=== PATIENT | male | born 1945 | race Caucasian/White ===

== ENCOUNTER → 2017-09-02 15:47 | Outpatient (CLI) | payer MEDICARE, SELFPAY | PROVIDERS: Family Provider Family Medicine Geriatric Medicine; PCP Family Medicine Geriatric Medicine; Visit Provider Otolaryngology | DX: J03.90 Acute tonsillitis, unspecified (principal) | CPT/HCPCS: 87070; 87077 ==

== ENCOUNTER → 2017-09-22 17:33 | Outpatient (CLI) | payer MEDICARE, SELFPAY ==
--- NOTE | 2017-09-22 17:35 | CT_ITS ---
STUDY: CT SOFT TISSUE NECK WITH CONTRAST REASON FOR EXAM: Male, 72 years old. RT TONSIL NEOPLASM, HX-ZBIGNIEW CELL CANCER WITH RAD TX, CLEFT PALATE REPAIR, HX-TIA, HTN. RADIATION DOSAGE (If Supplied By Facility): CTDIvol = ( 22.65 ) mGy, DLP = ( 752.42 ) mGycm TECHNIQUE: The patient was scanned in a multi-detector CT scanner. High resolution transaxial imaging was performed following intravenous administration of 75 ml of Isovue 300 contrast material. Sagittal and coronal images were reconstructed. Individualized dose optimization techniques were used for this CT. COMPARISON: None. FINDINGS: Normal bilateral parotid glands. 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 Normal bilateral parapharyngeal spaces. Normal bilateral carotid spaces. Normal bilateral sublingual and submandibular glands and spaces. Normal visualized nasopharynx. Normal retropharyngeal space. Normal perivertebral space. There is heterogeneity and enlargement of the right tonsil in comparison with the left. The visualized tongue, tongue base and oropharynx are normal. The visualized cervical lymph nodes (levels I-) are within normal size limits, and maintain normal morphology. Normal epiglottis, bilateral vallecula. The pre-epiglottic and paraglottic adipose spaces are normal. Normal visualized bilateral piriform sinuses, aryepiglottic folds, vocal cords, and arytenoid-cricoid articulations. Normal subglottic trachea. Normal bilateral lobes of the thyroid gland. Normal visualized pulmonary apices. Normal visualized paranasal sinuses. There is multilevel degenerative changes of the cervical spine. CT/Soft Tissue Neck WITH Contrast IMPRESSION: No lymphadenopathy. Enlargement of the right tonsillar pillar. Comparison with prior examinations and/or further evaluation with PET scan can be obtained. Electronically Signed: Alexx Cisneros MD at 15:56 EST Tel , Service support ,
[2017-09-22 17:46] LABS: CREATININE FINGERSTICK 1.2 mg/dL (0.70-1.30); EGFR FINGERSTICK > 60.0000 mL/min (>60)
== END ==
PROVIDERS: Family Provider Family Medicine Geriatric Medicine; PCP Family Medicine Geriatric Medicine; Visit Provider Otolaryngology
DX: D49.0 Neoplasm of unspecified behavior of digestive system (principal)
CPT/HCPCS: 70491; Q9967

== ENCOUNTER → 2017-09-25 11:28 | Outpatient (CLI) | payer MEDICARE, SELFPAY ==
[2017-09-24 10:04] VITALS: BMI 31.2
[2017-09-25 12:33] LABS: Absolute Lymphocyte Count 1.11 X10^3/ul (0.83-4.51); Absolute Neutrophil Count 8.4 X10^3/uL (2.0-7.7); Basophil# 0.04 X10^3/uL; Basophil% 0.4 % (0-1); Eosinophil# 0.18 X10^3/uL; Eosinophils% 1.7 % (0-5); Hematocrit 42.3 % (40-54); Hemoglobin 14.1 g/dl (13.0-16.5); Lymphocyte # 1.11 X10^3/ul (4.0); Lymphocyte % 10.4 % (19-41); Mean Corp Hgb Conc 33.3 g/gl (32-36); Mean Corpuscular Hgb 30.1 pg (27.0-32.0); Mean Corpuscular Volume 90.2 fL (80-94); Mean Platelet Vol. 8.9 fl (6.2-12.0); Monocyte# 0.77 X10^3/uL; Monocyte% 7.2 % (0-10); Neutrophil # 8.41 X10^3/uL (2.7-7.7); Neutrophil % 79.1 % (47-70); Platelet Count 177 K/mm3 (150-450); RBC Distribution Width CV 16.6 % (11.6-14.6); RBC Distribution Width SD 54.8 fl (35.1-43.9); Red Blood Count 4.69 M/mm3 (4.6-6.2); White Blood Count 10.6 K/mm3 (4.4-11.0)
[2017-09-25 12:45] LABS: POSITIVE COUNT NO; POSITIVE DIFFERENTIAL NO; POSITIVE MORPHOLOGY NO
[2017-09-25 13:02] LABS: Anion Gap 6 (5-15); BUN 29 mg/dL (7-18); BUN/Creat Ratio 21.8 RATIO (10-20); Calcium,Total 9.2 mg/dL (8.5-10.1); Chloride 108 mmol/L (98-107); Creatinine, Serum 1.33 mg/dL (0.70-1.30); EST Glomerular Filtration Rate 56 mL/min (>60); Est Glom Filt Rate - Afr Amer 68 mL/min (>60); Glucose 110 mg/dL (74-106); Potassium 4.7 mmol/L (3.5-5.1); Sodium Level 139 mmol/L (136-145)
== END ==
PROVIDERS: Family Provider Family Medicine Geriatric Medicine; PCP Family Medicine Geriatric Medicine; Visit Provider Otolaryngology
DX: Z01.818 Encounter for other preprocedural examination (principal)
CPT/HCPCS: 36415; 80048; 85025

== ENCOUNTER → 2017-09-28 15:52 | Outpatient (CLI) | payer MEDICARE, SELFPAY ==
[2017-09-24 10:04] VITALS: BMI 31.2
--- NOTE | 2017-09-28 | IMM_PTH ---
PATIENT: ASA GOINS LOC: [facility] U#:[id number] AGE/SX: 80/M ROOM: RE09/28/[address]: Dr. Jay Garcia MD : 1945 BED: DIS: SPEC #: [id number] RECD: 09/30/17 16:40 STATUS: RAN REQ #: [id number] MINA: 09/28/17 00:[address]: Jay Garcia DEPT: IMMUNOHISTOCHEMISTRY RECD BY: Macrina Garcia ENTERED: 09/30/17 16:42 SP TYPE: IMMUNO OTHR DR: Dr. Garrett Hernandez MD Tissues: Tonsil, NOS Procedures: Synapto (add) NAPSIN A (add) BCL-2 (add) BCL-6 (add) CD10 (add) CD20 (add) CD23 (add) CD3 (add) CD30 (add) CD43 (add) CD45 (add) CD5 (add) CD56 (add) CD79A (add) CHROMO (add) CK20 (add) CK7 (add) CK8 (add) CYCLIN (add) KI-67 (add) TTF1 (add) MUM1 (add) C-MYC (add) Pankeratin (initial) PHYSICIAN & [place] [id number] SPECIMEN INFORMATION: Tissue Source: Right tonsil, tonsillectomy Clinical Info: Right tonsillar hypertrophy Specimen Number: [id number] #[id number] CPT code: 43718, 16801 x23 METHODOLOGY: Deparaffinized sections of prefer/formalin-fixed tissue or PAP/DQ stained slides are incubated with monoclonal/polyclonal antibodies/oligonucleotide probes. Localization is made via biotin free immunoperoxidase method. Appropriate controls are performed and reacted as expected. Results on target cell population are indicated in the following table: RESULTS: ANTIBODY / CLONE RESULT Block #2 AE1-3 (AE1/AE3/PCK26) positive CK8 (83syjeF71) positive, perinuclear dot pattern CD3 (PS1) negative CD5 (SP10) negative CD20 (L26) negative CD43 (L60) negative CD45 (RP2/18) negative CD79a (11E3) negative CD10 (56C6) negative CD23 (1B12) negative CD30 (Riky-H2) negative BCL-2 (bcl-2/100/D5) positive BCL-6 (II253U/A8) negative Cyclin D1/BCL-1 (SP4) negative MUM1 (MRQ-43) negative C-MYC (Y69) negative Ki-67 (30-9) positive, high TTF-1 (8G7G3/1) negative Napsin A (Rabbit Polyclonal) negative CD56 (123C3.D5) positive Synapto (polyclonal) positive Chromo (LK2H10) positive CK7 (OV-TL12/30) negative CK20 (KS20.8) positive These tests were developed and their performance characteristics determined by [facility]. They may not have been cleared or approved by the U.S. Food and Drug Administration. The FDA has determined that such clearance or approval is not necessary. INTERPRETATION: Right tonsil, tonsillectomy: Consistent withl neuroendocrine carcinoma. Comment: IHC profile favors [place] cell carcinoma. This case has been reviewed in consultation with Dr. Randhawa who concurs with the above diagnosis. SJ:jabier 10/05/17
--- NOTE | 2017-09-28 | IMM_PTH ---
PATIENT: ASA GOINS LOC: [facility] U#:[id number] AGE/SX: 80/M ROOM: RE09/28/[address]: Dr. Jay Garcia MD : 1945 BED: DIS: SPEC #: [id number] RECD: 09/30/17 16:40 STATUS: RAN REQ #: [id number] MINA: 09/28/17 00:[address]: Jay Garcia DEPT: IMMUNOHISTOCHEMISTRY RECD BY: Macrina Garcia ENTERED: 09/30/17 16:42 SP TYPE: IMMUNO OTHR DR: Dr. Garrett Hernandez MD Tissues: Tonsil, NOS Procedures: Synapto (add) NAPSIN A (add) BCL-2 (add) BCL-6 (add) CD10 (add) CD20 (add) CD23 (add) CD3 (add) CD30 (add) CD43 (add) CD45 (add) CD5 (add) CD56 (add) CD79A (add) CHROMO (add) CK8 (add) CYCLIN (add) KI-67 (add) TTF1 (add) MUM1 (add) C-MYC (add) Pankeratin (initial) PHYSICIAN & [place] [address] SPECIMEN INFORMATION: Tissue Source: Right tonsil, tonsillectomy Clinical Info: Right tonsillar hypertrophy Specimen Number: [id number] #[id number] CPT code: 66938, 21681 x21 METHODOLOGY: Deparaffinized sections of prefer/formalin-fixed tissue or PAP/DQ stained slides are incubated with monoclonal/polyclonal antibodies/oligonucleotide probes. Localization is made via biotin free immunoperoxidase method. Appropriate controls are performed and reacted as expected. Results on target cell population are indicated in the following table: RESULTS: ANTIBODY / CLONE RESULT Block #2 AE1-3 (AE1/AE3/PCK26) positive CK8 (33sawwG82) positive CD3 (PS1) negative CD5 (SP10) negative CD20 (L26) negative CD43 (L60) negative CD45 (RP2/18) negative CD79a (11E3) negative CD10 (56C6) negative CD23 (1B12) negative CD30 (Riky-H2) negative BCL-2 (bcl-2/100/D5) positive BCL-6 (TW251B/A8) negative Cyclin D1/BCL-1 (SP4) negative MUM1 (MRQ-43) negative C-MYC (Y69) negative Ki-67 (30-9) positive, high TTF-1 (8G7G3/1) negative Napsin A (Rabbit Polyclonal) negative CD56 (123C3.D5) positive Synapto (polyclonal) positive Chromo (LK2H10) positive These tests were developed and their performance characteristics determined by [facility]. They may not have been cleared or approved by the U.S. Food and Drug Administration. The FDA has determined that such clearance or approval is not necessary. INTERPRETATION: Right tonsil, tonsillectomy: Poorly differentiated small cell neuroendocrine carcinoma. SJ:jabier 10/01/17
--- NOTE | 2017-09-28 11:15 | TONS_PTH ---
PATIENT: ASA GOINS LOC: [facility] U#:[id number] AGE/SX: 80/M ROOM: RE09/28/[address]: Dr. Jay Garcia MD : 1945 BED: DIS: SPEC #: [id number] RECD: 09/28/17 15:25 STATUS: RAN KAVITA #: [id number] MINA: 09/28/17 11:[address]: Jay Garcia DEPT: SURGICAL PATHOLOGY RECD BY: Tai Topete ENTERED: 09/29/17 09:51 SP TYPE: TONSILS OTHR DR: Dr. Garrett Hernandez MD [facility] Tissues: Tonsil, NOS Procedures: Special Stain Group II Surgery Specimen Level IV Diff Quik Stain (control) H & E (control) HEADER OPERATION: Right tonsillectomy PRE-OP DIAGNOSIS: Right tonsillar hypertrophy; evaluate for carcinoma and lymphoma TISSUE SUBMITTED: Right tonsil (in saline only) MICROSCOPIC DIAGNOSIS Right tonsil, tonsillectomy: Consistent with neuroendocrine carcinoma. See comment. SJ:rg 10/01/17 COMMENT The specimen is evaluated at the time of touch imprints by Dr. Callaway. Immediate Evaluation = Small round blue cells noted, differential diagnosis includes lymphoma versus small cell carcinoma. Immunohistochemistry ([id number]) supports the above diagnosis. The findings may represents [place] cell carcinoma. Flow cytometry from [facility] shows CD45 negative, CD56 positive large cells. Complete report is viewable in patient?s EMR. Please make reference to previous specimen ([id number]) right axillary mass, ultrasound-guided core biopsy with diagnosis of consistent with small cell carcinoma. The specimen was sent to 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 The slides of previous case [id number] are reviewed and previous case and current case show similar morphology and immunohistochemical profile. Case has been reviewed in consultation with Dr. Randhawa who concurs with the above diagnosis. IDC:AM MICROSCOPIC DESCRIPTION Slides are reviewed. GROSS DESCRIPTION Received is one container labeled with the patient's name and designated right tonsil (in saline only). The specimen consists of an ovoid piece of rdz-pink, lobulated soft tissue consistent with tonsil tissue measuring 4 x 4 x 2 cm. Serial sections reveal rdz, fleshy cut surfaces. A section is submitted for flow cytometry study. Four touch imprints are prepared, two stained with Diff-Quick and two stained with H?&?E stain. The entire specimen is submitted in five cassettes. / SJ:rg 09/29/17 TC:0 CPT: 47780, 39610 ADDENDUM ADDENDUM ADDENDUM ADDENDUM ADDENDUM ADDENDUM ADDENDUM ADDENDUM ADDENDUM ADDENDUM ADDENDUM ADDENDUM 10/20/2017 11:52 ADDENDUM 10/20/2017 11:52 ADDENDUM 10/20/2017 11:52 ADDENDUM 10/20/2017 11:52 ADDENDUM 10/20/2017 11:52 Right tonsil, tonsillectomy: More than >95% of the specimen is involved by the tumor. The tumor measures ~4 cm in greatest dimension. The tumor is present at cauterized margin of the specimen adjacent to the skeletal muscle and minor salivary gland tissue. Most likely deep margin is positive for tumor. SJ:jabier 10/20/17 This case is discussed with Dr. Bauer on 10/20/17. Case has been reviewed in consultation with Dr. Randhawa who concurs with the above diagnosis. IDC:AM
--- NOTE | 2017-09-28 11:15 | TONS_PTH ---
PATIENT: ASA GOINS LOC: [facility] U#:[id number] AGE/SX: 80/M ROOM: RE09/28/[address]: Dr. Jay Garcia MD : 1945 BED: DIS: SPEC #: [id number] RECD: 09/28/17 15:25 STATUS: RAN KAVITA #: [id number] MINA: 09/28/17 11:[address]: Jay Garcia DEPT: SURGICAL PATHOLOGY RECD BY: Tai Topete ENTERED: 09/29/17 09:51 SP TYPE: TONSILS OTHR DR: Dr. Garrett Hernandez MD [facility] Tissues: Tonsil, NOS Procedures: Special Stain Group II Surgery Specimen Level IV Diff Quik Stain (control) H & E (control) HEADER OPERATION: Right tonsillectomy PRE-OP DIAGNOSIS: Right tonsillar hypertrophy; evaluate for carcinoma and lymphoma TISSUE SUBMITTED: Right tonsil (in saline only) MICROSCOPIC DIAGNOSIS Right tonsil, tonsillectomy: Poorly differentiated small cell neuroendocrine carcinoma. See comment. SJ:jabier 10/01/17 COMMENT The specimen is evaluated at the time of touch imprints by Dr. Callaway. Immediate Evaluation = Small round blue cells noted, differential diagnosis includes lymphoma versus small cell carcinoma. Immunohistochemistry ([id number]) supports the above diagnosis. Flow cytometry from [facility] shows CD45 negative, CD56 positive large cells. Complete report is viewable in patient?s EMR. Please make reference to previous specimen ([id number]) right axillary mass, ultrasound-guided core biopsy with diagnosis of consistent with small cell carcinoma. MICROSCOPIC DESCRIPTION Slides are reviewed. GROSS DESCRIPTION Received is one container labeled with the patient's name and designated right tonsil (in saline only). The specimen consists of an ovoid piece of rdz-pink, lobulated soft tissue consistent with lymph node tissue measuring 4 x 4 x 2 cm. Serial sections reveal rdz, fleshy cut surfaces. A section is submitted for flow cytometry study. Four touch imprints are prepared, two stained with Diff-Quick and two stained with H?&?E stain. The entire specimen is submitted in five cassettes. / MICHELLE:jabier 09/29/17 TC:0 CPT: 22152, 79399
== END ==
PROVIDERS: Family Provider Family Medicine Geriatric Medicine; PCP Family Medicine Geriatric Medicine; Visit Provider Otolaryngology
DX: J35.1 Hypertrophy of tonsils (principal)
CPT/HCPCS: 88304; 88305; 88313; 88341; 88342

== ENCOUNTER 2017-09-30 14:42 | Observation (INO) | payer MEDICARE, SELFPAY ==
[2017-09-24 10:04] VITALS: BMI 31.2
[2017-09-30 14:45] VITALS: BMI 30.2
[2017-09-30 15:03] VITALS: BP 148/89; PULSE 72; RESP 18; TEMP 36.7; O2SAT 98
--- NOTE | 2017-09-30 15:32 | ECHOD_ITS ---
Reason For Study: SYNCOPE Procedure This was a 2D Doppler, Color Flow transthoracic echocardiogram. Contrast injection was performed. The study was technically difficult. The exam was of poor technical quality due to poor acoustic windows. Exam performed portable in patient room. Left Ventricle Mild concentric left ventricular hypertrophy. The estimated ejection fraction is 65 %. Stage 1 diastolic dysfunction. No regional wall motion abnormalities noted. Right Ventricle Normal size and thickness. Normal systolic function. Atria Normal left atrium. Normal right atrium. Normal atrial septum. Mitral Valve The mitral valve is structurally normal. No prolapse or stenosis seen. Tricuspid Valve Normal tricuspid valve. Trivial tricuspid valve insufficiency. Right ventricular systolic pressure estimated to be 20 mmHg. Aortic Valve Trisinus/trileaflet aortic valve. Normal aortic valve. Pulmonic Valve Normal pulmonic valve. Great Vessels Normal aortic root. Normal arch. Normal inferior vena cava. Inferior vena cava collapse with sniff. Pericardium/Pleural No pericardial effusion. Medication Diluted definity 4ml given slow IV push to enhance endocardial definition. MMode/2D Measurements & Calculations LVIDd: 3.9 cm IVSd: 1.5 cm Ao root diam: 4.5 cm LVIDs: 2.6 cm LVPWd: 1.4 cm LA dimension: 3.3 cm FS: 34.0 % Doppler Measurements & Calculations MV E max lyly: 64.2 cm/sec Ao V2 max: 102.4 cm/sec LV V1 max: 92.2 cm/sec MV A max lyly: 74.1 cm/sec Ao max P.2 mmHg LV V1 max P.4 mmHg MV E/A: 0.87 PA V2 max: 106.7 cm/sec TR max lyly: 190.2 cm/sec TR max P.5 mmHg Interpretation Summary Mild concentric left ventricular hypertrophy. The estimated ejection fraction is 65 %. Stage 1 diastolic dysfunction. Trivial tricuspid valve insufficiency. Right ventricular systolic pressure estimated to be 20 mmHg. The study was technically difficult. There is no comparison study available. Contrast injection was performed. Ordering Physician: Elmo Roman Referring Physician: Garrett Hernandez Chi Performed By: Sari Avila RDCS, RVT
[2017-09-30 15:42] VITALS: PULSE 68
[2017-09-30] MEDS: 0.9% Normal Saline 1,000 ML 150 ML IV ×2 (16:07→23:06)
--- NOTE | 2017-09-30 16:35 | PCM.HP.STD ---
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 Garcia on 09/28/2017 presented following a syncopal episode. Patient patient did experience lightheadedness on the morning of his presentation. He apparently attributed to side effect of Percocet which was prescribed following his recent surgery. He apparently fell to the ground hitting his head. He managed to get up and called the squad and presented to [place] ED. He underwent subsequent workup including head CT which was negative for any intracranial bleed he however did experience a frontal subcutaneous hematoma patient was found to be orthostatic with acute kidney injury he however requested to be transferred to [facility] for management. Past Medical History Past Medical History (Chronic Problems): Chronic Problems (Last Updated 09/24/17 @ 10:08 by Luci Alberto RN) Harinder cell carcinoma (Chronic) Recurrent tonsillitis (Chronic) Essential (primary) hypertension (Chronic) BPH (benign prostatic hyperplasia) (Chronic) Allergies oxycodone [From OxyContin] Adverse Reaction (Severe, Verified 09/24/17 09:58) Other lethargic -sleepy Home Medications: Ambulatory Orders Medication Instructions Recorded Aspirin [Aspir-Low] 81 mg PO DAILY 12/08/16 Finasteride [Finasteride] 5 mg PO DAILY 12/08/16 Metoprolol Succinate [Toprol Xl] 25 mg PO DAILY 12/08/16 Omeprazole [Omeprazole] 10 mg PO DAILY 12/08/16 Pravastatin [Pravachol] 40 mg PO QHS 12/08/16 Valsartan [Diovan] 160 mg PO DAILY 12/08/16 Tamsulosin HCl [Flomax] 0.4 mg PO DAILY 12/10/16 Linacolotide [Linzess] 145 mcg PO DAILY 12/11/16 Sodium Chloride 0.65% [[place] Nasal 1 spray NASAL PRN PRN 09/30/17 Milligan] Smoking Status: Former smoker Review of Systems Constitutional: Denies: Anorexia, Chills, Fever, Night Sweats, Weight Change HEENT: Denies: Head Aches, Sinus Congestion, Sinus Drainage Cardiovascular: Reports: Light Headedness, Syncope. Denies: Chest Pain, Orthopnea, Palpitations, Paroxysmal Noc. Dyspnea Respiratory: Denies: Cough, Shortness of breath at rest, Shortness of breath upon exertion, Sputum production Gastrointestinal: Denies: Abdominal Pain, Hematemesis, Hematochezia, Nausea, Melena, Vomiting Genitourinary: Denies: Dysuria, Frequency, Hematuria, Urgency Musculoskeletal: Denies: Joint Pain, Joint Tenderness Skin: Denies: Rash Neurological: Denies: Focal weakness, Numbness, Tingling Psychiatric: Denies: Homicidal Ideations, Suicidal Ideations Hematologic/ Lymphatic: Denies: Easy Bruising, Easy Bleeding VTE Information - Inpt Only VTE Present on Admission: No VTE Mechan Device Prophylaxis: Knee High TACOS Hose VTE Pharm Prophylaxis ordered?: Yes Patient Problems: Active and Suspected Problems (Last Updated 09/24/17 @ 10:08 by Luci Alberto RN) HARINDER (acute kidney injury) (Acute) Syncope (Acute) Orthostatic hypotension (Acute) Objective: GENERAL: cooperative HEENT: Right frontal hematoma NECK; supple, normal thyroid, CHEST: Clear and to auscultation bilaterally, HEART: Regular S1 S2, no audible murmurs ABDOMEN: soft, normoactive bowel sounds, RECTAL: deferred EXTREMITIES: No edema, no clubbing, no cyanosis. 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, SKIN: Abrasions on left wrist and both knees - Physical Exam Vital Signs Temp Pulse Resp BP Pulse Ox 98.0 F 68 18 148/89 H 98 09/30/17 15:03 09/30/17 15:42 09/30/17 15:03 09/30/17 15:03 09/30/17 15:03 Oxygen Delivery Method Room Air Weight: 104 kg Body Mass Index (BMI) 30.2 Laboratory Tests Past 24 Hrs 09/30/17 09/30/17 16:30 16:30 Sodium Pending Potassium Pending Chloride Pending Carbon Dioxide Pending Anion Gap Pending BUN Pending Creatinine Pending Est GFR (MDRD) Af Amer Pending Est GFR (MDRD) Non-Af Pending BUN/Creatinine Ratio Pending Glucose Pending Calcium Pending Magnesium Pending Total Bilirubin Pending AST Pending ALT Pending Alkaline Phosphatase Pending Troponin I Pending Total Protein Pending Albumin Pending TSH Pending Assessment/Plan Active and Suspected Problems (Last Updated 09/24/17 @ 10:08 by Luci Alberto RN) HARINDER (acute kidney injury) (Acute) Syncope (Acute) Orthostatic hypotension (Acute) Patient is a 72-year-old gentleman admitted with syncopal episode 1. Syncopal episode suspected to be secondary to orthostatic hypotension: Patient has been admitted to monitored bed requested for every shift orthostatic checks continuous telemetry monitoring serial cardiac enzymes and electrolytes. Patient was also managed IV fluids 2. Acute kidney injury secondary to dehydration patient on fluids with monitoring of electrolyte 3. Recent tonsillectomy on 09/28/2017 4. History of medical cell carcinoma did complete radiation therapy at the [facility] 5. Hypertension with patient being orthostatic hypotensive his antihypertensive medications were adjusted accordingly 6. BPH patient is on Flomax 7. Obesity with BMI of 30.2 weight loss advised 8. DVT prophylaxis SC heparin Code Visit OBSV E&M: 55617 Initial observation care L3
--- NOTE | 2017-09-30 16:48 | HP.PCM_ITS ---
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 Garcia on 2017 presented following a syncopal episode. Patient patient did experience lightheadedness on the morning of his presentation. He apparently attributed to side effect of Percocet which was prescribed following his recent surgery. He apparently fell to the ground hitting his head. He managed to get up and called the squad and presented to [facility]. He underwent subsequent workup including head CT which was negative for any intracranial bleed he however did experience a frontal subcutaneous hematoma patient was found to be orthostatic with acute kidney injury he however requested to be transferred to [facility] for management. Past Medical History Past Medical History (Chronic Problems): Chronic Problems (Last Updated 09/24/17 @ 10:08 by Luci Alberto RN) Harinder cell carcinoma (Chronic) Recurrent tonsillitis (Chronic) Essential (primary) hypertension (Chronic) BPH (benign prostatic hyperplasia) (Chronic) Allergies oxycodone [From OxyContin] Adverse Reaction (Severe, Verified 09/24/17 09:58) Other lethargic -sleepy Home Medications: Ambulatory Orders Medication Instructions Recorded Aspirin [Aspir-Low] 81 mg PO DAILY 12/08/16 Finasteride [Finasteride] 5 mg PO DAILY 12/08/16 Metoprolol Succinate [Toprol Xl] 25 mg PO DAILY 12/08/16 Omeprazole [Omeprazole] 10 mg PO DAILY 12/08/16 Pravastatin [Pravachol] 40 mg PO QHS 12/08/16 Valsartan [Diovan] 160 mg PO DAILY 12/08/16 Tamsulosin HCl [Flomax] 0.4 mg PO DAILY 12/10/16 Linacolotide [Linzess] 145 mcg PO DAILY 12/11/16 Sodium Chloride 0.65% [[place] Nasal 1 spray NASAL PRN PRN 09/30/17 [place]] Smoking Status: Former smoker Review of Systems Constitutional: Denies: Anorexia, Chills, Fever, Night Sweats, Weight Change HEENT: Denies: Head Aches, Sinus Congestion, Sinus Drainage Cardiovascular: Reports: Light Headedness, Syncope. Denies: Chest Pain, Orthopnea, Palpitations, Paroxysmal Noc. Dyspnea Respiratory: Denies: Cough, Shortness of breath at rest, Shortness of breath upon exertion, Sputum production Gastrointestinal: Denies: Abdominal Pain, Hematemesis, Hematochezia, Nausea, Melena, Vomiting Genitourinary: Denies: Dysuria, Frequency, Hematuria, Urgency Musculoskeletal: Denies: Joint Pain, Joint Tenderness Skin: Denies: Rash Neurological: Denies: Focal weakness, Numbness, Tingling Psychiatric: Denies: Homicidal Ideations, Suicidal Ideations Hematologic/ Lymphatic: Denies: Easy Bruising, Easy Bleeding VTE Information - Inpt Only VTE Present on Admission: No VTE Mechan Device Prophylaxis: Knee High TACOS Hose VTE Pharm Prophylaxis ordered?: Yes Patient Problems: Active and Suspected Problems (Last Updated 09/24/17 @ 10:08 by Luci Alberto RN) HARINDER (acute kidney injury) (Acute) Syncope (Acute) Orthostatic hypotension (Acute) Objective: GENERAL: cooperative HEENT: Right frontal hematoma NECK; supple, normal thyroid, CHEST: Clear and to auscultation bilaterally, HEART: Regular S1 S2, no audible murmurs ABDOMEN: soft, normoactive bowel sounds, RECTAL: deferred EXTREMITIES: No edema, no clubbing, no cyanosis. 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, SKIN: Abrasions on left wrist and both knees - Physical Exam Vital Signs Temp Pulse Resp BP Pulse Ox 98.0 F 68 18 148/89 H 98 09/30/17 15:03 09/30/17 15:42 09/30/17 15:03 09/30/17 15:03 09/30/17 15:03 Oxygen Delivery Method Room Air Weight: 104 kg Body Mass Index (BMI) 30.2 Laboratory Tests Past 24 Hrs 09/30/17 09/30/17 16:30 16:30 Sodium Pending Potassium Pending Chloride Pending Carbon Dioxide Pending Anion Gap Pending BUN Pending Creatinine Pending Est GFR (MDRD) Af Amer Pending Est GFR (MDRD) Non-Af Pending BUN/Creatinine Ratio Pending Glucose Pending Calcium Pending Magnesium Pending Total Bilirubin Pending AST Pending ALT Pending Alkaline Phosphatase Pending Troponin I Pending Total Protein Pending Albumin Pending TSH Pending Assessment/Plan Active and Suspected Problems (Last Updated 09/24/17 @ 10:08 by Luci Alberto RN) HARINDER (acute kidney injury) (Acute) Syncope (Acute) Orthostatic hypotension (Acute) Patient is a 72-year-old gentleman admitted with syncopal episode 1. Syncopal episode suspected to be secondary to orthostatic hypotension: Patient has been admitted to monitored bed requested for every shift orthostatic checks continuous telemetry monitoring serial cardiac enzymes and electrolytes. Patient was also managed IV fluids 2. Acute kidney injury secondary to dehydration patient on fluids with monitoring of electrolyte 3. Recent tonsillectomy on 09/28/2017 4. History of medical cell carcinoma did complete radiation therapy at the [email or web address]] 5. Hypertension with patient being orthostatic hypotensive his antihypertensive medications were adjusted accordingly 6. BPH patient is on Flomax 7. Obesity with BMI of 30.2 weight loss advised 8. DVT prophylaxis SC heparin Code Visit OBSV E&M: 69361 Initial observation care L3
[2017-09-30 17:24] LABS: Bacteria 0 SEEN /hpf (None Seen); Mucous, Urine 0 SEEN /hpf (<or=2+); Red Blood Cells-Urine 0 SEEN /hpf (0-5); Squamous Epithelial Cells - UA 0 SEEN /hpf (0-5); White Blood Cells 0 SEEN /hpf (0-5)
[2017-09-30 17:26] LABS: Color, Urine Yellow (Yellow); Glucose, Dipstick Normal (Normal); Ketone-Dipstick Negative (Negative); Leukocyte Esterase-Dipstick Negative /ul (Negative); Nitrite-Dipstick Negative (Negative); Occult Blood-Urine Negative /ul (Negative); Protein-Dipstick Negative (Negative); Urine Bilirubin Dipstick Negative (Negative); Urine Clarity Clear (Clear); Urine Urobilinogen Normal (Normal)
[2017-09-30 17:47] LABS: ALB/GLOB Ratio 0.8 RATIO (0.9-2.4); AST(SGOT) 44 U/L (15-37); Alanine Aminotransfer ALT/SGPT 36 U/L (16-61); Albumin, Serum 3.2 g/dL (3.2-5.0); Alkaline Phosphatase 63 U/L (45-117); Anion Gap 12 (5-15); BUN 27 mg/dL (7-18); BUN/Creat Ratio 20.5 RATIO (10-20); Chloride 109 mmol/L (98-107); Creatinine, Serum 1.32 mg/dL (0.70-1.30); EST Glomerular Filtration Rate 57 mL/min (>60); Est Glom Filt Rate - Afr Amer 68 mL/min (>60); Estimated Creatinine Clearance 56.33 ml/min; Globulin 4.2 g/dL (2.2-4.2); Glucose 84 mg/dL (74-106); Magnesium 2.2 mg/dL (1.6-2.6); Potassium 4.5 mmol/L (3.5-5.1); Protein, Total 7.4 g/dL (6.4-8.2); Sodium Level 137 mmol/L (136-145)
[2017-09-30 17:58] LABS: Thyroid Stim Hormone (TSH) 1.68 uIU/mL (0.358-3.74)
[2017-09-30] MEDS: Pantoprazole Sodium 20 MG Tablet PO (18:39)
[2017-09-30] MEDS: Tamsulosin HCl 0.4 MG Capsule PO (18:39)
[2017-09-30] MEDS: Finasteride 5 MG Tablet PO (18:40)
--- NOTE | 2017-09-30 18:45 | NURSING ---
Patient informed this RN he was instructed by Dr Garcia not to take ASA for 2 weeks following surgery.
[2017-09-30 18:55] VITALS: PULSE 94
[2017-09-30 19:47] VITALS: PULSE 84
[2017-09-30] MEDS: Metoprolol(XL)Succ 25 MG Tablet PO (19:47)
[2017-09-30] MEDS: Acetaminophen 325 MG Tablet 650 MG PO (19:48)
[2017-09-30 20:43] VITALS: BP 150/84; PULSE 83; RESP 18; TEMP 36.6; O2SAT 94
[2017-09-30 21:41] LABS: Hematocrit 38.9 % (40-54); Hemoglobin 12.6 g/dl (13.0-16.5); Mean Corp Hgb Conc 32.4 g/gl (32-36); Mean Corpuscular Volume 89.4 fL (80-94); Platelet Count 179 K/mm3 (150-450); RBC Distribution Width CV 16.7 % (11.6-14.6); RBC Distribution Width SD 54.9 fl (35.1-43.9); Red Blood Count 4.35 M/mm3 (4.6-6.2); White Blood Count 9.7 K/mm3 (4.4-11.0)
[2017-09-30 21:42] LABS: Scan Indicated on CBC? Y/N NO
[2017-09-30] MEDS: Heparin Injection 5,000 UNITS/ML Syringe 5000 UNITS SC (21:51)
[2017-09-30] MEDS: Pravastatin 40 MG Tablet PO (21:51)
[2017-09-30 23:52] VITALS: PULSE 63
[2017-10-01] VITALS (9 sets, daily range): BP systolic 122–166; BP diastolic 71–91; PULSE 61–75; RESP 18; TEMP 36.6–36.7; O2SAT 95–100
[2017-10-01] MEDS: Acetaminophen 325 MG Tablet 650 MG PO ×2 (03:55→11:05)
[2017-10-01] MEDS: 0.9% Normal Saline 1,000 ML 150 ML IV ×2 (05:10→12:32)
[2017-10-01 06:02] LABS: Hematocrit 38.7 % (40-54); Hemoglobin 12.8 g/dl (13.0-16.5); Mean Corp Hgb Conc 33.1 g/gl (32-36); Mean Corpuscular Hgb 29.7 pg (27.0-32.0); Mean Corpuscular Volume 89.8 fL (80-94); Mean Platelet Vol. 9.3 fl (6.2-12.0); Platelet Count 189 K/mm3 (150-450); RBC Distribution Width CV 16.7 % (11.6-14.6); RBC Distribution Width SD 53.9 fl (35.1-43.9); Red Blood Count 4.31 M/mm3 (4.6-6.2); White Blood Count 8.6 K/mm3 (4.4-11.0)
[2017-10-01 06:03] LABS: Scan Indicated on CBC? Y/N NO
[2017-10-01 06:12] LABS: Anion Gap 6 (5-15); BUN 22 mg/dL (7-18); BUN/Creat Ratio 19.5 RATIO (10-20); Calcium,Total 8.3 mg/dL (8.5-10.1); Chloride 111 mmol/L (98-107); Creatinine, Serum 1.13 mg/dL (0.70-1.30); EST Glomerular Filtration Rate 68 mL/min (>60); Est Glom Filt Rate - Afr Amer 82 mL/min (>60); Glucose 117 mg/dL (74-106); Potassium 4.1 mmol/L (3.5-5.1); Sodium Level 140 mmol/L (136-145)
--- NOTE | 2017-10-01 10:22 | PCM.DC ---
- Discharge Diagnoses Current Active Problems: Current Active and Chronic Problems (Last Updated 09/24/17 @ 10:08 by Luci Alberto RN) [place] cell carcinoma (Chronic) Recurrent tonsillitis (Chronic) HARINDER (acute kidney injury) (Acute) Syncope (Acute) Orthostatic hypotension (Acute) Essential (primary) hypertension (Chronic) BPH (benign prostatic hyperplasia) (Chronic) You will use the following diet at home:: No restrictions Discharge Activity: May not drive while taking narcotic pain medications. Allergies/Adverse Reactions: Allergies oxycodone [From OxyContin] Adverse Reaction (Severe, Verified 09/24/17 09:58) Other lethargic -sleepy Medications to take at Discharge Aspirin [Aspir-Low] 81 mg PO DAILY 12/08/16 Finasteride 5 mg PO DAILY 12/08/16 Metoprolol Succinate [Toprol Xl] 25 mg PO DAILY 12/08/16 Omeprazole 10 mg PO DAILY 12/08/16 Pravastatin [Pravachol] 40 mg PO QHS 12/08/16 Valsartan [Diovan] 160 mg PO DAILY 12/08/16 Tamsulosin HCl [Flomax] 0.4 mg PO DAILY 12/10/16 Linacolotide [Linzess] 145 mcg PO DAILY 12/11/16 Sodium Chloride 0.65% [[place] Nasal [place]] 1 spray NASAL PRN PRN 09/30/17 Primary Care Physician: Garrett Hernandez Chi, MD [Primary Care Provider] - Please follow up with your Primary Care Physician in: in 5-7 days Proposed Discharge Date: 10/01/17
--- NOTE | 2017-10-01 10:24 | PCM.DC.SUM ---
Discharge Date and Diagnosis Date of Admission: 09/30/17 Date of Discharge: 10/01/17 - Primary Discharge Diagnosis Active and Suspected Problems (Last Updated 09/24/17 @ 10:08 by Luci Alberto RN) HARINDER (acute kidney injury) (Acute) Syncope (Acute) Orthostatic hypotension (Acute) - Secondary Discharge Diagnosis Chronic Problems (Last Updated 09/24/17 @ 10:08 by Luci Alberto RN) [place] cell carcinoma (Chronic) Recurrent tonsillitis (Chronic) Essential (primary) hypertension (Chronic) BPH (benign prostatic hyperplasia) (Chronic) Hospital Course and Treatment Imaging Results: Laboratory Tests 09/30/17 09/30/17 09/30/17 16:23 16:30 16:30 WBC RBC Hgb Hct MCV MCH MCHC RDW RDW Differential Plt Count MPV Sodium 137 Potassium 4.5 Chloride 109 H Carbon Dioxide 16.0 L Anion Gap 12 BUN 27 H Creatinine 1.32 H Estim Creat Clear Calc 56.33 Est GFR (MDRD) Af Amer 68 Est GFR (MDRD) Non-Af 57 L BUN/Creatinine Ratio 20.5 H Glucose 84 Calcium 9.0 Magnesium 2.2 Total Bilirubin 0.90 AST 44 H ALT 36 Alkaline Phosphatase 63 Troponin I < 0.02 Total Protein 7.4 Albumin 3.2 Globulin 4.2 Albumin/Globulin Ratio 0.8 L TSH 1.68 Urine Color Yellow Urine Clarity Clear Urine pH 6.0 Ur Specific [place] 1.010 Urine Protein Negative Urine Glucose (UA) Normal Urine Ketones Negative Urine Occult Blood Negative Urine Nitrite Negative Urine Bilirubin Negative Urine Urobilinogen Normal Ur Leukocyte Esterase Negative Urine RBC 0 SEEN Urine WBC 0 SEEN Ur Squamous Epith Cells 0 SEEN Urine Bacteria 0 SEEN Urine Mucus 0 SEEN 09/30/17 09/30/17 09/30/17 21:00 21:00 23:01 WBC 9.7 RBC 4.35 L Hgb 12.6 L Hct 38.9 L MCV 89.4 MCH 29.0 MCHC 32.4 RDW 16.7 H RDW Differential 54.9 H Plt Count 179 MPV 9.0 Sodium Potassium Chloride Carbon Dioxide Anion Gap BUN Creatinine Estim Creat Clear Calc Est GFR (MDRD) Af Amer Est GFR (MDRD) Non-Af BUN/Creatinine Ratio Glucose Calcium Magnesium Total Bilirubin AST ALT Alkaline Phosphatase Troponin I < 0.02 < 0.02 Total Protein Albumin Globulin Albumin/Globulin Ratio TSH Urine Color Urine Clarity Urine pH Ur Specific [place] Urine Protein Urine Glucose (UA) Urine Ketones Urine Occult Blood Urine Nitrite Urine Bilirubin Urine Urobilinogen Ur Leukocyte Esterase Urine RBC Urine WBC Ur Squamous Epith Cells Urine Bacteria Urine Mucus 10/01/17 10/01/17 05:25 05:25 WBC 8.6 RBC 4.31 L Hgb 12.8 L Hct 38.7 L MCV 89.8 MCH 29.7 MCHC 33.1 RDW 16.7 H RDW Differential 53.9 H Plt Count 189 MPV 9.3 Sodium 140 Potassium 4.1 Chloride 111 H Carbon Dioxide 23.0 Anion Gap 6 BUN 22 H Creatinine 1.13 Estim Creat Clear Calc 65.80 Est GFR (MDRD) Af Amer 82 Est GFR (MDRD) Non-Af 68 BUN/Creatinine Ratio 19.5 Glucose 117 H Calcium 8.3 L Magnesium Total Bilirubin AST ALT Alkaline Phosphatase Troponin I < 0.02 Total Protein Albumin Globulin Albumin/Globulin Ratio TSH Urine Color Urine Clarity Urine pH Ur Specific [place] Urine Protein Urine Glucose (UA) Urine Ketones Urine Occult Blood Urine Nitrite Urine Bilirubin Urine Urobilinogen Ur Leukocyte Esterase Urine RBC Urine WBC Ur Squamous Epith Cells Urine Bacteria Urine Mucus Summary of Care Provided: Patient is a 72-year-old gentleman admitted with syncopal episode 1. Syncopal episode suspected to be secondary to orthostatic hypotension: Patient has been admitted to monitored bed requested for every shift orthostatic checks continuous telemetry monitoring serial cardiac enzymes and electrolytes. Patient was also managed IV fluids. Patient condition did resolve. Echo demonstrated stage I diastolic dysfunction with ejection fraction of 60%. 2. Acute kidney injury secondary to dehydration patient on fluids with monitoring of electrolyte 3. Recent tonsillectomy on 09/28/2017 4. History of medical cell carcinoma did complete radiation therapy at the [facility] 5. Hypertension with patient being orthostatic hypotensive his antihypertensive medications were adjusted accordingly 6. BPH patient is on Flomax 7. Obesity with BMI of 30.2 weight loss advised 8. DVT prophylaxis SC heparin Discharge Diet: No Restrictions Discharge Activity: May not drive while taking narcotic pain medications. Home Medications: Medications to take at Discharge Aspirin [Aspir-Low] 81 mg PO DAILY 12/08/16 Finasteride 5 mg PO DAILY 12/08/16 Metoprolol Succinate [Toprol Xl] 25 mg PO DAILY 12/08/16 Omeprazole 10 mg PO DAILY 12/08/16 Pravastatin [Pravachol] 40 mg PO QHS 12/08/16 Valsartan [Diovan] 160 mg PO DAILY 12/08/16 Tamsulosin HCl [Flomax] 0.4 mg PO DAILY 12/10/16 Linacolotide [Linzess] 145 mcg PO DAILY 12/11/16 Sodium Chloride 0.65% [[place] Nasal [place]] 1 spray NASAL PRN PRN 09/30/17 Primary Care Physician: Garrett Hernandez Chi, MD [Primary Care Provider] - Please follow up with your Primary Care Physician in: in 5-7 days Disposition: Home Minutes spent on discharge:: 35 Patient Condition:: Stable Meaningful Use Info Meaningful Use Diagnoses (Choose all that apply): None applicable Code Visit OBSV E&M: 82326 Observation care discharge
[2017-10-01] MEDS: Tamsulosin HCl 0.4 MG Capsule PO (10:56)
[2017-10-01] MEDS: Pantoprazole Sodium 20 MG Tablet PO (10:56)
[2017-10-01] MEDS: Finasteride 5 MG Tablet PO (10:57)
[2017-10-01] MEDS: Heparin Injection 5,000 UNITS/ML Syringe 5000 UNITS SC (10:58)
[2017-10-01] MEDS: Metoprolol(XL)Succ 25 MG Tablet PO (11:00)
== END 2017-10-01 10:23 | disposition home or self-care (01) ==
PROVIDERS: Admitting Provider Internal Medicine; Family Provider Family Medicine Geriatric Medicine; PCP Family Medicine Geriatric Medicine; Visit Provider Internal Medicine
DX: I95.1 Orthostatic hypotension (principal); N17.9 Acute kidney failure, unspecified; N40.0 Benign prostatic hyperplasia without lower urinary tract symptoms; I10 Essential (primary) hypertension; Z85.821 Personal history of Merkel cell carcinoma; E66.9 Obesity, unspecified; Z68.30 Body mass index [BMI] 30.0-30.9, adult; Z71.3 Dietary counseling and surveillance; Z92.3 Personal history of irradiation; Z79.82 Long term (current) use of aspirin; Z79.899 Other long term (current) drug therapy; Z87.891 Personal history of nicotine dependence; E86.0 Dehydration
CPT/HCPCS: 36415; 80048; 80053; 81001; 83735; 84443; 84484; 85027; 93306; 96360; 96361; 96372; 99218; J7030; Q9957; A4216; C8929; G0378; G0379

== ENCOUNTER → 2017-10-13 14:36 | Outpatient (CLI) | payer MEDICARE, SELFPAY ==
[2017-09-24 10:04] VITALS: BMI 31.2
[2017-10-13 15:11] LABS: Absolute Lymphocyte Count 1.13 X10^3/ul (0.83-4.51); Absolute Neutrophil Count 7.6 X10^3/uL (2.0-7.7); Basophil# 0.02 X10^3/uL; Basophil% 0.2 % (0-1); Eosinophil# 0.08 X10^3/uL; Eosinophils% 0.8 % (0-5); Hematocrit 37.8 % (40-54); Hemoglobin 12.6 g/dl (13.0-16.5); Lymphocyte # 1.13 X10^3/ul (4.0); Lymphocyte % 11.6 % (19-41); Mean Corp Hgb Conc 33.3 g/gl (32-36); Mean Corpuscular Hgb 30.2 pg (27.0-32.0); Mean Corpuscular Volume 90.6 fL (80-94); Mean Platelet Vol. 9.2 fl (6.2-12.0); Monocyte# 0.81 X10^3/uL; Monocyte% 8.3 % (0-10); Neutrophil # 7.61 X10^3/uL (2.7-7.7); Neutrophil % 78.4 % (47-70); Platelet Count 207 K/mm3 (150-450); RBC Distribution Width CV 16.4 % (11.6-14.6); RBC Distribution Width SD 53.3 fl (35.1-43.9); Red Blood Count 4.17 M/mm3 (4.6-6.2); White Blood Count 9.7 K/mm3 (4.4-11.0)
[2017-10-13 15:12] LABS: POSITIVE COUNT NO; POSITIVE DIFFERENTIAL NO; POSITIVE MORPHOLOGY NO
[2017-10-13 15:25] LABS: ALB/GLOB Ratio 0.9 RATIO (0.9-2.4); AST(SGOT) 39 U/L (15-37); Alanine Aminotransfer ALT/SGPT 58 U/L (16-61); Alkaline Phosphatase 59 U/L (45-117); Anion Gap 8 (5-15); BUN 20 mg/dL (7-18); BUN/Creat Ratio 17.1 RATIO (10-20); Calcium,Total 8.4 mg/dL (8.5-10.1); Chloride 110 mmol/L (98-107); Creatinine, Serum 1.17 mg/dL (0.70-1.30); EST Glomerular Filtration Rate 65 mL/min (>60); Est Glom Filt Rate - Afr Amer 79 mL/min (>60); Globulin 3.4 g/dL (2.2-4.2); Glucose 94 mg/dL (74-106); Potassium 4.1 mmol/L (3.5-5.1); Protein, Total 6.4 g/dL (6.4-8.2); Sodium Level 143 mmol/L (136-145)
== END ==
PROVIDERS: Family Provider Family Medicine Geriatric Medicine; PCP Family Medicine Geriatric Medicine; Visit Provider Family Medicine Geriatric Medicine
DX: I10 Essential (primary) hypertension (principal); F52.8 Other sexual dysfunction not due to a substance or known physiological condition
CPT/HCPCS: 36415; 80053; 84403; 84443; 85025

== ENCOUNTER 2018-01-19 15:30 | Outpatient (RCR) | payer MEDICARE, SELFPAY ==
[2017-09-24 10:04] VITALS: BMI 31.2
--- NOTE | 2017-10-22 07:46 | HP.OTEVAL_ITS ---
Patient's Visit Information ASA GOINS is a 72 year old M, referred to Occupational Therapy by Mitch Bauer DO,, with a diagnosis of right UE lymphedema. Date of Evaluation: 10/21/17 Occupational Therapist: Azul Delgadillo, ESTEFANIA/Mta, CHT - Subjective Subjective: pt reports a complicated hx of Cancer-pt states he had sx January 06 and had 93 lymph nodes removed 2 positive- pt has had swelling in his right UE since. Pt is right handed. pt states he wears his compression sleeve with hand garment 20-30 mmHg . pt also reports he had a throat tumor that was removed by ENT. - Objective Objective/Observation: pt jenna with compression garment on right LE- it is poorly fitting sliding down his arm - allowing more compression at the elbow - so his forearm is filling up- forearm is firm to touch- hand grarment is causing swelling at pts MCPs- - ROM Shoulder: right shoulder limited with flex and external rotation Elbow: right WNL ROM Comments: pt demo with limted sholder flex- external rotation states he feels a pulling at his incision. - Lymphedema (Circumferential Measure) MCP: right 22cm left 23cm Wrist: right 20cm left 18cm Lower forearm: right 30cm left 20cm Largest forearm: right 36.5 left 29cm Elbow: right 34cm left 30cm Largest humerus: right 35cm left 31.5cm Axcillary: right 40cm left 34cm - Sensation Sensation Comments: denies - DASH-Disabilities of Arm, Shoulder& Hand DASH Sum: 62 - Goals Demonstrate a 20% reduction in edema by d/c: Yes Demonstrate adequate knowledge of self-bangaging by 1st week: Yes Demonstrate adequate knowledge of self-massage by 2nd week: Yes Demonstrate adequate knowledge skin care/prec by 2nd week: Yes Demonstrate adequate knowledge therapeutic exercises by d/c: Yes Select approp compression garment w/donning/care/wear by d/c: Yes - Rehabilitation General Assessment: pt jenna with compression garment on right LE- it is poorly fitting sliding down his arm - allowing more compression at the elbow - so his forearm is filling up- forearm is firm to touch- hand grarment is causing swelling at pts MCPs- pt would benefit from a increase in compression from 20- 30 mmHg to 30-40mmHg- for compression sleeve with silicone beaded top to assist in a decrease in the garment sliding down his arm. with use of a compression glove from DIP to forearm. would rec'd OT services 1-2x week for 4 weeks to work with decreassing pts limb size and ed. on mtg of lymphedema- pt would benefit from a home lympha press to assist with fluid mtg. Rehabilitation Potential: Good - Anticipated Interventions Anticipated Interventions: Education re Diagnosis, Manual Lymph Drainage, Education re Life-long lymphedema Management, Education re Self-Bandaging Techniques, Education re Skin Care and Precautions, Education re Self Massage Techniques, Education re Correct Donning Tech,Care&Wearing Sched Comp Garments, Caregiver Training - Visit Plan Frequency: 1-2x /Week Duration: 4 Weeks TEXT: Thank you for the opportunity to evaluate your patient. For Medicare and Medicare HMO plans, please review the plan of care and approve it. It will need to be FAXED BACK to us at [phone] for Medicare purposes. Please let me know if there are questions or concerns regarding this plan of care. Physician Signature: Date:
--- NOTE | 2018-01-19 15:54 | HP.OTDCSUM_ITS ---
HP - OT D/C Summary It has been my pleasure to treat ASA GOINS under orders from Mitch Bauer DO, for the diagnosis of right UE lymphedema for a total of 11 visit(s). Please see the following information for a summary of their discharge status. - Objective Objective/Function: right MCP 22cm. right wrist 19cm. right prox [id number] wrist. right Lower forearm 35. right UPper forearm 36. elbow 34cm. above elbow 36. axil 41 - Goals Patient Goals: Regain Mobility, Learn how to Manage Lymphedema, Learn how to Apply Compression Stockings Demonstrate a 20% reduction in edema by d/c: Yes Demonstrate adequate knowledge of self-bangaging by 1st week: Yes Demonstrate adequate knowledge of self-massage by 2nd week: Yes Demonstrate adequate knowledge skin care/prec by 2nd week: Yes Demonstrate adequate knowledge therapeutic exercises by d/c: Yes Select approp compression garment w/donning/care/wear by d/c: Yes - Plan Plan: D/C - D/C Information Discharge Comments: pt arrives to last session demo a reduction in right UE and use of compression garments- pt did get the custom compression sleeve- and pt was ed. on possible need of custom long glove to elbow to assist with circulation- pt demo understanding - pt has met functional goals and is currently d/c from OT at this time. If there are questions or concerns regarding this patient's occupational therapy , please fell free to call me at [phone]. Thank you for the referral of this patient. Sincerely, Azul Delgadillo, OTR/L, CHT
== END 2018-01-19 19:00 | disposition home or self-care (01) ==
LOC: OT 15:30
PROVIDERS: Family Provider Family Medicine Geriatric Medicine; PCP Family Medicine Geriatric Medicine; Visit Provider Student in an Organized Health Care Education/Training Program
DX: I89.0 Lymphedema, not elsewhere classified (principal)
CPT/HCPCS: 97140; 97166; 97168; 97530; G8987; G8988

== ENCOUNTER → 2018-04-28 10:51 | Outpatient (CLI) | payer MEDICARE, SELFPAY ==
[2017-09-24 10:04] VITALS: BMI 31.2
[2018-04-28 12:52] LABS: Absolute Lymphocyte Count 0.84 X10^3/ul (0.83-4.51); Absolute Neutrophil Count 6.1 X10^3/uL (2.0-7.7); Basophil# 0.04 X10^3/uL; Basophil% 0.5 % (0-1); Eosinophil# 0.15 X10^3/uL; Eosinophils% 1.9 % (0-5); Hematocrit 43.3 % (40-54); Hemoglobin 13.9 g/dl (13.0-16.5); Lymphocyte # 0.84 X10^3/ul (4.0); Lymphocyte % 10.6 % (19-41); Mean Corp Hgb Conc 32.1 g/gl (32-36); Mean Corpuscular Hgb 29.1 pg (27.0-32.0); Mean Corpuscular Volume 90.6 fL (80-94); Monocyte# 0.76 X10^3/uL; Monocyte% 9.5 % (0-10); Neutrophil # 6.14 X10^3/uL (2.7-7.7); Neutrophil % 77.1 % (47-70); Platelet Count 151 K/mm3 (150-450); RBC Distribution Width SD 49.4 fl (35.1-43.9); Red Blood Count 4.78 M/mm3 (4.6-6.2)
[2018-04-28 12:56] LABS: POSITIVE COUNT NO; POSITIVE DIFFERENTIAL NO; POSITIVE MORPHOLOGY NO
[2018-04-28 13:00] LABS: ALB/GLOB Ratio 0.9 RATIO (0.9-2.4); AST(SGOT) 14 U/L (15-37); Alanine Aminotransfer ALT/SGPT 21 U/L (16-61); Albumin, Serum 3.2 g/dL (3.2-5.0); Alkaline Phosphatase 62 U/L (45-117); Anion Gap 9 (5-15); BUN 22 mg/dL (7-18); BUN/Creat Ratio 16.4 RATIO (10-20); Calcium,Total 8.8 mg/dL (8.5-10.1); Chloride 108 mmol/L (98-107); Creatinine, Serum 1.34 mg/dL (0.70-1.30); EST Glomerular Filtration Rate 55 mL/min (>60); Est Glom Filt Rate - Afr Amer 67 mL/min (>60); Globulin 3.7 g/dL (2.2-4.2); Glucose 108 mg/dL (74-106); Potassium 4.9 mmol/L (3.5-5.1); Protein, Total 6.9 g/dL (6.4-8.2); Sodium Level 141 mmol/L (136-145); Thyroid Stim Hormone (TSH) 2.42 uIU/mL (0.358-3.74)
== END ==
PROVIDERS: Family Provider Family Medicine Geriatric Medicine; PCP Family Medicine Geriatric Medicine; Visit Provider Family Medicine Geriatric Medicine
DX: I10 Essential (primary) hypertension (principal); E55.9 Vitamin D deficiency, unspecified; F52.8 Other sexual dysfunction not due to a substance or known physiological condition
CPT/HCPCS: 36415; 80053; 82306; 84403; 84443; 85025

== ENCOUNTER → 2018-05-07 10:25 | Outpatient (CLI) | payer MEDICARE, SELFPAY ==
[2017-09-24 10:04] VITALS: BMI 31.2
[2018-05-07 12:41] LABS: PSA,Total- Diagnostic 2.38 ng/mL (0.0-4.0)
== END ==
PROVIDERS: Family Provider Family Medicine Geriatric Medicine; PCP Family Medicine Geriatric Medicine; Referring Provider Nurse Practitioner Adult Health; Visit Provider Nurse Practitioner Adult Health
DX: R97.20 Elevated prostate specific antigen [PSA] (principal)
CPT/HCPCS: 36415; 84153

== ENCOUNTER 2018-09-03 08:27 | Inpatient (IN) | payer MEDICARE, SELFPAY ==
[2017-09-24 10:04] VITALS: BMI 31.2
[2018-09-03] VITALS (11 sets, daily range): BP systolic 106–140; BP diastolic 54–72; PULSE 67–107; RESP 16–18; TEMP 36.3–37.4; O2SAT 93–96; BMI 31.6; BMI 31.7
--- NOTE | 2018-09-03 09:00 | US_ITS ---
STUDY: ABDOMINAL ULTRASOUND - RIGHT UPPER QUADRANT REASON FOR VISIT: Male, 73 years old. Abdominal pain. TECHNIQUE: Ultrasound evaluation of the right upper quadrant was performed with real-time and static esparza-scale imaging. TECHNICAL QUALITY: Adequate. COMPARISON: None. FINDINGS: Liver: The liver is slightly enlarged and measures 18.7 cm. There is increased echogenicity consistent with fatty infiltration. The bile ducts are within normal limits. There is hepatic color flow. The direction of portal flow is hepatopetal. There is no demonstrated mass lesion. Gallbladder: Normal distended gallbladder. The gallbladder wall is thickened and measures 7.0 mm. There is a positive sonographic Morales's sign. There is pericholecystic fluid. Sludge is seen within the gallbladder lumen. I cannot rule out tiny gallstones. Common Bile Duct (C.B.D.): The common bile duct measures 6.0 mm. Pancreas: There is nonvisualization of the pancreas due to overlying bowel gas. Right Kidney: Normal size of the right kidney. The right kidney measures 11.5 cm x 4.8 cm x 5.0 cm. Normal renal cortex. The right cortex measures 1.2 cm. There is no demonstrated renal mass or cyst. There is no right hydronephrosis. US/Gallbladder IMPRESSION: Mildly enlarged fatty infiltration of the liver. Sludge is seen within the gallbladder lumen. Cannot rule out tiny gallstones. Thickened gallbladder wall and small amount of pericholecystic fluid. Electronically Signed: Mateo Pickard MD at 11:29 EST , Service support ,
--- NOTE | 2018-09-03 09:06 | HP.PCM_ITS ---
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 Patient pain started around p.m. on the night prior to her admission. Pain was located in the right upper quadrant described as colicky. Patient also did experience nausea but denied any vomiting. Patient did not experience any diarrhea. In view of the persistent nature of his symptoms patient presented to the [facility] where CT of the abdomen obtained demonstrated wall thickening and irregularity involving the gallbladder with high suspicion for cholecystitis. Patient was also found to have slightly elevated AST and ALT bilirubin and alkaline phosphatase were within normal limits lactic acid was 3.3. 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 HTN (hypertension) I10 Allergies oxycodone [From OxyContin] Adverse Reaction (Severe, Verified 09/24/17 09:58) Other lethargic -sleepy Home Medications: Ambulatory Orders Medication Instructions Recorded Aspirin [Aspir-Low] 81 mg PO DAILY 12/08/16 Finasteride 5 mg PO DAILY 12/08/16 Metoprolol Succinate [Toprol Xl] 25 mg PO DAILY 12/08/16 Omeprazole 10 mg PO DAILY 12/08/16 Pravastatin [Pravachol] 40 mg PO QHS 12/08/16 Valsartan [Diovan] 160 mg PO QHS 12/08/16 Tamsulosin HCl [Flomax] 0.4 mg PO DAILY 12/10/16 Linacolotide [Linzess] 145 mcg PO DAILY 12/11/16 Sodium Chloride 0.65% [[place] Nasal 1 spray NASAL PRN PRN 09/30/17 [place]] Surgical History: Surgical History (Last Updated 09/24/17 @ 10:08 by Luci Alberto RN) 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 Dyspnea Respiratory: Denies: Cough, Shortness of breath at rest, Shortness of breath upon exertion, Sputum production Gastrointestinal: Reports: Abdominal Pain, Nausea. Denies: Hematemesis, Hematochezia, Melena Genitourinary: Denies: Dysuria, Frequency, Hematuria, Urgency Musculoskeletal: Denies: Joint Pain, Joint Tenderness Skin: Denies: Rash Neurological: Denies: Focal weakness, Numbness, Tingling Psychiatric: Denies: Homicidal Ideations, Suicidal Ideations Hematologic/ Lymphatic: Denies: Easy Bruising, Easy Bleeding VTE Information - Inpt Only VTE Present on Admission: No VTE Mechan Device Prophylaxis: Knee High TACOS Hose VTE Pharm Prophylaxis ordered?: Yes Patient Problems: Active and Suspected Problems (Last Updated 09/24/17 @ 10:08 by Luci Alberto, ELLE) Dyslipidemia (Acute) Abdominal pain (Acute) Acute cholecystitis (Acute) Objective: GENERAL: cooperative HEENT: Atraumatic; moist oral mucosa EYES; Anicteric, Normal Conjunctiva NECK; supple, normal thyroid, no distended JVD. RESPIRATORY: Diminished to auscultation bilaterally, CARDIOVASCULAR: Regular S1 S2, no audible murmurs GI: Right upper quadrant tenderness : No Renal angle tenderness; EXTREMITIES: No edema, no clubbing, no cyanosis. MUSCULOSKELETAL: No Joint Tenderness; no muscle waisting NEURO: Awake; no lateralizing signs. SKIN: No Rash PSYCH; Normal affect - Physical Exam Vital Signs Temp Pulse Resp BP Pulse Ox 97.3 F L 107 H 18 134/72 H 95 09/03/18 08:38 09/03/18 08:38 09/03/18 08:38 09/03/18 08:38 09/03/18 08:38 Oxygen Delivery Method Room Air Weight: 109.004 kg Body Mass Index (BMI) 31.6 Assessment/Plan All Active Problems (Last Updated 09/24/17 @ 10:08 by Luci Alberto RN) Neuroendocrine carcinoma (Resolved) HARINDER (acute kidney injury) (Resolved) Syncope (Resolved) Orthostatic hypotension (Resolved) Dyslipidemia (Acute) Abdominal pain (Acute) Acute cholecystitis (Acute) Patient is a 73-year-old gentleman presented with abdominal pain CT of the abdomen demonstrated wall thickening and irregularity involving the gallbladder. 1. Severe sepsis secondary to acute cholecystitis/acute cholangitis: Patient has been admitted to regular nursing floor. Started on broad-spectrum antibiotics with Zosyn. Gallbladder ultrasound ordered for subsequent evaluation. Consult placed to general surgery Dr. Annamarie Lyon the general surgeon on on-call notified patient has also been seen by Dr. Terrazas with general surgery with plans for patient to undergo ERCP 2. 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 3. Hypertension-blood pressure controlled, home medications continued with dose adjustment as needed 4. Dyslipidemia-patient is on statin therapy, continued at home dose 5. BPH patient is on Flomax 6. Obesity with BMI of 31.7 weight loss advised 7. DVT prophylaxis SC Lovenox Code Visit Inpatient E&M: 88109 Init Hosp L3
[2018-09-03 09:41] LABS: Absolute Lymphocyte Count 0.12 X10^3/ul (0.83-4.51); Basophil# 0.01 X10^3/uL; Basophil% 0.1 % (0-1); Eosinophil# 0.01 X10^3/uL; Eosinophils% 0.1 % (0-5); Hematocrit 42.7 % (40-54); Lymphocyte # 0.12 X10^3/ul (4.0); Lymphocyte % 1.2 % (19-41); Mean Corp Hgb Conc 32.8 g/gl (32-36); Mean Corpuscular Hgb 29.2 pg (27.0-32.0); Mean Corpuscular Volume 89.1 fL (80-94); Mean Platelet Vol. 9.1 fl (6.2-12.0); Monocyte# 0.44 X10^3/uL; Monocyte% 4.5 % (0-10); Neutrophil # 9.03 X10^3/uL (2.7-7.7); Neutrophil % 93.4 % (47-70); Platelet Count 125 K/mm3 (150-450); RBC Distribution Width CV 14.7 % (11.6-14.6); Red Blood Count 4.79 M/mm3 (4.6-6.2); White Blood Count 9.7 K/mm3 (4.4-11.0)
[2018-09-03 09:42] LABS: Differential Indicated SCAN CRITERIA MET; POSITIVE COUNT NO; POSITIVE DIFFERENTIAL YES; POSITIVE MORPHOLOGY NO
[2018-09-03 09:55] LABS: International Normalized Ratio 1.2; Partial Thromboplast Time 26.2 Seconds (24.1-36.2); Prothrombin Time (Protime)PT. 14.9 SECONDS (11.7-14.9)
[2018-09-03 09:56] LABS: ALB/GLOB Ratio 0.8 RATIO (0.9-2.4); AST(SGOT) 587 U/L (15-37); Alanine Aminotransfer ALT/SGPT 380 U/L (16-61); Albumin, Serum 2.6 g/dL (3.2-5.0); Alkaline Phosphatase 140 U/L (45-117); Anion Gap 12 (5-15); BUN 18 mg/dL (7-18); BUN/Creat Ratio 12.7 RATIO (10-20); Bilirubin, Direct 1.56 mg/dL (0.00-0.30); Calcium,Total 8.2 mg/dL (8.5-10.1); Chloride 112 mmol/L (98-107); Creatinine, Serum 1.42 mg/dL (0.70-1.30); EST Glomerular Filtration Rate 52 mL/min (>60); Est Glom Filt Rate - Afr Amer 63 mL/min (>60); Estimated Creatinine Clearance 51.58 ml/min; Globulin 3.2 g/dL (2.2-4.2); Glucose 159 mg/dL (74-106); Lipase 119 U/L (73-393); Magnesium 1.7 mg/dL (1.6-2.6); Potassium 3.9 mmol/L (3.5-5.1); Protein, Total 5.8 g/dL (6.4-8.2); Sodium Level 143 mmol/L (136-145)
[2018-09-03 10:06] LABS: Differential Comment SCANNED
[2018-09-03 10:21] LABS: Lactic Acid 3.5 mmol/L (0.4-2.0)
--- NOTE | 2018-09-03 10:35 | PCM.CONS.GEN ---
Reason for Consult Date of Consultation: 09/03/18 History of Present Illness: The patient is a 73 year old M presented to the ER due to epigastric/right upper quadrant pain. Patient stated the discomfort started about 10 or 11:00 last night it did improve with flatus but then again did get worse around 1 AM he had increased right upper quadrant pain that he describes like a spasm at 10/10, patient did have nausea and vomiting. Patient denies any previous history of any abdominal pain after eating. Currently patient denies any pain or vomiting does have a little nausea. Patient CT abdomen pelvis was done which did show mildly thickened gallbladder/irregular and also called a 5 mm lung nodule. Patient's initial LFTs were only mildly elevated at 1.1 at [place] however repeat labs here do show increased total bili as well as further elevation of AST ALT and alk phos. Patient is currently getting an ultrasound of the gallbladder. Patient does have a past medical history of Harinder cell in his right axilla which was removed at [facility] in 2017. Patient did undergo radiation therapy and did have some lymphedema of his right arm postoperatively. In early 2018 patient did have some swelling of his right tonsil and was put on antibiotics however that did not improved with [address] Jasmine did remove his right tonsil which was also positive for neuroendocrine metastatic carcinoma. Patient is currently being followed at [facility] where he is on amino therapy trial Avelumab, which he gets every 2 weeks and his last dose was a week ago. Patient states he only has 3 more sessions left. 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 HTN (hypertension) I10 Allergies oxycodone [From OxyContin] Adverse Reaction (Severe, Verified 09/24/17 09:58) Other lethargic -sleepy Home Medications: Ambulatory Orders Medication Instructions Recorded Aspirin [Aspir-Low] 81 mg PO DAILY 12/08/16 Finasteride 5 mg PO DAILY 12/08/16 Metoprolol Succinate [Toprol Xl] 25 mg PO DAILY 12/08/16 Omeprazole 10 mg PO DAILY 12/08/16 Pravastatin [Pravachol] 40 mg PO QHS 12/08/16 Valsartan [Diovan] 160 mg PO QHS 12/08/16 Tamsulosin HCl [Flomax] 0.4 mg PO DAILY 12/10/16 Linacolotide [Linzess] 145 mcg PO DAILY 12/11/16 Sodium Chloride 0.65% [[place] Nasal 1 spray NASAL PRN PRN 09/30/17 [place]] Surgical History: Surgical History (Last Updated 09/24/17 @ 10:08 by Luci Alberto RN) 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 Surgical History: - - Right axillary dissection/resection for Harinder cell, Mohs procedure on upper lip, bilateral knees, right tonsillectomy Psychiatric History: No pertinent psych hx Smoking Status: Former smoker Alcohol: Occasional - *Family History Maternal Family History: Family History (Last Reviewed 09/03/18 @ 09:08 by Elmo Roman MD) Grandmother Uterine cancer Father Lung cancer Paternal Family History: Family History (Last Reviewed 09/03/18 @ 09:08 by Elmo Roman MD) Grandmother Uterine cancer Father Lung cancer Review of Systems Constitutional: Denies: Fever Eyes: Denies: Blurred vision HEENT: Denies: Difficulty Swallowing Cardiovascular: Denies: Chest Pain Respiratory: Denies: Shortness of breath at rest Gastrointestinal: Reports: Abdominal Pain, Nausea, Vomiting Genitourinary: Denies: Dysuria Skin: Reports: - - Lymphedema of right arm Psychiatric: Denies: Anxiety, Depression Patient Problems: Active and Suspected Problems (Last Updated 09/24/17 @ 10:08 by Luci Alberto RN) Dyslipidemia (Acute) Abdominal pain (Acute) Acute cholecystitis (Acute) - Physical Exam General: Alert, Oriented x3, Cooperative, No apparent distress HEENT: Atraumatic Cardiovascular: Tachycardic Abdomen: Soft, Non Tender, Non-Distended, Passing Flatus, Hernia - Reducible, umbilical Extremities: - - Edema right upper extremity Skin: No rashes Neurological: Cranial nerves II-XII grossly intact Psych/Mental Status: Normal Affect Vital Signs Temp Pulse Resp BP Pulse Ox 97.3 F L 107 H 18 134/72 H 95 09/03/18 08:38 09/03/18 08:38 09/03/18 08:38 09/03/18 08:38 09/03/18 08:38 Oxygen Delivery Method Room Air Weight: 240 lb 5 oz Body Mass Index (BMI) 31.6 Laboratory Tests Past 24 Hrs 09/03/18 09/03/18 09/03/18 09:25 09:25 09:25 WBC 9.7 RBC 4.79 Hgb 14.0 Hct 42.7 MCV 89.1 MCH 29.2 MCHC 32.8 RDW 14.7 H RDW Differential 48.0 H Plt Count 125 L MPV 9.1 Immature Gran % (Auto) 0.700 Neut % (Auto) 93.4 H Lymph % (Auto) 1.2 L [place] % (Auto) 4.5 Eos % (Auto) 0.1 Baso % (Auto) 0.1 Absolute Neuts (auto) 9.0 H Absolute Lymphs (auto) 0.12 L Total Counted Not Reportable Differential Comment SCANNED PT 14.9 INR 1.2 APTT 26.2 Sodium 143 Potassium 3.9 Chloride 112 H Carbon Dioxide 19.0 L Anion Gap 12 BUN 18 Creatinine 1.42 H Estim Creat Clear Calc 51.58 Est GFR (MDRD) Af Amer 63 Est GFR (MDRD) Non-Af 52 L BUN/Creatinine Ratio 12.7 Glucose 159 H Lactic Acid Calcium 8.2 L Magnesium 1.7 Total Bilirubin 2.40 H Direct Bilirubin 1.56 H AST 587 H ALT 380 H Alkaline Phosphatase 140 H Total Protein 5.8 L Albumin 2.6 L Globulin 3.2 Albumin/Globulin Ratio 0.8 L Lipase 119 09/03/18 09:25 WBC RBC Hgb Hct MCV MCH MCHC RDW RDW Differential Plt Count MPV Immature Gran % (Auto) Neut % (Auto) Lymph % (Auto) [place] % (Auto) Eos % (Auto) Baso % (Auto) Absolute Neuts (auto) Absolute Lymphs (auto) Total Counted Differential Comment PT INR APTT Sodium Potassium Chloride Carbon Dioxide Anion Gap BUN Creatinine Estim Creat Clear Calc Est GFR (MDRD) Af Amer Est GFR (MDRD) Non-Af BUN/Creatinine Ratio Glucose Lactic Acid 3.5 H Calcium Magnesium Total Bilirubin Direct Bilirubin AST ALT Alkaline Phosphatase Total Protein Albumin Globulin Albumin/Globulin Ratio Lipase Assessment/Plan All Active Problems (Last Updated 09/24/17 @ 10:08 by Luci Alberto RN) Neuroendocrine carcinoma (Resolved) HARINDER (acute kidney injury) (Resolved) Syncope (Resolved) Orthostatic hypotension (Resolved) Dyslipidemia (Acute) Abdominal pain (Acute) Acute cholecystitis (Acute) 73-year-old male with suspected acute cholecystitis, elevated liver functions, history of metastatic Harinder cell carcinoma 1. Continue n.p.o./IV fluids. Patient initial lactate slightly elevated at 3.1 at [place] it is slightly up currently at 3.5 we will give patient another bolus of IV fluids continue to monitor. 2. Acute cholecystitis, await ultrasound, CT abdomen pelvis did show thickening of the gallbladder wall also looks to have some biliary dilatation. Would plan for laparoscopic cholecystectomy after ERCP is completed unless the ultrasound shows anything that would be suspicious for any metastatic disease. 3. Elevated liver functions-Dr. Terrazas will see patient for an ERCP. 4. History of metastatic Harinder cell carcinoma-discussed with patient that if either an ultrasound or intraoperatively there is any concern for metastatic disease would not continue to pursue the surgery and would transfer the patient to [facility] for further evaluation. Patient was agreeable with plan. 5. Lung nodule [address] patient does not have previously documented lung nodules, his last PET scan was prior to his immunotherapy and I was planning to get one once he is completed his immunotherapy as well as get follow-up CAT scans which are scheduled for October 2018 at [facility]. Addendum: Ultrasound showed wall thickening and mild pericholecystic fluid, common bile duct 6 mm, sludge in the gallbladder and looks to be may be a polyp on the dependent wall. Discussed the procedure laparoscopic cholecystectomy with cholangiograms possible open with the patient in his and family. Including risk but not limited to bleeding, infection, bile leak which may require additional ERCP, retained sludge or stones which again may require additional ERCP, injury to the another organ including the bile ducts, small bowel which may require transfer to tertiary care facility, partial cholecystectomy if there is too much inflammation at the neck of the gallbladder, and anesthesia. All questions were answered to the patient and family satisfaction. No further questions at this time. Plan for a laparoscopic cholecystectomy with laminograms possible open at 8 AM 09/04/2018. Karen Haywood M.D. Pager: [phone] [facility] [address] [place] [address], Outpatient [place], [address] [place] [address] Office: [phone] Code Visit Inpatient E&M: 64401 Init Hosp L2
[2018-09-03] MEDS: 0.9% Normal Saline 1,000 ML 999 ML IV (10:38)
--- NOTE | 2018-09-03 10:39 | CON.PCM_ITS ---
Reason for Consult Date of Consultation: 09/03/18 History of Present Illness: The patient is a 73 year old M presented to the ER due to epigastric/right upper quadrant pain. Patient stated the discomfort started about 10 or 11:00 last night it did improve with flatus but then again did get worse around 1 AM he had increased right upper quadrant pain that he describes like a spasm at 10/10, patient did have nausea and vomiting. Patient denies any previous history of any abdominal pain after eating. Currently patient denies any pain or vomiting does have a little nausea. Patient CT abdomen pelvis was done which did show mildly thickened gallbladder/irregular and also called a 5 mm lung nodule. Renee ent's initial LFTs were only mildly elevated at 1.1 at [place] however repeat labs here do show increased total bili as well as further elevation of AST ALT and alk phos. Patient is currently getting an ultrasound of the gallbladder. Patient does have a past medical history of Harinder cell in his right axilla which was removed at [facility] in 2017. Patient did undergo radiation therapy and did have some lymphedema of his right arm postoperatively. In early 2018 patient did have some swelling of his right tonsil and was put on antibiotics however that did not improved with [address] Jasmine did remove his right tonsil which was also positive for neuroendocrine metastatic carcinoma. Patient is currently being followed at [facility] where he is on amino therapy trial Avelumab, which he gets every 2 weeks and his last dose was a week ago. Patient states he only has 3 more sessions left. 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 HTN (hypertension) I10 Allergies oxycodone [From OxyContin] Adverse Reaction (Severe, Verified 09/24/17 09:58) Other lethargic -sleepy Home Medications: Ambulatory Orders Medication Instructions Recorded Aspirin [Aspir-Low] 81 mg PO DAILY 05/08/17 Finasteride 5 mg PO DAILY 12/08/16 Metoprolol Succinate [Toprol Xl] 25 mg PO DAILY 12/08/16 Omeprazole 10 mg PO DAILY 12/08/16 Pravastatin [Pravachol] 40 mg PO QHS 12/08/16 Valsartan [Diovan] 160 mg PO QHS 12/08/16 Tamsulosin HCl [Flomax] 0.4 mg PO DAILY 12/10/16 Linacolotide [Linzess] 145 mcg PO DAILY 12/11/16 Sodium Chloride 0.65% [[place] Nasal 1 spray NASAL PRN PRN 09/30/17 [place]] Surgical History: Surgical History (Last Updated 09/24/17 @ 10:08 by Luci Alberto RN) 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 Surgical History: - - Right axillary dissection/resection for Harinder cell, Mohs procedure on upper lip, bilateral knees, right tonsillectomy Psychiatric History: No pertinent psych hx Smoking Status: Former smoker Alcohol: Occasional - *Family History Maternal Family History: Family History (Last Reviewed 09/03/18 @ 09:08 by Elmo Roman MD) Grandmother Uterine cancer Father Lung cancer Paternal Family History: Family History (Last Reviewed 09/03/18 @ 09:08 by Elmo Roman MD) Grandmother Uterine cancer Father Lung cancer Review of Systems Constitutional: Denies: Fever Eyes: Denies: Blurred vision HEENT: Denies: Difficulty Swallowing Cardiovascular: Denies: Chest Pain Respiratory: Denies: Shortness of breath at rest Gastrointestinal: Reports: Abdominal Pain, Nausea, Vomiting Genitourinary: Denies: Dysuria Skin: Reports: - - Lymphedema of right arm Psychiatric: Denies: Anxiety, Depression Patient Problems: Active and Suspected Problems (Last Updated 09/24/17 @ 10:08 by Luci Alberto RN) Dyslipidemia (Acute) Abdominal pain (Acute) Acute cholecystitis (Acute) - Physical Exam General: Alert, Oriented x3, Cooperative, No apparent distress HEENT: Atraumatic Cardiovascular: Tachycardic Abdomen: Soft, Non Tender, Non-Distended, Passing Flatus, Hernia - Reducible, umbilical Extremities: - - Edema right upper extremity Skin: No rashes Neurological: Cranial nerves II-XII grossly intact Psych/Mental Status: Normal Affect Vital Signs Temp Pulse Resp BP Pulse Ox 97.3 F L 107 H 18 134/72 H 95 09/03/18 08:38 09/03/18 08:38 09/03/18 08:38 09/03/18 08:38 09/03/18 08:38 Oxygen Delivery Method Room Air Weight: 240 lb 5 oz Body Mass Index (BMI) 31.6 Laboratory Tests Past 24 Hrs 09/03/18 09/03/18 09/03/18 09:25 09:25 09:25 WBC 9.7 RBC 4.79 Hgb 14.0 Hct 42.7 MCV 89.1 MCH 29.2 MCHC 32.8 RDW 14.7 H RDW Differential 48.0 H Plt Count 125 L MPV 9.1 Immature Gran % (Auto) 0.700 Neut % (Auto) 93.4 H Lymph % (Auto) 1.2 L [place] % (Auto) 4.5 Eos % (Auto) 0.1 Baso % (Auto) 0.1 Absolute Neuts (auto) 9.0 H Absolute Lymphs (auto) 0.12 L Total Counted Not Reportable Differential Comment SCANNED PT 14.9 INR 1.2 APTT 26.2 Sodium 143 Potassium 3.9 Chloride 112 H Carbon Dioxide 19.0 L Anion Gap 12 BUN 18 Creatinine 1.42 H Estim Creat Clear Calc 51.58 Est GFR (MDRD) Af Amer 63 Est GFR (MDRD) Non-Af 52 L BUN/Creatinine Ratio 12.7 Glucose 159 H Lactic Acid Calcium 8.2 L Magnesium 1.7 Total Bilirubin 2.40 H Direct Bilirubin 1.56 H AST 587 H ALT 380 H Alkaline Phosphatase 140 H Total Protein 5.8 L Albumin 2.6 L Globulin 3.2 Albumin/Globulin Ratio 0.8 L Lipase 119 09/03/18 09:25 WBC RBC Hgb Hct MCV MCH MCHC RDW RDW Differential Plt Count MPV Immature Gran % (Auto) Neut % (Auto) Lymph % (Auto) [place] % (Auto) Eos % (Auto) Baso % (Auto) Absolute Neuts (auto) Absolute Lymphs (auto) Total Counted Differential Comment PT INR APTT Sodium Potassium Chloride Carbon Dioxide Anion Gap BUN Creatinine Estim Creat Clear Calc Est GFR (MDRD) Af Amer Est GFR (MDRD) Non-Af BUN/Creatinine Ratio Glucose Lactic Acid 3.5 H Calcium Magnesium Total Bilirubin Direct Bilirubin AST ALT Alkaline Phosphatase Total Protein Albumin Globulin Albumin/Globulin Ratio Lipase Assessment/Plan All Active Problems (Last Updated 09/24/17 @ 10:08 by Luci Alberto RN) Neuroendocrine carcinoma (Resolved) HARINDER (acute kidney injury) (Resolved) Syncope (Resolved) Orthostatic hypotension (Resolved) Dyslipidemia (Acute) Abdominal pain (Acute) Acute cholecystitis (Acute) 73-year-old male with suspected acute cholecystitis, elevated liver functions, history of metastatic Harinder cell carcinoma 1. Continue n.p.o./IV fluids. Patient initial lactate slightly elevated at 3.1 at [place] it is slightly up currently at 3.5 we will give patient another bolus of IV fluids continue to monitor. 2. Acute cholecystitis, await ultrasound, CT abdomen pelvis did show thickening of the gallbladder wall also looks to have some biliary dilatation. Would plan for laparoscopic cholecystectomy after ERCP is completed unless the ultrasound shows anything that would be suspicious for any metastatic disease. 3. Elevated liver functions-Dr. Terrazas will see patient for an ERCP. 4. History of metastatic [place] cell carcinoma-discussed with patient that if either an ultrasound or intraoperatively there is any concern for metastatic disease would not continue to pursue the surgery and would transfer the patient to [facility] for further evaluation. Patient was agreeable with plan. 5. Lung nodule [address] patient does not have previously documented lung nodules, his last PET scan was prior to his immunotherapy and I was planning to get one once he is completed his immunotherapy as well as get follow-up CAT s cans which are scheduled for October 2018 at [facility]. Addendum: Ultrasound showed wall thickening and mild pericholecystic fluid, common bile duct 6 mm, sludge in the gallbladder and looks to be may be a polyp on the dependent wall. Discussed the procedure laparoscopic cholecystectomy with cholangiograms possible open with the patient in his and family. Including risk but not limited to bleeding, infection, bile leak which may require additional ERCP, retained sludge or stones which again may require additional ERCP, injury to the another organ including the bile ducts, small bowel which may require transfer to tertiary care facility, partial cholecystectomy if there is too much inflammation at the neck of the gallbladder, and anesthesia. All questions were answered to the patient and family satisfaction. No further questions at this time. Plan for a laparoscopic cholecystectomy with laminograms possible open at 8 AM 09/04/2018. Karen Haywood M.D. Pager: [phone] [facility] [address] [place] [address], Outpatient [place], [address] [place] [address] Office: [phone] Code Visit Inpatient E&M: 03874 Init Hosp L2
--- NOTE | 2018-09-03 11:13 | PCM.PN.SRG ---
Patient Problems: Active and Suspected Problems (Last Updated 09/24/17 @ 10:08 by Luci Alberto RN) Dyslipidemia (Acute) Abdominal pain (Acute) Acute cholecystitis (Acute) Subjective: The patient notes that he began having pain last night. He has had nausea and vomiting today. He does not describe any fevers or chills. - Physical Exam General: Alert, Oriented x3, Cooperative Neck: No JVD Lungs: Normal air movement Cardiovascular: Regular rate, Regular Rhythm Abdomen: Soft, Non-Distended, Tender Vital Signs Temp Pulse Resp BP Pulse Ox 97.3 F L 107 H 18 134/72 H 95 09/03/18 08:38 09/03/18 08:38 09/03/18 08:38 09/03/18 08:38 09/03/18 08:38 Oxygen Delivery Method Room Air Weight: 240 lb 5 oz Body Mass Index (BMI) 31.6 Laboratory Tests Past 24 Hrs 09/03/18 09/03/18 09/03/18 09:25 09:25 09:25 WBC 9.7 RBC 4.79 Hgb 14.0 Hct 42.7 MCV 89.1 MCH 29.2 MCHC 32.8 RDW 14.7 H RDW Differential 48.0 H Plt Count 125 L MPV 9.1 Immature Gran % (Auto) 0.700 Neut % (Auto) 93.4 H Lymph % (Auto) 1.2 L [place] % (Auto) 4.5 Eos % (Auto) 0.1 Baso % (Auto) 0.1 Absolute Neuts (auto) 9.0 H Absolute Lymphs (auto) 0.12 L Total Counted Not Reportable Differential Comment SCANNED PT 14.9 INR 1.2 APTT 26.2 Sodium 143 Potassium 3.9 Chloride 112 H Carbon Dioxide 19.0 L Anion Gap 12 BUN 18 Creatinine 1.42 H Estim Creat Clear Calc 51.58 Est GFR (MDRD) Af Amer 63 Est GFR (MDRD) Non-Af 52 L BUN/Creatinine Ratio 12.7 Glucose 159 H Lactic Acid Calcium 8.2 L Magnesium 1.7 Total Bilirubin 2.40 H Direct Bilirubin 1.56 H AST 587 H ALT 380 H Alkaline Phosphatase 140 H Total Protein 5.8 L Albumin 2.6 L Globulin 3.2 Albumin/Globulin Ratio 0.8 L Lipase 119 09/03/18 09:25 WBC RBC Hgb Hct MCV MCH MCHC RDW RDW Differential Plt Count MPV Immature Gran % (Auto) Neut % (Auto) Lymph % (Auto) [place] % (Auto) Eos % (Auto) Baso % (Auto) Absolute Neuts (auto) Absolute Lymphs (auto) Total Counted Differential Comment PT INR APTT Sodium Potassium Chloride Carbon Dioxide Anion Gap BUN Creatinine Estim Creat Clear Calc Est GFR (MDRD) Af Amer Est GFR (MDRD) Non-Af BUN/Creatinine Ratio Glucose Lactic Acid 3.5 H Calcium Magnesium Total Bilirubin Direct Bilirubin AST ALT Alkaline Phosphatase Total Protein Albumin Globulin Albumin/Globulin Ratio Lipase Medical Necessity - Tobacco Use Smoking Status: Former smoker Assessment/Plan All Active Problems (Last Updated 09/24/17 @ 10:08 by Luci Alberto RN) Neuroendocrine carcinoma (Resolved) HARINDER (acute kidney injury) (Resolved) Syncope (Resolved) Orthostatic hypotension (Resolved) Dyslipidemia (Acute) Abdominal pain (Acute) Acute cholecystitis (Acute) 73-year-old male with obstructive jaundice 1. The patient had a CT scan done at an outside hospital it did show thickening of the gallbladder wall as well as cholelithiasis. The patient also has what appears to be dilation of his biliary radicles. When his labs were repeated here at this hospital his LFTs had risen. Currently his bilirubin is 2.4. His alkaline phosphatase and AST and ALT are also elevated. Patient likely has obstructive jaundice. Patient has a history of metastatic Harinder cell carcinoma. There is also a chance that this could be mass versus stone. I explained this to the patient and did recommend ERCP with possible stent placement. 2. I explained ERCP in detail with the patient. I explained the risks including but not limited to bleeding, infection, perforation of the bile duct or bowel, pancreatitis. I also explained that if there was a mass or if I was unable to remove a large stone I would be placing a plastic stent and coming back another day. I also explained the patient's increased risk of bleeding due to his aspirin. Patient understands all the risks and is willing to proceed with ERCP this afternoon. Continue antibiotics. Continue n.p.o. Darren Terrazas MD Pager: [facility] [address] [place] [address], [address] [place] [address] Office:
--- NOTE | 2018-09-03 11:16 | PN.SURG_ITS ---
Patient Problems: Active and Suspected Problems (Last Updated 09/24/17 @ 10:08 by Luci Alberto RN) Dyslipidemia (Acute) Abdominal pain (Acute) Acute cholecystitis (Acute) Subjective: The patient notes that he began having pain last night. He has had nausea and vomiting today. He does not describe any fevers or chills. - Physical Exam General: Alert, Oriented x3, Cooperative Neck: No JVD Lungs: Normal air movement Cardiovascular: Regular rate, Regular Rhythm Abdomen: Soft, Non-Distended, Tender Vital Signs Temp Pulse Resp BP Pulse Ox 97.3 F L 107 H 18 134/72 H 95 09/03/18 08:38 09/03/18 08:38 09/03/18 08:38 09/03/18 08:38 09/03/18 08:38 Oxygen Delivery Method Room Air Weight: 240 lb 5 oz Body Mass Index (BMI) 31.6 Laboratory Tests Past 24 Hrs 09/03/18 09/03/18 09/03/18 09:25 09:25 09:25 WBC 9.7 RBC 4.79 Hgb 14.0 Hct 42.7 MCV 89.1 MCH 29.2 MCHC 32.8 RDW 14.7 H RDW Differential 48.0 H Plt Count 125 L MPV 9.1 Immature Gran % (Auto) 0.700 Neut % (Auto) 93.4 H Lymph % (Auto) 1.2 L [place] % (Auto) 4.5 Eos % (Auto) 0.1 Baso % (Auto) 0.1 Absolute Neuts (auto) 9.0 H Absolute Lymphs (auto) 0.12 L Total Counted Not Reportable Differential Comment SCANNED PT 14.9 INR 1.2 APTT 26.2 Sodium 143 Potassium 3.9 Chloride 112 H Carbon Dioxide 19.0 L Anion Gap 12 BUN 18 Creatinine 1.42 H Estim Creat Clear Calc 51.58 Est GFR (MDRD) Af Amer 63 Est GFR (MDRD) Non-Af 52 L BUN/Creatinine Ratio 12.7 Glucose 159 H Lactic Acid Calcium 8.2 L Magnesium 1.7 Total Bilirubin 2.40 H Direct Bilirubin 1.56 H AST 587 H ALT 380 H Alkaline Phosphatase 140 H Total Protein 5.8 L Albumin 2.6 L Globulin 3.2 Albumin/Globulin Ratio 0.8 L Lipase 119 09/03/18 09:25 WBC RBC Hgb Hct MCV MCH MCHC RDW RDW Differential Plt Count MPV Immature Gran % (Auto) Neut % (Auto) Lymph % (Auto) [place] % (Auto) Eos % (Auto) Baso % (Auto) Absolute Neuts (auto) Absolute Lymphs (auto) Total Counted Differential Comment PT INR APTT Sodium Potassium Chloride Carbon Dioxide Anion Gap BUN Creatinine Estim Creat Clear Calc Est GFR (MDRD) Af Amer Est GFR (MDRD) Non-Af BUN/Creatinine Ratio Glucose Lactic Acid 3.5 H Calcium Magnesium Total Bilirubin Direct Bilirubin AST ALT Alkaline Phosphatase Total Protein Albumin Globulin Albumin/Globulin Ratio Lipase Medical Necessity - Tobacco Use Smoking Status: Former smoker Assessment/Plan All Active Problems (Last Updated 09/24/17 @ 10:08 by Luci Alberto RN) Neuroendocrine carcinoma (Resolved) HARINDER (acute kidney injury) (Resolved) Syncope (Resolved) Orthostatic hypotension (Resolved) Dyslipidemia (Acute) Abdominal pain (Acute) Acute cholecystitis (Acute) 73-year-old male with obstructive jaundice 1. The patient had a CT scan done at an outside hospital it did show thickening of the gallbladder wall as well as cholelithiasis. The patient also has what appears to be dilation of his biliary radicles. When his labs were repeated here at this hospital his LFTs had risen. Currently his bilirubin is 2.4. His alkaline phosphatase and AST and ALT are also elevated. Patient likely has obstructive jaundice. Patient has a history of metastatic Harinder cell carcinoma. There is also a chance that this could be mass versus stone. I explained this to the patient and did recommend ERCP with possible stent placement. 2. I explained ERCP in detail with the patient. I explained the risks including but not limited to bleeding, infection, perforation of the bile duct or bowel, pancreatitis. I also explained that if there was a mass or if I was unable to remove a large stone I would be placing a plastic stent and coming back another day. I also explained the patient's increased risk of bleeding due to his aspirin. Patient understands all the risks and is willing to proceed with ERCP this afternoon. Continue antibiotics. Continue n.p.o. Darren Terrazas MD Pager: [facility] [address] [place] [address], [address] [place] [address] Office:
[2018-09-03] MEDS: Metoprolol(XL)Succ 25 MG Tablet PO (11:34)
[2018-09-03] MEDS: Dext 5%-0.45% NS 1,000 ML 150 ML IV ×2 (11:39→21:16)
[2018-09-03] MEDS: Piperacil/Tazobactam 3.375 GM/50 ML ML IV ×2 (12:11→21:13)
[2018-09-03 13:35] LABS: Reflex Lactate? Y
--- NOTE | 2018-09-03 13:45 | CASEMGMT ---
ELLE CM attempted to complete face to face with patient. Patient off unit and at procedure. Will attempt later as time allows.
--- NOTE | 2018-09-03 14:00 | BRUS_PTH ---
PATIENT: ASA GOINS LOC: [facility]3 U#:[id number] AGE/SX: 73/M ROOM: AZ312 RE09/03/[address]: Dr. Elmo Roman MD : 1945 BED: 1 DIS: 09/04/2018 SPEC #: [id number] RECD: 09/03/18 15:37 STATUS: RAN REQ #: [id number] MINA: 09/03/18 14:[address]: Darren eTrrazas DEPT: CYTOLOGY RECD BY: Tai Topete ENTERED: 09/06/18 09:21 SP TYPE: BRUSHING OTHR DR: MD Dr. Garrett Byrne Chi, MD Dr. Tamera Robotham, MD Tissues: A - Bile duct, NOS B - Bile duct, NOS Procedures: Special Stain Group II Surgery Specimen Level IV Cytology Other Comments: @ Ordering doctor for SSII edited from to @ by DENILSON at 09/06/18 1531 @ Ordering doctor for SUIII edited from to DR.ACALAB Alvarez by DENILSON at 09/06/18 153 @ Ordering doctor for SUIV edited from to @ by DENILSON at 09/06/18 1531 @ Ordering doctor for CYOTHER edited from to @ by DENILSON at 09/06/18 153 @ Submitting doctor edited from to DR.ACALAB Alvarez by RGOOD at 09/06/18 1531 HEADER OPERATION: ERCP PRE-OP DIAGNOSIS: Obstructive jaundice TISSUE SUBMITTED: A - Common bile duct brushings slides x3, B - [place] tip DIAGNOSIS CYTOLOGY A.Common bile duct brushing (smears): Marked acute inflammation and bacterial colonies. Focal epithelial atypia, favor reactive. Crystalline debris. B. Common bile duct brushing (brush): Virtually acellular specimen. AM:jabier 09/07/18 COMMENT Several epithelioid clusters have a vague polypoid appearance and may represent fragments of a mucosal polyp. There is no obvious malignancy identified. Clinical correlation is suggested. Case has been reviewed in consultation with Dr. Callaway who concurs with the above diagnosis. IDC:SJ CYTOLOGY STUDY Slides are reviewed. CYTOLOGY GROSS A - Received are three smears labeled with the patient's name and designated per the requisition as common bile duct. Submitted for staining. B - Received is a metallic endoscopic cytobrush with adherent minute fragments of rdz-red tissue brush in 2 ml of clear red fluid and labeled with the patient's name and and designated per the requisition as brush tip. The material is dislodged from the brush and submitted for cytology preparation including cell block. 09/06/18 TC:2 CPT: 69344, 68520
--- NOTE | 2018-09-03 14:30 | RAD_ITS ---
STUDY: FLUOROSCOPY ERCP BILIARY DUCTAL SYSTEM REASON FOR EXAM: Male, 73 years old. ERCP sphincterotomy, balloon dilatation and brushing. FLUOROSCOPY TIME (if supplied): (213.5) minutes/seconds TECHNIQUE: 3 fluoroscopic images COMPARISON: None. FINDINGS: Fluoroscopic images demonstrate cannulation of the common bile duct with contrast filling of the common bile duct and pancreatic duct. Balloon dilatation of the sphincter and passage of the balloon throughout the common bile duct. At completion contrast drained from the common bile duct without visualized filling defect. RAD/ERCP Biliary Only IMPRESSION: Fluoroscopic demonstration of cannulation, contrast opacification and balloon dilatation of the sphincter and brushing of the common bile duct. Electronically Signed: Monica Sumner MD at 15:35 EST , Service support ,
--- NOTE | 2018-09-03 15:21 | OP.ENDO_ITS ---
Patient Name: James Childs Procedure Date: 09/03/2018 1:46 PM Date of : 1945 Age: 73 Procedure: ERCP Indications: Jaundice Providers: Darren Terrazas MD Referring MD: Elmo Roman Medicines: General Anesthesia Patient Profile: This is a 73 year old male. Refer to note in patient chart for documentation of history and physical. Complications: No immediate complications. Estimated blood loss: Minimal. Procedure: Pre-Anesthesia Assessment: - Prior to the procedure, a History and Physical was performed, and patient medications and allergies were reviewed. The patient's tolerance of previous anesthesia was also reviewed. The risks and benefits of the procedure and the sedation options and risks were discussed with the patient. All questions were answered, and informed consent was obtained. Prior Anticoagulants: The patient has taken aspirin, last dose was 1 day prior to procedure. After reviewing the risks and benefits, the patient was deemed in satisfactory condition to undergo the procedure. After obtaining informed consent, the scope was passed under direct vision. Throughout the procedure, the patient's blood pressure, pulse, and oxygen saturations were monitored continuously. The duodenoscope was introduced through the mouth, and advanced to the duodenum and used to inject contrast into the bile duct. The ERCP was accomplished without difficulty. The patient tolerated the procedure well. Scope In: 2:42:25 PM Scope Out: 3:02:15 PM Total Procedure Duration Time 0 hours 19 minutes 50 seconds Findings: The major papilla was located entirely within a diverticulum. A 0.035 inch x 260 cm straight Dreamwire was passed into the biliary tree. The sphincterotome was passed over the guidewire and the bile duct was then deeply cannulated. Contrast was injected. The lower third of the main bile duct contained filling defect(s) thought to be a polyp. Biliary sphincterotomy was made with a monofilament sphincterotome using ERBE electrocautery. The sphincterotomy oozed blood. To discover objects, the biliary tree was swept with a 12 mm balloon starting at the bifurcation. There was a polypoid mass at the distal CBD. It was nonmobile. Cells for cytology were obtained by brushing in the lower third of the main bile duct. One 10 Fr by 5 cm plastic stent with a single external flap and a single internal flap was placed into the common bile duct. Bile flowed through the stent. The stent was in good position. The endoscope was withdrawn from the patient. Impression: - The major papilla was located entirely within a diverticulum. - The examination was suspicious for biliary polyps. - A biliary sphincterotomy was performed. - The biliary tree was swept. - Cells for cytology obtained in the lower third of the main duct. - One plastic stent was placed into the common bile duct. Recommendation: - Transfer patient to another hospital. Procedure Code(s): --- Professional --- 74942, Endoscopic retrograde cholangiopancreatography (ERCP); with placement of endoscopic stent into biliary or pancreatic duct, including pre- and post-dilation and guide wire passage, when performed, including sphincterotomy, when performed, each stent Diagnosis Code(s): --- Professional --- R17, Unspecified jaundice CPT copyright 2017 [employer]. All rights reserved. The codes documented in this report are preliminary and upon clam picker review may be revised to meet current compliance requirements. Darren Terrazas MD 09/03/2018 3:21:03 PM This report has been signed electronically. Number of Addenda: 0 Note Initiated On: 09/03/2018 1:46 PM
--- NOTE | 2018-09-03 15:46 | DCINST_ITS ---
- Discharge Diagnoses Current Active Problems: Current Active and Chronic Problems (Last Updated 09/24/17 @ 10:08 by Luci Alberto RN) Dyslipidemia (Acute) Abdominal pain (Acute) Acute cholecystitis (Acute) You will use the following diet at home:: No restrictions Allergies/Adverse Reactions: Allergies oxycodone [From OxyContin] Adverse Reaction (Severe, Verified 09/24/17 09:58) Other lethargic -sleepy Medications to take at Discharge Aspirin [Aspir-Low] 81 mg PO DAILY 12/08/16 Finasteride 5 mg PO DAILY 12/08/16 Metoprolol Succinate [Toprol Xl] 25 mg PO DAILY 12/08/16 Omeprazole 10 mg PO DAILY 12/08/16 Pravastatin [Pravachol] 40 mg PO QHS 12/08/16 Valsartan [Diovan] 160 mg PO QHS 12/08/16 Tamsulosin HCl [Flomax] 0.4 mg PO DAILY 12/10/16 Linacolotide [Linzess] 145 mcg PO DAILY 12/11/16 Sodium Chloride 0.65% [[place] Nasal [place]] 1 spray NASAL PRN PRN 09/30/17 Piperacil/Tazobactam [Zosyn] 3.375 gm IV Q8 ml 09/03/18 Primary Care Physician: Garrett Hernandez Chi, MD [Primary Care Provider] - Please follow up with your Primary Care Physician in: in 1-2 weeks Test Results: Test results from this visit will be discussed in further detail at your follow- up appointment, if applicable. Proposed Discharge Date: 09/03/18
--- NOTE | 2018-09-03 15:48 | PCM.DC.SUM ---
Discharge Date and Diagnosis - Problem List Patient Problems: Active and Suspected Problems (Last Updated 09/24/17 @ 10:08 by Luci Alberto RN) Dyslipidemia (Acute) Abdominal pain (Acute) Acute cholecystitis (Acute) Date of Admission: 09/03/18 Date of Discharge: 09/03/18 - Primary Discharge Diagnosis Active and Suspected Problems (Last Updated 09/24/17 @ 10:08 by Luci Alberto RN) Dyslipidemia (Acute) Abdominal pain (Acute) Acute cholecystitis (Acute) - Secondary Discharge Diagnosis Chronic Problems (Last Updated 09/24/17 @ 10:08 by Luci Alberto RN) Harinder cell carcinoma (Chronic) Recurrent tonsillitis (Chronic) Essential (primary) hypertension (Chronic) BPH (benign prostatic hyperplasia) (Chronic) Hospital Course and Treatment Imaging Results: 09/03/18 09:00 US Gallbladder [Gallbladder] [US] Urgent 09/03/18 14:30 ERCP Biliary Only [RAD] Urgent O.R. Fluoro for C-Arm [RAD] Urgent Clinical Impression(s) from Imaging Studies Gallbladder Ultrasound 09/03/18 09:00 IMPRESSION: Mildly enlarged fatty infiltration of the liver. Sludge is seen within the gallbladder lumen. Cannot rule out tiny gallstones. Thickened gallbladder wall and small amount of pericholecystic fluid. Electronically Signed: Mateo Pickard MD at 11:29 EST , Service support , ERCP X-Ray 09/03/18 14:30 IMPRESSION: Fluoroscopic demonstration of cannulation, contrast opacification and balloon dilatation of the sphincter and brushing of the common bile duct. Electronically Signed: Monica Sumner MD at 15:35 EST , Service support , Laboratory Results - last 24 hr 09/03/18 09/03/18 09/03/18 09:25 09:25 09:25 WBC 9.7 RBC 4.79 Hgb 14.0 Hct 42.7 MCV 89.1 MCH 29.2 MCHC 32.8 RDW 14.7 H RDW Differential 48.0 H Plt Count 125 L MPV 9.1 Immature Gran % (Auto) 0.700 Neut % (Auto) 93.4 H Lymph % (Auto) 1.2 L [place] % (Auto) 4.5 Eos % (Auto) 0.1 Baso % (Auto) 0.1 Absolute Neuts (auto) 9.0 H Absolute Lymphs (auto) 0.12 L Total Counted Not Reportable Differential Comment SCANNED PT 14.9 INR 1.2 APTT 26.2 Sodium 143 Potassium 3.9 Chloride 112 H Carbon Dioxide 19.0 L Anion Gap 12 BUN 18 Creatinine 1.42 H Estim Creat Clear Calc 51.58 Est GFR (MDRD) Af Amer 63 Est GFR (MDRD) Non-Af 52 L BUN/Creatinine Ratio 12.7 Glucose 159 H Lactic Acid Calcium 8.2 L Magnesium 1.7 Total Bilirubin 2.40 H Direct Bilirubin 1.56 H AST 587 H ALT 380 H Alkaline Phosphatase 140 H Total Protein 5.8 L Albumin 2.6 L Globulin 3.2 Albumin/Globulin Ratio 0.8 L Lipase 119 09/03/18 09:25 WBC RBC Hgb Hct MCV MCH MCHC RDW RDW Differential Plt Count MPV Immature Gran % (Auto) Neut % (Auto) Lymph % (Auto) [place] % (Auto) Eos % (Auto) Baso % (Auto) Absolute Neuts (auto) Absolute Lymphs (auto) Total Counted Differential Comment PT INR APTT Sodium Potassium Chloride Carbon Dioxide Anion Gap BUN Creatinine Estim Creat Clear Calc Est GFR (MDRD) Af Amer Est GFR (MDRD) Non-Af BUN/Creatinine Ratio Glucose Lactic Acid 3.5 H Calcium Magnesium Total Bilirubin Direct Bilirubin AST ALT Alkaline Phosphatase Total Protein Albumin Globulin Albumin/Globulin Ratio Lipase Summary of Care Provided: The patient is a 73 year old M past medical history significant for 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 Patient pain started around p.m. on the night prior to her admission. Pain was located in the right upper quadrant described as colicky. Patient also did experience nausea but denied any vomiting. Patient did not experience any diarrhea. In view of the persistent nature of his symptoms patient presented to the [place] ER where CT of the abdomen obtained demonstrated wall thickening and irregularity involving the gallbladder with high suspicion for cholecystitis. Patient was also found to have slightly elevated AST and ALT bilirubin and alkaline phosphatase were within normal limits lactic acid was 3.3. Patient requested transfer to [facility] 1. Severe sepsis secondary to acute cholecystitis/acute cholangitis: Patient has been admitted to regular nursing floor. Started on broad-spectrum antibiotics with Zosyn. Gallbladder ultrasound ordered for subsequent evaluation. Consult placed to general surgery Dr. Annamarie Lyon the general surgeon on on-call notified patient has also been seen by Dr. Terrazas with general surgery with plans for patient to undergo ERCP. Patient ERCP performed on 09/03/2018 demonstrated presence of a distal mass versus polyp in the distal common bile duct. Case was discussed with Dr. Terrazas who performed the procedure. He recommended for patient to be transferred to a tertiary care center. Since patient has received care for his [place] cell carcinoma at [facility] call was placed patient was accepted for transfer. 2. History of [place] cell carcinoma involving the right axilla status post excision patient has subsequently been treated with immunotherapy patient is seen and followed at the [facility] in [facility] 3. Hypertension-blood pressure controlled, home medications continued with dose adjustment as needed 4. Dyslipidemia-patient is on statin therapy, continued at home dose 5. BPH patient is on Flomax 6. Obesity with BMI of 31.7 weight loss advised 7. DVT prophylaxis SC Lovenox Patient Problems: Active and Suspected Problems (Last Updated 09/24/17 @ 10:08 by Luci Alberto RN) Dyslipidemia (Acute) Abdominal pain (Acute) Acute cholecystitis (Acute) Objective: GENERAL: cooperative HEENT: Atraumatic; moist oral mucosa EYES; Anicteric, Normal Conjunctiva NECK; supple, normal thyroid, no distended JVD. RESPIRATORY: Diminished to auscultation bilaterally, CARDIOVASCULAR: Regular S1 S2, no audible murmurs GI: Right upper quadrant tenderness : No Renal angle tenderness; EXTREMITIES: No edema, no clubbing, no cyanosis. MUSCULOSKELETAL: No Joint Tenderness; no muscle waisting NEURO: Awake; no lateralizing signs. SKIN: No Rash PSYCH; Normal affect - Physical Exam Vital Signs Temp Pulse Resp BP Pulse Ox 98.4 F 71 16 111/56 L 96 09/03/18 15:23 09/03/18 15:30 09/03/18 15:30 09/03/18 15:30 09/03/18 15:30 Oxygen Delivery Method Room Air Weight: 109.004 kg Body Mass Index (BMI) 31.6 Laboratory Tests Past 24 Hrs 09/03/18 09/03/18 09/03/18 09:25 09:25 09:25 WBC 9.7 RBC 4.79 Hgb 14.0 Hct 42.7 MCV 89.1 MCH 29.2 MCHC 32.8 RDW 14.7 H RDW Differential 48.0 H Plt Count 125 L MPV 9.1 Immature Gran % (Auto) 0.700 Neut % (Auto) 93.4 H Lymph % (Auto) 1.2 L [place] % (Auto) 4.5 Eos % (Auto) 0.1 Baso % (Auto) 0.1 Absolute Neuts (auto) 9.0 H Absolute Lymphs (auto) 0.12 L Total Counted Not Reportable Differential Comment SCANNED PT 14.9 INR 1.2 APTT 26.2 Sodium 143 Potassium 3.9 Chloride 112 H Carbon Dioxide 19.0 L Anion Gap 12 BUN 18 Creatinine 1.42 H Estim Creat Clear Calc 51.58 Est GFR (MDRD) Af Amer 63 Est GFR (MDRD) Non-Af 52 L BUN/Creatinine Ratio 12.7 Glucose 159 H Lactic Acid Calcium 8.2 L Magnesium 1.7 Total Bilirubin 2.40 H Direct Bilirubin 1.56 H AST 587 H ALT 380 H Alkaline Phosphatase 140 H Total Protein 5.8 L Albumin 2.6 L Globulin 3.2 Albumin/Globulin Ratio 0.8 L Lipase 119 09/03/18 09:25 WBC RBC Hgb Hct MCV MCH MCHC RDW RDW Differential Plt Count MPV Immature Gran % (Auto) Neut % (Auto) Lymph % (Auto) [place] % (Auto) Eos % (Auto) Baso % (Auto) Absolute Neuts (auto) Absolute Lymphs (auto) Total Counted Differential Comment PT INR APTT Sodium Potassium Chloride Carbon Dioxide Anion Gap BUN Creatinine Estim Creat Clear Calc Est GFR (MDRD) Af Amer Est GFR (MDRD) Non-Af BUN/Creatinine Ratio Glucose Lactic Acid 3.5 H Calcium Magnesium Total Bilirubin Direct Bilirubin AST ALT Alkaline Phosphatase Total Protein Albumin Globulin Albumin/Globulin Ratio Lipase Home Medications: Medications to take at Discharge Aspirin [Aspir-Low] 81 mg PO DAILY 12/08/16 Finasteride 5 mg PO DAILY 12/08/16 Metoprolol Succinate [Toprol Xl] 25 mg PO DAILY 12/08/16 Omeprazole 10 mg PO DAILY 12/08/16 Pravastatin [Pravachol] 40 mg PO QHS 12/08/16 Valsartan [Diovan] 160 mg PO QHS 12/08/16 Tamsulosin HCl [Flomax] 0.4 mg PO DAILY 12/10/16 Linacolotide [Linzess] 145 mcg PO DAILY 12/11/16 Sodium Chloride 0.65% [[place] Nasal [place]] 1 spray NASAL PRN PRN 09/30/17 Piperacil/Tazobactam [Zosyn] 3.375 gm IV Q8 ml 09/03/18 Primary Care Physician: Garrett Hernandez Chi, MD [Primary Care Provider] - Please follow up with your Primary Care Physician in: in 1-2 weeks Disposition: Acute care Hospital - [facility] Minutes spent on discharge:: 50 Patient Condition:: Fair Medical Necessity - Tobacco Use Smoking Status: Former smoker Meaningful Use Info Meaningful Use Diagnoses (Choose all that apply): None applicable Code Visit OBSV E&M: 23907 Observ/hosp same date L3
--- NOTE | 2018-09-03 15:54 | DS.PCM_ITS ---
Discharge Date and Diagnosis - Problem List Patient Problems: Active and Suspected Problems (Last Updated 09/24/17 @ 10:08 by Luci Alberto RN) Dyslipidemia (Acute) Abdominal pain (Acute) Acute cholecystitis (Acute) Date of Admission: 09/03/18 Date of Discharge: 09/03/18 - Primary Discharge Diagnosis Active and Suspected Problems (Last Updated 09/24/17 @ 10:08 by Luci Alberto RN) Dyslipidemia (Acute) Abdominal pain (Acute) Acute cholecystitis (Acute) - Secondary Discharge Diagnosis Chronic Problems (Last Updated 09/24/17 @ 10:08 by Luci Alberto RN) Harinder cell carcinoma (Chronic) Recurrent tonsillitis (Chronic) Essential (primary) hypertension (Chronic) BPH (benign prostatic hyperplasia) (Chronic) Hospital Course and Treatment Imaging Results: 09/03/18 09:00 US Gallbladder [Gallbladder] [US] Urgent 09/03/18 14:30 ERCP Biliary Only [RAD] Urgent O.R. Fluoro for C-Arm [RAD] Urgent Clinical Impression(s) from Imaging Studies Gallbladder Ultrasound 09/03/18 09:00 IMPRESSION: Mildly enlarged fatty infiltration of the liver. Sludge is seen within the gallbladder lumen. Cannot rule out tiny gallstones. Thickened gallbladder wall and small amount of pericholecystic fluid. Electronically Signed: Mateo Pickard MD at 11:29 EST , Service support , ERCP X-Ray 09/03/18 14:30 IMPRESSION: Fluoroscopic demonstration of cannulation, contrast opacification and balloon dilatation of the sphincter and brushing of the common bile duct. Electronically Signed: Monica Sumner MD at 15:35 EST , Service support , Laboratory Results - last 24 hr 09/03/18 09/03/18 09/03/18 09:25 09:25 09:25 WBC 9.7 RBC 4.79 Hgb 14.0 Hct 42.7 MCV 89.1 MCH 29.2 MCHC 32.8 RDW 14.7 H RDW Differential 48.0 H Plt Count 125 L MPV 9.1 Immature Gran % (Auto) 0.700 Neut % (Auto) 93.4 H Lymph % (Auto) 1.2 L [place] % (Auto) 4.5 Eos % (Auto) 0.1 Baso % (Auto) 0.1 Absolute Neuts (auto) 9.0 H Absolute Lymphs (auto) 0.12 L Total Counted Not Reportable Differential Comment SCANNED PT 14.9 INR 1.2 APTT 26.2 Sodium 143 Potassium 3.9 Chloride 112 H Carbon Dioxide 19.0 L Anion Gap 12 BUN 18 Creatinine 1.42 H Estim Creat Clear Calc 51.58 Est GFR (MDRD) Af Amer 63 Est GFR (MDRD) Non-Af 52 L BUN/Creatinine Ratio 12.7 Glucose 159 H Lactic Acid Calcium 8.2 L Magnesium 1.7 Total Bilirubin 2.40 H Direct Bilirubin 1.56 H AST 587 H ALT 380 H Alkaline Phosphatase 140 H Total Protein 5.8 L Albumin 2.6 L Globulin 3.2 Albumin/Globulin Ratio 0.8 L Lipase 119 09/03/18 09:25 WBC RBC Hgb Hct MCV MCH MCHC RDW RDW Differential Plt Count MPV Immature Gran % (Auto) Neut % (Auto) Lymph % (Auto) [place] % (Auto) Eos % (Auto) Baso % (Auto) Absolute Neuts (auto) Absolute Lymphs (auto) Total Counted Differential Comment PT INR APTT Sodium Potassium Chloride Carbon Dioxide Anion Gap BUN Creatinine Estim Creat Clear Calc Est GFR (MDRD) Af Amer Est GFR (MDRD) Non-Af BUN/Creatinine Ratio Glucose Lactic Acid 3.5 H Calcium Magnesium Total Bilirubin Direct Bilirubin AST ALT Alkaline Phosphatase Total Protein Albumin Globulin Albumin/Globulin Ratio Lipase Summary of Care Provided: The patient is a 73 year old M past medical history significant for 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 Patient pain started around p.m. on the night prior to her admission. Pain was located in the right upper quadrant described as colicky. Patient also did experience nausea but denied any vomiting. Patient did not experience any diarrhea. In view of the persistent nature of his symptoms patient presented to the [place] ER where CT of the abdomen obtained demonstrated wall thickening and irregularity involving the gallbladder with high suspicion for cholecystitis. Patient was also found to have slightly elevated AST and ALT bilirubin and alkaline phosphatase were within normal limits lactic acid was 3.3. Patient requested transfer to [facility] 1. Severe sepsis secondary to acute cholecystitis/acute cholangitis: Patient has been admitted to regular nursing floor. Started on broad-spectrum antibiotics with Zosyn. Gallbladder ultrasound ordered for subsequent evaluation. Consult placed to general surgery Dr. Annamarie Lyon the general surgeon on on-call notified patient has also been seen by Dr. Terrazas with general surgery with plans for patient to undergo ERCP. Patient ERCP performed on 09/03/2018 demonstrated presence of a distal mass versus polyp in the distal common bile duct. Case was discussed with Dr. Terrazas who performed the procedure. He recommended for patient to be transferred to a tertiary care center. Since patient has received care for his [place] cell carcinoma at [facility] call was placed patient was accepted for transfer. 2. History of [place] cell carcinoma involving the right axilla status post excision patient has subsequently been treated with immunotherapy patient is seen and followed at the [facility] in [facility] 3. Hypertension-blood pressure controlled, home medications continued with dose adjustment as needed 4. Dyslipidemia-patient is on statin therapy, continued at home dose 5. BPH patient is on Flomax 6. Obesity with BMI of 31.7 weight loss advised 7. DVT prophylaxis SC Lovenox Patient Problems: Active and Suspected Problems (Last Updated 09/24/17 @ 10:08 by Luci Alberto RN) Dyslipidemia (Acute) Abdominal pain (Acute) Acute cholecystitis (Acute) Objective: GENERAL: cooperative HEENT: Atraumatic; moist oral mucosa EYES; Anicteric, Normal Conjunctiva NECK; supple, normal thyroid, no distended JVD. RESPIRATORY: Diminished to auscultation bilaterally, CARDIOVASCULAR: Regular S1 S2, no audible murmurs GI: Right upper quadrant tenderness : No Renal angle tenderness; EXTREMITIES: No edema, no clubbing, no cyanosis. MUSCULOSKELETAL: No Joint Tenderness; no muscle waisting NEURO: Awake; no lateralizing signs. SKIN: No Rash PSYCH; Normal affect - Physical Exam Vital Signs Temp Pulse Resp BP Pulse Ox 98.4 F 71 16 111/56 L 96 09/03/18 15:23 09/03/18 15:30 09/03/18 15:30 09/03/18 15:30 09/03/18 15:30 Oxygen Delivery Method Room Air Weight: 109.004 kg Body Mass Index (BMI) 31.6 Laboratory Tests Past 24 Hrs 09/03/18 09/03/18 09/03/18 09:25 09:25 09:25 WBC 9.7 RBC 4.79 Hgb 14.0 Hct 42.7 MCV 89.1 MCH 29.2 MCHC 32.8 RDW 14.7 H RDW Differential 48.0 H Plt Count 125 L MPV 9.1 Immature Gran % (Auto) 0.700 Neut % (Auto) 93.4 H Lymph % (Auto) 1.2 L [place] % (Auto) 4.5 Eos % (Auto) 0.1 Baso % (Auto) 0.1 Absolute Neuts (auto) 9.0 H Absolute Lymphs (auto) 0.12 L Total Counted Not Reportable Differential Comment SCANNED PT 14.9 INR 1.2 APTT 26.2 Sodium 143 Potassium 3.9 Chloride 112 H Carbon Dioxide 19.0 L Anion Gap 12 BUN 18 Creatinine 1.42 H Estim Creat Clear Calc 51.58 Est GFR (MDRD) Af Amer 63 Est GFR (MDRD) Non-Af 52 L BUN/Creatinine Ratio 12.7 Glucose 159 H Lactic Acid Calcium 8.2 L Magnesium 1.7 Total Bilirubin 2.40 H Direct Bilirubin 1.56 H AST 587 H ALT 380 H Alkaline Phosphatase 140 H Total Protein 5.8 L Albumin 2.6 L Globulin 3.2 Albumin/Globulin Ratio 0.8 L Lipase 119 09/03/18 09:25 WBC RBC Hgb Hct MCV MCH MCHC RDW RDW Differential Plt Count MPV Immature Gran % (Auto) Neut % (Auto) Lymph % (Auto) [place] % (Auto) Eos % (Auto) Baso % (Auto) Absolute Neuts (auto) Absolute Lymphs (auto) Total Counted Differential Comment PT INR APTT Sodium Potassium Chloride Carbon Dioxide Anion Gap BUN Creatinine Estim Creat Clear Calc Est GFR (MDRD) Af Amer Est GFR (MDRD) Non-Af BUN/Creatinine Ratio Glucose Lactic Acid 3.5 H Calcium Magnesium Total Bilirubin Direct Bilirubin AST ALT Alkaline Phosphatase Total Protein Albumin Globulin Albumin/Globulin Ratio Lipase Home Medications: Medications to take at Discharge Aspirin [Aspir-Low] 81 mg PO DAILY 12/08/16 Finasteride 5 mg PO DAILY 12/08/16 Metoprolol Succinate [Toprol Xl] 25 mg PO DAILY 12/08/16 Omeprazole 10 mg PO DAILY 12/08/16 Pravastatin [Pravachol] 40 mg PO QHS 12/08/16 Valsartan [Diovan] 160 mg PO QHS 12/08/16 Tamsulosin HCl [Flomax] 0.4 mg PO DAILY 12/10/16 Linacolotide [Linzess] 145 mcg PO DAILY 12/11/16 Sodium Chloride 0.65% [[place] Nasal [place]] 1 spray NASAL PRN PRN 09/30/17 Piperacil/Tazobactam [Zosyn] 3.375 gm IV Q8 ml 09/03/18 Primary Care Physician: Garrett Hernandez Chi, MD [Primary Care Provider] - Please follow up with your Primary Care Physician in: in 1-2 weeks Disposition: Acute care Hospital - [facility] Minutes spent on discharge:: 50 Patient Condition:: Fair Medical Necessity - Tobacco Use Smoking Status: Former smoker Meaningful Use Info Meaningful Use Diagnoses (Choose all that apply): None applicable Code Visit OBSV E&M: 35756 Observ/hosp same date L3
[2018-09-03] MEDS: Tamsulosin HCl 0.4 MG Capsule PO (17:51)
[2018-09-03 20:01] LABS: Mucous, Urine 0 SEEN /hpf (<or=2+); Red Blood Cells-Urine 0 SEEN /hpf (0-5); White Blood Cells 0 SEEN /hpf (0-5)
[2018-09-03 20:06] LABS: Glucose, Dipstick 50 mg/dl (Normal); Ketone-Dipstick 5 mg/dl (Negative); Leukocyte Esterase-Dipstick 25 /ul (Negative); Nitrite-Dipstick Negative (Negative); Occult Blood-Urine 10 /ul (Negative); Protein-Dipstick 30 mg/dl (Negative); Specific Gravity, Urine 1.015 (1.002-1.030); Urine Urobilinogen 8 mg/dl (Normal)
[2018-09-03 20:08] LABS: Color, Urine DARK YELLOW (Yellow); Urine Bilirubin Dipstick 3 mg/dL (Negative); Urine Clarity Clear (Clear)
[2018-09-03 20:18] LABS: Bacteria RARE /hpf (None Seen); Squamous Epithelial Cells - UA 0-5 SEEN /hpf (0-5)
[2018-09-03 20:51] LABS: Lactic Acid 2.5 mmol/L (0.4-2.0)
[2018-09-03] MEDS: Pravastatin 40 MG Tablet PO (21:13)
--- NOTE | 2018-09-03 22:55 | NURSING ---
The Anirud[facility] at [facility] called & advised that they had a room for this pt. It will be room [id number] on the 19th floor. I called Bridgett Cordoba for transport and their pickup time will be 0730 on 09/04/18. I also advised the pt's primary RN which is Edilberto. In addition, the pt's son called in and the pt's is staying with him in [place]. I gave him the information for [facility] as well.
--- NOTE | 2018-09-03 23:23 | NURSING ---
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
[2018-09-03] MEDS: Losartan Potassium 50 MG Tablet PO (23:50)
[2018-09-04 02:13] VITALS: BP 113/63; PULSE 70; RESP 16; TEMP 36.9; O2SAT 94
[2018-09-04] MEDS: Piperacil/Tazobactam 3.375 GM/50 ML ML IV (05:15)
[2018-09-04] MEDS: Dext 5%-0.45% NS 1,000 ML 150 ML IV (05:18)
[2018-09-04 06:29] LABS: Hematocrit 36.9 % (40-54); Hemoglobin 11.9 g/dl (13.0-16.5); Mean Corp Hgb Conc 32.2 g/gl (32-36); Mean Corpuscular Hgb 29.2 pg (27.0-32.0); Mean Corpuscular Volume 90.4 fL (80-94); Mean Platelet Vol. 9.1 fl (6.2-12.0); Platelet Count 84 K/mm3 (150-450); RBC Distribution Width CV 15.2 % (11.6-14.6); RBC Distribution Width SD 50.3 fl (35.1-43.9); Red Blood Count 4.08 M/mm3 (4.6-6.2)
[2018-09-04 06:31] LABS: Scan Indicated on CBC? Y/N NO
[2018-09-04 07:18] LABS: AST(SGOT) 199 U/L (15-37); Alanine Aminotransfer ALT/SGPT 257 U/L (16-61); Albumin, Serum 2.2 g/dL (3.2-5.0); Alkaline Phosphatase 90 U/L (45-117); Anion Gap 9 (5-15); BUN 22 mg/dL (7-18); BUN/Creat Ratio 15.5 RATIO (10-20); Bilirubin, Direct 3.01 mg/dL (0.00-0.30); Calcium,Total 7.4 mg/dL (8.5-10.1); Chloride 111 mmol/L (98-107); Creatinine, Serum 1.42 mg/dL (0.70-1.30); EST Glomerular Filtration Rate 52 mL/min (>60); Est Glom Filt Rate - Afr Amer 63 mL/min (>60); Estimated Creatinine Clearance 51.58 ml/min; Globulin 2.9 g/dL (2.2-4.2); Glucose 179 mg/dL (74-106); Magnesium 1.8 mg/dL (1.6-2.6); Protein, Total 5.1 g/dL (6.4-8.2); Sodium Level 141 mmol/L (136-145)
--- NOTE | 2018-09-04 07:45 | PCM.DC.SUM ---
Discharge Date and Diagnosis - Problem List Patient Problems: Active and Suspected Problems (Last Updated 09/24/17 @ 10:08 by Luci Alberto RN) Dyslipidemia (Acute) Abdominal pain (Acute) Acute cholecystitis (Acute) Date of Admission: 09/03/18 Date of Discharge: 09/04/18 - Primary Discharge Diagnosis Active and Suspected Problems (Last Updated 09/24/17 @ 10:08 by Luci Alberto RN) Dyslipidemia (Acute) Abdominal pain (Acute) Acute cholecystitis (Acute) - Secondary Discharge Diagnosis Chronic Problems (Last Updated 09/24/17 @ 10:08 by Luci Alberto RN) Harinder cell carcinoma (Chronic) Recurrent tonsillitis (Chronic) Essential (primary) hypertension (Chronic) BPH (benign prostatic hyperplasia) (Chronic) Hospital Course and Treatment Imaging Results: 09/04/18 07:35 Cholangiogram/ O R,Initial [RAD] Urgent O.R. Fluoro for C-Arm [RAD] Urgent Clinical Impression(s) from Imaging Studies Gallbladder Ultrasound 09/03/18 09:00 IMPRESSION: Mildly enlarged fatty infiltration of the liver. Sludge is seen within the gallbladder lumen. Cannot rule out tiny gallstones. Thickened gallbladder wall and small amount of pericholecystic fluid. Electronically Signed: Mateo Pickard MD at 11:29 EST , Service support , ERCP X-Ray 09/03/18 14:30 IMPRESSION: Fluoroscopic demonstration of cannulation, contrast opacification and balloon dilatation of the sphincter and brushing of the common bile duct. 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 Patient pain started around p.m. on the night prior to her admission. Pain was located in the right upper quadrant described as colicky. Patient also did experience nausea but denied any vomiting. Patient did not experience any diarrhea. In view of the persistent nature of his symptoms patient presented to the [facility] where CT of the abdomen obtained demonstrated wall thickening and irregularity involving the gallbladder with high suspicion for cholecystitis. Patient was also found to have slightly elevated AST and ALT bilirubin and alkaline phosphatase were within normal limits lactic acid was 3.3. Patient requested transfer to [facility] 1. Severe sepsis secondary to acute cholecystitis/acute cholangitis: Patient has been admitted to regular nursing floor. Started on broad-spectrum antibiotics with Zosyn. Gallbladder ultrasound ordered for subsequent evaluation. Consult placed to general surgery Dr. Annamarie Lyon the general surgeon on on-call notified patient has also been seen by Dr. Terrazas with general surgery with plans for patient to undergo ERCP. Patient ERCP performed on 09/03/2018 demonstrated presence of a distal mass versus polyp in the distal common bile duct. Case was discussed with Dr. Terrazas who performed the procedure. He recommended for patient to be transferred to a tertiary care center. Since patient has received care for his Harinder cell carcinoma at [facility] call was placed patient was accepted for transfer. 2. 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 Hypertension-blood pressure controlled, home medications continued with dose adjustment as needed 4. Dyslipidemia-patient is on statin therapy, continued at home dose 5. BPH patient is on Flomax 6. Obesity with BMI of 31.7 weight loss advised 7. DVT prophylaxis SC Lovenox Patient Problems: Active and Suspected Problems (Last Updated 09/24/17 @ 10:08 by Luci Alberto RN) Dyslipidemia (Acute) Abdominal pain (Acute) Acute cholecystitis (Acute) Objective: GENERAL: cooperative HEENT: Atraumatic; moist oral mucosa EYES; Anicteric, Normal Conjunctiva NECK; supple, normal thyroid, no distended JVD. RESPIRATORY: Diminished to auscultation bilaterally, CARDIOVASCULAR: Regular S1 S2, no audible murmurs GI: Right upper quadrant tenderness : No Renal angle tenderness; EXTREMITIES: No edema, no clubbing, no cyanosis. MUSCULOSKELETAL: No Joint Tenderness; no muscle waisting NEURO: Awake; no lateralizing signs. SKIN: No Rash PSYCH; Normal affect - Physical Exam Vital Signs Temp Pulse Resp BP Pulse Ox 98.5 F 70 16 113/63 94 02/02/19 02:13 09/04/18 02:13 09/04/18 02:13 09/04/18 02:13 09/04/18 02:13 Oxygen Delivery Method Room Air Weight: 109.004 kg Body Mass Index (BMI) 31.6 Intake and Output for Last 24 Hours 09/02/18 09/03/18 09/04/18 23:59 23:59 23:59 Intake Total 1770 / 1770 1745 / 1745 Output Total 250 / 250 1100 / 1100 Balance 1520 / 1520 645 / 645 Microbiology Past 72 Hours 09/03/18 12:00 Blood Culture - Preliminary Blood Culture (Wb) - Left Hand 09/03/18 12:15 Blood Culture - Preliminary Blood Culture (Wb) - Line Draw Laboratory Tests Past 24 Hrs 09/03/18 09/03/18 09/03/18 09:25 09:25 09:25 WBC 9.7 RBC 4.79 Hgb 14.0 Hct 42.7 MCV 89.1 MCH 29.2 MCHC 32.8 RDW 14.7 H RDW Differential 48.0 H Plt Count 125 L MPV 9.1 Immature Gran % (Auto) 0.700 Neut % (Auto) 93.4 H Lymph % (Auto) 1.2 L [place] % (Auto) 4.5 Eos % (Auto) 0.1 Baso % (Auto) 0.1 Absolute Neuts (auto) 9.0 H Absolute Lymphs (auto) 0.12 L Total Counted Not Reportable Differential Comment SCANNED PT 14.9 INR 1.2 APTT 26.2 Sodium 143 Potassium 3.9 Chloride 112 H Carbon Dioxide 19.0 L Anion Gap 12 BUN 18 Creatinine 1.42 H Estim Creat Clear Calc 51.58 Est GFR (MDRD) Af Amer 63 Est GFR (MDRD) Non-Af 52 L BUN/Creatinine Ratio 12.7 Glucose 159 H Lactic Acid Calcium 8.2 L Magnesium 1.7 Total Bilirubin 2.40 H Direct Bilirubin 1.56 H AST 587 H ALT 380 H Alkaline Phosphatase 140 H Total Protein 5.8 L Albumin 2.6 L Globulin 3.2 Albumin/Globulin Ratio 0.8 L Lipase 119 Urine Color Urine Clarity Urine pH Ur Specific [place] Urine Protein Urine Glucose (UA) Urine Ketones Urine Occult Blood Urine Nitrite Urine Bilirubin Urine Urobilinogen Ur Leukocyte Esterase Urine RBC Urine WBC Ur Squamous Epith Cells Urine Bacteria Urine Mucus 09/03/18 09/03/18 09/03/18 09:25 19:35 19:45 WBC RBC Hgb Hct MCV MCH MCHC RDW RDW Differential Plt Count MPV Immature Gran % (Auto) Neut % (Auto) Lymph % (Auto) [place] % (Auto) Eos % (Auto) Baso % (Auto) Absolute Neuts (auto) Absolute Lymphs (auto) Total Counted Differential Comment PT INR APTT Sodium Potassium Chloride Carbon Dioxide Anion Gap BUN Creatinine Estim Creat Clear Calc Est GFR (MDRD) Af Amer Est GFR (MDRD) Non-Af BUN/Creatinine Ratio Glucose Lactic Acid 3.5 H 2.5 H Calcium Magnesium Total Bilirubin Direct Bilirubin AST ALT Alkaline Phosphatase Total Protein Albumin Globulin Albumin/Globulin Ratio Lipase Urine Color DARK YELLOW Urine Clarity Clear Urine pH 6.0 Ur Specific [place] 1.015 Urine Protein 30 H Urine Glucose (UA) 50 H Urine Ketones 5 H Urine Occult Blood 10 H Urine Nitrite Negative Urine Bilirubin 3 H Urine Urobilinogen 8 H Ur Leukocyte Esterase 25 H Urine RBC 0 SEEN Urine WBC 0 SEEN Ur Squamous Epith Cells 0-5 SEEN Urine Bacteria RARE Urine Mucus 0 SEEN 09/04/18 09/04/18 06:05 06:05 WBC 14.0 H RBC 4.08 L Hgb 11.9 L Hct 36.9 L MCV 90.4 MCH 29.2 MCHC 32.2 RDW 15.2 H RDW Differential 50.3 H Plt Count 84 L MPV 9.1 Immature Gran % (Auto) Neut % (Auto) Lymph % (Auto) [place] % (Auto) Eos % (Auto) Baso % (Auto) Absolute Neuts (auto) Absolute Lymphs (auto) Total Counted Differential Comment PT INR APTT Sodium 141 Potassium 4.0 Chloride 111 H Carbon Dioxide 21.0 Anion Gap 9 BUN 22 H Creatinine 1.42 H Estim Creat Clear Calc 51.58 Est GFR (MDRD) Af Amer 63 Est GFR (MDRD) Non-Af 52 L BUN/Creatinine Ratio 15.5 Glucose 179 H Lactic Acid Calcium 7.4 L Magnesium 1.8 Total Bilirubin 4.00 H Direct Bilirubin 3.01 H AST 199 H ALT 257 H Alkaline Phosphatase 90 Total Protein 5.1 L Albumin 2.2 L Globulin 2.9 Albumin/Globulin Ratio Lipase Urine Color Urine Clarity Urine pH Ur Specific [place] Urine Protein Urine Glucose (UA) Urine Ketones Urine Occult Blood Urine Nitrite Urine Bilirubin Urine Urobilinogen Ur Leukocyte Esterase Urine RBC Urine WBC Ur Squamous Epith Cells Urine Bacteria Urine Mucus Discharge Diet: No Restrictions Home Medications: Medications to take at Discharge Aspirin [Aspir-Low] 81 mg PO DAILY 12/08/16 Finasteride 5 mg PO DAILY 12/08/16 Metoprolol Succinate [Toprol Xl] 25 mg PO DAILY 12/08/16 Omeprazole 10 mg PO DAILY 12/08/16 Pravastatin [Pravachol] 40 mg PO QHS 12/08/16 Valsartan [Diovan] 160 mg PO QHS 12/08/16 Tamsulosin HCl [Flomax] 0.4 mg PO DAILY 12/10/16 Linacolotide [Linzess] 145 mcg PO DAILY 12/11/16 Sodium Chloride 0.65% [Carbon Nasal [place]] 1 spray NASAL PRN PRN 09/30/17 Piperacil/Tazobactam [Zosyn] 3.375 gm IV Q8 ml 09/03/18 Primary Care Physician: Garrett Hernandez Chi, MD [Primary Care Provider] - Please follow up with your Primary Care Physician in: in 1-2 weeks Disposition: Acute care Hospital - [facility] Minutes spent on discharge:: 35 Patient Condition:: Fair Medical Necessity - Tobacco Use Smoking Status: Former smoker Meaningful Use Info Meaningful Use Diagnoses (Choose all that apply): None applicable Code Visit Inpatient E&M: 96091 Disch Hosp
--- NOTE | 2018-09-04 07:53 | NURSING ---
Pt. being transported at this time to [facility] per order. Pt assisted to bathroom and packing personal belongings- denies further needs.
== END 2018-09-04 07:53 | disposition short-term general hospital (02) | DRG 872 ==
PROVIDERS: Surgery; Admitting Provider Internal Medicine; Family Provider Family Medicine Geriatric Medicine; PCP Family Medicine Geriatric Medicine; Referring Provider Internal Medicine; Visit Provider Internal Medicine
PROC: 0F798DZ Dilation of Common Bile Duct with Intraluminal Device, Via Natural or Artificial Opening Endoscopic (ICD-10-PCS; CPT 43260; principal; 2018-09-03 13:30)
DX: A41.9 Sepsis, unspecified organism (principal); K81.0 Acute cholecystitis; K83.09 Other cholangitis; R65.20 Severe sepsis without septic shock; K83.9 Disease of biliary tract, unspecified; E78.5 Hyperlipidemia, unspecified; N40.0 Benign prostatic hyperplasia without lower urinary tract symptoms; E66.9 Obesity, unspecified; C4A.9 Merkel cell carcinoma, unspecified; I10 Essential (primary) hypertension; Z87.891 Personal history of nicotine dependence; Z79.899 Other long term (current) drug therapy; Z68.31 Body mass index [BMI] 31.0-31.9, adult
CPT/HCPCS: 36415; 74328; 74330; 76000; 76705; 80048; 80053; 80076; 81001; 82248; 83605; 83690; 83735; 85025; 85027; 85610; 85730; 87040; 87077; 87086; 87186; 88161; 88304; 88305; 88313; J7030; J7040; A4216; J2405; J7799

== ENCOUNTER → 2018-10-27 12:01 | Outpatient (CLI) | payer MEDICARE, SELFPAY ==
[2017-09-24 10:04] VITALS: BMI 31.2
[2018-09-03 08:38] VITALS: BMI 31.6
[2018-10-27 12:42] LABS: Absolute Neutrophil Count 5.4 X10^3/uL (2.0-7.7); Basophil# 0.03 X10^3/uL; Basophil% 0.4 % (0-1); Eosinophil# 0.32 X10^3/uL; Eosinophils% 4.3 % (0-5); Hematocrit 40.9 % (40-54); Hemoglobin 13.1 g/dl (13.0-16.5); Lymphocyte % 14.6 % (19-41); Mean Corpuscular Hgb 29.2 pg (27.0-32.0); Mean Corpuscular Volume 91.3 fL (80-94); Mean Platelet Vol. 9.4 fl (6.2-12.0); Monocyte# 0.61 X10^3/uL; Monocyte% 8.1 % (0-10); Neutrophil # 5.41 X10^3/uL (2.7-7.7); Neutrophil % 72.1 % (47-70); Platelet Count 190 K/mm3 (150-450); RBC Distribution Width CV 15.1 % (11.6-14.6); RBC Distribution Width SD 50.2 fl (35.1-43.9); Red Blood Count 4.48 M/mm3 (4.6-6.2); White Blood Count 7.5 K/mm3 (4.4-11.0)
[2018-10-27 12:44] LABS: POSITIVE COUNT NO; POSITIVE DIFFERENTIAL NO; POSITIVE MORPHOLOGY NO
[2018-10-27 13:48] LABS: ALB/GLOB Ratio 0.8 RATIO (0.9-2.4); AST(SGOT) 18 U/L (15-37); Alanine Aminotransfer ALT/SGPT 18 U/L (16-61); Albumin, Serum 3.1 g/dL (3.2-5.0); Alkaline Phosphatase 83 U/L (45-117); Anion Gap 7 (5-15); BUN 16 mg/dL (7-18); BUN/Creat Ratio 12.5 RATIO (10-20); Calcium,Total 8.8 mg/dL (8.5-10.1); Chloride 106 mmol/L (98-107); Creatinine, Serum 1.28 mg/dL (0.70-1.30); EST Glomerular Filtration Rate 58 mL/min (>60); Est Glom Filt Rate - Afr Amer 71 mL/min (>60); Globulin 3.8 g/dL (2.2-4.2); Glucose 141 mg/dL (74-106); Potassium 4.6 mmol/L (3.5-5.1); Protein, Total 6.9 g/dL (6.4-8.2); Sodium Level 137 mmol/L (136-145); Thyroid Stim Hormone (TSH) 2.69 uIU/mL (0.358-3.74)
== END ==
PROVIDERS: Family Provider Family Medicine Geriatric Medicine; PCP Family Medicine Geriatric Medicine; Visit Provider Family Medicine Geriatric Medicine
DX: I10 Essential (primary) hypertension (principal); F52.8 Other sexual dysfunction not due to a substance or known physiological condition
CPT/HCPCS: 36415; 80053; 84403; 84443; 85025

== ENCOUNTER 2018-11-01 15:15 | Observation (INO) | payer MEDICARE, SELFPAY ==
[2017-09-24 10:04] VITALS: BMI 31.2
[2018-09-03 08:38] VITALS: BMI 31.6
[2018-11-01] VITALS (8 sets, daily range): BP systolic 145–166; BP diastolic 79–105; PULSE 79–98; RESP 16–17; TEMP 36.3–37.5; O2SAT 96–99; BMI 30.7; BMI 30.8
--- NOTE | 2018-11-01 15:38 | RAD_ITS ---
STUDY: X-RAY CHEST REASON FOR EXAM: Male, 73 years old. Chest pain. TECHNIQUE: Single AP portable view of the chest. COMPARISON: Comparison is made with prior study dated July 20, 2017. FINDINGS: EKG electrodes are seen. Surgical clips are seen in the right axillary region. The lungs are clear and expanded. Scattered calcified granulomatous disease. There is no demonstrated pleural abnormality. There is moderate cardiac enlargement. Normal mediastinum and vlad. Normal visualized pulmonary arteries. There is atherosclerotic calcification of the aortic arch with tortuosity. Normal visualized thoracic spine. Normal visualized ribs, clavicles, and shoulders. There is no demonstrated abnormality of the visualized soft tissue structures of the upper abdomen. RAD/Chest 1 View (Portable) IMPRESSION: Cardiomegaly. No acute abnormality is seen. Electronically Signed: Mateo Pickard, at 15:57 EDT , Service support ,
--- NOTE | 2018-11-01 15:38 | EKG12_ITS ---
Test Reason : CP Blood Pressure : / mmHG Vent. Rate : 099 BPM Atrial Rate : 099 BPM P-R Int : 266 ms QRS Dur : 088 ms QT Int : 322 ms P-R-T Axes : 073 -15 014 degrees QTc Int : 413 ms Sinus rhythm with 1st degree A-V block Inferior infarct , age undetermined Poor R Wave Progression Abnormal ECG Confirmed by JONATHAN NORTON, BASIL ([id number]), features editor DELFINA BARON ([id number]) on 11/05/2018 11:39:02 AM Referred By: Jimmy Toussaint Confirmed By:BASIL CASTILLO MD
--- NOTE | 2018-11-01 15:46 | ED.DCSUM_ITS ---
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 Patient states symptoms would improve wh en he sits at rest, but returns when he tries to do any activity. He denies significant cardiac history. Patient does have history of [place] cell lymphoma. He had his gallbladder removed in September. ERCP here showed possible mass in the cystic duct, but patient states pathology test came back unremarkable. Physical Examination: Blood pressure is 166/99, temperature 99.5, heart rate 98, respiratory rate 17, pulse ox 99% on room air. Patient sitting in bed in no acute distress. Head neck examination unremarkable. Heart is regular rate and rhythm. Lung sounds are clear. There is no reproducible chest wall tenderness. Abdomen is soft and nontender. Hypoactive bowel sounds are present. Lower external examination reveals no calf tenderness or edema. Test Results: EKG is sinus at 99 with no sign of acute ischemia. Portable chest x-ray shows no acute abnormality. CBC and chemistry studies grossly unremarkable. Troponin is less than 0.015. D-dimer is 1.34. CTA of the chest is obtained and reveals a stable right middle lobe nodule with no evidence of PE. Emergency Department Course and Treatment: Patient was given aspirin on arrival. He has had no further episodes while sitting at rest in bed. He will be admitted for cycling of cardiac enzymes and probable stress test. Treatment Plan: [] Disposition: Admit Impression: Chest pain This note was generated with [employer] dictation software. It may contain incorrect words, spelling, and punctuation that were not noted in review of the chart prior to signing ED Disposition - Plan for ED Patient: Referrals: Garrett Hernandez Chi, MD [Primary Care Provider] -
[2018-11-01] MEDS: 0.9% Normal Saline 1,000 ML 150 ML IV ×2 (15:55→20:45)
[2018-11-01] MEDS: Aspirin 81 MG TAB.CHEW 324 MG PO (15:55)
[2018-11-01 16:26] LABS: Absolute Lymphocyte Count 0.96 X10^3/ul (0.83-4.51); Absolute Neutrophil Count 6.4 X10^3/uL (2.0-7.7); Basophil# 0.02 X10^3/uL; Basophil% 0.2 % (0-1); Eosinophil# 0.11 X10^3/uL; Eosinophils% 1.3 % (0-5); Hematocrit 41.3 % (40-54); Hemoglobin 13.7 g/dl (13.0-16.5); Lymphocyte # 0.96 X10^3/ul (4.0); Lymphocyte % 11.5 % (19-41); Mean Corp Hgb Conc 33.2 g/gl (32-36); Mean Corpuscular Hgb 29.3 pg (27.0-32.0); Mean Corpuscular Volume 88.2 fL (80-94); Mean Platelet Vol. 9.5 fl (6.2-12.0); Monocyte% 9.6 % (0-10); Neutrophil # 6.42 X10^3/uL (2.7-7.7); Neutrophil % 76.9 % (47-70); Platelet Count 196 K/mm3 (150-450); RBC Distribution Width CV 14.9 % (11.6-14.6); RBC Distribution Width SD 47.2 fl (35.1-43.9); Red Blood Count 4.68 M/mm3 (4.6-6.2); White Blood Count 8.4 K/mm3 (4.4-11.0)
[2018-11-01 16:28] LABS: POSITIVE COUNT NO; POSITIVE DIFFERENTIAL NO; POSITIVE MORPHOLOGY NO
[2018-11-01 16:36] LABS: Anion Gap 5 (5-15); BUN 18 mg/dL (7-18); BUN/Creat Ratio 13.8 RATIO (10-20); Calcium,Total 9.2 mg/dL (8.5-10.1); Chloride 110 mmol/L (98-107); EST Glomerular Filtration Rate 57 mL/min (>60); Est Glom Filt Rate - Afr Amer 69 mL/min (>60); Estimated Creatinine Clearance 56.34 ml/min; Glucose 130 mg/dL (74-106); Sodium Level 140 mmol/L (136-145)
[2018-11-01 16:48] LABS: D-Dimer Quantitative (DVT/PE) 1.34 FEU/ug/m (0.27-0.49)
--- NOTE | 2018-11-01 16:54 | CT_ITS ---
STUDY: CTA CHEST REASON FOR EXAM: Male, 73 years old. Chest pain and SOB, history of Harinder cell cancer RADIATION DOSAGE (If Supplied By Facility): CTDIvol = ( 13.85 ) mGy, DLP = ( 637.61 ) mGycm TECHNIQUE: The examination was performed with the intravenous administration of 100 IV Isovue 370. Post-processing of the angiographic images was performed, with multiplanar reformation and 3D reconstruction. Individualized dose optimization techniques were used for this CT. COMPARISON: PET/CT 12/08/2016 FINDINGS: Small hiatal hernia. Normal enhancement of the main pulmonary artery and right and left pulmonary arteries. Normal enhancement of the bilateral peripheral pulmonary arteries. There is no demonstrated pulmonary embolism. Normal thoracic aorta and visualized great vessels. There is no demonstrated aortic dissection. Normal heart and pericardium. Normal mediastinum. Normal hilar regions. Normal visualized trachea and bronchi. The lungs are well expanded. 6 mm right middle lobe nodule on image 139 of series 2, stable compared to prior PET/CT. This is considered benign. Normal pleura. Clips and postoperative changes in the right axilla. There are degenerative changes of thoracic spine. Cholecystectomy. CT/CTA Chest W/WO Contrast IMPRESSION: No pulmonary embolus. Stable benign 6 mm right middle lobe nodule. Electronically Signed: Travis Arango MD at 17:58 EDT Tel , Service support ,
--- NOTE | 2018-11-01 19:12 | PCM.HP.STD ---
Problem List (1) Chest pain Status: Acute History of Present Illness Date of Admission: 11/01/18 Chief Complaint: chest pain The patient is a 73 year old M resents with chest pain that began today. Patient described it as left-sided nonradiating. Associated with shortness of breath. Was not getting better so presented to the emergency room. He underwent a workup, that included a d-dimer that was elevated at 1.34. CT angiogram of the chest was negative for ulnar embolism. Patient being admitted for further chest pain evaluation. Patient is never had pain like this before. 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 HTN (hypertension) I10 Allergies oxycodone [From OxyContin] Adverse Reaction (Severe, Verified 11/01/18 19:04) lethargic-sleepy lethargic -sleepy Home Medications: Ambulatory Orders Medication Instructions Recorded Aspirin [Aspir-Low] 81 mg PO QHS 12/08/16 Pravastatin [Pravachol] 40 mg PO QHS 12/08/16 Valsartan [Diovan] 160 mg PO QHS 12/08/16 Tamsulosin HCl [Flomax] 0.4 mg PO DAILY 12/10/16 Linacolotide [Linzess] 145 mcg PO DAILY 12/11/16 Sodium Chloride 0.65% [[place] Nasal 1 spray NASAL PRN PRN 09/30/17 [place]] Finasteride [Proscar] 5 mg PO DAILY 11/01/18 Metoprolol Succinate [Toprol Xl] 25 mg PO DAILY 11/01/18 Omeprazole 10 mg PO DAILY 11/01/18 Surgical History: Surgical History (Last Updated 09/24/17 @ 10:08 by Luci Alberto RN) 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 Surgical History: - - Right axillary dissection/resection for Harinder cell, Mohs procedure on upper lip, bilateral knees, right tonsillectomy Psychiatric History: No pertinent psych hx Smoking Status: Former smoker Tobacco Use: Non-smoker Alcohol: Occasional - *Family History Maternal Family History: Family History (Last Reviewed 11/01/18 @ 19:14 by Jimmy Toussaint DO) Grandmother Uterine cancer Father Lung cancer Review of Systems Constitutional: Denies: Chills, Fever, Weight Change Eyes: Denies: Blurred vision, Double vision HEENT: Denies: Head Aches, Sinus Congestion, Sinus Drainage Cardiovascular: Reports: Chest Pain, Edema - Chronic lymphedema in the right upper extremity Respiratory: Reports: Shortness of Breath. Denies: Cough, Sputum production Gastrointestinal: Denies: Abdominal Pain, Nausea, Vomiting Genitourinary: Denies: Dysuria Musculoskeletal: Denies: Joint Pain, Joint Tenderness Skin: Reports: - - Leathery appearance to his right axilla due to radiation. Denies: Rash, Wounds Neurological: Denies: Numbness, Tingling, Focal weakness Psychiatric: Denies: Anxiety, Depression Hematologic/ Lymphatic: Denies: Easy Bruising, Easy Bleeding, Hx of blood clot Comment: A 10 point review of systems were negative except as mentioned in the history of present illness and the other review of systems. VTE Information - Inpt Only VTE Present on Admission: No VTE Pharm Prophylaxis ordered?: Yes Patient Problems: Active and Suspected Problems (Last Updated 09/24/17 @ 10:08 by Luci Alberto RN) Chest pain (Acute) - Physical Exam General: Alert, Cooperative, No apparent distress HEENT: Atraumatic, Normocephalic Oral: Moist Mucosa, No Gingival or Mucosal Lesions/ Ulcerations Neck: No Nodes, Thyroid Normal Size and Texture Lungs: Clear to auscultation, Normal air movement, No rhonchi, No wheeze Cardiovascular: Regular rate, Regular Rhythm, Normal S1, Normal S2, No murmurs Abdomen: Bowel Sounds Present, Soft, Non Tender, Non-Distended, No Hepato-splenomegaly Extremities: No Calf Tenderness, - - Lymphedema of the right upper extremity Skin: - - Scarring of the right axilla Psych/Mental Status: Normal Affect, Appropriate Vital Signs Temp Pulse Resp BP Pulse Ox 37.5 C H 84 16 162/100 H 98 11/01/18 15:22 11/01/18 19:07 11/01/18 19:07 11/01/18 19:07 11/01/18 19:07 Oxygen Delivery Method Room Air Weight: 105.687 kg Body Mass Index (BMI) 30.7 Laboratory Tests Past 24 Hrs 11/01/18 11/01/18 11/01/18 16:00 16:00 16:00 WBC 8.4 RBC 4.68 Hgb 13.7 Hct 41.3 MCV 88.2 MCH 29.3 MCHC 33.2 RDW 14.9 H RDW Differential 47.2 H Plt Count 196 MPV 9.5 Immature Gran % (Auto) 0.500 Neut % (Auto) 76.9 H Lymph % (Auto) 11.5 L [place] % (Auto) 9.6 Eos % (Auto) 1.3 Baso % (Auto) 0.2 Absolute Neuts (auto) 6.4 Absolute Lymphs (auto) 0.96 Total Counted Not Reportable D-Dimer Quant (PE/DVT) 1.34 H* Sodium 140 Potassium 4.0 Chloride 110 H Carbon Dioxide 25.0 Anion Gap 5 BUN 18 Creatinine 1.30 Estim Creat Clear Calc 56.34 Est GFR (MDRD) Af Amer 69 Est GFR (MDRD) Non-Af 57 L BUN/Creatinine Ratio 13.8 Glucose 130 H Calcium 9.2 Troponin I < 0.015 Clinical Impression(s) from Imaging Studies Chest X-Ray 11/01/18 15:38 IMPRESSION: Cardiomegaly. No acute abnormality is seen. Electronically Signed: Mateo Pickard at 15:57 EDT , Service support , Chest CTA 11/01/18 16:54 IMPRESSION: No pulmonary embolus. Stable benign 6 mm right middle lobe nodule. Electronically Signed: Travis Arango MD at 17:58 EDT Tel , Service support , EKG reviewed showed normal sinus rhythm with some small inferior Q waves Assessment/Plan All Active Problems (Last Updated 09/24/17 @ 10:08 by Luci Alberto, RN) Neuroendocrine carcinoma (Resolved) HARINDER (acute kidney injury) (Resolved) Syncope (Resolved) Orthostatic hypotension (Resolved) Dyslipidemia (Acute) Abdominal pain (Acute) Acute cholecystitis (Acute) Chest pain (Acute) 1. Chest pain: Heart score of 4. GASTON score of 3 Plan is for a chemical nuclear stress test on the second. Continue with aspirin If troponins go up, discontinue the stress test and consult cardiology Discussed with patient and his that this is not a pulmonary embolism and other possibilities, if it is not as heart, could be esophageal spasm. Since patient did have a CT angiogram of chest, I will give the patient IV fluids. 2. Harinder cell lymphoma Patient has had extensive radiation to his right axilla. That could pose an atherosclerotic risk factor with the field of radiation potentially involving his heart. Patient completed his immunotherapy last week 3. DVT prophylaxis: The patient is here beyond Lovenox is ordered to be started on the third. Code Visit OBSV E&M: 28889 Initial observation care L2
--- NOTE | 2018-11-01 19:18 | HP.PCM_ITS ---
Problem List (1) Chest pain Status: Acute History of Present Illness Date of Admission: 11/01/18 Chief Complaint: chest pain The patient is a 73 year old M resents with chest pain that began today. Patient described it as left-sided nonradiating. Associated with shortness of breath. Was not getting better so presented to the emergency room. He underwent a workup, that included a d-dimer that was elevated at 1.34. CT angiogram of the chest was negative for ulnar embolism. Patient being admitted for further chest pain evaluation. Patient is never had pain like this before. [] Past Medical History Past Medical History (Chronic Problems): Chronic Problems (Last Updated 09/24/17 @ 10:08 by Luci Alberot, ELLE) [place] cell carcinoma (Chronic) Recurrent tonsillitis (Chronic) Essential (primary) hypertension (Chronic) BPH (benign prostatic hyperplasia) (Chronic) Medical History: Medical History (Last Reviewed 11/01/18 @ 19:13 by Jimmy Toussaint DO) Basal cell carcinoma C44.91 Elevated cholesterol E78.00 Enlarged prostate N40.0 GERD (gastroesophageal reflux disease) K21.9 Lymphoma C85.90 [place] CELL HTN (hypertension) I10 Allergies oxycodone [From OxyContin] Adverse Reaction (Severe, Verified 11/01/18 19:04) lethargic-sleepy lethargic -sleepy Home Medications: Ambulatory Orders Medication Instructions Recorded Aspirin [Aspir-Low] 81 mg PO QHS 12/08/16 Pravastatin [Pravachol] 40 mg PO QHS 12/08/16 Valsartan [Diovan] 160 mg PO QHS 12/08/16 Tamsulosin HCl [Flomax] 0.4 mg PO DAILY 12/10/16 Linacolotide [Linzess] 145 mcg PO DAILY 12/11/16 Sodium Chloride 0.65% [[place] Nasal 1 spray NASAL PRN PRN 09/30/17 [place]] Finasteride [Proscar] 5 mg PO DAILY 11/01/18 Metoprolol Succinate [Toprol Xl] 25 mg PO DAILY 11/01/18 Omeprazole 10 mg PO DAILY 11/01/18 Surgical History: Surgical History (Last Updated 09/24/17 @ 10:08 by Luci Alberto RN) 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 Surgical History: - - Right axillary dissection/resection for Harinder cell, Mohs procedure on upper lip, bilateral knees, right tonsillectomy Psychiatric History: No pertinent psych hx Smoking Status: Former smoker Tobacco Use: Non-smoker Alcohol: Occasional - *Family History Maternal Family History: Family History (Last Reviewed 11/01/18 @ 19:14 by Jimmy Toussaint DO) Grandmother Uterine cancer Father Lung cancer Review of Systems Constitutional: Denies: Chills, Fever, Weight Change Eyes: Denies: Blurred vision, Double vision HEENT: Denies: Head Aches, Sinus Congestion, Sinus Drainage Cardiovascular: Reports: Chest Pain, Edema - Chronic lymphedema in the right upper extremity Respiratory: Reports: Shortness of Breath. Denies: Cough, Sputum production Gastrointestinal: Denies: Abdominal Pain, Nausea, Vomiting Genitourinary: Denies: Dysuria Musculoskeletal: Denies: Joint Pain, Joint Tenderness Skin: Reports: - - Leathery appearance to his right axilla due to radiation. Denies: Rash, Wounds Neurological: Denies: Numbness, Tingling, Focal weakness Psychiatric: Denies: Anxiety, Depression Hematologic/ Lymphatic: Denies: Easy Bruising, Easy Bleeding, Hx of blood clot Comment: A 10 point review of systems were negative except as mentioned in the history of present illness and the other review of systems. VTE Information - Inpt Only VTE Present on Admission: No VTE Pharm Prophylaxis ordered?: Yes Patient Problems: Active and Suspected Problems (Last Updated 09/24/17 @ 10:08 by Luci Alberto RN) Chest pain (Acute) - Physical Exam General: Alert, Cooperative, No apparent distress HEENT: Atraumatic, Normocephalic Oral: Moist Mucosa, No Gingival or Mucosal Lesions/ Ulcerations Neck: No Nodes, Thyroid Normal Size and Texture Lungs: Clear to auscultation, Normal air movement, No rhonchi, No wheeze Cardiovascular: Regular rate, Regular Rhythm, Normal S1, Normal S2, No murmurs Abdomen: Bowel Sounds Present, Soft, Non Tender, Non-Distended, No Hepato- splenomegaly Extremities: No Calf Tenderness, - - Lymphedema of the right upper extremity Skin: - - Scarring of the right axilla Psych/Mental Status: Normal Affect, Appropriate Vital Signs Temp Pulse Resp BP Pulse Ox 37.5 C H 84 16 162/100 H 98 11/01/18 15:22 11/01/18 19:07 11/01/18 19:07 11/01/18 19:07 11/01/18 19:07 Oxygen Delivery Method Room Air Weight: 105.687 kg Body Mass Index (BMI) 30.7 Laboratory Tests Past 24 Hrs 11/01/18 11/01/18 11/01/18 16:00 16:00 16:00 WBC 8.4 RBC 4.68 Hgb 13.7 Hct 41.3 MCV 88.2 MCH 29.3 MCHC 33.2 RDW 14.9 H RDW Differential 47.2 H Plt Count 196 MPV 9.5 Immature Gran % (Auto) 0.500 Neut % (Auto) 76.9 H Lymph % (Auto) 11.5 L [place] % (Auto) 9.6 Eos % (Auto) 1.3 Baso % (Auto) 0.2 Absolute Neuts (auto) 6.4 Absolute Lymphs (auto) 0.96 Total Counted Not Reportable D-Dimer Quant (PE/DVT) 1.34 H* Sodium 140 Potassium 4.0 Chloride 110 H Carbon Dioxide 25.0 Anion Gap 5 BUN 18 Creatinine 1.30 Estim Creat Clear Calc 56.34 Est GFR (MDRD) Af Amer 69 Est GFR (MDRD) Non-Af 57 L BUN/Creatinine Ratio 13.8 Glucose 130 H Calcium 9.2 Troponin I < 0.015 Clinical Impression(s) from Imaging Studies Chest X-Ray 11/01/18 15:38 IMPRESSION: Cardiomegaly. No acute abnormality is seen. Electronically Signed: Mateo Pickard at 15:57 EDT , Service support , Chest CTA 11/01/18 16:54 IMPRESSION: No pulmonary embolus. Stable benign 6 mm right middle lobe nodule. Electronically Signed: Travis Arango MD at 17:58 EDT Tel , Service support , EKG reviewed showed normal sinus rhythm with some small inferior Q waves Assessment/Plan All Active Problems (Last Updated 09/24/17 @ 10:08 by Luci Alberto, RN) Neuroendocrine carcinoma (Resolved) HARINDER (acute kidney injury) (Resolved) Syncope (Resolved) Orthostatic hypotension (Resolved) Dyslipidemia (Acute) Abdominal pain (Acute) Acute cholecystitis (Acute) Chest pain (Acute) 1. Chest pain: * Heart score of 4. GASTON score of 3 * Plan is for a chemical nuclear stress test on the second. * Continue with aspirin * If troponins go up, discontinue the stress test and consult cardiology * Discussed with patient and his that this is not a pulmonary embolism and other possibilities, if it is not as heart, could be esophageal spasm. * Since patient did have a CT angiogram of chest, I will give the patient IV fluids. 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 That could pose an atherosclerotic risk factor with the field of radiation potentially involving his heart. * Patient completed his immunotherapy last week 3. DVT prophylaxis: The patient is here beyond Lovenox is ordered to be started on the third. Code Visit OBSV E&M: 09059 Initial observation care L2
--- NOTE | 2018-11-01 20:15 | EKG12_ITS ---
Test Reason : Blood Pressure : / mmHG Vent. Rate : 062 BPM Atrial Rate : 062 BPM P-R Int : 294 ms QRS Dur : 090 ms QT Int : 422 ms P-R-T Axes : 046 -20 002 degrees QTc Int : 428 ms Sinus rhythm with 1st degree A-V block Low voltage QRS Inferior infarct , age undetermined , cannot be excluded Poor R Wave Progression Abnormal ECG Confirmed by JONATHAN NORTON, BASIL ([id number]), production editor DELFINA BARON ([id number]) on 11/08/2018 12:17:54 PM Referred By: Jimmy Toussaint Confirmed By:BASIL CASTILLO MD
[2018-11-01] MEDS: Losartan Potassium 50 MG Tablet PO (22:13)
[2018-11-01] MEDS: Aspirin E.C. 81 MG Tablet PO (22:14)
[2018-11-01] MEDS: Pravastatin 40 MG Tablet PO (22:14)
[2018-11-02] VITALS (7 sets, daily range): BP systolic 152–165; BP diastolic 83–98; PULSE 61–84; RESP 16; TEMP 36.6–36.8; O2SAT 95–99
--- NOTE | 2018-11-02 05:55 | EKG12_ITS ---
Test Reason : Blood Pressure : / mmHG Vent. Rate : 079 BPM Atrial Rate : 079 BPM P-R Int : 314 ms QRS Dur : 086 ms QT Int : 372 ms P-R-T Axes : 059 -14 001 degrees QTc Int : 426 ms Sinus rhythm with 1st degree A-V block Inferior infarct , age undetermined Abnormal ECG When compared with ECG of 01-NOV-2018 15:14, MANUAL COMPARISON REQUIRED, DATA IS UNCONFIRMED Confirmed by NADIA NORTON, NENITA ([id number]), material expeditor CARLOS ALANIS ([id number]) on 11/15/2018 5:21:20 PM Referred By: Jimmy Toussaint Confirmed By:NENITA ZUNIGA MD
[2018-11-02 06:44] LABS: Absolute Lymphocyte Count 1.06 X10^3/ul (0.83-4.51); Basophil# 0.03 X10^3/uL; Basophil% 0.4 % (0-1); Eosinophil# 0.22 X10^3/uL; Eosinophils% 3.1 % (0-5); Hematocrit 38.3 % (40-54); Hemoglobin 12.4 g/dl (13.0-16.5); Lymphocyte # 1.06 X10^3/ul (4.0); Lymphocyte % 14.9 % (19-41); Mean Corp Hgb Conc 32.4 g/gl (32-36); Mean Corpuscular Hgb 28.9 pg (27.0-32.0); Mean Corpuscular Volume 89.3 fL (80-94); Mean Platelet Vol. 9.6 fl (6.2-12.0); Monocyte# 0.78 X10^3/uL; Monocyte% 10.9 % (0-10); Neutrophil % 70.1 % (47-70); Platelet Count 177 K/mm3 (150-450); RBC Distribution Width CV 15.3 % (11.6-14.6); RBC Distribution Width SD 49.5 fl (35.1-43.9); Red Blood Count 4.29 M/mm3 (4.6-6.2); White Blood Count 7.1 K/mm3 (4.4-11.0)
[2018-11-02 06:47] LABS: International Normalized Ratio 1.2; POSITIVE COUNT NO; POSITIVE DIFFERENTIAL NO; POSITIVE MORPHOLOGY NO; Partial Thromboplast Time 31.2 Seconds (24.1-36.2); Prothrombin Time (Protime)PT. 14.8 SECONDS (11.7-14.9)
[2018-11-02 06:56] LABS: Anion Gap 6 (5-15); BUN 16 mg/dL (7-18); BUN/Creat Ratio 13.8 RATIO (10-20); Calcium,Total 8.5 mg/dL (8.5-10.1); Chloride 113 mmol/L (98-107); Cholesterol 99 mg/dL (200); Creatinine, Serum 1.16 mg/dL (0.70-1.30); EST Glomerular Filtration Rate 65 mL/min (>60); Est Glom Filt Rate - Afr Amer 79 mL/min (>60); Estimated Creatinine Clearance 63.14 ml/min; Glucose 117 mg/dL (74-106); High Density Lipoprotein 37 mg/dL; Potassium 3.9 mmol/L (3.5-5.1); Sodium Level 142 mmol/L (136-145); Triglycerides 87 mg/dL; Very Low Density Lipoprotein 17 mg/dL (5-40)
[2018-11-02] MEDS: Tamsulosin HCl 0.4 MG Capsule PO (09:28)
[2018-11-02] MEDS: Pantoprazole Sodium 20 MG Tablet PO (09:29)
[2018-11-02] MEDS: Finasteride 5 MG Tablet PO (09:29)
[2018-11-02] MEDS: Metoprolol(XL)Succ 25 MG Tablet PO (09:30)
--- NOTE | 2018-11-02 09:47 | STRESSREP ---
Stress Test Report Date: Procedure: Pharmacologic stress nuclear imaging study Indications: Chest pain Consent: Per the patient Procedure: The patient underwent pharmacologic (Regadenoson) evaluation with a peak heart rate of 95 beats per minute (65 %predicted maximal heart rate) and a peak blood pressure of 142/86 mmHg. The baseline ECG demonstrated normal sinus rhythm. The peak pharmacologic ECG demonstrated no obvious ECG changes. There was an isolated PVC during recovery. There was no complaint of chest discomfort during pharmacologic infusion or recovery. The examination was discontinued secondary to completion of protocol. Impression: 1. Pharmacologic (Regadenoson) evaluation 2. Peak pharmacologic ECG with with no obvious ECG changes. 3. There was an isolated PVC during recovery. 4. Nuclear images pending Myocardial perfusion imaging study: Technique: The patient was injected with 14.7 millicuries of technetium 99m Cardiolite and subsequently rest SPECT Cardiolite nuclear imaging was obtained in the horizontal long, vertical long, and short axis views. The patient underwent pharmacologic (Regadenoson) evaluation with a peak heart rate of 95 beats per minute (65 % percent predicted maximal heart rate) and a peak blood pressure of 142/86 mmHg. The patient was injected with 44.5 millicuries of technetium 99m Cardiolite and subsequently stress SPECT Cardiolite nuclear imaging was obtained in the horizontal long, vertical long, and short axis views. A gated Cardiolite study at peak stress was obtained. Interpretation: Rest and stress SPECT Cardiolite nuclear imaging status post realignment, normalization, and attenuation correction demonstrate relative uniform tracer uptake and myocardial perfusion appearing within normal limits. There is end systolic thickening and brightening. The gated Cardiolite study demonstrates myocardial thickening and inward wall motion. The reported LVEF is 75 %. Impression: 1. Rest and stress SPECT Cardiolite nuclear imaging demonstrate relative uniform tracer uptake and myocardial perfusion appearing within normal limits. 2. The gated Cardiolite study reports an LVEF of 75%. This note was generated with [employer] software. It may contain incorrect words, spelling, and punctuation that were not noted in checking the note before signing.
--- NOTE | 2018-11-02 11:00 | PCM.DC ---
- Discharge Diagnoses Current Active Problems: Current Active and Chronic Problems (Last Reviewed 11/01/18 @ 19:13 by Jimmy Toussaint DO) Chest pain (Acute) You will use the following diet at home:: Cardiac Discharge Activity: Return to Normal Activity Call your doctor if you observe: Shortness of breath, Dizziness, Fainting spells, Chest pain Allergies/Adverse Reactions: Allergies oxycodone [From OxyContin] Adverse Reaction (Severe, Verified 11/01/18 19:04) lethargic-sleepy lethargic -sleepy Medications to take at Discharge Aspirin [Aspir-Low] 81 mg PO QHS 12/08/16 Pravastatin [Pravachol] 40 mg PO QHS 12/08/16 Valsartan [Diovan] 160 mg PO QHS 12/08/16 Tamsulosin HCl [Flomax] 0.4 mg PO DAILY 12/10/16 Linacolotide [Linzess] 145 mcg PO DAILY 12/11/16 Sodium Chloride 0.65% [[place] Nasal [place]] 1 spray NASAL PRN PRN 09/30/17 Finasteride [Proscar] 5 mg PO DAILY 11/01/18 Metoprolol Succinate [Toprol Xl] 25 mg PO DAILY 11/01/18 Omeprazole 10 mg PO DAILY 11/01/18 Primary Care Physician: Garrett Hernandez Chi, MD [Primary Care Provider] - Please follow up with your Primary Care Physician in: 1 Week Test Results: Test results from this visit will be discussed in further detail at your follow-up appointment, if applicable. Please Follow Up With: Oncology When: As scheduled Proposed Discharge Date: 11/02/18
--- NOTE | 2018-11-02 11:03 | DCINST_ITS ---
- Discharge Diagnoses Current Active Problems: Current Active and Chronic Problems (Last Reviewed 11/01/18 @ 19:13 by Jimmy Toussaint DO) Chest pain (Acute) You will use the following diet at home:: Cardiac Discharge Activity: Return to Normal Activity Call your doctor if you observe: Shortness of breath, Dizziness, Fainting spells, Chest pain Allergies/Adverse Reactions: Allergies oxycodone [From OxyContin] Adverse Reaction (Severe, Verified 11/01/18 19:04) lethargic-sleepy lethargic -sleepy Medications to take at Discharge Aspirin [Aspir-Low] 81 mg PO QHS 12/08/16 Pravastatin [Pravachol] 40 mg PO QHS 12/08/16 Valsartan [Diovan] 160 mg PO QHS 12/08/16 Tamsulosin HCl [Flomax] 0.4 mg PO DAILY 12/10/16 Linacolotide [Linzess] 145 mcg PO DAILY 12/11/16 Sodium Chloride 0.65% [[place] Nasal [place]] 1 spray NASAL PRN PRN 09/30/17 Finasteride [Proscar] 5 mg PO DAILY 11/01/18 Metoprolol Succinate [Toprol Xl] 25 mg PO DAILY 11/01/18 Omeprazole 10 mg PO DAILY 11/01/18 Primary Care Physician: Garrett Hernandez Chi, MD [Primary Care Provider] - Please follow up with your Primary Care Physician in: 1 Week Test Results: Test results from this visit will be discussed in further detail at your follow- up appointment, if applicable. Please Follow Up With: Oncology When: As scheduled Proposed Discharge Date: 11/02/18
--- NOTE | 2018-11-02 11:06 | PCM.DC.SUM ---
<Lisa Noland - Last Filed: 11/02/18 11:19> Discharge Date and Diagnosis Date of Admission: 11/01/18 Date of Discharge: 11/02/18 - Primary Discharge Diagnosis Active and Suspected Problems (Last Reviewed 11/01/18 @ 19:13 by Jimmy Toussaint DO) 1. Non-cardiac chest pain, ACS ruled out 2. Aurora cell lymphoma 3. Hypertension 4. Hyperlipidemia 5. BPH - Secondary Discharge Diagnosis Chronic Problems (Last Reviewed 11/01/18 @ 19:13 by Jimmy Toussaint DO) [place] cell carcinoma (Chronic) Recurrent tonsillitis (Chronic) Essential (primary) hypertension (Chronic) BPH (benign prostatic hyperplasia) (Chronic) Hospital Course and Treatment Imaging Results: Diagnostic Data Chest X-Ray 11/01/18 15:38 IMPRESSION: Cardiomegaly. No acute abnormality is seen. Electronically Signed: Mateo Pickard, at 15:57 EDT , Service support , Chest CTA 11/01/18 16:54 IMPRESSION: No pulmonary embolus. Stable benign 6 mm right middle lobe nodule. Electronically Signed: Travis Arango MD at 17:58 EDT Tel , Service support , Operations: None Procedures: Stress test Summary of Care Provided: The patient is a 73 year old M admitted 11/01/2018 due to chest pain. 1. Non-cardiac chest pain, ACS ruled out-troponin negative. EKG without ST-T changes. Patient had elevated d-dimer at admission, CTA without evidence of PE. Stable benign 6 mm right middle lobe nodule. Patient underwent nuclear stress test which was negative for ischemia. LVEF 75%. Suspect possible GERD or esophageal spasm. Patient's home PPI increased to see if this improves symptoms although he denies further chest pain at discharge. Follow-up with primary care physician in 1 week. 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 3. Hypertension-continue home valsartan, metoprolol regimen. 4. Hyperlipidemia-continue statin. 5. BPH-continue Flomax, Proscar regimen. General: Alert, Cooperative, No apparent distress HEENT: Atraumatic, Normocephalic Oral: Moist Mucosa, No Gingival or Mucosal Lesions/ Ulcerations Neck: No Nodes, Thyroid Normal Size and Texture Lungs: Clear to auscultation, Normal air movement, No rhonchi, No wheeze Cardiovascular: Regular rate, Regular Rhythm, Normal S1, Normal S2, No murmurs Abdomen: Bowel Sounds Present, Soft, Non Tender, Non-Distended, No Hepato-splenomegaly Extremities: No Calf Tenderness, Lymphedema RUE-compression sleeve in place Skin: Intact Psych/Mental Status: Normal Affect, Appropriate Patient seen and examined prior to discharge. Physical assessment as noted above. Patient is stable for discharge with follow up recommendations as noted above. This patient was seen by MAYO [place] under the supervision of Dr. Suazo. - Physical Exam Vital Signs Temp Pulse Resp BP Pulse Ox 97.9 F 66 16 155/83 H 99 11/02/18 09:30 11/02/18 10:48 11/02/18 09:30 11/02/18 10:41 11/02/18 09:30 Oxygen Delivery Method Room Air Weight: 233 lb 14.567 oz Body Mass Index (BMI) 30.8 Orthostatic Vital Signs Start: 11/02/18 10:41 Freq: q24h Status: Active Protocol: Activity Type Activity Date Activity User E-Sign Co-Sign Detail Recorded Client Recorded Date Recorded By Document 11/02/18 10:41 [id number] 11/02/18 10:42 CS 11/02/18 10:41 Orthostatic Vitals Standing -Blood Pressure (90/60-120/80) 155/91 H -Extremity Use Left Arm -Pulse Rate (60-100) 68 Sitting -Blood Pressure (90/60-120/80) 165/90 H -Extremity Use Left Arm -Pulse Rate (60-100) 64 Lying -Blood Pressure (90/60-120/80) 155/83 H -Extremity Use Left Arm -Pulse Rate (60-100) 64 Intake and Output for Last 24 Hours 10/31/18 11/01/18 11/02/18 23:59 23:59 23:59 Intake Total 632 / 632 504 / 504 Output Total 425 / 425 Balance 207 / 207 504 / 504 Laboratory Tests Past 24 Hrs 11/01/18 11/01/18 11/01/18 16:00 16:00 16:00 WBC 8.4 RBC 4.68 Hgb 13.7 Hct 41.3 MCV 88.2 MCH 29.3 MCHC 33.2 RDW 14.9 H RDW Differential 47.2 H Plt Count 196 MPV 9.5 Immature Gran % (Auto) 0.500 Neut % (Auto) 76.9 H Lymph % (Auto) 11.5 L [place] % (Auto) 9.6 Eos % (Auto) 1.3 Baso % (Auto) 0.2 Absolute Neuts (auto) 6.4 Absolute Lymphs (auto) 0.96 Total Counted Not Reportable PT INR APTT D-Dimer Quant (PE/DVT) 1.34 H* Sodium 140 Potassium 4.0 Chloride 110 H Carbon Dioxide 25.0 Anion Gap 5 BUN 18 Creatinine 1.30 Estim Creat Clear Calc 56.34 Est GFR (MDRD) Af Amer 69 Est GFR (MDRD) Non-Af 57 L BUN/Creatinine Ratio 13.8 Glucose 130 H Calcium 9.2 Troponin I < 0.015 Triglycerides Cholesterol LDL Cholesterol VLDL Cholesterol HDL Cholesterol 11/01/18 11/01/18 11/02/18 20:45 23:05 05:50 WBC RBC Hgb Hct MCV MCH MCHC RDW RDW Differential Plt Count MPV Immature Gran % (Auto) Neut % (Auto) Lymph % (Auto) [place] % (Auto) Eos % (Auto) Baso % (Auto) Absolute Neuts (auto) Absolute Lymphs (auto) Total Counted PT INR APTT D-Dimer Quant (PE/DVT) Sodium 142 Potassium 3.9 Chloride 113 H Carbon Dioxide 23.0 Anion Gap 6 BUN 16 Creatinine 1.16 Estim Creat Clear Calc 63.14 Est GFR (MDRD) Af Amer 79 Est GFR (MDRD) Non-Af 65 BUN/Creatinine Ratio 13.8 Glucose 117 H Calcium 8.5 Troponin I < 0.015 < 0.015 Triglycerides 87 Cholesterol 99 LDL Cholesterol 45 VLDL Cholesterol 17 HDL Cholesterol 37 L 11/02/18 11/02/18 05:50 05:50 WBC 7.1 RBC 4.29 L Hgb 12.4 L Hct 38.3 L MCV 89.3 MCH 28.9 MCHC 32.4 RDW 15.3 H RDW Differential 49.5 H Plt Count 177 MPV 9.6 Immature Gran % (Auto) 0.600 Neut % (Auto) 70.1 H Lymph % (Auto) 14.9 L [place] % (Auto) 10.9 H Eos % (Auto) 3.1 Baso % (Auto) 0.4 Absolute Neuts (auto) 5.0 Absolute Lymphs (auto) 1.06 Total Counted Not Reportable PT 14.8 INR 1.2 APTT 31.2 D-Dimer Quant (PE/DVT) Sodium Potassium Chloride Carbon Dioxide Anion Gap BUN Creatinine Estim Creat Clear Calc Est GFR (MDRD) Af Amer Est GFR (MDRD) Non-Af BUN/Creatinine Ratio Glucose Calcium Troponin I Triglycerides Cholesterol LDL Cholesterol VLDL Cholesterol HDL Cholesterol Discharge Diet: Low fat/ Low Cholesterol Discharge Activity: Return to Normal Activity Call your doctor if you observe: Shortness of breath, Dizziness, Fainting spells, Chest pain Home Medications: Medications to take at Discharge Aspirin [Aspir-Low] 81 mg PO QHS 12/08/16 Pravastatin [Pravachol] 40 mg PO QHS 12/08/16 Valsartan [Diovan] 160 mg PO QHS 12/08/16 Tamsulosin HCl [Flomax] 0.4 mg PO DAILY 12/10/16 Linacolotide [Linzess] 145 mcg PO DAILY 12/11/16 Sodium Chloride 0.65% [[place] Nasal [place]] 1 spray NASAL PRN PRN 09/30/17 Finasteride [Proscar] 5 mg PO DAILY 11/01/18 Metoprolol Succinate [Toprol Xl] 25 mg PO DAILY 11/01/18 Pantoprazole Sodium [Protonix] 40 mg PO DAILY #30 tablet 11/02/18 Following Prescrptions Were Given to Patient: Pantoprazole Sodium [Protonix] 40 mg PO DAILY #30 tablet Primary Care Physician: Garrett Hernandez Chi, MD [Primary Care Provider] - Please follow up with your Primary Care Physician in: 1 Week Please Follow Up With: Oncology When: As scheduled Please Follow Up With: Garrett Hernandez Chi, MD Disposition: Home Minutes spent on discharge:: 35 Patient Condition:: Stable Medical Necessity - Tobacco Use Smoking Status: Former smoker Tobacco Use: Non-smoker Meaningful Use Info Meaningful Use Diagnoses (Choose all that apply): None applicable <Meliza Suazo - Last Filed: 11/02/18 13:47> Discharge Date and Diagnosis - Secondary Discharge Diagnosis Chronic Problems (Last Reviewed 11/01/18 @ 19:13 by Jimmy Toussaint DO) Harinder cell carcinoma (Chronic) Recurrent tonsillitis (Chronic) Essential (primary) hypertension (Chronic) BPH (benign prostatic hyperplasia) (Chronic) Hospital Course and Treatment Imaging Results: 11/02/18 05:55 Nuclear Stress Test - Chemical [NM] AM (NON MEDS) Summary of Care Provided: The patient is a 73 year old M past medical history as listed. He was admitted with complaint of chest pain which was left-sided and nonradiating and aggravated by exertion and relieved by rest. He had assisted shortness of breath. On admission in the ED, his d-dimer was elevated at 1.[address] angiogram done was negative for PE. Troponins x3 were negative. He had a stress test on 11/02/2018 which was also negative. Patient's PPI was increased on suspicion of possible GERD as cause of his symptoms. He remained stable and was discharged on 08/16/2018. He is to follow-up with his primary care doctor in 1 week. Patient seen and examined prior to discharge. He had no complaints and felt well. Chest pain largely resolved but he said this morning he felt a twinge of the chest pain prior to having the stress test. Palpitations or dizziness, abdominal pain, diarrhea vomiting. Review of systems otherwise negative. Labs and vitals reviewed. Home medication reviewed and reconciled. o/e: Vital Signs Height 6 ft 1 in Weight: 233 lb 14.567 oz Weight in Pounds 233.9 lbs BMI 31.2 Pulse Ox 99 Temperature 97.9 F Pulse Rate [Standing] 68 Pulse Rate [Sitting] 64 Pulse Rate [Lying] 64 Pulse Rate 66 Respiratory Rate 16 Blood Pressure [Standing] 155/91 Blood Pressure [Sitting] 165/90 Blood Pressure [Lying] 155/83 Blood Pressure 157/87 Blood Pressure Position Semi-Fowlers General: Alert, Cooperative, No apparent distress HEENT: Atraumatic, Normocephalic Oral: Moist Mucosa, No Gingival or Mucosal Lesions/ Ulcerations Neck: No Nodes, Thyroid Normal Size and Texture Lungs: Clear to auscultation, Normal air movement, No rhonchi, No wheeze Cardiovascular: Regular rate, Regular Rhythm, Normal S1, Normal S2, No murmurs Abdomen: Bowel Sounds Present, Soft, Non Tender, Non-Distended, No Hepato-splenomegaly Extremities: No Calf Tenderness, Lymphedema RUE-compression sleeve in place Skin: Intact Psych/Mental Status: Normal Affect, Appropriate [] Plan as described above. - Physical Exam Vital Signs Temp Pulse Resp BP Pulse Ox 97.9 F 66 16 155/83 H 99 11/02/18 09:30 11/02/18 10:48 11/02/18 09:30 11/02/18 10:41 11/02/18 09:30 Oxygen Delivery Method Room Air Weight: 233 lb 14.567 oz Body Mass Index (BMI) 30.8 Intake and Output for Last 24 Hours 10/31/18 11/01/18 11/02/18 23:59 23:59 23:59 Intake Total 632 / 632 504 / 504 Output Total 425 / 425 Balance 207 / 207 504 / 504 Laboratory Tests Past 24 Hrs 11/01/18 11/01/18 11/01/18 16:00 16:00 16:00 WBC 8.4 RBC 4.68 Hgb 13.7 Hct 41.3 MCV 88.2 MCH 29.3 MCHC 33.2 RDW 14.9 H RDW Differential 47.2 H Plt Count 196 MPV 9.5 Immature Gran % (Auto) 0.500 Neut % (Auto) 76.9 H Lymph % (Auto) 11.5 L [place] % (Auto) 9.6 Eos % (Auto) 1.3 Baso % (Auto) 0.2 Absolute Neuts (auto) 6.4 Absolute Lymphs (auto) 0.96 Total Counted Not Reportable PT INR APTT D-Dimer Quant (PE/DVT) 1.34 H* Sodium 140 Potassium 4.0 Chloride 110 H Carbon Dioxide 25.0 Anion Gap 5 BUN 18 Creatinine 1.30 Estim Creat Clear Calc 56.34 Est GFR (MDRD) Af Amer 69 Est GFR (MDRD) Non-Af 57 L BUN/Creatinine Ratio 13.8 Glucose 130 H Calcium 9.2 Troponin I < 0.015 Triglycerides Cholesterol LDL Cholesterol VLDL Cholesterol HDL Cholesterol 11/01/18 11/01/18 11/02/18 20:45 23:05 05:50 WBC RBC Hgb Hct MCV MCH MCHC RDW RDW Differential Plt Count MPV Immature Gran % (Auto) Neut % (Auto) Lymph % (Auto) [place] % (Auto) Eos % (Auto) Baso % (Auto) Absolute Neuts (auto) Absolute Lymphs (auto) Total Counted PT INR APTT D-Dimer Quant (PE/DVT) Sodium 142 Potassium 3.9 Chloride 113 H Carbon Dioxide 23.0 Anion Gap 6 BUN 16 Creatinine 1.16 Estim Creat Clear Calc 63.14 Est GFR (MDRD) Af Amer 79 Est GFR (MDRD) Non-Af 65 BUN/Creatinine Ratio 13.8 Glucose 117 H Calcium 8.5 Troponin I < 0.015 < 0.015 Triglycerides 87 Cholesterol 99 LDL Cholesterol 45 VLDL Cholesterol 17 HDL Cholesterol 37 L 11/02/18 11/02/18 05:50 05:50 WBC 7.1 RBC 4.29 L Hgb 12.4 L Hct 38.3 L MCV 89.3 MCH 28.9 MCHC 32.4 RDW 15.3 H RDW Differential 49.5 H Plt Count 177 MPV 9.6 Immature Gran % (Auto) 0.600 Neut % (Auto) 70.1 H Lymph % (Auto) 14.9 L [place] % (Auto) 10.9 H Eos % (Auto) 3.1 Baso % (Auto) 0.4 Absolute Neuts (auto) 5.0 Absolute Lymphs (auto) 1.06 Total Counted Not Reportable PT 14.8 INR 1.2 APTT 31.2 D-Dimer Quant (PE/DVT) Sodium Potassium Chloride Carbon Dioxide Anion Gap BUN Creatinine Estim Creat Clear Calc Est GFR (MDRD) Af Amer Est GFR (MDRD) Non-Af BUN/Creatinine Ratio Glucose Calcium Troponin I Triglycerides Cholesterol LDL Cholesterol VLDL Cholesterol HDL Cholesterol Code Visit Inpatient E&M: 88846 Disch Hosp
--- NOTE | 2018-11-02 11:13 | DS.PCM_ITS ---
<Lisa Noland - Last Filed: 11/02/18 11:19> Discharge Date and Diagnosis Date of Admission: 11/01/18 Date of Discharge: 11/02/18 - Primary Discharge Diagnosis Active and Suspected Problems (Last Reviewed 11/01/18 @ 19:13 by Jimmy Toussaint DO) 1. Non-cardiac chest pain, ACS ruled out 2. Osakis cell lymphoma 3. Hypertension 4. Hyperlipidemia 5. BPH - Secondary Discharge Diagnosis Chronic Problems (Last Reviewed 11/01/18 @ 19:13 by Jimmy Toussaint DO) Os[place] cell carcinoma (Chronic) Recurrent tonsillitis (Chronic) Essential (primary) hypertension (Chronic) BPH (benign prostatic hyperplasia) (Chronic) Hospital Course and Treatment Imaging Results: Diagnostic Data Chest X-Ray 11/01/18 15:38 IMPRESSION: Cardiomegaly. No acute abnormality is seen. Electronically Signed: Mateo Pickard, at 15:57 EDT , Service support , Chest CTA 11/01/18 16:54 IMPRESSION: No pulmonary embolus. Stable benign 6 mm right middle lobe nodule. Electronically Signed: Travis Arango MD at 17:58 EDT Tel , Service support , Operations: None Procedures: Stress test Summary of Care Provided: The patient is a 73 year old M admitted 11/01/2018 due to chest pain. 1. Non-cardiac chest pain, ACS ruled out-troponin negative. EKG without ST-T changes. Patient had elevated d-dimer at admission, CTA without evidence of PE. Stable benign 6 mm right middle lobe nodule. Patient underwent nuclear stress test which was negative for ischemia. LVEF 75%. Suspect possible GERD or esophageal spasm. Patient's home PPI increased to see if this improves symptoms although he denies further chest pain at discharge. Follow-up with primary care physician in 1 week. 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 3. Hypertension-continue home valsartan, metoprolol regimen. 4. Hyperlipidemia-continue statin. 5. BPH-continue Flomax, Proscar regimen. General: Alert, Cooperative, No apparent distress HEENT: Atraumatic, Normocephalic Oral: Moist Mucosa, No Gingival or Mucosal Lesions/ Ulcerations Neck: No Nodes, Thyroid Normal Size and Texture Lungs: Clear to auscultation, Normal air movement, No rhonchi, No wheeze Cardiovascular: Regular rate, Regular Rhythm, Normal S1, Normal S2, No murmurs Abdomen: Bowel Sounds Present, Soft, Non Tender, Non-Distended, No Hepato- splenomegaly Extremities: No Calf Tenderness, Lymphedema RUE-compression sleeve in place Skin: Intact Psych/Mental Status: Normal Affect, Appropriate Patient seen and examined prior to discharge. Physical assessment as noted above. Patient is stable for discharge with follow up recommendations as noted above. This patient was seen by MAYO [place] under the supervision of Dr. Suazo. - Physical Exam Vital Signs Temp Pulse Resp BP Pulse Ox 97.9 F 66 16 155/83 H 99 11/02/18 09:30 11/02/18 10:48 11/02/18 09:30 11/02/18 10:41 11/02/18 09:30 Oxygen Delivery Method Room Air Weight: 233 lb 14.567 oz Body Mass Index (BMI) 30.8 Orthostatic Vital Signs Start: 11/02/18 10:41 Freq: q24h Status: Active Protocol: Activity Type Activity Date Activity User E-Sign Co-Sign Detail Recorded Client Recorded Date Recorded By Document 11/02/18 10:41 [id number] 11/02/18 10:42 CS 11/02/18 10:41 Orthostatic Vitals Standing -Blood Pressure (90/60-120/80) 155/91 H -Extremity Use Left Arm -Pulse Rate (60-100) 68 Sitting -Blood Pressure (90/60-120/80) 165/90 H -Extremity Use Left Arm -Pulse Rate (60-100) 64 Lying -Blood Pressure (90/60-120/80) 155/83 H -Extremity Use Left Arm -Pulse Rate (60-100) 64 Intake and Output for Last 24 Hours 10/31/18 11/01/18 11/02/18 23:59 23:59 23:59 Intake Total 632 / 632 504 / 504 Output Total 425 / 425 Balance 207 / 207 504 / 504 Laboratory Tests Past 24 Hrs 11/01/18 11/01/18 11/01/18 16:00 16:00 16:00 WBC 8.4 RBC 4.68 Hgb 13.7 Hct 41.3 MCV 88.2 MCH 29.3 MCHC 33.2 RDW 14.9 H RDW Differential 47.2 H Plt Count 196 MPV 9.5 Immature Gran % (Auto) 0.500 Neut % (Auto) 76.9 H Lymph % (Auto) 11.5 L [place] % (Auto) 9.6 Eos % (Auto) 1.3 Baso % (Auto) 0.2 Absolute Neuts (auto) 6.4 Absolute Lymphs (auto) 0.96 Total Counted Not Reportable PT INR APTT D-Dimer Quant (PE/DVT) 1.34 H* Sodium 140 Potassium 4.0 Chloride 110 H Carbon Dioxide 25.0 Anion Gap 5 BUN 18 Creatinine 1.30 Estim Creat Clear Calc 56.34 Est GFR (MDRD) Af Amer 69 Est GFR (MDRD) Non-Af 57 L BUN/Creatinine Ratio 13.8 Glucose 130 H Calcium 9.2 Troponin I < 0.015 Triglycerides Cholesterol LDL Cholesterol VLDL Cholesterol HDL Cholesterol 11/01/18 11/01/18 11/02/18 20:45 23:05 05:50 WBC RBC Hgb Hct MCV MCH MCHC RDW RDW Differential Plt Count MPV Immature Gran % (Auto) Neut % (Auto) Lymph % (Auto) [place] % (Auto) Eos % (Auto) Baso % (Auto) Absolute Neuts (auto) Absolute Lymphs (auto) Total Counted PT INR APTT D-Dimer Quant (PE/DVT) Sodium 142 Potassium 3.9 Chloride 113 H Carbon Dioxide 23.0 Anion Gap 6 BUN 16 Creatinine 1.16 Estim Creat Clear Calc 63.14 Est GFR (MDRD) Af Amer 79 Est GFR (MDRD) Non-Af 65 BUN/Creatinine Ratio 13.8 Glucose 117 H Calcium 8.5 Troponin I < 0.015 < 0.015 Triglycerides 87 Cholesterol 99 LDL Cholesterol 45 VLDL Cholesterol 17 HDL Cholesterol 37 L 11/02/18 11/02/18 05:50 05:50 WBC 7.1 RBC 4.29 L Hgb 12.4 L Hct 38.3 L MCV 89.3 MCH 28.9 MCHC 32.4 RDW 15.3 H RDW Differential 49.5 H Plt Count 177 MPV 9.6 Immature Gran % (Auto) 0.600 Neut % (Auto) 70.1 H Lymph % (Auto) 14.9 L [place] % (Auto) 10.9 H Eos % (Auto) 3.1 Baso % (Auto) 0.4 Absolute Neuts (auto) 5.0 Absolute Lymphs (auto) 1.06 Total Counted Not Reportable PT 14.8 INR 1.2 APTT 31.2 D-Dimer Quant (PE/DVT) Sodium Potassium Chloride Carbon Dioxide Anion Gap BUN Creatinine Estim Creat Clear Calc Est GFR (MDRD) Af Amer Est GFR (MDRD) Non-Af BUN/Creatinine Ratio Glucose Calcium Troponin I Triglycerides Cholesterol LDL Cholesterol VLDL Cholesterol HDL Cholesterol Discharge Diet: Low fat/ Low Cholesterol Discharge Activity: Return to Normal Activity Call your doctor if you observe: Shortness of breath, Dizziness, Fainting spells, Chest pain Home Medications: Medications to take at Discharge Aspirin [Aspir-Low] 81 mg PO QHS 12/08/16 Pravastatin [Pravachol] 40 mg PO QHS 12/08/16 Valsartan [Diovan] 160 mg PO QHS 12/08/16 Tamsulosin HCl [Flomax] 0.4 mg PO DAILY 12/10/16 Linacolotide [Linzess] 145 mcg PO DAILY 12/11/16 Sodium Chloride 0.65% [[place] Nasal [place]] 1 spray NASAL PRN PRN 09/30/17 Finasteride [Proscar] 5 mg PO DAILY 11/01/18 Metoprolol Succinate [Toprol Xl] 25 mg PO DAILY 11/01/18 Pantoprazole Sodium [Protonix] 40 mg PO DAILY #30 tablet 11/02/18 Following Prescrptions Were Given to Patient: Pantoprazole Sodium [Protonix] 40 mg PO DAILY #30 tablet Primary Care Physician: Garrett Hernandez Chi, MD [Primary Care Provider] - Please follow up with your Primary Care Physician in: 1 Week Please Follow Up With: Oncology When: As scheduled Please Follow Up With: Garrett Hernandez Chi, MD Disposition: Home Minutes spent on discharge:: 35 Patient Condition:: Stable Medical Necessity - Tobacco Use Smoking Status: Former smoker Tobacco Use: Non-smoker Meaningful Use Info Meaningful Use Diagnoses (Choose all that apply): None applicable <Meliza Suazo - Last Filed: 11/02/18 13:47> Discharge Date and Diagnosis - Secondary Discharge Diagnosis Chronic Problems (Last Reviewed 11/01/18 @ 19:13 by Jimmy Toussaint DO) Osakis cell carcinoma (Chronic) Recurrent tonsillitis (Chronic) Essential (primary) hypertension (Chronic) BPH (benign prostatic hyperplasia) (Chronic) Hospital Course and Treatment Imaging Results: 11/02/18 05:55 Nuclear Stress Test - Chemical [NM] AM (NON MEDS) Summary of Care Provided: The patient is a 73 year old M past medical history as listed. He was admitted with complaint of chest pain which was left-sided and nonradiating and aggravated by exertion and relieved by rest. He had assisted shortness of breath. On admission in the ED, his d-dimer was elevated at 1.[address] angiogram done was negative for PE. Troponins x3 were negative. He had a stress test on 11/02/2018 which was also negative. Patient's PPI was increased on suspicion of possible GERD as cause of his symptoms. He remained stable and was discharged on 08/16/2018. He is to follow-up with his primary care doctor in 1 week. Patient seen and examined prior to discharge. He had no complaints and felt well. Chest pain largely resolved but he said this morning he felt a twinge of the chest pain prior to having the stress test. Palpitations or dizziness, abdominal pain, diarrhea vomiting. Review of systems otherwise negative. Labs and vitals reviewed. Home medication reviewed and reconciled. o/e: Vital Signs Height 6 ft 1 in Weight: 233 lb 14.567 oz Weight in Pounds 233.9 lbs BMI 31.2 Pulse Ox 99 Temperature 97.9 F Pulse Rate [Standing] 68 Pulse Rate [Sitting] 64 Pulse Rate [Lying] 64 Pulse Rate 66 Respiratory Rate 16 Blood Pressure [Standing] 155/91 Blood Pressure [Sitting] 165/90 Blood Pressure [Lying] 155/83 Blood Pressure 157/87 Blood Pressure Position Semi-Fowlers General: Alert, Cooperative, No apparent distress HEENT: Atraumatic, Normocephalic Oral: Moist Mucosa, No Gingival or Mucosal Lesions/ Ulcerations Neck: No Nodes, Thyroid Normal Size and Texture Lungs: Clear to auscultation, Normal air movement, No rhonchi, No wheeze Cardiovascular: Regular rate, Regular Rhythm, Normal S1, Normal S2, No murmurs Abdomen: Bowel Sounds Present, Soft, Non Tender, Non-Distended, No Hepato- splenomegaly Extremities: No Calf Tenderness, Lymphedema RUE-compression sleeve in place Skin: Intact Psych/Mental Status: Normal Affect, Appropriate [] Plan as described above. - Physical Exam Vital Signs Temp Pulse Resp BP Pulse Ox 97.9 F 66 16 155/83 H 99 11/02/18 09:30 11/02/18 10:48 11/02/18 09:30 11/02/18 10:41 11/02/18 09:30 Oxygen Delivery Method Room Air Weight: 233 lb 14.567 oz Body Mass Index (BMI) 30.8 Intake and Output for Last 24 Hours 10/31/18 11/01/18 11/02/18 23:59 23:59 23:59 Intake Total 632 / 632 504 / 504 Output Total 425 / 425 Balance 207 / 207 504 / 504 Laboratory Tests Past 24 Hrs 11/01/18 11/01/18 11/01/18 16:00 16:00 16:00 WBC 8.4 RBC 4.68 Hgb 13.7 Hct 41.3 MCV 88.2 MCH 29.3 MCHC 33.2 RDW 14.9 H RDW Differential 47.2 H Plt Count 196 MPV 9.5 Immature Gran % (Auto) 0.500 Neut % (Auto) 76.9 H Lymph % (Auto) 11.5 L [place] % (Auto) 9.6 Eos % (Auto) 1.3 Baso % (Auto) 0.2 Absolute Neuts (auto) 6.4 Absolute Lymphs (auto) 0.96 Total Counted Not Reportable PT INR APTT D-Dimer Quant (PE/DVT) 1.34 H* Sodium 140 Potassium 4.0 Chloride 110 H Carbon Dioxide 25.0 Anion Gap 5 BUN 18 Creatinine 1.30 Estim Creat Clear Calc 56.34 Est GFR (MDRD) Af Amer 69 Est GFR (MDRD) Non-Af 57 L BUN/Creatinine Ratio 13.8 Glucose 130 H Calcium 9.2 Troponin I < 0.015 Triglycerides Cholesterol LDL Cholesterol VLDL Cholesterol HDL Cholesterol 11/01/18 11/01/18 11/02/18 20:45 23:05 05:50 WBC RBC Hgb Hct MCV MCH MCHC RDW RDW Differential Plt Count MPV Immature Gran % (Auto) Neut % (Auto) Lymph % (Auto) [place] % (Auto) Eos % (Auto) Baso % (Auto) Absolute Neuts (auto) Absolute Lymphs (auto) Total Counted PT INR APTT D-Dimer Quant (PE/DVT) Sodium 142 Potassium 3.9 Chloride 113 H Carbon Dioxide 23.0 Anion Gap 6 BUN 16 Creatinine 1.16 Estim Creat Clear Calc 63.14 Est GFR (MDRD) Af Amer 79 Est GFR (MDRD) Non-Af 65 BUN/Creatinine Ratio 13.8 Glucose 117 H Calcium 8.5 Troponin I < 0.015 < 0.015 Triglycerides 87 Cholesterol 99 LDL Cholesterol 45 VLDL Cholesterol 17 HDL Cholesterol 37 L 11/02/18 11/02/18 05:50 05:50 WBC 7.1 RBC 4.29 L Hgb 12.4 L Hct 38.3 L MCV 89.3 MCH 28.9 MCHC 32.4 RDW 15.3 H RDW Differential 49.5 H Plt Count 177 MPV 9.6 Immature Gran % (Auto) 0.600 Neut % (Auto) 70.1 H Lymph % (Auto) 14.9 L [place] % (Auto) 10.9 H Eos % (Auto) 3.1 Baso % (Auto) 0.4 Absolute Neuts (auto) 5.0 Absolute Lymphs (auto) 1.06 Total Counted Not Reportable PT 14.8 INR 1.2 APTT 31.2 D-Dimer Quant (PE/DVT) Sodium Potassium Chloride Carbon Dioxide Anion Gap BUN Creatinine Estim Creat Clear Calc Est GFR (MDRD) Af Amer Est GFR (MDRD) Non-Af BUN/Creatinine Ratio Glucose Calcium Troponin I Triglycerides Cholesterol LDL Cholesterol VLDL Cholesterol HDL Cholesterol Code Visit Inpatient E&M: 78559 Disch Hosp
--- NOTE | 2018-11-02 11:40 | PHA.DC.MC ---
Pharmacy Service has performed discharge medication reconciliation and counseling for this patient. The patient's discharge medication list was reviewed for discrepancies and discrepancies were resolved. The patient was counseled on the following discharge medications and changes in medications for homegoing were reviewed. 1. PANTOPRAZOLE The Reason for Use, instructions for use, and potential side effects were reviewed for all new medications. The patient's questions regarding all of their medications were answered. The patient was able to verbally demonstrate an understanding of their discharge medications. Home Medications Aspirin [Aspir-Low] 81 mg PO QHS 12/08/16 Pravastatin [Pravachol] 40 mg PO QHS 12/08/16 Valsartan [Diovan] 160 mg PO QHS 12/08/16 Tamsulosin HCl [Flomax] 0.4 mg PO DAILY 12/10/16 Linacolotide [Linzess] 145 mcg PO DAILY 12/11/16 Sodium Chloride 0.65% [[place] Nasal [facility]] 1 spray NASAL PRN PRN 09/30/17 Finasteride [Proscar] 5 mg PO DAILY 11/01/18 Metoprolol Succinate [Toprol Xl] 25 mg PO DAILY 11/01/18 Pantoprazole Sodium [Protonix] 40 mg PO DAILY #30 tablet 11/02/18
--- NOTE | 2018-11-02 12:34 | NURSING ---
pt care and med administration by SN Delilah, done under the supervision of this RN.
== END 2018-11-02 11:01 | disposition home or self-care (01) ==
LOC: ED 16:13 → PCU 19:44
PROVIDERS: Emergency Provider Emergency Medicine; Family Provider Family Medicine Geriatric Medicine; PCP Family Medicine Geriatric Medicine; Visit Provider Student in an Organized Health Care Education/Training Program
DX: R07.89 Other chest pain (principal); R06.02 Shortness of breath; R55 Syncope and collapse; N40.0 Benign prostatic hyperplasia without lower urinary tract symptoms; K21.9 Gastro-esophageal reflux disease without esophagitis; C85.90 Non-Hodgkin lymphoma, unspecified, unspecified site; I10 Essential (primary) hypertension; E78.5 Hyperlipidemia, unspecified; C4A.9 Merkel cell carcinoma, unspecified; Z87.891 Personal history of nicotine dependence; Z79.899 Other long term (current) drug therapy; Z79.82 Long term (current) use of aspirin; R94.31 Abnormal electrocardiogram [ECG] [EKG]
CPT/HCPCS: 36415; 71045; 71275; 78452; 80048; 80061; 84484; 85025; 85379; 85610; 85730; 93005; 93017; 96360; 96361; 99218; 99283; A9500; J7030; Q9967; A4216; G0378; J2785

== ENCOUNTER → 2019-05-02 | Outpatient (CLI) | payer MEDICARE, SELFPAY ==
[2017-09-24 10:04] VITALS: BMI 31.2
[2018-11-01 20:19] VITALS: BMI 30.8
--- NOTE | 2019-05-02 10:38 | RAD_ITS ---
STUDY: X-RAY - PELVIS AND RIGHT HIP REASON FOR EXAM: Male, 73 years old. Pain right hip TECHNIQUE: 3 views of the pelvis and hip. COMPARISON: None. FINDINGS: There is a non-specific bowel gas pattern. Normal visualized soft tissue structures. There is degenerative change of the visualized lumbar spine especially L4-L5 L5-S1. There is narrowing with cortical sclerosis and osteophyte formation of the sacroiliac joint consistent with degenerative osteoarthritic changes. Normal bilateral superior and inferior pubic rami. There is narrowing with sclerosis of the pubic symphysis. Normal bilateral ischial tuberosities. There is mild narrowing of the right hip joint with minimal if any acetabular spurring. There is minimal bony demineralization of the right proximal femur. Minimal bony demineralization of the left proximal femur. Mild narrowing of the left hip joint. Minimal acetabular spurring. RAD/HIP, UNI W/ Pelvis 2-3 Views IMPRESSION: Degenerative change. No visualized fracture. Electronically Signed: Jillian Ferguson MD at 22:56 EDT Tel , Service support ,
--- NOTE | 2019-05-02 10:39 | RAD_ITS ---
STUDY: X-RAY - LUMBAR SPINE REASON FOR EXAM: Male, 73 years old. Low back pain TECHNIQUE: 2 view(s) of the lumbar spine were obtained. COMPARISON: None FINDINGS: Normal lumbar lordosis. There is no substantial scoliosis. There is a normal alignment of the vertebrae. Normal vertebral bodies and endplates. There is multilevel disc space narrowing. There is no apparent acute loss of height or alignment. L2-L3 there is vacuum phenomenon. There is atherosclerotic calcification of the abdominal aorta without a demonstrated aneurysm. RAD/Lumbar Spine 2 or 3 Views IMPRESSION: Degenerative changes of the spine, as detailed above. Electronically Signed: Jillian Ferguson MD at 22:55 EDT Tel , Service support ,
[2019-05-02 12:03] LABS: Absolute Lymphocyte Count 1.21 X10^3/uL (0.83-4.51); Absolute Neutrophil Count 4.8 X10^3/uL (2.0-7.7); Basophil# 0.06 X10^3/uL; Basophil% 0.9 % (0-1); Eosinophil# 0.22 X10^3/uL; Eosinophils% 3.2 % (0-5); Hematocrit 43.9 % (40-54); Hemoglobin 14.2 g/dL (13.0-16.5); Lymphocyte # 1.21 X10^3/ul (4.0); Lymphocyte % 17.4 % (19-41); Mean Corp Hgb Conc 32.3 g/dL (32-36); Mean Corpuscular Hgb 29.6 pg (27.0-32.0); Mean Corpuscular Volume 91.5 fL (80-94); Mean Platelet Vol. 9.5 fl (6.2-12.0); Monocyte# 0.56 X10^3/uL; Monocyte% 8.1 % (0-10); NRBC Flagged by Analyzer 0 % (0-5); Neutrophil # 4.83 X10^3/uL (2.7-7.7); Neutrophil % 69.5 % (47-70); Platelet Count 182 K/mm3 (150-450); RBC Distribution Width CV 14.2 % (11.6-14.6); RBC Distribution Width SD 47.7 fl (35.1-43.9); White Blood Count 6.9 K/mm3 (4.4-11.0)
[2019-05-02 12:14] LABS: Vitamin D,25 Hydroxy 33.9 ng/mL (29.95-100.01)
[2019-05-02 12:23] LABS: BUN 18 mg/dL (7-18); EST Glomerular Filtration Rate 57 mL/min (>60); Glucose 139 mg/dL (74-106)
[2019-05-02 12:24] LABS: AST(SGOT) 18 U/L (15-37); Alanine Aminotransfer ALT/SGPT 22 U/L (16-61); Albumin, Serum 3.3 g/dL (3.2-5.0); Alkaline Phosphatase 66 U/L (45-117); Anion Gap 7 (5-15); BUN/Creat Ratio 13.8 RATIO (10-20); Calcium,Total 8.9 mg/dL (8.5-10.1); Chloride 109 mmol/L (98-107); Est Glom Filt Rate - Afr Amer 69 mL/min (>60); Globulin 3.2 g/dL (2.2-4.2); Potassium 4.2 mmol/L (3.5-5.1); Protein, Total 6.5 g/dL (6.4-8.2); Sodium Level 141 mmol/L (136-145); Thyroid Stim Hormone (TSH) 2.58 uIU/mL (0.358-3.74)
== END | disposition home or self-care (01) ==
LOC: POLAB3 09:19 → RAD 10:37
PROVIDERS: Family Provider Family Medicine Geriatric Medicine; PCP Family Medicine Geriatric Medicine; Referring Provider Family Medicine Geriatric Medicine; Visit Provider Family Medicine Geriatric Medicine
DX: E55.9 Vitamin D deficiency, unspecified (principal); I10 Essential (primary) hypertension; F52.8 Other sexual dysfunction not due to a substance or known physiological condition; M25.551 Pain in right hip
CPT/HCPCS: 36415; 72100; 73502; 80053; 82306; 84403; 84443; 85025

== ENCOUNTER → 2019-06-25 09:50 | Outpatient (CLI) | payer MEDICARE, SELFPAY ==
[2017-09-24 10:04] VITALS: BMI 31.2
[2018-11-01 20:19] VITALS: BMI 30.8
[2019-06-25 11:25] LABS: PSA,Total - Annual Screen 1.44 ng/mL (0.00-4.00)
== END ==
PROVIDERS: Family Provider Family Medicine Geriatric Medicine; PCP Family Medicine Geriatric Medicine; Referring Provider Nurse Practitioner Adult Health; Visit Provider Nurse Practitioner Adult Health
DX: Z12.5 Encounter for screening for malignant neoplasm of prostate (principal)
CPT/HCPCS: 36415; 84153; G0103

== ENCOUNTER → 2019-07-04 11:17 | Outpatient (CLI) | payer MEDICARE, SELFPAY ==
[2017-09-24 10:04] VITALS: BMI 31.2
[2018-11-01 20:19] VITALS: BMI 30.8
--- NOTE | 2019-07-04 11:25 | RAD_ITS ---
STUDY: X-RAY - ABDOMEN/PELVIS REASON FOR EXAM: Male, 74 years old. Pain and distention TECHNIQUE: 5 views COMPARISON: 2016 FINDINGS: Normal visualized lung bases. Multiple nondistended air-fluid levels noted in the upright films and a stairstepping pattern consistent with ileus. No demonstrated obstruction, no free air. The visualized liver, spleen and kidneys are grossly normal in size and morphology. Evidence of previous cholecystectomy Normal soft tissue structures. There are diffuse degenerative changes of the visualized lumbar spine. RAD/Abd Inc Decub and/or Erect IMPRESSION: Small bowel ileus Electronically Signed: Paul Varner MD at 10:23 EST , Service support ,
== END ==
PROVIDERS: Family Provider Family Medicine Geriatric Medicine; PCP Family Medicine Geriatric Medicine; Referring Provider Family Medicine Geriatric Medicine; Visit Provider Family Medicine Geriatric Medicine
DX: K56.41 Fecal impaction (principal)
CPT/HCPCS: 74019

== ENCOUNTER → 2019-07-13 12:07 | Outpatient (CLI) | payer MEDICARE, SELFPAY ==
[2017-09-24 10:04] VITALS: BMI 31.2
[2018-11-01 20:19] VITALS: BMI 30.8
== END ==
PROVIDERS: Family Provider Family Medicine Geriatric Medicine; PCP Family Medicine Geriatric Medicine; Referring Provider Family Medicine Geriatric Medicine; Visit Provider Family Medicine Geriatric Medicine
DX: R50.9 Fever, unspecified (principal)
CPT/HCPCS: 87633

== ENCOUNTER → 2019-08-01 11:15 | Outpatient (CLI) | payer MEDICARE, SELFPAY ==
[2017-09-24 10:04] VITALS: BMI 31.2
[2018-11-01 20:19] VITALS: BMI 30.8
--- NOTE | 2019-08-01 11:18 | RAD_ITS ---
HISTORY: LOW BACK PAIN, NO INJURY TECHNIQUE: Lumbar spine 3 views Number of images including paperwork: 3 COMPARISON: 05/02/2019 FINDINGS: VERTEBRAE: No acute fracture. VERTEBRAL ALIGNMENT: No traumatic subluxation. DISKS AND JOINTS: Mild to moderate multilevel discogenic degenerative changes, most pronounced at L3-4 and L4-5. Facet arthropathy, severe at L4-5 and L5-S1. Degenerative changes of the sacroiliac joints. SOFT TISSUES: Unremarkable paraspinous soft tissues. Vascular calcifications noted. RAD/Lumbar Spine 2 or 3 Views IMPRESSION: 1. No acute osseous abnormality. 2. Lumbar spondylosis. at 0421 Reported and signed by: Isaura Lowery MD Electronically Signed: Isaura Lowery MD at 4:20 EST Tel , Service support ,
--- NOTE | 2019-08-01 11:18 | RAD_ITS ---
HISTORY: HIP PAIN, NO INJURY ADDITIONAL HISTORY: None provided. TECHNIQUE: AP and lateral views of the right hip with AP pelvis Number of images including paperwork: 3 COMPARISON: 05/02/2019 FINDINGS: BONES: No acute fracture. JOINTS: No subluxation. Mild to moderate joint space narrowing of the hips with small osteophytes. Degenerative changes of the visualized spine, sacroiliac joints and symphysis pubis also noted. SOFT TISSUES: No distinct foreign body. RAD/HIP, UNI W/ Pelvis 2-3 Views IMPRESSION: Degenerative changes without acute osseous abnormality. at 0419 Reported and signed by: Isaura Lowery MD Electronically Signed: Isaura Lowery MD at 4:19 EST Tel , Service support ,
== END ==
PROVIDERS: Family Provider Family Medicine Geriatric Medicine; PCP Family Medicine Geriatric Medicine; Referring Provider Family Medicine Geriatric Medicine; Visit Provider Family Medicine Geriatric Medicine
DX: M54.5 Low back pain (principal); M25.551 Pain in right hip
CPT/HCPCS: 72100; 73502

== ENCOUNTER 2019-08-12 11:55 | Outpatient (RCR) | payer MEDICARE, SELFPAY ==
[2017-09-24 10:04] VITALS: BMI 31.2
[2018-11-01 20:19] VITALS: BMI 30.8
--- NOTE | 2019-08-12 13:15 | HP.PTEVAL ---
Patient's Visit Information ASA GOINS is a 74 year old M referred to Physical Therapy by Garrett Hernandez MD with a diagnosis of LOW BACK PAIN. 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 PT INTERVETIONS POSTURAL EX'S,DLS ABD/BACK ,LE FLEXABILITY ,STRENGTHENING - Subjective Findings: This 74 y/o male presents to physical therapy with low back pain. Patient has low back pain for 2weeks. Patient pain locate right glut. Patient symptoms are intermittant ache. Patient seen DR andres x-rays showed DDD. Recommended MEDS predisone 1week did injections and provide muscle relaxers. Aggraveting factors increase ativity housework tasks,getting up from chair,standing ,bending. Alleviating factors walking,rest. Patient sleeping okay at night. Denies parathesia/tingling. Bowel/bladder -. Patient has no truama. Patient has dull pain. Patient had prior PT .Patient pain in lumbar affects ADLS',housework tasks . Patient pain affects QOL.Patient plans to seen pain manegement. COMORBITIES: BILATERAL TKR,LYPHODEMA. SOCIAL: . VOCATION: retired [employer] - Pain Right Back Pain Intensity (Out of 10): 4 Pain Intensity Range: 10 - Objective POSTURE: mild foward posture. PALPATION: tender paraspianls/LS RIGHT. GAIT: mild foward posture reciprocal pattern antalgic. NEURO: denies parathesia/tingling,reflexes L3-4,L4-5,L5-S1 1/3. FLEXABILITY: hams mod. MMT: quads/hams/4/5,4-/5,ankle 4/5. LUMBAR ROM: flexion mod loss,extension mod/severe,side glides mod loss - Special Tests L/S Slump test left side: Negative L/S Slump test right side: Negative Lumbar Standing: Flexion - Mechanical Response: No effect Lumbar Standing: Flexion - Symptoms During Testing: Increases Lumbar Standing: Flexion - Symptoms After Testing: No worse Lumbar Standing: Extension - Mechanical Response: No effect Lumbar Standing: Extension - Symptoms During Testing: No effect Lumbar Standing: Extension - Symptoms After Testing: No effect Lumbar Standing: Right Side Glides - Mechanical Response: No effect Lumbar Standing: Right Side [place] - Symptoms During Testing: No effect Lumbar Standing: Right Side [place] - Symptoms After Testing: No effect Lumbar Standing: Left Side [place] - Mechanical Response: No effect Lumbar Standing: Left Side [place] - Symptoms During Testing: No effect Lumbar Standing: Left Side [place] - Symptoms After Testing: No effect - Goals Goal 1:: Patient to be Independant with HEP. Goal Time Frame: 4-6 Weeks Goal 2:: Patient to improve posture for ADLS' Goal Time Frame: 4-6 Weeks Goal 3:: Patient to decrease pain lumbar pain by 50% or > to improve function and QOL. Goal Time Frame: 4-6 Weeks Goal 4:: Patient improve lumbar ROM for function of recovey Goal Time Frame: 4-6 Weeks Goal 5:: Patient improve back owestry score by 5 points or > to improve QOL. Goal Time Frame: 4-6 Weeks - Rehabilitation Potential Physical Therapy Diagnosis: This patient has has lumbar pain with decrease lumbar ROM for function,strength impiairs ADL's and fubction thus benifit from skilled PT Rehabilitation Potential: Good - Anticipated Interventions Patient/Client Instruction: Educate patient on: Condition, Plan of Care For the Purpose of:: To decrease pain, To increase ROM, To improve muscle performance and motor function, To improve ability to perform ADL's, To improve performance and independence with ADL's, To improve ability of physical actions for home/community/work/leisure, To improve health of tissue, To decrease soft tissue restriction, To increase flexibility/ROM, To improve endurance, To improve ability to perform tasks related to life management Therapeutic Exercise to Include: Strength training, Body mechanics, Postural training, Flexibilty training, Dynamic Lumbar Stabilization Comment: BLE For the Purpose of:: To decrease pain, To increase ROM, To improve muscle performance and motor function, To improve ability to perform ADL's, To increase tolerance to activity/condition/position, To improve ability of physical actions for home/community/work/leisure, To improve health of tissue, To decrease soft tissue restriction, To increase flexibility/ROM, To reduce risk of recurrence, To improve ability to perform tasks related to life management Thank you for the opportunity to evaluate your patient. For Medicare and Medicare HMO plans, please review the plan of care and approve it. It will need to be FAXED BACK to us at [phone] for Medicare purposes. For Medicare only, by signing this I certify the plan of care. Please let me know if there are questions or concerns regarding this plan of care. Physician Signature: Date:
--- NOTE | 2019-10-21 09:13 | HP.PT.NRP ---
ASA GOINS was seen in my office for initial evaluation on 08/12/19. The following Plan of Care was established for this patient: Initial Frequency: 2x /Week Initial Duration: 4 Weeks Patient/Client Instruction: Educate patient on: Condition, Plan of Care For the Purpose of:: To decrease pain, To increase ROM, To improve muscle performance and motor function, To improve ability to perform ADL's, To improve performance and independence with ADL's, To improve ability of physical actions for home/community/work/leisure, To improve health of tissue, To decrease soft tissue restriction, To increase flexibility/ROM, To improve endurance, To improve ability to perform tasks related to life management Therapeutic Exercise to Include: Strength training, Body mechanics, Postural training, Flexibilty training, Dynamic Lumbar Stabilization For the Purpose of:: To decrease pain, To increase ROM, To improve muscle performance and motor function, To improve ability to perform ADL's, To increase tolerance to activity/condition/position, To improve ability of physical actions for home/community/work/leisure, To improve health of tissue, To decrease soft tissue restriction, To increase flexibility/ROM, To reduce risk of recurrence, To improve ability to perform tasks related to life management This patient was last seen in our office . Pertinent comments regarding their Physical therapy will appear below: Patient seen for PT intial Evaluation for HEP. At this point I will be discontinuing this patient from physical therapy. I would be happy to see this patient again in the future if found appropriate by the physician. Thank you! Anirudh Velasco, PT, Cert MDT, OCS
== END 2019-08-12 19:00 | disposition home or self-care (01) ==
LOC: PT 11:55
PROVIDERS: Family Provider Family Medicine Geriatric Medicine; PCP Family Medicine Geriatric Medicine; Referring Provider Family Medicine Geriatric Medicine; Visit Provider Family Medicine Geriatric Medicine
DX: M54.5 Low back pain (principal)
CPT/HCPCS: 97110; 97162

== ENCOUNTER → 2019-09-05 14:45 | Outpatient (CLI) | payer MEDICARE, SELFPAY ==
[2017-09-24 10:04] VITALS: BMI 31.2
[2019-08-29 11:45] VITALS: BMI 31.1
--- NOTE | 2019-09-05 14:47 | CT_ITS ---
STUDY: CT ABDOMEN AND PELVIS WITH CONTRAST REASON FOR EXAM: Male, 74 years old. ABD PAIN. CONSTIPATION. RADIATION DOSAGE (If Supplied By Facility): CTDIvol = ( 21.33 ) mGy, DLP = ( 1274.67 ) mGycm TECHNIQUE: Transaxial images were obtained from the dome of the diaphragm to the symphysis pubis with oral contrast. IV 100mL Isovue-300 was administered. Sagittal and coronal images were reconstructed. Individualized dose optimization techniques were used for this CT. COMPARISON: None. FINDINGS: The visualized lung bases are unremarkable. The visualized portions of the heart are within normal limits. Normal liver. There are surgical clips in the gallbladder fossa consistent with a prior cholecystectomy. Normal spleen. Normal pancreas. Normal bilateral adrenal glands. Normal right kidney. Normal left kidney. There is a small hiatal hernia. Normal small intestine. Normal colon. The appendix is visualized and appears normal. Normal abdominal aorta. Normal inferior vena cava. Normal retroperitoneum. Normal urinary bladder. There is enlargement of the prostate gland. Normal abdominal wall. Normal osseous structures. CT/Abdomen/Pelvis WITH Contrast IMPRESSION: No acute abnormality. Electronically Signed: Jerel Brewster MD at 14:23 EST Tel , Service support ,
[2019-09-05 15:10] LABS: CREATININE FINGERSTICK 1.2 mg/dL (0.70-1.30)
== END ==
PROVIDERS: PCP Family Medicine Geriatric Medicine; Referring Provider Family Medicine Geriatric Medicine; Visit Provider Family Medicine Geriatric Medicine
DX: R10.9 Unspecified abdominal pain (principal)
CPT/HCPCS: 74177; Q9967; A4216

== ENCOUNTER → 2019-09-13 10:36 | Outpatient (CLI) | payer MEDICARE, SELFPAY ==
[2017-09-24 10:04] VITALS: BMI 31.2
[2019-08-29 11:45] VITALS: BMI 31.1
--- NOTE | 2019-09-13 10:41 | RAD_ITS ---
STUDY: X-RAY - ABDOMEN/PELVIS REASON FOR EXAM: Male, 74 years old. DIARRHEA, DEHYDRATED TECHNIQUE: AP supine and upright views of the abdomen and pelvis. COMPARISON: Comparison is made with prior study dated July 04, 2019. FINDINGS: Normal visualized lung bases. There is a moderate amount of colonic fecal material. There is no demonstrated free abdominal air. Prior cholecystectomy. Normal soft tissue structures. There are diffuse degenerative changes of the visualized lumbar spine. RAD/Abd Inc Decub and/or Erect IMPRESSION: Moderate amount of fecal material is seen in the colon. Electronically Signed: Mateo Pickard, at 11:40 EST , Service support ,
[2019-09-13 13:20] LABS: Absolute Lymphocyte Count 1.21 X10^3/uL (0.83-4.51); Absolute Neutrophil Count 8.5 X10^3/uL (2.0-7.7); Basophil# 0.07 X10^3/uL; Basophil% 0.6 % (0-1); Eosinophil# 0.04 X10^3/uL; Eosinophils% 0.4 % (0-5); Hematocrit 44.8 % (40-54); Hemoglobin 14.9 g/dL (13.0-16.5); Lymphocyte # 1.21 X10^3/ul (4.0); Lymphocyte % 11.1 % (19-41); Mean Corp Hgb Conc 33.3 g/dL (32-36); Mean Corpuscular Hgb 30.8 pg (27.0-32.0); Mean Corpuscular Volume 92.6 fL (80-94); Mean Platelet Vol. 9.7 fl (6.2-12.0); Monocyte# 0.83 X10^3/uL; Monocyte% 7.6 % (0-10); NRBC Flagged by Analyzer 0 % (0-5); Neutrophil # 8.54 X10^3/uL (2.7-7.7); Neutrophil % 78.5 % (47-70); Platelet Count 159 K/mm3 (150-450); RBC Distribution Width CV 15.1 % (11.6-14.6); RBC Distribution Width SD 51.6 fl (35.1-43.9); Red Blood Count 4.84 M/mm3 (4.6-6.2); White Blood Count 10.9 K/mm3 (4.4-11.0)
[2019-09-13 13:37] LABS: ALB/GLOB Ratio 0.9 RATIO (0.9-2.4); AST(SGOT) 28 U/L (15-37); Alanine Aminotransfer ALT/SGPT 41 U/L (16-61); Albumin, Serum 3.4 g/dL (3.2-5.0); Alkaline Phosphatase 65 U/L (45-117); Anion Gap 8 (5-15); BUN 24 mg/dL (7-18); BUN/Creat Ratio 14.5 RATIO (10-20); Calcium,Total 9.3 mg/dL (8.5-10.1); Chloride 109 mmol/L (98-107); Creatinine, Serum 1.65 mg/dL (0.70-1.30); EST Glomerular Filtration Rate 43 mL/min (>60); Est Glom Filt Rate - Afr Amer 53 mL/min (>60); Globulin 3.8 g/dL (2.2-4.2); Glucose 105 mg/dL (74-106); Potassium 4.5 mmol/L (3.5-5.1); Protein, Total 7.2 g/dL (6.4-8.2); Sodium Level 137 mmol/L (136-145)
== END ==
PROVIDERS: PCP Family Medicine Geriatric Medicine; Referring Provider Family Medicine Geriatric Medicine; Visit Provider Family Medicine Geriatric Medicine
DX: R19.7 Diarrhea, unspecified (principal); R53.83 Other fatigue
CPT/HCPCS: 36415; 74019; 80053; 85025

== ENCOUNTER → 2019-09-14 09:01 | Outpatient (CLI) | payer MEDICARE, SELFPAY ==
[2017-09-24 10:04] VITALS: BMI 31.2
[2019-08-29 11:45] VITALS: BMI 31.1
--- NOTE | 2019-09-14 11:10 | RAD_ITS ---
STUDY: X-RAY - ABDOMEN/PELVIS REASON FOR EXAM: Male, 74 years old. FECAL IMPACTION. PATIENT STATES DR GAVE HIM STUFF TO TAKE YESTERDAY AND THIS IS A RECHECK FROM YESTERDAYS XRAYS. PATIENT HAS BEEN CONSTIPATED, UNABLE TO GO AND HAVING NAUSEA. TECHNIQUE: Single AP view of the abdomen / pelvis. COMPARISON: 09/13/2018 FINDINGS: Status post cholecystectomy. There is an unremarkable bowel gas pattern. There is no demonstrated free abdominal air. The visualized liver, spleen and kidneys are grossly normal in size and morphology. Normal soft tissue structures. Normal visualized osseous structures. RAD/Abd Inc Decub and/or Erect IMPRESSION: Normal x-ray examination of the abdomen and pelvis. Electronically Signed: Jerel Brewster MD at 13:19 EST Tel , Service support ,
== END ==
PROVIDERS: PCP Family Medicine Geriatric Medicine; Referring Provider Family Medicine Geriatric Medicine; Visit Provider Family Medicine Geriatric Medicine
DX: R19.7 Diarrhea, unspecified (principal); R53.83 Other fatigue; K56.41 Fecal impaction
CPT/HCPCS: 74019; 82274; 83630; 87177; 87209; 87493; 87506

== ENCOUNTER → 2019-09-14 11:22 | Outpatient (CLI) | payer MEDICARE, SELFPAY ==
[2017-09-24 10:04] VITALS: BMI 31.2
[2019-08-29 11:45] VITALS: BMI 31.1
[2019-09-14 12:36] LABS: Anion Gap 8 (5-15); BUN 20 mg/dL (7-18); Calcium,Total 8.8 mg/dL (8.5-10.1); Chloride 109 mmol/L (98-107); Creatinine, Serum 1.54 mg/dL (0.70-1.30); EST Glomerular Filtration Rate 47 mL/min (>60); Est Glom Filt Rate - Afr Amer 57 mL/min (>60); Glucose 155 mg/dL (74-106); Potassium 4.3 mmol/L (3.5-5.1); Sodium Level 140 mmol/L (136-145)
== END ==
PROVIDERS: PCP Family Medicine Geriatric Medicine; Visit Provider Family Medicine Geriatric Medicine
DX: N17.9 Acute kidney failure, unspecified (principal); R19.7 Diarrhea, unspecified; R53.83 Other fatigue; K56.41 Fecal impaction
CPT/HCPCS: 36415; 74019; 80048; 82274; 83630; 87177; 87209; 87493; 87506

== ENCOUNTER → 2019-09-27 11:37 | Outpatient (CLI) | payer MEDICARE, SELFPAY ==
[2017-09-24 10:04] VITALS: BMI 31.2
[2019-08-29 11:45] VITALS: BMI 31.1
--- NOTE | 2019-09-27 11:40 | RAD_ITS ---
STUDY: X-RAY - ABDOMEN/PELVIS REASON FOR EXAM: Male, 74 years old. Diarrhea, constipation. hx Merckle cell CA TECHNIQUE: AP supine and upright views of the abdomen and pelvis. COMPARISON: 09/13/2019, 09/14/2019. FINDINGS: Normal visualized lung bases. There is an unremarkable bowel gas pattern. No dilated loops of bowel or evidence for obstruction. There is no demonstrated free abdominal air. The visualized liver, spleen and kidneys are grossly normal in size and morphology. Normal soft tissue structures. There are diffuse degenerative changes of the visualized lumbar spine. RAD/Abd Inc Decub and/or Erect IMPRESSION: No definite acute abnormality. No evidence for obstruction. Electronically Signed: Aneesh Thompson MD at 23:58 EST , Service support ,
[2019-09-27 12:51] LABS: Anion Gap 6 (5-15); BUN 16 mg/dL (7-18); BUN/Creat Ratio 11.5 RATIO (10-20); Calcium,Total 9.1 mg/dL (8.5-10.1); Chloride 112 mmol/L (98-107); Creatinine, Serum 1.39 mg/dL (0.70-1.30); EST Glomerular Filtration Rate 53 mL/min (>60); Est Glom Filt Rate - Afr Amer 64 mL/min (>60); Glucose 127 mg/dL (74-106); Potassium 3.9 mmol/L (3.5-5.1); Sodium Level 141 mmol/L (136-145)
== END ==
PROVIDERS: PCP Family Medicine Geriatric Medicine; Referring Provider Family Medicine Geriatric Medicine; Visit Provider Family Medicine Geriatric Medicine
DX: I10 Essential (primary) hypertension (principal); R19.7 Diarrhea, unspecified
CPT/HCPCS: 36415; 74019; 80048

== ENCOUNTER → 2019-10-05 11:34 | Outpatient (CLI) | payer MEDICARE, SELFPAY ==
[2017-09-24 10:04] VITALS: BMI 31.2
[2019-08-29 11:45] VITALS: BMI 31.1
[2019-10-05 13:16] LABS: BUN 14 mg/dL (7-18); Creatinine, Serum 1.35 mg/dL (0.70-1.30); EST Glomerular Filtration Rate 55 mL/min (>60); Glucose 104 mg/dL (74-106)
[2019-10-05 13:17] LABS: Anion Gap 7 (5-15); BUN/Creat Ratio 10.4 RATIO (10-20); Calcium,Total 8.9 mg/dL (8.5-10.1); Chloride 108 mmol/L (98-107); Est Glom Filt Rate - Afr Amer 66 mL/min (>60); Potassium 3.8 mmol/L (3.5-5.1); Sodium Level 139 mmol/L (136-145)
--- NOTE | 2019-10-05 13:27 | RAD_ITS ---
STUDY: X-RAY - ABDOMEN/PELVIS REASON FOR EXAM: Male, 74 years old. Abdominal pain. Constipation. Diarrhea. History of Harinder cell cancer. TECHNIQUE: AP supine and upright views of the abdomen and pelvis. COMPARISON: None. FINDINGS: Normal visualized lung bases. There is an unremarkable bowel gas pattern. There is no small bowel dilatation or evidence of obstruction. There is no marked rectal feces. There is no demonstrated free abdominal air. The visualized liver, spleen and kidneys are grossly normal in size and morphology. Cholecystectomy clips are seen in the right upper quadrant. Normal soft tissue structures. Normal visualized osseous structures. RAD/Abd Inc Decub and/or Erect IMPRESSION: No evidence of acute intra-abdominal process. Electronically Signed: Robert Mallory DO at 21:49 EST Tel [phone], Service support ,
== END ==
PROVIDERS: PCP Family Medicine Geriatric Medicine; Referring Provider Family Medicine Geriatric Medicine; Visit Provider Family Medicine Geriatric Medicine
DX: R10.9 Unspecified abdominal pain (principal)
CPT/HCPCS: 36415; 74019; 80048

== ENCOUNTER → 2019-11-02 09:31 | Outpatient (CLI) | payer MEDICARE, SELFPAY ==
[2017-09-24 10:04] VITALS: BMI 31.2
[2019-08-29 11:45] VITALS: BMI 31.1
[2019-11-02 11:59] LABS: Absolute Lymphocyte Count 1.11 X10^3/uL (0.83-4.51); Absolute Neutrophil Count 6.3 X10^3/uL (2.0-7.7); Basophil# 0.06 X10^3/uL; Basophil% 0.7 % (0-1); Eosinophil# 0.17 X10^3/uL; Hematocrit 41.3 % (40-54); Lymphocyte # 1.11 X10^3/ul (4.0); Lymphocyte % 13.2 % (19-41); Mean Corp Hgb Conc 33.9 g/dL (32-36); Mean Corpuscular Hgb 33.1 pg (27.0-32.0); Mean Corpuscular Volume 97.6 fL (80-94); Mean Platelet Vol. 9.4 fl (6.2-12.0); Monocyte# 0.58 X10^3/uL; Monocyte% 6.9 % (0-10); NRBC Flagged by Analyzer 0 % (0-5); Neutrophil # 6.32 X10^3/uL (2.7-7.7); Neutrophil % 75.5 % (47-70); Platelet Count 129 K/mm3 (150-450); RBC Distribution Width CV 14.8 % (11.6-14.6); Red Blood Count 4.23 M/mm3 (4.6-6.2); White Blood Count 8.4 K/mm3 (4.4-11.0)
[2019-11-02 12:18] LABS: ALB/GLOB Ratio 0.9 RATIO (0.9-2.4); AST(SGOT) 18 U/L (15-37); Alanine Aminotransfer ALT/SGPT 27 U/L (16-61); Alkaline Phosphatase 66 U/L (45-117); Anion Gap 6 (5-15); BUN 14 mg/dL (7-18); BUN/Creat Ratio 10.7 RATIO (10-20); Calcium,Total 8.5 mg/dL (8.5-10.1); Chloride 107 mmol/L (98-107); Creatinine, Serum 1.31 mg/dL (0.70-1.30); EST Glomerular Filtration Rate 57 mL/min (>60); Est Glom Filt Rate - Afr Amer 69 mL/min (>60); Globulin 3.2 g/dL (2.2-4.2); Glucose 153 mg/dL (74-106); Potassium 4.7 mmol/L (3.5-5.1); Protein, Total 6.2 g/dL (6.4-8.2); Sodium Level 140 mmol/L (136-145); Thyroid Stim Hormone (TSH) 2.99 uIU/mL (0.358-3.74)
== END ==
PROVIDERS: PCP Family Medicine Geriatric Medicine; Visit Provider Family Medicine Geriatric Medicine
DX: E55.9 Vitamin D deficiency, unspecified (principal); I10 Essential (primary) hypertension; F52.8 Other sexual dysfunction not due to a substance or known physiological condition
CPT/HCPCS: 36415; 80053; 82306; 84403; 84443; 85025

== ENCOUNTER → 2020-05-03 08:50 | Outpatient (CLI) | payer MEDICARE, SELFPAY ==
[2017-09-24 10:04] VITALS: BMI 31.2
[2019-08-29 11:45] VITALS: BMI 31.1
[2020-05-03 12:43] LABS: Absolute Lymphocyte Count 1.18 X10^3/uL (0.83-4.51); Absolute Neutrophil Count 5.2 X10^3/uL (2.0-7.7); Basophil# 0.06 X10^3/uL; Basophil% 0.8 % (0-1); Eosinophil# 0.27 X10^3/uL; Eosinophils% 3.6 % (0-5); Hematocrit 43.1 % (40-54); Hemoglobin 13.8 g/dL (13.0-16.5); Lymphocyte # 1.18 X10^3/ul (4.0); Lymphocyte % 15.9 % (19-41); Mean Corpuscular Hgb 29.9 pg (27.0-32.0); Mean Corpuscular Volume 93.3 fL (80-94); Monocyte# 0.69 X10^3/uL; Monocyte% 9.3 % (0-10); NRBC Flagged by Analyzer 0 % (0-5); Neutrophil # 5.16 X10^3/uL (2.7-7.7); Neutrophil % 69.7 % (47-70); Platelet Count 175 K/mm3 (150-450); RBC Distribution Width CV 14.3 % (11.6-14.6); RBC Distribution Width SD 48.8 fl (35.1-43.9); Red Blood Count 4.62 M/mm3 (4.6-6.2); White Blood Count 7.4 K/mm3 (4.4-11.0)
[2020-05-03 13:05] LABS: Vitamin D,25 Hydroxy 37.7 ng/mL
[2020-05-03 13:17] LABS: ALB/GLOB Ratio 0.9 RATIO (0.9-2.4); AST(SGOT) 18 U/L (15-37); Alanine Aminotransfer ALT/SGPT 23 U/L (16-61); Albumin, Serum 3.3 g/dL (3.2-5.0); Alkaline Phosphatase 56 U/L (45-117); Anion Gap 6 (5-15); BUN 21 mg/dL (7-18); BUN/Creat Ratio 14.9 RATIO (10-20); Calcium,Total 9.3 mg/dL (8.5-10.1); Chloride 106 mmol/L (98-107); Creatinine, Serum 1.41 mg/dL (0.70-1.30); EST Glomerular Filtration Rate 52 mL/min (>60); Est Glom Filt Rate - Afr Amer 63 mL/min (>60); Globulin 3.6 g/dL (2.2-4.2); Glucose 98 mg/dL (74-106); PSA,Total - Annual Screen 1.87 ng/mL (0.00-4.00); Potassium 4.4 mmol/L (3.5-5.1); Protein, Total 6.9 g/dL (6.4-8.2); Sodium Level 138 mmol/L (136-145); Thyroid Stim Hormone (TSH) 3.24 uIU/mL (0.358-3.74)
== END ==
PROVIDERS: PCP Family Medicine Geriatric Medicine; Visit Provider Family Medicine Geriatric Medicine
DX: E55.9 Vitamin D deficiency, unspecified (principal); F52.8 Other sexual dysfunction not due to a substance or known physiological condition; I10 Essential (primary) hypertension; Z12.5 Encounter for screening for malignant neoplasm of prostate
CPT/HCPCS: 36415; 80053; 82306; 84153; 84403; 84443; 85025; G0103

== ENCOUNTER → 2020-11-01 10:39 | Outpatient (CLI) | payer MEDICARE, SELFPAY ==
[2017-09-24 10:04] VITALS: BMI 31.2
[2020-11-01 12:20] LABS: Absolute Lymphocyte Count 1.23 X10^3/uL (0.83-4.51); Absolute Neutrophil Count 5.5 X10^3/uL (2.0-7.7); Basophil# 0.05 X10^3/uL; Basophil% 0.7 % (0-1); Eosinophil# 0.26 X10^3/uL; Eosinophils% 3.4 % (0-5); Hematocrit 44.7 % (40-54); Hemoglobin 14.3 g/dL (13.0-16.5); Lymphocyte # 1.23 X10^3/ul (4.0); Lymphocyte % 16.1 % (19-41); Mean Corpuscular Hgb 30.4 pg (27.0-32.0); Mean Corpuscular Volume 94.9 fL (80-94); Mean Platelet Vol. 9.8 fl (6.2-12.0); Monocyte# 0.62 X10^3/uL; Monocyte% 8.1 % (0-10); NRBC Flagged by Analyzer 0 % (0-5); Neutrophil # 5.45 X10^3/uL (2.7-7.7); Neutrophil % 71.2 % (47-70); Platelet Count 184 K/mm3 (150-450); RBC Distribution Width CV 13.7 % (11.6-14.6); RBC Distribution Width SD 47.8 fl (35.1-43.9); Red Blood Count 4.71 M/mm3 (4.6-6.2); White Blood Count 7.7 K/mm3 (4.4-11.0)
[2020-11-01 12:29] LABS: Vitamin D,25 Hydroxy 12.5 ng/mL
[2020-11-01 12:32] LABS: AST(SGOT) 16 U/L (15-37); Alanine Aminotransfer ALT/SGPT 22 U/L (16-61); Albumin, Serum 3.3 g/dL (3.2-5.0); Alkaline Phosphatase 65 U/L (45-117); Anion Gap 2 (5-15); BUN 19 mg/dL (7-18); BUN/Creat Ratio 13.6 RATIO (10-20); Chloride 106 mmol/L (98-107); EST Glomerular Filtration Rate 52 mL/min (>60); Est Glom Filt Rate - Afr Amer 63 mL/min (>60); Globulin 3.4 g/dL (2.2-4.2); Glucose 111 mg/dL (74-106); Potassium 4.3 mmol/L (3.5-5.1); Protein, Total 6.7 g/dL (6.4-8.2); Sodium Level 138 mmol/L (136-145); Thyroid Stim Hormone (TSH) 2.46 uIU/mL (0.358-3.74)
== END ==
PROVIDERS: PCP Family Medicine Geriatric Medicine; Visit Provider Family Medicine Geriatric Medicine
DX: E55.9 Vitamin D deficiency, unspecified (principal); F52.8 Other sexual dysfunction not due to a substance or known physiological condition; I10 Essential (primary) hypertension
CPT/HCPCS: 36415; 80053; 82306; 84403; 84443; 85025

== ENCOUNTER → 2020-11-15 10:48 | Outpatient (CLI) | payer MEDICARE, SELFPAY ==
[2017-09-24 10:04] VITALS: BMI 31.2
[2020-11-15 11:06] LABS: Bacteria 0 SEEN /hpf (None Seen); Mucous, Urine 0 SEEN /hpf (<or=2+); Red Blood Cells-Urine 0 SEEN /hpf (0-5); White Blood Cells 0 SEEN /hpf (0-5)
[2020-11-15 11:17] LABS: Color, Urine Straw (Yellow); Glucose, Dipstick Normal (Normal); Ketone-Dipstick Negative (Negative); Leukocyte Esterase-Dipstick Negative /ul (Negative); Nitrite-Dipstick Negative (Negative); Occult Blood-Urine Negative /ul (Negative); Protein-Dipstick Negative (Negative); Specific Gravity, Urine 1.015 (1.002-1.030); Urine Bilirubin Dipstick Negative (Negative); Urine Clarity Clear (Clear); Urine Urobilinogen Normal (Normal)
[2020-11-15 11:22] LABS: Squamous Epithelial Cells - UA 0-5 SEEN /hpf (0-5)
== END ==
PROVIDERS: PCP Family Medicine Geriatric Medicine; Referring Provider Nurse Practitioner Adult Health; Visit Provider Nurse Practitioner Adult Health
DX: R82.998 Other abnormal findings in urine (principal)
CPT/HCPCS: 81001

== ENCOUNTER → 2021-01-04 09:29 | Outpatient (CLI) | payer MEDICARE, SELFPAY ==
[2017-09-24 10:04] VITALS: BMI 31.2
[2019-08-29 11:45] VITALS: BMI 31.1
[2021-01-04 10:31] LABS: PTHIN 62.7 pg/mL (18.4-80.1)
[2021-01-04 10:33] LABS: Albumin, Serum 3.4 g/dL (3.2-5.0); BUN 18 mg/dL (7-18); BUN/Creat Ratio 13.3 RATIO (10-20); Calcium,Total 8.7 mg/dL (8.5-10.1); Chloride 107 mmol/L (98-107); Creatinine, Serum 1.35 mg/dL (0.70-1.30); EST Glomerular Filtration Rate 55 mL/min (>60); Est Glom Filt Rate - Afr Amer 66 mL/min (>60); Glucose 125 mg/dL (74-106); Phosphorus 2.9 mg/dL (2.5-4.9); Sodium Level 139 mmol/L (136-145)
== END ==
PROVIDERS: PCP Family Medicine Geriatric Medicine; Referring Provider Internal Medicine Nephrology; Visit Provider Internal Medicine Nephrology
DX: N18.31 Chronic kidney disease, stage 3a (principal)
CPT/HCPCS: 36415; 80069; 83970

== ENCOUNTER → 2021-05-09 11:28 | Outpatient (CLI) | payer MEDICARE, SELFPAY ==
[2017-09-24 10:04] VITALS: BMI 31.2
[2021-05-09 12:31] LABS: Absolute Lymphocyte Count 1.52 X10^3/uL (0.83-4.51); Absolute Neutrophil Count 5.3 X10^3/uL (2.0-7.7); Basophil# 0.03 X10^3/uL; Basophil% 0.4 % (0-1); Eosinophil# 0.13 X10^3/uL; Eosinophils% 1.7 % (0-5); Hematocrit 43.7 % (40-54); Lymphocyte # 1.52 X10^3/ul (0.83-4.51); Lymphocyte % 19.6 % (19-41); Mean Corpuscular Hgb 29.4 pg (27.0-32.0); Mean Corpuscular Volume 91.8 fL (80-94); Mean Platelet Vol. 9.8 fl (6.2-12.0); Monocyte# 0.78 X10^3/uL; Monocyte% 10.1 % (0-10); NRBC Flagged by Analyzer 0 % (0-5); Neutrophil # 5.25 X10^3/uL (2.7-7.7); Neutrophil % 67.7 % (47-70); Platelet Count 183 K/mm3 (150-450); RBC Distribution Width CV 14.5 % (11.6-14.6); RBC Distribution Width SD 49.1 fl (35.1-43.9); Red Blood Count 4.76 M/mm3 (4.6-6.2); White Blood Count 7.8 K/mm3 (4.4-11.0)
[2021-05-09 12:53] LABS: Vitamin D,25 Hydroxy 26.4 ng/mL
[2021-05-09 13:00] LABS: ALB/GLOB Ratio 0.8 RATIO (0.9-2.4); AST(SGOT) 18 U/L (15-37); Alanine Aminotransfer ALT/SGPT 19 U/L (16-61); Albumin, Serum 3.1 g/dL (3.2-5.0); Alkaline Phosphatase 61 U/L (45-117); Anion Gap 6 (5-15); BUN 21 mg/dL (7-18); BUN/Creat Ratio 14.5 RATIO (10-20); Calcium,Total 8.9 mg/dL (8.5-10.1); Chloride 108 mmol/L (98-107); Creatinine, Serum 1.45 mg/dL (0.70-1.30); EST Glomerular Filtration Rate 50 mL/min (>60); Est Glom Filt Rate - Afr Amer 61 mL/min (>60); Globulin 3.7 g/dL (2.2-4.2); Glucose 113 mg/dL (74-106); PSA,Total - Annual Screen 1.95 ng/mL (0.00-4.00); Potassium 4.5 mmol/L (3.5-5.1); Protein, Total 6.8 g/dL (6.4-8.2); Sodium Level 140 mmol/L (136-145); Thyroid Stim Hormone (TSH) 3.86 uIU/mL (0.358-3.74)
== END ==
PROVIDERS: PCP Family Medicine Geriatric Medicine; Visit Provider Family Medicine Geriatric Medicine
DX: E55.9 Vitamin D deficiency, unspecified (principal); F52.8 Other sexual dysfunction not due to a substance or known physiological condition; I10 Essential (primary) hypertension; Z12.5 Encounter for screening for malignant neoplasm of prostate
CPT/HCPCS: 36415; 80053; 82306; 84153; 84403; 84443; 85025; G0103

== ENCOUNTER → 2021-06-24 11:23 | Outpatient (CLI) | payer MEDICARE, SELFPAY ==
[2017-09-24 10:04] VITALS: BMI 31.2
[2021-06-24 13:22] LABS: Thyroid Stim Hormone (TSH) 1.91 uIU/mL (0.358-3.74)
== END ==
PROVIDERS: PCP Family Medicine Geriatric Medicine; Visit Provider Family Medicine Geriatric Medicine
DX: E03.9 Hypothyroidism, unspecified (principal)
CPT/HCPCS: 36415; 84443

== ENCOUNTER 2021-09-12 09:43 | Outpatient (CLI) | payer MEDICARE, BC, SELFPAY ==
[2017-09-24 10:04] VITALS: BMI 31.2
[2021-09-12 10:31] LABS: Hemoglobin 14.9 g/dL (13.0-16.5); Mean Corp Hgb Conc 33.1 g/dL (32-36); Mean Corpuscular Hgb 30.9 pg (27.0-32.0); Mean Corpuscular Volume 93.4 fL (80-94); Mean Platelet Vol. 9.5 fl (6.2-12.0); Platelet Count 153 K/mm3 (150-450); RBC Distribution Width SD 48.5 fl (35.1-43.9); Red Blood Count 4.82 M/mm3 (4.6-6.2); White Blood Count 8.4 K/mm3 (4.4-11.0)
[2021-09-12 10:55] LABS: Albumin, Serum 3.4 g/dL (3.2-5.0); BUN 21 mg/dL (7-18); BUN/Creat Ratio 15.4 RATIO (10-20); Calcium,Total 8.9 mg/dL (8.5-10.1); Chloride 109 mmol/L (98-107); Creatinine, Serum 1.36 mg/dL (0.70-1.30); EST Glomerular Filtration Rate 54 mL/min (>60); Est Glom Filt Rate - Afr Amer 65 mL/min (>60); Glucose 109 mg/dL (74-106); Phosphorus 2.6 mg/dL (2.5-4.9); Potassium 4.7 mmol/L (3.5-5.1); Sodium Level 140 mmol/L (136-145)
== END 2021-09-12 23:59 | disposition home or self-care (01) ==
LOC: LAB 09:45
PROVIDERS: PCP Family Medicine Geriatric Medicine; Referring Provider Internal Medicine Nephrology; Visit Provider Internal Medicine Nephrology
DX: N18.31 Chronic kidney disease, stage 3a (principal)
CPT/HCPCS: 36415; 80069; 85027

== ENCOUNTER 2021-10-08 07:47 | Observation (INO) | payer MEDICARE, BC, SELFPAY ==
[2017-09-24 10:04] VITALS: BMI 31.2
--- NOTE | 2021-09-30 10:37 | EKG12_ITS ---
Test Reason : PRE OP Blood Pressure : / mmHG Vent. Rate : 067 BPM Atrial Rate : 067 BPM P-R Int : 262 ms QRS Dur : 092 ms QT Int : 390 ms P-R-T Axes : 071 -43 054 degrees QTc Int : 412 ms Sinus rhythm with marked sinus arrhythmia with 1st degree A-V block Left axis deviation Abnormal ECG Confirmed by NADIA NORTON, NENITA ([id number]), associate editor DELFINA BARON ([id number]) on 10/01/2021 11:16:38 AM Referred By: Mio Multani Confirmed By:NENITA ZUNIGA MD
--- NOTE | 2021-09-30 10:37 | RAD_ITS ---
EXAM: XR CHEST, 2 VIEWS CLINICAL INDICATION: HX OF RADIATION -- PREOP TECHNIQUE: Frontal and lateral views of the chest. This report was created using [employer] report generation technology. COMPARISON: 10/05/2019 x-ray. FINDINGS: LUNGS AND PLEURAL SPACES: Unremarkable. No consolidation or edema. No pneumothorax. No effusion. HEART: Unremarkable. Cardiac silhouette not enlarged. MEDIASTINUM: Central airways and mediastinal contour are unremarkable. BONES/JOINTS: Degenerative changes of the spine. SOFT TISSUES: Surgical clips involving the right upper quadrant from prior cholecystectomy. Surgical clips again project over the area of the right axilla/chest wall. VASCULATURE: Atherosclerotic calcifications of the nonenlarged thoracic arch. RAD/Chest PA and Lateral IMPRESSION: No acute disease. Electronically Signed: Carlos Ordaz MD at 4:19 EST ,
[2021-09-30 11:12] LABS: Partial Thromboplast Time 32.4 Seconds (24.1-36.2)
[2021-09-30 11:34] LABS: AST(SGOT) 21 U/L (15-37); Alanine Aminotransfer ALT/SGPT 28 U/L (16-61); Albumin, Serum 3.3 g/dL (3.2-5.0); Alkaline Phosphatase 58 U/L (45-117); Bilirubin, Direct 0.23 mg/dL (0.00-0.30); Globulin 3.7 g/dL (2.2-4.2); Magnesium 1.9 mg/dL (1.6-2.6); Thyroid Stim Hormone (TSH) 2.25 uIU/mL (0.358-3.74)
[2021-09-30 14:18] LABS: HIV - WCH Non-Reactive (Nonreactive); Hepatitis B Surface Antibody Non-Reactive; Hepatitis C Antibody Non-Reactive (Nonreactive)
[2021-10-02 13:45] LABS: Hepatitis A AB, Total Positive (Negative)
--- NOTE | 2021-10-07 10:32 | PCM.HP.BLA ---
History and Physical Date of Admission: 10/08/21 [facility] [id number] [phone] OFFICE VISITDate of Service: 08/30/21 MR#:[id number]:[id number]: ASA GOINS [facility] #:[id number]:[id number] Provider:Dr. Mio Multani DOAge/Sex: 76/M Location:[place]:Signed Intake Intake Visit Reasons: Lumbar pain Chief Complaint: R sided low back pain Allergies oxycodone [From OxyContin] Adverse Reaction (Severe, Verified 08/29/19 11:42) lethargic-sleepy Medications aspirin 81 mg PO QHS 12/08/16 [History Confirmed 08/30/21] pravastatin 40 mg PO QHS 12/08/16 [History Confirmed 08/30/21] valsartan 160 mg PO QHS 12/08/16 [History Confirmed 08/30/21] tamsulosin 0.4 mg PO DAILY 12/10/16 [History Confirmed 08/30/21] sodium chloride 1 spray NASAL PRN PRN 09/30/17 [History Confirmed 08/30/21] finasteride 5 mg PO DAILY 11/01/18 [History Confirmed 08/30/21] metoprolol succinate 25 mg PO DAILY 11/01/18 [History Confirmed 08/30/21] pantoprazole 40 mg PO DAILY #30 tab 11/02/18 [Rx Confirmed 08/30/21] levothyroxine 25 mcg tablet ea PO 08/30/21 [History Confirmed 08/30/21] PFSH Medical History (Updated 08/30/21 @ 10:[address] Mio Multani, DO) Basal cell carcinoma Elevated cholesterol Enlarged prostate GERD (gastroesophageal reflux disease) HTN (hypertension) Hx of fracture of clavicle Hx of skin cancer, basal cell Lymphoma Segmental and somatic dysfunction of pelvic region Surgical History (Updated 08/30/21 @ 09:36 by Gloria Peck) Hx of cholecystectomy Hx of tonsillectomy Knee joint replacement status Family History (Updated 08/30/21 @ 09:38 by Gloria Peck) Grandmother Uterine cancer Father Cancer Grandfather Heart disease Uncle Cancer Social History (Updated 08/30/21 @ 09:37 by Gloria Peck) Smoking Status: Former smoker quit date: 08/03/65 alcohol intake: current alcohol intake frequency: holidays/special occasions only HPI Lumbar pain Details: Parts of this documentation were recorded by a scribe, this documentation accurately reflects the service provided and the decisions made by me, Dr. Mio Multani, DO 08/30/21 0924. ASA GOINS is a 76 year old M NEW patient here today for lower back pain which is worse on the right side and this pain radiates down into his gluteus and wrap around the lateral side of his hip and into the anterior thigh. He has had this pain for about 1 year. He states that he has a tightness in his anterior thighs. Denies any groin pain. Denies numbness, tingling or other associated symptoms. He feels at times his right leg does feel weak and feels it may give out but never has. He has seen his PCP. He has had PT which he feels was helpful at the time then the pain returned. He states that [facility] at [facility] in [place]. He has seen pain management Dr. Ruano for back injections where the 1st injection was helpful but then the 2nd and 3rd injection were not effective. His PCP has also tried prednisone, Naproxen, Gabapentin and Baclofen which where not effective. Denies any back bracing. Mr. Goins is most is an gentleman 76 years old that has a chief complaint of low back pain. He does get some radiation to both lower extremities but overall the back perhaps is worse. He can walk 1/4 mile without a great deal of difficulty. He wants to be more active than he is as he has been active his whole adult life and he longs to be that way again. I explained to him that the stenosis that he has at L4-5 took 40 years to get there. He also has degeneration at other levels but not stenosis. On examination he has a little pain with extension and hardly any with flexion at all of his lumbar spine he has good motor strength of all the major muscle groups 1+ patellar reflexes and Achilles reflexes bilaterally. He has no long tract signs. Clonus is absent Babinski's are downgoing. I reviewed the MRI scan that he brought with him that demonstrates arthritis throughout his low back of course but some significant stenosis at L4-5. I explained to him that its not severe I would call it somewhere between moderate and severe but certainly not severe and it certainly not mild either. I explained to him that it would be reasonable to decompress that 1 level. I do not feel that he needs a fusion. He needs to have realistic expectations though of the outcome. I told him that if it took away half of all of his pain that I would call that a significant success. He agreed. I told him that were not going to take all his pain away as he has significant arthritis and some of the pain is from the arthritis not just the stenosis at L4-5. Him and his both understood. We will schedule him for surgery in the future. He will have a decompression laminectomy at L4-5. I will see him again at preop. Coding Level of Care Code Off vis,new,level 3 Diagnoses Spinal stenosis at L4-L5 level M48.061 Time Spent (min) 30 Assessment and Plan Assessment and Plan (1) Spinal stenosis at L4-L5 level:
[2021-10-08] VITALS (15 sets, daily range): BP systolic 132–198; BP diastolic 78–115; PULSE 62–91; RESP 15–18; TEMP 36.1–37.4; O2SAT 95–100; BMI 31.0
[2021-10-08] MEDS: Acetaminophen 500 MG Tablet 1000 MG PO ×3 (06:00→22:56)
[2021-10-08] MEDS: Lactated Ringers 1,000 ML 15 ML IV (06:25)
[2021-10-08 07:11] LABS: Bedside Glucose 162 mg/dL (74-106)
--- NOTE | 2021-10-08 07:30 | RAD_ITS ---
STUDY: X-RAY - LUMBAR SPINE REASON FOR EXAM: Male, 76 years old. L3-L4, CHECK LEVEL PER, DR. MAE DECOMPRESSION LAMINECTOMY L4-5 TECHNIQUE: XR Spine Lumbar 1 View COMPARISON: None FINDINGS: Normal lumbar lordosis. There is no substantial scoliosis. There is a normal alignment of the vertebrae. There is a surgical instrument pointing at the level of L3-4. There is multilevel endplate spondylosis of the lumbar vertebrae. There is multi-level degenerative disc disease with multi-level disc space narrowing. There are atherosclerotic vascular calcifications. Vacuum disc phenomenon. Posteriorly, there is a soft tissue outside machinist. RAD/Spine 1 View Any Level IMPRESSION: Degenerative changes of the spine, as detailed above. There is a surgical instrument pointing at the level of L3-4. Electronically Signed: John Araujo MD at 16:25 EST ,
[2021-10-08] MEDS: Cefazolin 2 GM in 0.9% Normal Saline 100 ML IV (07:35)
[2021-10-08] MEDS: THROMBIN (RECOMBINANT) 20,000 UNIT VIAL 20000 UNIT TOPICAL (08:35)
--- NOTE | 2021-10-08 10:39 | OP.PCM_ITS ---
Report of Operation Date of Procedure: 10/08/21 Description of Surgical Findings:: Preoperative diagnosis: Spinal stenosis L4/5 Postoperative diagnosis: The same Procedure: Complete laminectomy decompression L4-5 CPT code 99322 Surgeon: Dr. Multani casino assistant manager: Isaura Meyer NP Anesthesia: General endotracheal anesthesia administered by [facility] EBL: 75 cc Drains: Medium Hemovac Complications: None Procedure: Patient was taken to the OR where he was placed under general endotracheal anesthesia. A Riley catheter was inserted. Neuro monitoring placed their leads on the patient. He was then put in the prone position on the Frank frame. After appropriate positioning with care to protect his bony prominences his genitalia his cervical spine and peripheral nerves such as the axilla and the ulnar nerves of both elbows the back was prepped and draped in standard fashion. I then made a longitudinal incision site centered over the low back subcutaneous tissues were incised length of the skin incision first I opened the lumbar fascia to the left of the spinous processes using cautery and elevated them gently off one of the spaces. Of marker was put in place and an x-ray was taken that demonstrated this was aimed at L3-4. We simply moved down 1 level. I then elevated the remaining paravertebral muscles off of the lamina for the top of the lamina 5 we did the same exact thing on the opposite side. Bleeding was controlled with cautery. Super slide retractors were then put in place. We had to use a 3 inch blades. Gave us good access more bleeders were again controlled with cautery. Note that we thoroughly irrigated with copious amounts of sterile saline repeatedly every 10 to 50 minutes in the course of the entire case. This is to prevent infection of course. Using double-action rongeurs I then remove the spinous process of L4 and the very top of the L5 spinous process. Using curettes I released the ligamentum flavum off the underside of the lamina of L for and the laminectomy was carried out with 45 degree Kerrison rongeurs. This was done all the way up to where the dura was visible. I then split the ligamentum flavum in its midline and remove the ligamentum flavum first from the right side which was his side of his worst leg pain. I removed all the ligamentum flavum all the way into the lateral recess and also opened up the lateral bony recess in an area that was obviously pressing on the L5 nerve root. This completely decompressed the L5 nerve root I checked it with hockey-stick and found to be open all the way out the foramen. I then moved to the opposite side of the table and into the right side so that I can decompress further the left side. Remaining ligamentum flavum was then removed and the lateral recess open with a 45 degree Kerrison rongeurs. Again thorough irrigation was carried out frequently. We then placed a amniotic membrane directly over the open dura and put Gelfoam over the top of that. A medium Hemovac drain was inserted. We then closed the lumbar fascia using [id number] suture with #1 Vicryl followed by closure of subcutaneous tissues with 2-0 Vicryl and 0 Vicryl in the layers and finally the skin was approximated using skin clips. Sterile dressings were then applied.. The shamir turcios was recovered in the OR moved to his hospital bed and taken to recovery in satisfactory condition. This is the end of operative summary on James Childs. This is Dr. Multani dictating.
--- NOTE | 2021-10-08 13:06 | CON.PCM.HO_ITS ---
Assessment & Plan Assessment/Plan (1) Spinal stenosis at L4-L5 level: PLAN: #Spinal stenosis s/p laminectomy at L4-5 * today is POD 0 * pain is well controlled * pain management as per primary team spine surgery * PT/OT on board * fall precautions * incentive spirometry * #Hypertension: on valsartan and metoprolol #Hyperlipidemia: on statin #BPh: on flomax and finasteride #Hypothyroidism; on synthroid #History of Harinder cell carcinoma: s/p surgery. 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 stable DVT prophylaxis: as per primary team Thank you for the courtesy of the consult. We will continue to follow with you. HPI Consult Data Date of Consult: 10/08/21 HPI Narrative Reason for Consultation: medical management HPI Narrative: ASA GOINS, is a 76 M with a PMH as outlined who was admitted to the spine surgery service o/a of lower back pain, worse on his right side and radiating down to his gluteus and lateral side of hip into anterior thigh. Pain had been going on for a year. MRI showed significant spinal stenosis at L4-5. He had complete laminectomy and decompression at L4-5 on 10/08/2021. Hospitalist service was consulted for medical management. Patient seen after surgery. He rated the pain at 4/10, and he had no other active complaints. Review of systems is otherwise negative. He has remained hemodynamically stable. [facility] Medical History Alcohol use Back pain Basal cell carcinoma Cancer Easy bruising Elevated cholesterol Enlarged prostate Former smoker GERD (gastroesophageal reflux disease) History of constipation History of echocardiogram History of hiatal hernia History of pain when walking History of renal disease History of steroid therapy History of stress test HTN (hypertension) Hx of fracture of clavicle Hx of malignant carcinoid tumor Hx of skin cancer, basal cell Leg cramps Lymphoma Segmental and somatic dysfunction of pelvic region Thyroid disease Wears glasses Home Medications aspirin 81 mg PO QHS 12/08/16 [History Last Taken 10/31/18] pravastatin 40 mg PO QHS 12/08/16 [History Last Taken 10/31/18] valsartan 160 mg PO QHS 12/08/16 [History Last Taken 10/08/21] tamsulosin 0.4 mg PO DAILY 12/10/16 [History Last Taken 11/01/18] finasteride 5 mg PO DAILY 11/01/18 [History Last Taken 10/31/18] metoprolol succinate 25 mg PO DAILY 11/01/18 [History Last Taken 10/08/21] pantoprazole 40 mg PO DAILY #30 tab 11/02/18 [Rx Last Taken 10/08/21] levothyroxine 25 mcg tablet 25 mcg PO DAILY 08/30/21 [History Last Taken 10/08/21] lubiprostone [Amitiza] 8 mcg PO PRN PRN 09/24/21 [History Last Taken Unknown] sennosides-docusate sodium [Stool Softener-Laxative] 2 tab-cap PO DAILY 09/24/21 [History Last Taken Unknown] hydrocodone 7.5 mg-acetaminophen 325 mg tablet 1 tab PO Q6H PRN 10 Days #40 tab 09/30/21 [Rx Last Taken Unknown] Allergy/AdvReac Type Severity Reaction Status Date / Time oxycodone [From OxyContin] AdvReac Severe lethargic-s Verified 10/08/21 06:33 leepy Family History (Updated 08/30/21 @ 09:38 by Gloria Peck) Grandmother Uterine cancer Father Cancer Grandfather Heart disease Uncle Cancer Surgical History History of ERCP Hx of cholecystectomy Hx of tonsillectomy Knee joint replacement status Social History (Updated 08/30/21 @ 09:37 by Gloria Peck) Smoking Status: Former smoker quit date: 08/03/65 alcohol intake: current alcohol intake frequency: holidays/special occasions only ROS Constitutional Constitutional: Denies anorexia, chills, fatigue, fever(s), malaise or weakness Eyes Eyes: Denies change in vision ENT HEENT: Denies ear pain, headache(s), nasal congestion or sore throat Cardiovascular Cardiovascular: Denies chest pain, dyspnea on exertion, edema, lightheadedness, orthopnea, palpitations, paroxysmal nocturnal dyspnea, rapid heart rate or syncope Respiratory/Chest Respiratory/Chest: Denies cough, dyspnea, shortness of breath at rest or shortness of breath with exertion Gastrointestinal Gastrointestinal: Denies abdominal pain, constipation, diarrhea, nausea or vomiting Genitourinary Genitourinary: Denies burning urination or dysuria Musculoskeletal Musculoskeletal: Denies arthralgias, back pain, joint swelling or myalgias Neurologic Neurologic: Denies confusion, dizziness, focal weakness, headache(s), numbness, seizure-like activity, seizures or syncope Psychiatric Psychiatric: Denies anxiety or depression Endocrine Endocrinology: Denies change in body appearance Hematologic/Lymphatic Hematologic/Lymphatic: Denies anemia Allergic/Immunologic Allergic/Immunologic: Denies asthma Physical Exam Const alert, oriented x3 and no apparent distress General Appearance: cooperative HEENT normocephalic, head/scalp atraumatic, hearing grossly normal bilaterally and moist oral mucous membranes Eyes PERRL, EOMs intact bilaterally and conjunctivae normal Neck no lymphadenopathy, supple and no JVD Resp normal respiratory effort and no retractions Cardio regular rate, regular rhythm, S1 normal heart sound, S2 normal heart sound and no murmurs GI normal to inspection, nondistended, normoactive bowel sounds, soft to palpation, non-tender and non-distended Extremity normal to inspection and full ROM Extremity Narrative: chronic RUE edema due 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
[2021-10-08] MEDS: Lactated Ringers 1,000 ML 100 ML IV ×2 (13:14→23:34)
[2021-10-08] MEDS: Finasteride 5 MG Tablet PO (14:03)
[2021-10-08] MEDS: Senna/Docusate Sodium 1 Tablet 2 TABLET PO ×2 (14:03→22:57)
[2021-10-08] MEDS: Cefazolin 1 GM/50 ML BAG IV ×2 (15:20→22:58)
[2021-10-08] MEDS: traMADol 50 MG Tablet PO (15:37)
--- NOTE | 2021-10-08 16:26 | NURSING ---
small amt sang. drainage noted around catheter. pt verbalized enlarged prostate. perez care provided with advanced nursing professor. gown changed.
[2021-10-08] MEDS: Ensure Surgery 237 ML LIQUID PO (17:52)
[2021-10-08] MEDS: Losartan Potassium 50 MG Tablet PO (22:56)
[2021-10-08] MEDS: Pravastatin 40 MG Tablet PO (22:57)
[2021-10-09] MEDS: traMADol 50 MG Tablet PO (01:20)
[2021-10-09 04:09] VITALS: BP 130/84; PULSE 70; RESP 16; TEMP 37; O2SAT 96
[2021-10-09] MEDS: Levothyroxine 25 MCG TABLET PO (06:32)
[2021-10-09] MEDS: Acetaminophen 500 MG Tablet 1000 MG PO ×2 (06:32→14:21)
--- NOTE | 2021-10-09 07:21 | PN.HOSP_ITS ---
Subjective Subjective Patient is a 76-year-old gentleman who underwent complete laminectomy decompression L4-[address] Mio Multani on 10/08/2021 the hospitalist service was consulted to assist with patient medical comorbidities post op Objective Data Objective Data Vital Signs: Vital Signs Temp Pulse Resp BP Pulse Ox 98.6 F 70 16 130/84 H 96 10/09/21 04:09 10/09/21 04:09 10/09/21 04:09 10/09/21 04:09 10/09/21 04:09 Oxygen Flow Rate (L/min) 4 Oxygen Delivery Method Room Air Weight: 106.8 kg Body Mass Index (BMI) 31.0 Intake & Output: Intake and Output for Last 24 Hours 10/07/21 10/08/21 10/09/21 23:59 23:59 23:59 Intake Total 2947.25 / 2947.25 Output Total 4655 / 4655 870 / 870 Balance -1707.75 / -1707.75 -870 / -870 Radiography Diagnostic Testing: Radiology Impression Spine X-Ray 10/08/21 07:30 IMPRESSION: Degenerative changes of the spine, as detailed above. There is a surgical instrument pointing at the level of L3-4. Electronically Signed: John Araujo MD at 16:25 EST Reading Location ID and State: [facility] / [place] , Service support , Physical Exam Narrative GENERAL: cooperative HEENT: Atraumatic; EYES; Anicteric, Normal Conjunctiva NECK; supple, normal thyroid, RESPIRATORY: Diminished to auscultation CARDIOVASCULAR: Regular S1 S2, GI: soft, normoactive bowel sounds, : No Renal angle tenderness; EXTREMITIES: Right upper extremity lymphedema MUSCULOSKELETAL: no muscle wasting NEURO: Awake; no lateralizing signs. SKIN: No Rash PSYCH; Flat affect Assessment & Plan Assessment/Plan (1) Spinal stenosis at L4-L5 level: PLAN: Patient is a 76-year-old gentleman who underwent complete laminectomy decompression L4-[address] Mio Multani on 10/08/2021 the hospitalist service was consulted to assist with patient medical comorbidities po 1. Status pos complete laminectomy decompression L4-[address] Mio Multani on 10/08/2021 patient postoperative orders including pain management PT OT DVT prophylaxis as addressed by primary service 2. Hypertension - Blood pressure controlled, home medications continued with dose adjustment as needed 3. Dyslipidemia -Patient is on statin therapy, continued at home dose 4. Hypothyroidism - Patient is on levothyroxine home dose continued 5. 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 BPH -Patient on Flomax and finasteride -Patient had a Riley catheter placed plan is to discontinue Riley 7. Class I obesity with BMI of 31 ?Weight loss advised DVT prophylaxis ?Per primary service DVT prophylaxis: as per primary team Thank you for the courtesy of the consult. We will continue to follow with you. Charges/Coding Visit Charges Inpatient E&M: 87514 Subs Hosp L2
[2021-10-09 07:59] VITALS: O2SAT 95
[2021-10-09 08:10] VITALS: BP 132/88; PULSE 68; RESP 16; TEMP 36.7; O2SAT 98
[2021-10-09 09:08] VITALS: PULSE 88
[2021-10-09] MEDS: Tamsulosin HCl 0.4 MG Capsule PO (09:08)
[2021-10-09] MEDS: Senna/Docusate Sodium 1 Tablet 2 TABLET PO (09:08)
[2021-10-09] MEDS: Finasteride 5 MG Tablet PO (09:08)
[2021-10-09] MEDS: Metoprolol(XL)Succ 25 MG Tablet PO (09:08)
[2021-10-09] MEDS: Pantoprazole Sodium 40 MG Tablet PO (09:09)
--- NOTE | 2021-10-09 10:10 | CASEMGMT ---
Addendum entered by Lashay Skelton 10/09/21 14:24: Referral for FWW faxed to [employer] and email to [employer] for delivery today. Original Note: ELLE MUNSON Assessment: Face to Face with pt for initial transition planning/care coordination assessment. ELLE MUNSON introduced self and role at [facility], pt voices understanding and consents to assessment. Pt is A/O x4 and answers all questions appropriately at this time. Pt sitting up in bed in no distress. Care providers, pharmacy, and demographics verified/updated. Admitting Dx: lumbar laminectomy decompression PCP:David Specialists:Rangel, spine surgeon Preferred Pharmacy: [facility] [place] Insurance: [facility], [employer] Prescription Benefit: yes LW/HPOA: Pt reports having a LW/DPOA and his DPOA is one of his sons but he is not sure which. He is aware this is not on file at [facility] and he may bring in to be scanned into the chart. LNOK: Kaela Childs, Living Arrangements: Pt lives with in a single story house with one step to enter with a grab bar. Pt reports he is I in ADL's and denies concerns at home. Transportation: Pt drives self and denies concerns with transportation. DME/HHC/SNF: Pt has a rollator, cane, walking stick and grab bars in the bathroom. Pt does not have a FWW. Pt agreeable to getting one. Provided him with a verbal list of local DME companies, pt chose [facility]. Pt denies previous HHC or SNF stays. Pt states no concerns with going home at time of dc. He states he walked a mile a day prior to surgery. Pt states no further concerns/needs. CM to follow. Advised pt to ask CM if any further question/concerns/needs arise, voices understanding. Pt Goal: Home Plan: Home
--- NOTE | 2021-10-09 11:36 | CASEMGMT ---
ELLE CM in to discuss [employer] form with patient. RN CM explained [employer]E form, patient voiced understanding. Pt signed form and filed in chart. Pt provided with a copy of signed [employer]E form. Patient had no further questions or concerns at this time.
--- NOTE | 2021-10-09 12:39 | PCM.DC.SUM ---
Providers Date of Admission: 10/08/21 Primary Care Physician: Dr. Garrett Hernandez MD Consultations 10/08/21 12:35 Consult: Hospitalist Routine Consulting Provider: Meliza Suazo Reason for Consult: Medical Management EMERGENT Consult: No MD Notified: Yes Date Notified: 10/08/21 Time Notified: 13:05 Method of Notification: Text Reason For Visit: LUMBAR LAMINECTOMY DECOMRPESSION Diagnosis Discharge Diagnosis (1) Spinal stenosis at L4-L5 level: Status: Acute Code(s): M48.061 - Spinal stenosis, lumbar region without neurogenic claudication Medications at Discharge Home Medications aspirin 81 mg PO QHS 12/08/16 pravastatin 40 mg PO QHS 12/08/16 valsartan 160 mg PO QHS 12/08/16 tamsulosin 0.4 mg PO DAILY 12/10/16 finasteride 5 mg PO DAILY 11/01/18 metoprolol succinate 25 mg PO DAILY 11/01/18 pantoprazole 40 mg PO DAILY #30 tab 11/02/18 levothyroxine 25 mcg tablet 25 mcg PO DAILY 08/30/21 lubiprostone [Amitiza] 16 mcg PO DAILY 09/24/21 sennosides-docusate sodium [Stool Softener-Laxative] 2 tab-cap PO DAILY 09/24/21 hydrocodone 7.5 mg-acetaminophen 325 mg tablet 1 tab PO Q6H PRN 10 Days #40 tab 09/30/21 Hospital Course Summary of Care Provided Hospital Course: Mr. Childs was admitted to the hospital yesterday October 08. Surgery he underwent decompression laminectomy at the L4-5 level. He tolerated the procedure well. Today he reports that his leg pain is completely resolved. Nothing is taken for pain with some tramadol in the middle of the night. He has not even taken morphine. His dressing was changed today and I remove the drain. Incision is dry and healing well. He was given instructions regarding the dressing. It is to stay on until Thursday at which time his will remove it. On Thursday he can start taking showers. They know not to put anything that soap and water on the wound. He already has his pain medicine at home. In addition he already has an appointment to see me in the office 12 days from now. This is the end of discharge summary on Mr. James Childs. This is Dr. Multani dictating. Weight / BMI Weight Weight: 235 lb 7.259 oz Body Mass Index (BMI) 31.0 Radiography Diagnostic Testing: Radiology Impression Spine X-Ray 10/08/21 07:30 IMPRESSION: Degenerative changes of the spine, as detailed above. There is a surgical instrument pointing at the level of L3-4. Electronically Signed: John Araujo MD at 16:25 EST Reading Location ID and State: [facility] / [place] , Service support , Meaningful Use Info Meaningful Use Diagnoses (Choose all that apply): None applicable Discharge Plan Admission Admit Date/Time: 10/08/21 11:38 Attending Provider: Elmo Roman Primary Care Provider: Garrett Hernandez Chi Consulting Providers: Jimmy Costello ; Meliza Suazo Discharge Orders/Prescriptions Prescriptions: No Action levothyroxine 25 mcg tablet 25 mcg PO DAILY RF: 0 hydrocodone-acetaminophen 7.5-325 mg tablet 1 tab PO Q6H PRN (Reason: pain) 10 Days Qty: 40 RF: 0 pravastatin 40 MG tablet 40 mg PO QHS RF: 0 aspirin 81 MG tablet,delayed release (DR/EC) 81 mg PO QHS RF: 0 valsartan 160 MG tablet 160 mg PO QHS RF: 0 tamsulosin 0.4 MG capsule 0.4 mg PO DAILY RF: 0 metoprolol succinate 25 MG tablet extended release 24 hr 25 mg PO DAILY RF: 0 finasteride 5 MG tablet 5 mg PO DAILY RF: 0 pantoprazole 40 MG tablet 40 mg PO DAILY Qty: 30 RF: 0 sennosides-docusate sodium [Stool Softener-Laxative] 8.6-50 mg Tablet 2 tab-cap PO DAILY RF: 0 lubiprostone [Amitiza] 8 mcg Capsule 16 mcg PO DAILY RF: 0 Other Ambulatory Orders: MRSA/SAID SCREEN (PRE SURG) (Routine) Timeframe: [id number] Facility: [facility] - Location: Laboratory Ordered By: Dr. Mio Multani Referrals / Follow Up: Garrett Hernandez Chi, MD [Primary Care Provider] - Disposition Disposition (needs filled in before D/C Order can be placed): Home, Self Care
[2021-10-09 14:16] VITALS: BP 138/82; PULSE 60; RESP 18; TEMP 36.2; O2SAT 100
== END 2021-10-09 14:52 | disposition home or self-care (01) ==
LOC: MS3 10-09 07:03 → SDC 10-11 10:41 → MS3 10-11 10:41
PROVIDERS: Anesthesiology; Admitting Provider Orthopaedic Surgery; PCP Family Medicine Geriatric Medicine; Referring Provider Orthopaedic Surgery; Visit Provider Internal Medicine
PROC: (CPT 63030; principal; 2021-10-08 07:00)
DX: M48.061 Spinal stenosis, lumbar region without neurogenic claudication (principal); C85.90 Non-Hodgkin lymphoma, unspecified, unspecified site; M99.05 Segmental and somatic dysfunction of pelvic region; E03.9 Hypothyroidism, unspecified; E78.00 Pure hypercholesterolemia, unspecified; I10 Essential (primary) hypertension; K21.9 Gastro-esophageal reflux disease without esophagitis; Z79.82 Long term (current) use of aspirin; Z87.891 Personal history of nicotine dependence; Z79.899 Other long term (current) drug therapy; Z79.890 Hormone replacement therapy; M99.03 Segmental and somatic dysfunction of lumbar region; M47.816 Spondylosis without myelopathy or radiculopathy, lumbar region; N40.1 Benign prostatic hyperplasia with lower urinary tract symptoms; E66.9 Obesity, unspecified; Z68.31 Body mass index [BMI] 31.0-31.9, adult; R94.31 Abnormal electrocardiogram [ECG] [EKG]; I44.0 Atrioventricular block, first degree; R23.8 Other skin changes; Z87.19 Personal history of other diseases of the digestive system
CPT/HCPCS: 63047; 36415; 71046; 72020; 80076; 82962; 83735; 84443; 85610; 85730; 86703; 86706; 86708; 86803; 93005; 96361; 96365; 96366; 97162; 97530; 99218; 99251; J7120; G0378; G0463; J2405

== ENCOUNTER 2021-11-07 09:15 | Outpatient (CLI) | payer MEDICARE, BC, SELFPAY ==
[2017-09-24 10:04] VITALS: BMI 31.2
[2021-11-07 11:53] LABS: Absolute Lymphocyte Count 1.55 X10^3/uL (0.83-4.51); Absolute Neutrophil Count 6.2 X10^3/uL (2.0-7.7); Basophil# 0.06 X10^3/uL; Basophil% 0.7 % (0-1); Eosinophil# 0.42 X10^3/uL; Eosinophils% 4.6 % (0-5); Hematocrit 41.3 % (40-54); Hemoglobin 13.3 g/dL (13.0-16.5); Lymphocyte # 1.55 X10^3/ul (0.83-4.51); Lymphocyte % 17.1 % (19-41); Mean Corp Hgb Conc 32.2 g/dL (32-36); Mean Corpuscular Hgb 29.6 pg (27.0-32.0); Mean Corpuscular Volume 91.8 fL (80-94); Mean Platelet Vol. 9.7 fl (6.2-12.0); Monocyte# 0.75 X10^3/uL; Monocyte% 8.3 % (0-10); NRBC Flagged by Analyzer 0 % (0-5); Neutrophil # 6.21 X10^3/uL (2.7-7.7); Neutrophil % 68.3 % (47-70); Platelet Count 174 K/mm3 (150-450); RBC Distribution Width CV 14.1 % (11.6-14.6); RBC Distribution Width SD 47.3 fl (35.1-43.9); White Blood Count 9.1 K/mm3 (4.4-11.0)
[2021-11-07 12:05] LABS: Vitamin D,25 Hydroxy 15.7 ng/mL
[2021-11-07 12:10] LABS: ALB/GLOB Ratio 0.8 RATIO (0.9-2.4); AST(SGOT) 14 U/L (15-37); Alanine Aminotransfer ALT/SGPT 19 U/L (16-61); Alkaline Phosphatase 59 U/L (45-117); Anion Gap 3 (5-15); BUN 19 mg/dL (7-18); BUN/Creat Ratio 14.2 RATIO (10-20); Calcium,Total 9.1 mg/dL (8.5-10.1); Chloride 110 mmol/L (98-107); Creatinine, Serum 1.34 mg/dL (0.70-1.30); EST Glomerular Filtration Rate 55 mL/min (>60); Est Glom Filt Rate - Afr Amer 66 mL/min (>60); Globulin 3.8 g/dL (2.2-4.2); Glucose 116 mg/dL (74-106); Potassium 4.4 mmol/L (3.5-5.1); Protein, Total 6.8 g/dL (6.4-8.2); Sodium Level 139 mmol/L (136-145); Thyroid Stim Hormone (TSH) 2.21 uIU/mL (0.358-3.74)
== END 2021-11-07 23:59 | disposition home or self-care (01) ==
LOC: POLAB3 09:16
PROVIDERS: PCP Family Medicine Geriatric Medicine; Visit Provider Family Medicine Geriatric Medicine
DX: E55.9 Vitamin D deficiency, unspecified (principal); F52.8 Other sexual dysfunction not due to a substance or known physiological condition; I10 Essential (primary) hypertension
CPT/HCPCS: 36415; 80053; 82306; 84403; 84443; 85025

== ENCOUNTER → 2022-01-09 | Outpatient (CLI) | payer MEDICARE, BC, SELFPAY ==
[2017-09-24 10:04] VITALS: BMI 31.2
--- NOTE | 2022-01-09 14:55 | VDLE_ITS ---
Reason For Study: edema RIGHT GSV is normal. CFV is compressible, spontaneous, phasic, competent and demonstrates normal augmentation. FV is compressible, spontaneous, phasic, competent and demonstrates normal augmentation. POP V is compressible, spontaneous, phasic, competent and demonstrates normal augmentation. T/P Trunk is compressible. PTV is compressible. RT PerV is compressible. Procedure This is a venous duplex using B-mode, color flow and spectral Doppler. Exam performed in department. The exam was abbreviated due to the COVID 19 protocol. The exam was diagnostic. A preliminary report was called and/or faxed to Dr. Hernandez. VL/Venous Duplex US, Unilateral Interpretation Summary Deep veins of the right lower extremity are patent and compressible segmentally . There is no evidence of right lower extremity deep vein thrombosis. Valvular competence marcelino ears intact within the proximal deep venous system on the right . The right great saphenous vein a ppears patent and compressible segmentally. Ordering Physician: Garrett Hernandez Referring Physician: Garrett Hernandez Chi Performed By: Rishi Briscoe RVT
--- NOTE | 2022-01-09 15:07 | RAD_ITS ---
STUDY: XR Ankle Min 3 Views REASON FOR EXAM: Male, 76 years old. ANKLE PAIN TECHNIQUE: XR Ankle Min 3 Views RIGHT COMPARISON: None. FINDINGS: Normal visualized distal tibia and fibula. Normal medial and lateral malleoli. Normal tibiotalar articulation and ankle mortise. The visualized subtalar, talonavicular, calcaneocuboid and tarsal articulations are normal. There is a plantar calcaneal spur. There is soft tissue swelling around the ankle. RAD/Ankle min 3 Views IMPRESSION: There is soft tissue swelling. Electronically Signed: John Araujo MD at 21:23 EDT ,
== END | disposition home or self-care (01) ==
LOC: CVS 14:52
PROVIDERS: PCP Family Medicine Geriatric Medicine; Referring Provider Family Medicine Geriatric Medicine; Visit Provider Family Medicine Geriatric Medicine
DX: R60.0 Localized edema (principal); M25.579 Pain in unspecified ankle and joints of unspecified foot
CPT/HCPCS: 73610; 93971

== ENCOUNTER → 2022-02-07 | Outpatient (CLI) | payer MEDICARE, BC, SELFPAY ==
[2017-09-24 10:04] VITALS: BMI 31.2
--- NOTE | 2022-02-07 10:18 | RAD_ITS ---
STUDY: X-RAY - LUMBAR SPINE REASON FOR EXAM: Male, 76 years old. LOW BACK PAIN TECHNIQUE: XR Spine Lumbar Comp W/ Bending Min 6 Views COMPARISON: 08/01/2019 FINDINGS: Normal lumbar lordosis. There is a dextroscoliosis of the lumbar spine. There is a normal alignment of the vertebrae. There is multilevel endplate spondylosis of the lumbar vertebrae. There is multi-level degenerative disc disease with multi-level disc space narrowing. There are atherosclerotic vascular calcifications. There are multiple metallic clips in the right upper quadrant. This is consistent for a cholecystectomy. Degenerative findings of the hips. RAD/L/S Spine w Bend Min 6 Vw IMPRESSION: Degenerative changes of the spine, as detailed above. Degenerative findings of the hips. Electronically Signed: John Araujo MD at 18:39 EDT ,
== END | disposition home or self-care (01) ==
LOC: RAD 10:12
PROVIDERS: PCP Family Medicine Geriatric Medicine; Referring Provider Family Medicine Geriatric Medicine; Visit Provider Family Medicine Geriatric Medicine
DX: M54.50 Low back pain, unspecified (principal)
CPT/HCPCS: 72114

== ENCOUNTER → 2022-03-03 | Outpatient (CLI) | payer MEDICARE, BC, SELFPAY ==
[2017-09-24 10:04] VITALS: BMI 31.2
== END | disposition home or self-care (01) ==
LOC: PSN 08:28
PROVIDERS: PCP Family Medicine Geriatric Medicine; Referring Provider Internal Medicine Cardiovascular Disease; Visit Provider Internal Medicine Cardiovascular Disease
DX: I48.91 Unspecified atrial fibrillation (principal); I10 Essential (primary) hypertension; E78.5 Hyperlipidemia, unspecified
CPT/HCPCS: 93225; 93226

== ENCOUNTER → 2022-03-11 | Outpatient (CLI) | payer MEDICARE, BC, SELFPAY ==
[2017-09-24 10:04] VITALS: BMI 31.2
--- NOTE | 2022-03-11 13:51 | ECHOD_ITS ---
Reason For Study: ATRIAL FIB-FLUTTER Procedure This was a 2D Doppler, Color Flow transthoracic echocardiogram. The study was technically difficult. Exam performed in department. Left Ventricle Normal LV size. Left ventricular systolic function is normal. The estimated ejection fraction is 65 %. No evidence for diastolic dysfunction. No regional wall motion abnormalities noted. Right Ventricle Normal RV size. Normal systolic function. Atria Normal left atrium. Normal right atrium. No doppler evidence for ASD. Mitral Valve There is no mitral annular calcification. Normal mitral valve. Trivial mitral valve insufficiency. Tricuspid Valve Normal tricuspid valve. Trivial tricuspid valve insufficiency. Right ventricular systolic pressure estimated to be 23 mmHg. Aortic Valve Trisinus/trileaflet aortic valve. Normal aortic valve. Pulmonic Valve The pulmonic valve is not well visualized. Trivial pulmonic valve insufficiency. Great Vessels Borderline enlarged aortic root. Pericardium/Pleural No pericardial effusion. MMode/2D Measurements & Calculations LVIDd: 5.0 cm IVSd: 0.91 cm Ao root diam: 3.9 cm LVIDs: 3.3 cm LVPWd: 0.91 cm RVDd: 3.1 cm FS: 34.6 % LAV(MOD-bp): 33.2 ml LVAd ap4: 30.7 cm2 SV(MOD-sp4): 55.5 ml LAV(MOD-bp) Indexed: 14.4 ml/m2 LVLd ap4: 8.8 cm LAV(MOD-sp2): 35.1 ml EDV(MOD-sp4): 86.5 ml LAV(MOD-sp4): 30.2 ml EDV(sp4-el): 91.3 ml LVAs ap4: 16.2 cm2 LVLs ap4: 7.4 cm ESV(MOD-sp4): 31.0 ml ESV(sp4-el): 29.9 ml EF(MOD-sp4): 64.2 % EF(sp4-el): 67.3 % SV(sp4-el): 61.5 ml LA A4 area: 13.0 cm2 LA dimension(2D): 3.7 cm RA A4 area: 11.3 cm2 Time Measurements MV dec time: 0.27 sec Doppler Measurements & Calculations MV E max lyly: 66.0 cm/sec MV dec slope: 242.6 cm/sec2 Ao V2 max: 90.0 cm/sec MV A max lyly: 69.0 cm/sec Ao max P.2 mmHg MV E/A: 0.96 LV V1 max: 83.1 cm/sec PA V2 max: 73.4 cm/sec TR max lyly: 226.0 cm/sec LV V1 max P.8 mmHg TR max P.4 mmHg ECHO/Echo Complete Interpretation Summary The study was technically difficult. Left ventricular systolic function is normal. The estimated ejection fraction is 65 %. Trivial mitral valve insufficiency. Trivial tricuspid valve insufficiency. Trivial pulmonic valve insufficiency. Borderline enlarged aortic root. Right ventricular systolic pressure estimated to be 23 mmHg. No evidence for diastolic dysfunction. Ordering Physician: Yossi Spencer Referring Physician: PRITESH HAMEED Performed By: Maribel Durbin RDCS
== END | disposition home or self-care (01) ==
LOC: CVS 13:50
PROVIDERS: PCP Family Medicine Geriatric Medicine; Referring Provider Internal Medicine Cardiovascular Disease; Visit Provider Internal Medicine Cardiovascular Disease
DX: R55 Syncope and collapse (principal); I48.91 Unspecified atrial fibrillation; E78.5 Hyperlipidemia, unspecified; I10 Essential (primary) hypertension
CPT/HCPCS: 93306

== ENCOUNTER → 2022-03-24 | Outpatient (CLI) | payer MEDICARE, BC, SELFPAY ==
[2017-09-24 10:04] VITALS: BMI 31.2
--- NOTE | 2022-03-24 12:38 | STRESSREP ---
Stress Test Report Date: 03-24-2022 Procedure: Pharmacologic stress nuclear imaging study Indications: Cardiac dysrhythmia; [place] cell carcinoma Consent: Per the patient Procedure: The patient underwent pharmacologic (Regadenoson 0.4mg ) evaluation with a peak heart rate of 83 beats per minute (58%predicted maximal heart rate) and a peak blood pressure of 158/98 mmHg. The baseline ECG demonstrated normal sinus rhythm; first-degree AV block; low voltage QRS; poor R wave progression. The peak pharmacologic ECG demonstrated no obvious ECG changes. There was an occasional PVC preinfusion and postinfusion. There was no complaint of chest discomfort during pharmacologic infusion or recovery. The examination was discontinued secondary to completion of protocol. Impression: 1. Pharmacologic (Regadenoson) evaluation 2. Peak pharmacologic ECG with no obvious ECG changes. 3. There was an occasional PVC preinfusion and postinfusion. 4. Nuclear images pending Myocardial perfusion imaging study: Technique: The patient was injected with 14.6 millicuries of technetium 99m Cardiolite and subsequently rest SPECT Cardiolite nuclear imaging was obtained in the horizontal long, vertical long, and short axis views. The patient underwent pharmacologic (Regadenoson) evaluation with a peak heart rate of 83 beats per minute (58% percent predicted maximal heart rate) and a peak blood pressure of 158/98 mmHg. The patient was injected with 44.7 millicuries of technetium 99m Cardiolite and subsequently stress SPECT Cardiolite nuclear imaging was obtained in the horizontal long, vertical long, and short axis views. A gated Cardiolite study at peak stress was obtained. Interpretation: Rest and stress SPECT Cardiolite nuclear imaging status post realignment, normalization, and attenuation correction demonstrate a small area of subtle diminished tracer uptake near the apical segments without significant change between rest and stress. There is end systolic thickening and brightening. The gated Cardiolite study demonstrates myocardial thickening and inward wall motion. The reported LVEF is 68%. Impression: 1. Rest and stress SPECT Cardiolite nuclear imaging demonstrate a small area of subtle diminished tracer uptake near the apical segments without significant change between rest and stress appearing compatible with physiologic apical thinning with no myocardial perfusion changes considered diagnostic for associated stress-induced myocardial ischemia. 2. The gated Cardiolite study reports an LVEF of 68%. This note was generated with [employer] software. It may contain incorrect words, spelling, and punctuation that were not noted in checking the note before signing.
== END | disposition home or self-care (01) ==
LOC: CVS 06:18
PROVIDERS: PCP Family Medicine Geriatric Medicine; Referring Provider Internal Medicine Cardiovascular Disease; Visit Provider Internal Medicine Cardiovascular Disease
DX: I49.3 Ventricular premature depolarization (principal); I44.1 Atrioventricular block, second degree; I49.1 Atrial premature depolarization; R94.31 Abnormal electrocardiogram [ECG] [EKG]
CPT/HCPCS: 78452; 93017; A9500; A4216; J2785

== ENCOUNTER → 2022-04-03 | Outpatient (CLI) | payer MEDICARE, BC, SELFPAY ==
[2017-09-24 10:04] VITALS: BMI 31.2
--- NOTE | 2022-04-03 12:46 | VDLE_ITS ---
Reason For Study: RLE PAIN SWELLING RIGHT GSV is normal. CFV is compressible, spontaneous, phasic, competent and demonstrates normal augmentation. FV is compressible, spontaneous, phasic, competent and demonstrates normal augmentation. POP V is compressible, spontaneous, phasic, competent and demonstrates normal augmentation. T/P Trunk is compressible. PTV is compressible. RT PerV is compressible. NON-vascular structure noted in the proximal/medial calf area measuring 2.01 x 6.01+ cm. in saggital & 2.21 x 2.86 cm in transverse. Procedure This is a venous duplex using B-mode, color flow and spectral Doppler. Exam performed in department. A preliminary report was called and/or faxed to Dr. Hernandez @ [phone] @ 1:05 pm. VL/Venous Duplex US, Unilateral Interpretation Summary There is no evidence of right lower extremity deep vein thrombosis. Right great saphenous vein appears patent and compressible segmentally. Complex nonvascular 2.01 x 6.01 cm sagittally and 2.21 x 2.86 cm transversely in the proximal medial right calf area. Etiology is not clear. Clinical correlation would be appropriate. Ordering Physician: Garrett Hernandez Chi Referring Physician: Garrett Hernandez Chi Performed By: Aline Varela, LORENZO, RVT
== END | disposition home or self-care (01) ==
LOC: CVS 12:45
PROVIDERS: PCP Family Medicine Geriatric Medicine; Referring Provider Family Medicine Geriatric Medicine; Visit Provider Family Medicine Geriatric Medicine
DX: M79.661 Pain in right lower leg (principal); R60.9 Edema, unspecified
CPT/HCPCS: 93971

== ENCOUNTER → 2022-04-16 | Outpatient (CLI) | payer MEDICARE, BC, SELFPAY ==
[2017-09-24 10:04] VITALS: BMI 31.2
--- NOTE | 2022-04-16 16:07 | MRI_ITS ---
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 TECHNIQUE: Standardized fat and water weighted pulse sequences were obtained in all 3 orthogonal planes before and after intravenous administration of 20 mL of DOTAREM. COMPARISON: None. FINDINGS: Normal visualized tibia and fibula, without a periosteal, cortical or cancellous marrow abnormality. There is atrophy of the medial gastrocnemius and soleus muscles with focal areas of fat replacement (T1 coronal images 10-18). There is edema in the subcutis adipose space. There is a soft tissue mass at the peripheral anterior aspect of the medial gastrocnemius muscle measuring approximately 0.8 x 1.6 x 3.5 cm (AP x transverse x length). The mass is intermediate in signal intensity on T1 sequences (T1 axial images 8-13) and inhomogeneous with mostly increased signal on inversion recovery sequences (inversion recovery axial images 8-13) and increased in T2 signal (T2 sagittal image 21). There is only mild contrast enhancement of the mass is mostly at the peripheral aspect (postcontrast T1 axial images 8-13). MRI/Lower Ext No Joint W/WO Cont IMPRESSION: Soft tissue mass at the peripheral anterior aspect of the medial gastrocnemius muscle without specific imaging characteristics although regional metastatic disease cannot be excluded. Edema in the subcutis adipose space. Atrophy of the medial gastrocnemius and soleus muscles. Electronically Signed: Zi Carrillo MD at 8:28 EDT ,
[2022-04-16 16:40] LABS: CREATININE FINGERSTICK 1.2 mg/dL (0.70-1.30); EGFR FINGERSTICK > 60.0000 mL/min (>60)
== END | disposition home or self-care (01) ==
LOC: MRI 15:55
PROVIDERS: PCP Family Medicine Geriatric Medicine; Referring Provider Family Medicine Geriatric Medicine; Visit Provider Family Medicine Geriatric Medicine
DX: C4A.8 Merkel cell carcinoma of overlapping sites (principal)
CPT/HCPCS: 73720; A9575

== ENCOUNTER → 2022-04-22 | Outpatient (CLI) | payer MEDICARE, BC, SELFPAY ==
[2017-09-24 10:04] VITALS: BMI 31.2
--- NOTE | 2022-04-22 07:13 | CT_ITS ---
STUDY: CT RIGHT TIBIA/FIBULA WITH CONTRAST REASON FOR EXAM: Right lower leg swelling for one month, [place] cell carcinoma. TECHNIQUE: Transaxial CT imaging of the tibia/fibula was performed post contrast administration. The examination was performed with intravenous administration of IV 100mL Isovue-370. Sagittal and coronal images were reconstructed. Individualized dose optimization techniques were used for this CT. COMPARISON: MRI images 04/16/2022. FINDINGS: There is a medial unicompartmental femorotibial arthroplasty. Otherwise, unremarkable tibia/fibula. There is atrophy of the medial gastrocnemius and soleus muscles with focal areas of fat replacement (coronal reconstructions 40-58). There is a well-defined lesion at the peripheral anterior aspect of the medial gastrocnemius with peripheral contrast enhancement (axial series 5 images 64-72) measuring approximately 1.0 x 2.4 cm (AP x transverse). There is soft tissue swelling, especially at the distal aspect of the lower leg. CT/Extremity Lower WITH Contrast IMPRESSION: Soft tissue mass at the peripheral anterior aspect of the medial gastrocnemius without specific imaging characteristics with differential considerations including regional metastatic disease and abscess. Edema in the subcutis adipose space. Atrophy of the medial gastrocnemius and soleus muscles. Electronically Signed: Zi Carrillo MD at 14:58 EDT ,
[2022-04-22 07:41] LABS: CREATININE FINGERSTICK 1.3 mg/dL (0.70-1.30)
== END | disposition home or self-care (01) ==
LOC: CT 07:12
PROVIDERS: PCP Family Medicine Geriatric Medicine; Referring Provider Family Medicine Geriatric Medicine; Visit Provider Family Medicine Geriatric Medicine
DX: R22.41 Localized swelling, mass and lump, right lower limb (principal)
CPT/HCPCS: 73701; Q9967; A4216

== ENCOUNTER → 2022-04-23 | Outpatient (CLI) | payer MEDICARE, BC, SELFPAY ==
[2017-09-24 10:04] VITALS: BMI 31.2
--- NOTE | 2022-04-23 10:30 | PET_ITS ---
EXAMINATION: FDG PET-CT ? 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 COMPARISON EXAMINATION: Previous FDG PET-CT report dated 12/08/16 INDEX LESION SIZE SUV INTERPRETATION NEW: medial soft tissue compartment right lower extremity level of the proximal-mid tibial diaphysis 10.6-cm 2.5 Fulfills quantitative criteria for viable neoplasm PREVIOUS: right axilla (12/08/16) Demonstrates metabolic resolution on the current examination TECHNIQUE: Following the intravenous administration of 13.19 mCi of F-18 deoxyglucose via the left wrist, multiplanar image acquisitions of the head, neck, chest, abdomen and pelvis, lower extremities to the level of the bilateral forefoot, obtained at one hour post radiopharmaceutical administration contemporaneously interpreted with the current CT of the head, neck, chest, abdomen and pelvis, lower extremities to the level of the bilateral forefoot, dated 04/23/22 via coregistration and FDG PET-CT report dated 12/08/16 reveals: BLOOD GLUCOSE LEVEL:?? 105 mg/dl?HEIGHT:?71 inches?WEIGHT: 240 lbs. FINDINGS: Head/Neck: There is no evidence of abnormal increased glucose metabolism in the pharyngeal mucosal space, parapharyngeal space, bilateral-lateral and anterior neck, hypopharynx and distribution of the laryngeal structures. Symmetric glucose metabolism is evident in the occipital, frontal, parietal and temporal lobes of the cerebral cortex, as well as normal visualization of the basal ganglia and cerebellar hemispheres. CHEST: There is no quantitative scintigraphic evidence of abnormal increased glucose metabolism within the context of the bilateral hemithorax pulmonary parenchyma, right and left hemithorax pleural interface, mediastinal structures and right-left thoracic perihilum. There is prominent tracer concentration noted in the descending thoracic aorta consistent with activated leukocytes associated with atherosclerotic plaque formation. Pertinent chest CT findings are as follows. There is atherosclerotic calcification defined in the thoracic aorta without evidence of dilatation-aneurysm formation. Coronary arterial calcification is observed. Subcentimeter bilateral axillary soft tissue densities are non-glucose avid. Subcentimeter calcified parenchymal densities defined in the left hemithorax are non-glucose avid. Abdomen/Pelvis: Normal physiologic distribution of the radiopharmaceutical is apparent in the hepatic (2.9) and splenic parenchyma, both renal units, bladder and visualized intestinal tract. Diffuse radiopharmaceutical concentration is noted in all four quadrants of the abdomen and pelvis. Prominent uptake is defined within the abdominal aorta. The previously identified right axillary hypermetabolic focus is not apparent on the current examination. Pertinent abdomen and pelvis CT findings are as follows. There is atherosclerotic calcification defined in the abdominal aorta without evidence of dilatation-aneurysm formation. Pelvic arterial calcification is observed. Right and left inguinal soft tissue densities, subcentimeter in presentation, are non-glucose avid. The gallbladder is surgically absent. There appears to be calcification of the pancreatic tail. SKELETAL/INTEGUMENTARY: A linear increase in glucose metabolism is identified in the right lower extremity at the level of the proximal-mid tibial diaphysis in the medial soft tissue compartment. The calculated maximal standard uptake value is 2.5. The maximal axial diameter of the metabolic abnormality is 13.4-mm. The maximal vertical dimension of the metabolic abnormality is 10.6-cm. Degenerative changes are noted in the cervical, thoracic and lumbar spine without evidence of increased radiopharmaceutical concentration. There are no well-defined sclerotic-lytic changes manifest on review of the appendicular-axial skeletal structures. PET/PET/CT Tumor WB Subs IMPRESSION: 1. ABNORMAL EXAMINATION INDICATIVE OF MALIGNANT VIABLE NEOPLASM. 2. Increased tracer concentration noted in the medial soft tissue compartment of the right lower extremity at the level of the proximal-mid tibial diaphysis fulfills quantitative criteria for viable neoplasm. 3. Compared to the FDG PET study report dated 12/08/16, the prior defined right axillary hypermetabolic focus is not apparent on the current examination. Newly visualized uptake noted in the right lower extremity fulfills quantitative criteria for viable neoplasm. Electronic Signature Jerel Mckeon D.O. Accurate Quantification of SUVs for this report are calculated using the exclusive [employer]. ([place]. Patent No. [id number]). Standardization and correction of the FDG SUV metric via [employer] technology allow for vendor non-specific objective quantitative examination comparison and optimization of the sensitivity and specificity of the FDG PET-CT examination. Electronically Signed: Jerel Mckeon, at 22:23 EDT ,
== END | disposition home or self-care (01) ==
LOC: ONC 10:01
PROVIDERS: PCP Family Medicine Geriatric Medicine; Referring Provider Family Medicine Geriatric Medicine; Visit Provider Family Medicine Geriatric Medicine
DX: C4A.71 Merkel cell carcinoma of right lower limb, including hip (principal)
CPT/HCPCS: 78816; A9552

== ENCOUNTER → 2022-04-29 | Outpatient (CLI) | payer MEDICARE, BC, SELFPAY ==
[2017-09-24 10:04] VITALS: BMI 31.2
[2022-04-29 16:51] LABS: Absolute Lymphocyte Count 1.98 X10^3/uL (0.83-4.51); Absolute Neutrophil Count 8.4 X10^3/uL (2.0-7.7); Basophil# 0.06 X10^3/uL; Basophil% 0.5 % (0-1); Eosinophil# 0.18 X10^3/uL; Eosinophils% 1.6 % (0-5); Hematocrit 45.5 % (40-54); Hemoglobin 14.7 g/dL (13.0-16.5); Lymphocyte # 1.98 X10^3/ul (0.83-4.51); Lymphocyte % 17.2 % (19-41); Mean Corp Hgb Conc 32.3 g/dL (32-36); Mean Corpuscular Hgb 29.8 pg (27.0-32.0); Mean Corpuscular Volume 92.3 fL (80-94); Mean Platelet Vol. 9.9 fl (6.2-12.0); Monocyte# 0.73 X10^3/uL; Monocyte% 6.3 % (0-10); NRBC Flagged by Analyzer 0 % (0-5); Neutrophil # 8.37 X10^3/uL (2.7-7.7); Neutrophil % 72.5 % (47-70); Platelet Count 163 K/mm3 (150-450); RBC Distribution Width CV 15.7 % (11.6-14.6); Red Blood Count 4.93 M/mm3 (4.6-6.2); White Blood Count 11.5 K/mm3 (4.4-11.0)
[2022-04-29 17:07] LABS: International Normalized Ratio 1.1; Prothrombin Time (Protime)PT. 13.4 SECONDS (11.7-14.9)
[2022-04-29 17:08] LABS: Partial Thromboplast Time 29.9 Seconds (24.1-36.2)
[2022-04-29 17:10] LABS: Albumin, Serum 3.2 g/dL (3.2-5.0); BUN 21 mg/dL (7-18); BUN/Creat Ratio 14.8 RATIO (10-20); Chloride 106 mmol/L (98-107); Creatinine, Serum 1.42 mg/dL (0.70-1.30); EST Glomerular Filtration Rate 51 mL/min (>60); Est Glom Filt Rate - Afr Amer 62 mL/min (>60); Glucose 166 mg/dL (74-106); Phosphorus 2.9 mg/dL (2.5-4.9); Potassium 4.3 mmol/L (3.5-5.1); Sodium Level 140 mmol/L (136-145)
[2022-04-29 17:25] LABS: Protein, Urine (Random) 10.6 mg/dL (<11.9); Protein:Creat Ratio 102 mg/g CRE (0-200)
== END | disposition home or self-care (01) ==
LOC: POLAB3 15:08
PROVIDERS: PCP Family Medicine Geriatric Medicine; Visit Provider Family Medicine Geriatric Medicine
DX: R22.41 Localized swelling, mass and lump, right lower limb (principal); N18.31 Chronic kidney disease, stage 3a
CPT/HCPCS: 36415; 80069; 82570; 83970; 84156; 85025; 85610; 85730

== ENCOUNTER → 2022-05-02 | Outpatient (CLI) | payer MEDICARE, BC, SELFPAY ==
[2017-09-24 10:04] VITALS: BMI 31.2
[2022-05-02] VITALS (11 sets, daily range): BP systolic 151–197; BP diastolic 71–104; PULSE 66–79; RESP 12–20; TEMP 36.4; O2SAT 95–99; BMI 30.3
--- NOTE | 2022-05-02 | ASPIGT_PTH ---
PATIENT: ASA GOINS LOC: [place] U#:[id number] AGE/SX: 76/M ROOM: RE05/02/[address]: Dr. Garrett Hernandez MD : [id number] BED: DIS: 05/02/2022 SPEC #: [id number] RECD: 05/02/22 09:30 STATUS: RAN KAVITA #: [id number] MINA: 05/02/22 00:[address]: Garrett Hernandez [facility] DEPT: SURGICAL PATHOLOGY RECD BY: Katelyn Riley Tissues: Right leg Procedures: FNA Specimen Adequacy Special Stain Group II Surgery Specimen Level IV Imprint (control) HEADER OPERATION: CT-guided right leg biopsy PRE-OP DIAGNOSIS: Mass, history of Harinder cell cancer TISSUE SUBMITTED: Right leg MICROSCOPIC DIAGNOSIS Right leg mass, CT-guided core biopsy: Dense fibrosis, chronic inflammation, granulation tissue reaction and blood clots. Negative for malignancy. See comment. MICHELLE:jabier 05/05/2022 COMMENT The specimen is evaluated at the time of biopsy by Dr. Callaway. Immediate Evaluation: Set 1 - three touch imprints - Bloody specimen. Negative for malignant cells. Set 2 - one touch imprint - Bloody specimen. Negative for malignant cells. Rare mildly atypical cells noted. Fragments of skeletal muscle tissue are also noted. The findings are suggestive of organized hematoma with fibrosis. 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 Clinical correlation and appropriate follow up are necessary. Case has been reviewed in consultation with Dr. Randhawa who concurs with the above diagnosis. IDC:AM MICROSCOPIC DESCRIPTION Slides are reviewed. GROSS DESCRIPTION Received in fixative is one container labeled with the patient's name and designated right leg, CT-guided core biopsy. The specimen consists of multiple elongated fragments of rdz soft tissue that in aggregate measure 2.5 x 0.1 x 0.1 cm. The entire specimen is submitted in one cassette. Four touch imprints are prepared at the time of core biopsy. / MICHELLE:jabier 05/02/2022 TC:5 CPT: 57333, 88424, 75619
--- NOTE | 2022-05-02 07:46 | CT_ITS ---
PROCEDURE: CT GUIDED biopsy of the soft tissue nodular density in the anterior aspect of the medial gastrocnemius muscle. DATE: 05/02/2022 INDICATION: Male, 76 years old. History of ZBIGNIEW cell cancer. PHYSICIAN: Mateo Pickard M.D. RADIATION DOSAGE (If Supplied By Facility): CTDIvol = ( 14.5 ) mGy, DLP = ( 245.83 ) mGycm PROCEDURE: The risks, benefits, and alternatives to the procedure were explained to the patient. The specific risk of hemorrhage requiring further treatment or intervention was detailed and accepted. Follow-up instructions were discussed with the patient as well. Written informed consent was obtained. The patient was brought into the CT suite and placed in the supine position.. . An appropriate entry site was identified. The overlying skin was prepped and draped in the usual sterile fashion. 1% lidocaine was administered subcutaneously for local anesthesia. Conscious sedation was performed. Conscious sedation was started at 9:02 AM and terminated at 9:21 AM. The patient received 1 mg of VERSED and 25 mcg of FENTANYL intravenously. The patient was independently monitored by the department nurse. Under CT guidance, a total of 7 passes were performed utilizing an 18-gauge core biopsy needle. The specimens were then placed in the appropriate fluid and transported to the laboratory for analysis. Hemostasis was obtained. The patient tolerated the procedure well without immediate complications. CT/Biopsy/Inj or Needle Placement IMPRESSION: Successful CT guided biopsy of the soft tissue density in the anterior aspect of the medial gastrocnemius muscle, as described above. Conscious sedation was performed. Electronically Signed: Mateo Pickard MD at 9:51 EDT ,
[2022-05-02] MEDS: Midazolam 2 MG/2 ML Syringe IV (09:02)
[2022-05-02] MEDS: fentaNYL 100 MCG/2 ML Ampul IV (09:04)
[2022-05-02] MEDS: Lidocaine 2% (10 ml mdv) 10 ML Vial INFILT (09:10)
== END | disposition home or self-care (01) ==
PROVIDERS: PCP Family Medicine Geriatric Medicine; Referring Provider Family Medicine Geriatric Medicine; Visit Provider Family Medicine Geriatric Medicine
DX: L90.5 Scar conditions and fibrosis of skin (principal)
CPT/HCPCS: 20206; 77012; 88172; 88305; 88313; 99156; J7050; A4216

== ENCOUNTER → 2022-05-12 | Outpatient (CLI) | payer MEDICARE, BC, SELFPAY ==
[2017-09-24 10:04] VITALS: BMI 31.2
[2022-05-12 12:25] LABS: Absolute Lymphocyte Count 1.57 X10^3/uL (0.83-4.51); Absolute Neutrophil Count 5.7 X10^3/uL (2.0-7.7); Basophil# 0.06 X10^3/uL; Basophil% 0.7 % (0-1); Eosinophil# 0.11 X10^3/uL; Eosinophils% 1.3 % (0-5); Hematocrit 45.6 % (40-54); Hemoglobin 14.9 g/dL (13.0-16.5); Lymphocyte # 1.57 X10^3/ul (0.83-4.51); Mean Corp Hgb Conc 32.7 g/dL (32-36); Mean Corpuscular Hgb 30.3 pg (27.0-32.0); Mean Corpuscular Volume 92.7 fL (80-94); Monocyte# 0.68 X10^3/uL; Monocyte% 8.2 % (0-10); NRBC Flagged by Analyzer 0 % (0-5); Neutrophil # 5.68 X10^3/uL (2.7-7.7); Platelet Count 183 K/mm3 (150-450); RBC Distribution Width CV 15.1 % (11.6-14.6); Red Blood Count 4.92 M/mm3 (4.6-6.2); White Blood Count 8.3 K/mm3 (4.4-11.0)
[2022-05-12 12:42] LABS: Vitamin D,25 Hydroxy 22.8 ng/mL
[2022-05-12 12:52] LABS: ALB/GLOB Ratio 0.9 RATIO (0.9-2.4); AST(SGOT) 17 U/L (15-37); Alanine Aminotransfer ALT/SGPT 30 U/L (16-61); Albumin, Serum 3.3 g/dL (3.2-5.0); Alkaline Phosphatase 60 U/L (45-117); Anion Gap 6 (5-15); BUN 19 mg/dL (7-18); BUN/Creat Ratio 14.2 RATIO (10-20); Calcium,Total 9.7 mg/dL (8.5-10.1); Chloride 107 mmol/L (98-107); Creatinine, Serum 1.34 mg/dL (0.70-1.30); EST Glomerular Filtration Rate 55 mL/min (>60); Est Glom Filt Rate - Afr Amer 66 mL/min (>60); Globulin 3.7 g/dL (2.2-4.2); Glucose 119 mg/dL (74-106); Potassium 4.6 mmol/L (3.5-5.1); Sodium Level 142 mmol/L (136-145); Thyroid Stim Hormone (TSH) 2.42 uIU/mL (0.358-3.74)
== END | disposition home or self-care (01) ==
LOC: POLAB3 09:45
PROVIDERS: PCP Family Medicine Geriatric Medicine; Visit Provider Family Medicine Geriatric Medicine
DX: I12.9 Hypertensive chronic kidney disease with stage 1 through stage 4 chronic kidney disease, or unspecified chronic kidney disease (principal); N18.31 Chronic kidney disease, stage 3a; E55.9 Vitamin D deficiency, unspecified; F52.8 Other sexual dysfunction not due to a substance or known physiological condition
CPT/HCPCS: 36415; 80053; 80069; 82306; 83970; 84403; 84443; 85025

== ENCOUNTER → 2022-05-12 | Outpatient (CLI) | payer MEDICARE, BC, SELFPAY ==
[2017-09-24 10:04] VITALS: BMI 31.2
[2022-05-12 12:48] LABS: PTHIN 53.2 pg/mL (18.4-80.1)
[2022-05-12 12:53] LABS: Albumin, Serum 3.3 g/dL (3.2-5.0); BUN 20 mg/dL (7-18); BUN/Creat Ratio 13.2 RATIO (10-20); Calcium,Total 9.8 mg/dL (8.5-10.1); Chloride 108 mmol/L (98-107); Creatinine, Serum 1.52 mg/dL (0.70-1.30); EST Glomerular Filtration Rate 47 mL/min (>60); Est Glom Filt Rate - Afr Amer 57 mL/min (>60); Glucose 119 mg/dL (74-106); Phosphorus 3.2 mg/dL (2.5-4.9); Potassium 4.5 mmol/L (3.5-5.1); Sodium Level 142 mmol/L (136-145)
== END | disposition home or self-care (01) ==
LOC: POLAB3 10:29
PROVIDERS: PCP Family Medicine Geriatric Medicine; Visit Provider Internal Medicine Nephrology
DX: N18.31 Chronic kidney disease, stage 3a (principal)
CPT/HCPCS: 80069; 82570; 83970; 84156

== ENCOUNTER → 2022-05-23 | Outpatient (CLI) | payer MEDICARE, BC, SELFPAY ==
[2017-09-24 10:04] VITALS: BMI 31.2
[2022-05-23 11:00] LABS: PSA,Total - Annual Screen 1.71 ng/mL (0.00-4.00)
== END | disposition home or self-care (01) ==
LOC: LAB 09:53
PROVIDERS: PCP Family Medicine Geriatric Medicine; Referring Provider Urology; Visit Provider Urology
DX: Z12.5 Encounter for screening for malignant neoplasm of prostate (principal)
CPT/HCPCS: 36415; 84153; G0103

== ENCOUNTER → 2022-06-30 | Outpatient (CLI) | payer MEDICARE, BC, SELFPAY ==
[2017-09-24 10:04] VITALS: BMI 31.2
== END | disposition home or self-care (01) ==
PROVIDERS: PCP Family Medicine Geriatric Medicine; Visit Provider Family Medicine Geriatric Medicine
DX: R68.83 Chills (without fever) (principal)
CPT/HCPCS: 87635; 87804; 87807; C9803; U0003; U0005

== ENCOUNTER → 2022-07-09 | Outpatient (CLI) | payer MEDICARE, BC, SELFPAY ==
[2017-09-24 10:04] VITALS: BMI 31.2
== END | disposition home or self-care (01) ==
LOC: PSN 08:44
PROVIDERS: PCP Family Medicine Geriatric Medicine; Referring Provider Family Medicine Geriatric Medicine; Visit Provider Family Medicine Geriatric Medicine
DX: R68.83 Chills (without fever) (principal)
CPT/HCPCS: 87635; 87804; 87807; C9803; U0003; U0005

== ENCOUNTER → 2022-07-23 | Outpatient (CLI) | payer MEDICARE, BC, SELFPAY ==
[2017-09-24 10:04] VITALS: BMI 31.2
--- NOTE | 2022-07-23 11:02 | RAD_ITS ---
STUDY: X-RAY CHEST REASON FOR EXAM: Male, 77 years old. COUGH TECHNIQUE: XR Chest 2 Views COMPARISON: 2. FINDINGS: There is atherosclerotic calcification of the aortic arch with tortuosity. There are diffuse degenerative changes of the visualized thoracic spine. There is degenerative osteoarthritis of the bilateral shoulders. There is no demonstrated pleural abnormality. Normal size heart. Normal mediastinum and vlad. Normal visualized pulmonary arteries. There is no demonstrated abnormality of the visualized soft tissue structures of the upper abdomen. RAD/Chest PA and Lateral IMPRESSION: There are no acute findings. Electronically Signed: John Araujo MD at 17:51 EST ,
== END | disposition home or self-care (01) ==
PROVIDERS: PCP Family Medicine Geriatric Medicine; Referring Provider Family Medicine Geriatric Medicine; Visit Provider Family Medicine Geriatric Medicine
DX: R68.83 Chills (without fever) (principal)
CPT/HCPCS: 71046; 87635; 87804; 87807; U0003; U0005

== ENCOUNTER → 2022-09-09 | Outpatient (CLI) | payer MEDICARE, BC, SELFPAY ==
[2017-09-24 10:04] VITALS: BMI 31.2
--- NOTE | 2022-09-09 06:33 | MRI_ITS ---
STUDY: MRI LUMBAR SPINE WITH AND WITHOUT CONTRAST REASON FOR EXAM: Male, 77 years old. Lower back pain on and off x2 months. TECHNIQUE: Standardized fat and water weighted pulse sequences were obtained in the sagittal and axial planes. IV 21ml Clariscan was administered for the contrast portion of the examination. COMPARISON: Lumbar spine radiographs 08/13/2022. CT abdomen and pelvis with contrast 09/05/2019. FINDINGS: T10-T11 and T11-T12: (Sagittal only). Normal endplates. Normal disc height, hydration and morphology. Normal central canal and bilateral intervertebral neural foramina. T12-L1: (Sagittal only). Normal endplates. Normal disc height, hydration and morphology. No ventral extradural defect. Normal central canal and bilateral intervertebral neural foramina. Normal lumbar lordosis. There is no substantial scoliosis. Normal conus medullaris that terminates at the lower T12 vertebral body level. L1-2: Normal endplates. Normal disc height and hydration. Minimal ventral extradural defect due to small posterior bulging annulus. Mild left degenerative facet arthropathy. Normal right facet joint. Normal central canal and bilateral lateral recesses. Normal bilateral intervertebral neural foramina. L2-3: Normal endplates. Minimal disc space height narrowing. Small left posterior paramedian and caudal disc protrusion (series 2, image 7; series 5, images 17-18; series 8, images 23-24). Suspicious minimal impingement on the left L3 nerve root sleeve. Normal central canal and right lateral recess. Mild stenosis of the left lateral recess. No significant facet arthropathy. Mild stenosis of the left intervertebral neural foramen. Normal right intervertebral neural foramen. L3-4: Normal endplates. Normal disc height. Tiny ventral extradural defect due to small posterior bulging annulus. Mild asymmetric degenerative facet arthropathy, left greater than right. Moderate central canal stenosis with an AP canal diameter 7.3 mm. Normal bilateral lateral recesses. Mild stenosis of the left intervertebral neural foramen. Normal right intervertebral neural foramen. L4-5: Normal endplates. Mild disc space height narrowing. Minimal ventral extradural defect due to small posterior bulging annulus. Moderate asymmetric degenerative facet arthropathy. Left posterior ligamentum flavum hypertrophy. Moderately pronounced central canal stenosis with an AP canal diameter 6.3 mm. Normal bilateral lateral recesses. Moderate stenosis of the right intervertebral neural foramen with suspicious minimal impingement of the right L4 nerve. Normal left intervertebral neural foramen. Postsurgical absence of the L4 spinous process and a portion of the L5 spinous process. L5-S1: Normal endplates. Normal disc height, hydration and morphology. Moderate asymmetric degenerative facet arthropathy. Left posterior ligamentum flavum hypertrophy causing left lateral extradural defect and mild stenosis of the left lateral recess. This also accounts for mild asymmetric central canal stenosis with a transverse canal diameter of 10 mm. Normal right lateral recess. Mild stenosis of the bilateral intervertebral neural foramina, left greater than right. Normal visualized sacral ala. Normal visualized paraspinous soft tissue structures. Following IV contrast administration, there is minimal contrast enhancement behind the L4-L5 laminectomy site. MRI/Spine Lumbar W/WO Contrast IMPRESSION: 1. Small left L2-L3 posterior paramedian and caudal disc protrusion with suspicious minimal displacement of the left L3 nerve root sleeve. 2. Moderate central canal stenosis at L3-L4 disc space level with an AP canal diameter 7.3 mm and small posterior bulging annulus. 3. Moderately pronounced central canal stenosis at L4-L5 disc space level with an AP canal diameter of 6.3 mm and moderate stenosis of the right L4-5 intervertebral neural foramen with suspicious minimal impingement of the right L4 nerve. The presence of contrast enhancement behind the laminectomy site at this level is due to enhancing postoperative fibrosis. 4. Mild asymmetric central canal stenosis at L5-S1 disc space level secondary to left posterior ligamentum flavum hypertrophy, moderate asymmetric degenerative facet arthropathy and mild stenosis of the left intervertebral neural foramen more than the right. The transverse canal diameter is 10 mm wide. 5. No MRI evidence of lumbar disc extrusion. Electronically Signed: Jeffrey Marquez MD at 8:21 EST ,
[2022-09-09 07:11] LABS: CREATININE FINGERSTICK 1.3 mg/dL (0.70-1.30)
== END | disposition home or self-care (01) ==
LOC: MRI 06:33
PROVIDERS: PCP Family Medicine Geriatric Medicine; Referring Provider Orthopaedic Surgery; Visit Provider Orthopaedic Surgery
DX: M48.061 Spinal stenosis, lumbar region without neurogenic claudication (principal)
CPT/HCPCS: 72158; A9575

== ENCOUNTER → 2022-11-10 | Outpatient (CLI) | payer MEDICARE, BC, SELFPAY ==
[2017-09-24 10:04] VITALS: BMI 31.2
[2022-11-10 12:31] LABS: Absolute Lymphocyte Count 1.64 X10^3/uL (0.83-4.51); Absolute Neutrophil Count 5.3 X10^3/uL (2.0-7.7); Basophil# 0.07 X10^3/uL; Basophil% 0.9 % (0-1); Eosinophil# 0.13 X10^3/uL; Eosinophils% 1.7 % (0-5); Hematocrit 45.9 % (40-54); Hemoglobin 14.7 g/dL (13.0-16.5); Lymphocyte # 1.64 X10^3/ul (0.83-4.51); Mean Corpuscular Hgb 30.4 pg (27.0-32.0); Mean Platelet Vol. 10.2 fl (6.2-12.0); Monocyte# 0.65 X10^3/uL; Monocyte% 8.3 % (0-10); NRBC Flagged by Analyzer 0 % (0-5); Neutrophil # 5.25 X10^3/uL (2.7-7.7); Neutrophil % 67.2 % (47-70); Platelet Count 188 K/mm3 (150-450); RBC Distribution Width CV 13.9 % (11.6-14.6); RBC Distribution Width SD 48.5 fl (35.1-43.9); Red Blood Count 4.83 M/mm3 (4.6-6.2); White Blood Count 7.8 K/mm3 (4.4-11.0)
[2022-11-10 12:50] LABS: Vitamin D,25 Hydroxy 16.4 ng/mL
[2022-11-10 13:19] LABS: ALB/GLOB Ratio 1.1 RATIO (0.9-2.4); AST(SGOT) 13 U/L (15-37); Alanine Aminotransfer ALT/SGPT 15 U/L (16-61); Albumin, Serum 3.3 g/dL (3.2-5.0); Alkaline Phosphatase 54 U/L (45-117); Anion Gap 5 (5-15); BUN 17 mg/dL (7-18); BUN/Creat Ratio 12.8 RATIO (10-20); Calcium,Total 8.7 mg/dL (8.5-10.1); Chloride 109 mmol/L (98-107); Creatinine, Serum 1.33 mg/dL (0.70-1.30); EST Glomerular Filtration Rate 55 mL/min (>60); Est Glom Filt Rate - Afr Amer 67 mL/min (>60); Globulin 2.9 g/dL (2.2-4.2); Glucose 96 mg/dL (74-106); Potassium 4.2 mmol/L (3.5-5.1); Protein, Total 6.2 g/dL (6.4-8.2); Sodium Level 139 mmol/L (136-145); Thyroid Stim Hormone (TSH) 2.29 uIU/mL (0.358-3.74)
== END | disposition home or self-care (01) ==
LOC: POLAB3 10:16
PROVIDERS: PCP Family Medicine Geriatric Medicine; Visit Provider Family Medicine Geriatric Medicine
DX: E55.9 Vitamin D deficiency, unspecified (principal); I10 Essential (primary) hypertension; F52.8 Other sexual dysfunction not due to a substance or known physiological condition
CPT/HCPCS: 36415; 80053; 82306; 84403; 84443; 85025

== ENCOUNTER 2022-12-15 10:34 | Emergency (ER) | payer MEDICARE, BC, SELFPAY ==
[2017-09-24 10:04] VITALS: BMI 31.2
[2022-12-15 10:35] VITALS: BP 167/120; PULSE 77; RESP 18; TEMP 36.4; O2SAT 98; BMI 30.9
--- NOTE | 2022-12-15 10:49 | ED.VIS.FALL ---
HPI HPI - Fall History of Present Illness Chief Complaint: Fall Informant: patient Occured/Mechanism Occurred: Today and Hours Mechanism/Context: Yes same level fall Usually ambulates: Without assistance Pain/Injury Pain Location: upper extremity and lower extremity Quality of Pain: Dull and Aching Current Severity: Moderate Maximum Severity: Moderate Associated Symptoms Associated Symptoms: Negative for Parasthesias, Weakness, Loss of function, Inability to ambulate, Loss of consciousness or Amnesia Narrative Narrative: An 7-year-old male history of renal insufficiency. His daughter tried to run outside when it saw something knocked him over and he fell injuring his right elbow and right knee. This occurred around 845 this morning. He did not hit his head. No LOC. No neck, back, chest or abdominal pain. No recent illness. He is on aspirin but no other blood thinners. His primary complaint is swelling and pain to the left elbow. He is right-hand dominant. Prior similar symptoms: No Recent Illness/Hospitalization: No PFSH PFSH Medical History Alcohol use Back pain Basal cell carcinoma Cancer Easy bruising Elevated cholesterol Enlarged prostate Essential hypertension Former smoker GERD (gastroesophageal reflux disease) History of constipation History of echocardiogram History of hiatal hernia History of pain when walking History of renal disease History of steroid therapy History of stress test Hx of fracture of clavicle Hx of malignant carcinoid tumor Hx of skin cancer, basal cell Leg cramps Lung nodule Lymphoma Mobitz type 1 second degree atrioventricular block New onset atrial fibrillation Premature atrial contraction Premature ventricular contraction Segmental and somatic dysfunction of pelvic region Thyroid disease Wears glasses Home Medications aspirin 81 mg tablet,delayed release 81 mg PO QHS heart 12/08/16 [History Last Taken 04/23/22] pravastatin 40 mg tablet 40 mg PO QHS Cholesterol 12/08/16 [History Last Taken 10/31/18] valsartan 160 mg tablet 160 mg PO QHS BP 12/08/16 [History Last Taken 10/08/21] tamsulosin 0.4 mg capsule 0.4 mg PO DAILY Prostate 12/10/16 [History Last Taken 11/01/18] finasteride 5 mg tablet 5 mg PO DAILY prostate 11/01/18 [History Last Taken 10/31/18] metoprolol succinate 25 mg tablet,extended release 24 hr 25 mg PO DAILY HEART 11/01/18 [History Last Taken 10/08/21] pantoprazole 40 mg tablet,delayed release 40 mg PO DAILY #30 tabs 11/02/18 [Rx Last Taken 10/08/21] levothyroxine 25 mcg tablet 25 mcg PO DAILY 08/30/21 [History Last Taken 10/08/21] sennosides 8.6 mg-docusate sodium 50 mg tablet (Stool Softener-Laxative) 2 tab-cap PO DAILY 09/24/21 [History Last Taken Unknown] lubiprostone 8 mcg capsule (Amitiza) 24 mcg PO DAILY BOWELS 02/25/22 [History Last Taken Unknown] Allergy/AdvReac Type Severity Reaction Status Date / Time oxycodone [From OxyContin] AdvReac Severe lethargic-s Verified 12/15/22 10:37 leepy Family History Grandmother Uterine cancer Father Cancer Grandfather Heart disease Uncle Cancer Aunt Heart valve disease Surgical History History of back surgery History of ERCP Hx of cholecystectomy Hx of tonsillectomy Knee joint replacement status Social History Smoking Status: Former smoker quit date: 08/03/65 alcohol intake: current alcohol intake frequency: holidays/special occasions only substance use type: does not use caffeine: Yes Type: carbonated beverages ROS ROS ED ROS Narrative Denies recent illness Review of Systems ROS Unobtainable: Denies due to encephalopathy Constitutional Constitutional ED: Denies chills or fever(s) Eyes Eyes: Denies blurry vision ENT ENT ED: Denies ear pain Cardiovascular Cardiovascular: Denies chest pain Respiratory/Chest Respiratory/Chest: Denies cough or dyspnea Gastrointestinal Gastrointestinal: Denies abdominal pain Genitourinary Genitourinary ED: Denies dysuria or hematuria Musculoskeletal Musculoskeletal: Denies arthralgias Integumentary Denies abscess or Abrasions Neurologic Neurologic: Denies headache(s) Psychiatric Psychiatric: Denies anxiety or depression Endocrine Endocrinology: Denies polydipsia Hematologic/Lymphatic Hematologic/Lymphatic: Denies easy bleeding Allergic/Immunologic Allergic/Immunologic ED: Denies mouth swelling or tongue swelling EXAM Physical Exam Narrative Exam Narrative: Well-appearing 69-year-old male. Vital signs stable afebrile. Initial blood pressure is elevated at 167/120 that will be rechecked. I suspect his elevated due to pain from his elbow. H EENT exam unremarkable atraumatic. Pupils round reactive light. Nontender scalp and face. No hematomas. C-spine and trachea nontender. Back, thoracic lumbar spine nontender. Chest wall nontender. Lungs are clear. Heart regular rhythm rate about 75 no murmur. Abdomen soft nontender. Pelvic girdle intact. Mild abrasion left knee. However full flexion extension of both knees hips and ankles. Dorsi plantarflexion intact. No significant tenderness. Right upper extremity has a compression stocking on from his hand to his mid upper arm. He has chronic lymphedema in the right upper extremity from [place] cell tumor resection in the axilla. The right upper extremity is nontender without deformity. The left upper extremity is significantly swollen, tender, bruising, hematoma, skin tear. No gross bony deformity but difficult to tell due to the amount of swelling. Unable to do full extension due to pain and swelling. Able to do supination and pronation of the hand and wrist without difficulty. The left shoulder distal forearm, wrist and hand are nontender nonswollen. Normal field reimbursement manager strength. Normal touch sensation. Normal radial pulse. Neurologically he is awake and alert with no focal motor deficits. Const Vital Signs: 12/15/22 10:35 12/15/22 10:56 Temperature 97.5 F L Temperature Source Temporal Pulse Rate 77 Respiratory Rate 18 Respiratory Effort Normal Non-Labored Blood Pressure 167/120 H Blood Pressure Mean 135 Pulse Ox 98 Oxygen Delivery Method Room Air Positive well nourished and well developed; Negative for cachectic, contractures or unkempt General Appearance ED: well developed and NAD; Negative for unkempt, cachectic or contractures Nutritional Appearance: Negative for cachectic HEENT Reports normocephalic atraumatic; Negative for trauma, contusion, hematoma or tenderness Eyes PERRL and EOMs intact bilaterally General Eye ED: Negative for pale conjunctiva, scleral icterus or other Neck full ROM, no lymphadenopathy and supple General: Negative for tenderness Chest Wall inspection of chest normal and palpation of chest normal Chest: Negative for other Resp normal respiratory effort, no retractions and clear to auscultation bilaterally Effort and Inspection: Negative for pain with movement Auscultation: Negative for rales, rhonchi, wheezes or diminished lung sounds Cardio regular rate, regular rhythm, S1 normal heart sound, S2 normal heart sound and no murmurs Rhythm: Negative for abnormal rhythm GI non-tender, non-distended and no masses Inspection: Negative for abdominal distention Auscultation: normoactive bowel sounds Palpation: soft; Negative for guarding Back/Spine no CVA tenderness General Back: Negative for CVA tenderness Cervical Spine: Negative for cervical spine tenderness Thoracic Spine / Upper Back: Negative for ROM limited or pain with ROM Lumbar Spine / Lower Back: Negative for lumbar spinal tenderness Extremity Extremity Narrative: Left elbow tender, swollen, hematoma, bruise, skin tears. Decreased extension due to pain and swelling. Supination and pronation intact. Left shoulder, distal forearm, wrist and hand nontender neurovascular intact with 5 out of 5 field reimbursement manager strength. Left knee mild abrasion. Full flexion extension without any difficulty. No bony tenderness no significant swelling. Neuro oriented x3, CN's II-XII intact bilaterally, moves all extremities and no focal motor deficits [place] Coma Scale: document GCS findings Spontaneous Obeys Commands Oriented 15 Sensorium / Orientation: alert, oriented to person, oriented to place and oriented to time; Negative for orientation impaired, confused, lethargic or stuporous Motor Exam: strength 5/5 throughout Psych mental status grossly normal and thought process normal Appearance: Negative for unkempt Attitude: No agitated Mood & Affect: Negative for depressed, anxious or tearful Skin General Skin Exam: Negative for other Lesions: no lesions Rashes: no rashes Trauma: abrasion MDM MDM MDM Narrative Medical decision making narrative: 77-year-old man fell injuring his left elbow after tripped by his dog. X-ray to be obtained in the elbow. He and I discussed I do not think he needs 1 nor does he want an x-ray of his knee. It is a minor abrasion. Skin tears will be cleaned and dressed. He will be given Tylenol for pain. Repeat exams patient is doing well. Radiologist believes there is a nondisplaced radial head fracture. The amount of swelling would make you think so. He does have a fat pad sign. However he can supinate and pronate really well. I will place him in a posterior splint and have him follow-up with orthopedics. Radiography Diagnostic Testing: Clinical Impression(s) from Imaging Studies Elbow X-Ray 12/15/22 11:00 IMPRESSION: Nondisplaced radial neck fracture as well as left elbow joint effusion. More prominent in the posterior aspect of the elbow joint. Electronically Signed: Mateo Pickard MD at 11:17 EDT , Left elbow x-ray, 3 views, interpreted by myself shows large soft tissue swelling. Radiologist is: Nondisplaced radial head fracture. That may or may not be true. With the amount of swelling, fat pad sign the patient be placed in a posterior splint and having further evaluated by orthopedics. Procedures Upper Extremity Splints Upper Extremity Splint: Orthoglass Splint Fabrication: Fabricated (Placed a well-padded, short arm, posterior splint on his left elbow.) Location: Left Discharge Plan Triage Chief Complaint: Fall ED Provider: Serafin Desir Dx/Rx/DC Orders Clinical Impression: Fall, Nondisplaced fracture of head of left radius, Contusion of knee Instructions: ED Fracture, Upper Extremity Prescriptions: No Action levothyroxine 25 mcg tablet 25 mcg PO DAILY Label Comments: TAKE 1 TABLET BY MOUTH ONCE DAILY pravastatin 40 MG tablet 40 mg PO QHS aspirin 81 MG tablet,delayed release (DR/EC) 81 mg PO QHS Label Comments: heart valsartan 160 MG tablet 160 mg PO QHS Label Comments: heart tamsulosin 0.4 MG capsule 0.4 mg PO DAILY metoprolol succinate 25 MG tablet extended release 24 hr 25 mg PO DAILY finasteride 5 MG tablet 5 mg PO DAILY pantoprazole 40 MG tablet 40 mg PO DAILY Qty: 30 0RF sennosides-docusate sodium [Stool Softener-Laxative] 8.6-50 mg Tablet 2 tab-cap PO DAILY lubiprostone [Amitiza] 8 mcg capsule 24 mcg PO DAILY Primary Care Provider: Garrett Hernandez Chi Referrals: Juan M Sal MD [Med Staff - Active Staff] - As soon as possible Garrett Hernandez Chi, MD [Primary Care Provider] - Activity Restrictions/Additional Instructions: Ice and elevate your left elbow to decrease pain and swelling. The swelling is going to take a long time to go down. Tylenol for pain. Hold your aspirin for the next 3 days and will cause more bruising and bleeding. Keep the splint on dry and clean. Call and follow-up with the orthopedic doctor. You may have a nondisplaced, radial head fracture of your elbow. Disposition Disposition: Home, Self Care
[2022-12-15] MEDS: Acetaminophen 500 MG Tablet 1000 MG PO (10:53)
--- NOTE | 2022-12-15 11:00 | RAD_ITS ---
STUDY: X-RAY - LEFT ELBOW REASON FOR EXAM: Male, 77 years old. On the frontal TECHNIQUE: 3 view(s) of the elbow. COMPARISON: None. FINDINGS: Nondisplaced radial neck fracture. Normal radiocapitellar and ulnotrochlear articulations. Joint effusion and soft tissue swelling especially posterior to the right elbow. RAD/Elbow min 3 Views IMPRESSION: Nondisplaced radial neck fracture as well as left elbow joint effusion. More prominent in the posterior aspect of the elbow joint. Electronically Signed: Mateo Pickard MD at 11:17 EDT ,
== END 2022-12-15 12:03 | disposition home or self-care (01) ==
LOC: ED 11:41
PROVIDERS: Emergency Provider Emergency Medicine; PCP Family Medicine Geriatric Medicine; Visit Provider Emergency Medicine
DX: S52.302A Unspecified fracture of shaft of left radius, initial encounter for closed fracture (principal); S80.02XA Contusion of left knee, initial encounter; Z87.891 Personal history of nicotine dependence; W18.30XA Fall on same level, unspecified, initial encounter
CPT/HCPCS: 29125; 73080; 99282

== ENCOUNTER 2023-02-04 14:08 | Emergency (ER) | payer MEDICARE, BC, SELFPAY ==
[2017-09-24 10:04] VITALS: BMI 31.2
[2023-02-04 14:09] VITALS: BP 183/98; PULSE 73; RESP 18; TEMP 36.1; O2SAT 99; BMI 30.7
--- NOTE | 2023-02-04 15:05 | EKG12_ITS ---
Test Reason : EKG CHANGE Blood Pressure : / mmHG Vent. Rate : 075 BPM Atrial Rate : 000 BPM P-R Int : 000 ms QRS Dur : 096 ms QT Int : 380 ms P-R-T Axes : 000 -33 023 degrees QTc Int : 424 ms Atrial fibrillation with a competing junctional pacemaker with premature ventricular or aberrantly co nducted complexes Left axis deviation Abnormal ECG Confirmed by NOA NORTON, PEDRO LUIS ([id number]), editor news DELFINA BARON ([id number]) on 02/09/2023 12:47:14 P M Referred By: MARTINEZ Confirmed By:CR LATHAM MD
[2023-02-04 15:25] LABS: Absolute Lymphocyte Count 1.27 X10^3/uL (0.83-4.51); Absolute Neutrophil Count 6.3 X10^3/uL (2.0-7.7); Basophil# 0.06 X10^3/uL; Basophil% 0.7 % (0-1); Eosinophil# 0.11 X10^3/uL; Eosinophils% 1.3 % (0-5); Hematocrit 44.8 % (40-54); Hemoglobin 14.2 g/dL (13.0-16.5); Lymphocyte # 1.27 X10^3/ul (0.83-4.51); Mean Corp Hgb Conc 31.7 g/dL (32-36); Mean Corpuscular Hgb 28.7 pg (27.0-32.0); Mean Corpuscular Volume 90.7 fL (80-94); Mean Platelet Vol. 10.7 fl (6.2-12.0); Monocyte# 0.65 X10^3/uL; Monocyte% 7.7 % (0-10); NRBC Flagged by Analyzer 0 % (0-5); Neutrophil # 6.31 X10^3/uL (2.7-7.7); Neutrophil % 74.5 % (47-70); Platelet Count 185 K/mm3 (150-450); RBC Distribution Width CV 14.7 % (11.6-14.6); RBC Distribution Width SD 49.1 fl (35.1-43.9); Red Blood Count 4.94 M/mm3 (4.6-6.2); White Blood Count 8.5 K/mm3 (4.4-11.0)
--- NOTE | 2023-02-04 15:25 | RAD_ITS ---
STUDY: X-RAY CHEST REASON FOR EXAM: Male, 77 years old. Cardiac dysrhythmia TECHNIQUE: PA and lateral views of the chest. COMPARISON: Comparison is made with prior study dated July 23, 2022. FINDINGS: EKG electrodes are seen. Surgical clips are seen in the right axilla. Stable mild increased markings at the lung bases suggestive of linear scarring. There is blunting of both clustering angles posteriorly. There is mild cardiac enlargement. Normal mediastinum and vlad. Normal visualized pulmonary arteries. There is atherosclerotic calcification of the aortic arch with tortuosity. There are diffuse degenerative changes of the visualized thoracic spine. Normal visualized ribs, clavicles, and shoulders. There is no demonstrated abnormality of the visualized soft tissue structures of the upper abdomen. RAD/Chest PA and Lateral IMPRESSION: Stable mild increased markings at the lung bases suggestive of bibasilar scarring. Stable blunting of both costophrenic angles posteriorly. Electronically Signed: Mateo Pickard MD at 15:38 EDT ,
[2023-02-04 15:31] VITALS: BP 176/103; PULSE 76; RESP 20; O2SAT 98
[2023-02-04 15:43] LABS: Anion Gap 5 (5-15); BUN 20 mg/dL (7-18); BUN/Creat Ratio 14.1 RATIO (10-20); Calcium,Total 9.4 mg/dL (8.5-10.1); Chloride 109 mmol/L (98-107); Creatinine, Serum 1.42 mg/dL (0.70-1.30); EST Glomerular Filtration Rate 51 mL/min (>60); Est Glom Filt Rate - Afr Amer 62 mL/min (>60); Estimated Creatinine Clearance 48.45 ml/min; Glucose 103 mg/dL (74-106); Potassium 4.7 mmol/L (3.5-5.1); Sodium Level 139 mmol/L (136-145); Troponin-I HS 9 pg/mL (3.0-78.0)
[2023-02-04 16:30] VITALS: BP 163/96; PULSE 66; RESP 14; O2SAT 96
[2023-02-04 17:00] VITALS: BP 162/107; PULSE 70; RESP 12; O2SAT 98
--- NOTE | 2023-02-04 17:11 | EX.ED.DYSGE1 ---
HPI History of Present Illness Chief Complaint: Palpitations Informant: patient Onset/Context/Timing Onset: Days Timing: Waxes and wanes Quality: Tired Location: Generalized Worsened by: Activity Relieved by: Nothing Narrative Narrative: Patient presents with irregular heartbeat that was noticed today. Patient states he was supposed to have a procedure done by Dr. Reyez. Patient states that he was noted to be in atrial fibrillation prior to the procedure. Patient states he has been feeling tired over the past few days. Patient states this is worse with any activity. Patient denies any chest pain. Patient denies any feelings of irregular or rapid heartbeat. Patient admits to some mild shortness of breath. [facility] Medical History Alcohol use Back pain Basal cell carcinoma Cancer Easy bruising Elevated cholesterol Enlarged prostate Essential hypertension Former smoker GERD (gastroesophageal reflux disease) History of constipation History of echocardiogram History of hiatal hernia History of pain when walking History of renal disease History of steroid therapy History of stress test Hx of fracture of clavicle Hx of malignant carcinoid tumor Hx of skin cancer, basal cell Leg cramps Lung nodule Lymphoma Mobitz type 1 second degree atrioventricular block New onset atrial fibrillation Premature atrial contraction Premature ventricular contraction Segmental and somatic dysfunction of pelvic region Thyroid disease Wears glasses Home Medications aspirin 81 mg tablet,delayed release 81 mg PO QHS heart 12/08/16 [History Last Taken 04/23/22] pravastatin 40 mg tablet 40 mg PO QHS Cholesterol 12/08/16 [History Last Taken 02/04/23] valsartan 160 mg tablet 160 mg PO QHS BP 12/08/16 [History Last Taken 10/08/21] tamsulosin 0.4 mg capsule 0.4 mg PO DAILY Prostate 12/10/16 [History Last Taken 11/01/18] finasteride 5 mg tablet 5 mg PO DAILY prostate 11/01/18 [History Last Taken 10/31/18] metoprolol succinate 25 mg tablet,extended release 24 hr 25 mg PO DAILY HEART 11/01/18 [History Last Taken 02/04/23] pantoprazole 40 mg tablet,delayed release 40 mg PO DAILY #30 tabs 11/02/18 [Rx Last Taken 10/08/21] levothyroxine 25 mcg tablet 25 mcg PO DAILY 08/30/21 [History Last Taken 02/04/23] sennosides 8.6 mg-docusate sodium 50 mg tablet (Stool Softener-Laxative) 2 tab-cap PO DAILY 09/24/21 [History Last Taken Unknown] lubiprostone 8 mcg capsule (Amitiza) 24 mcg PO DAILY BOWELS 02/25/22 [History Last Taken Unknown] apixaban 5 mg tablet (Eliquis) 5 mg PO BID #74 tabs 02/04/23 [Rx Last Taken Unknown] Allergy/AdvReac Type Severity Reaction Status Date / Time oxycodone [From OxyContin] AdvReac Severe lethargic-s Verified 02/04/23 15:25 leepy Family History Grandmother Uterine cancer Father Cancer Grandfather Heart disease Uncle Cancer Aunt Heart valve disease Surgical History History of back surgery History of ERCP Hx of cholecystectomy Hx of tonsillectomy Knee joint replacement status Social History Smoking Status: Former smoker quit date: 08/03/65 alcohol intake: current alcohol intake frequency: holidays/special occasions only substance use type: does not use caffeine: Yes Type: carbonated beverages ROS ROS ED Constitutional Constitutional ED: Denies chills or fever(s) Eyes Eyes: Denies blurry vision or change in vision ENT ENT ED: Reports rhinorrhea; Denies sore throat Cardiovascular Cardiovascular: Denies chest pain or palpitations Respiratory/Chest Respiratory/Chest: Reports dyspnea; Denies cough Gastrointestinal Gastrointestinal: Denies nausea or vomiting Genitourinary Genitourinary ED: Denies dysuria or hematuria Musculoskeletal Musculoskeletal: Reports back pain; Denies neck pain Integumentary Denies abscess or rash Neurologic Neurologic: Denies headache(s) or weakness Allergic/Immunologic Allergic/Immunologic ED: Denies mouth swelling or urticaria EXAM Physical Exam Const Vital Signs: 02/04/23 14:09 02/04/23 15:31 02/04/23 15:00 Temperature 97 F L Temperature Source Temporal Pulse Rate 73 76 Respiratory Rate 18 20 H Respiratory Effort Normal Blood Pressure 183/98 H 176/103 H Blood Pressure Mean 126 127 Pulse Ox 99 98 Oxygen Delivery Method Room Air Room Air 02/04/23 16:30 Temperature Temperature Source Pulse Rate 66 Respiratory Rate 14 Respiratory Effort Blood Pressure 163/96 H Blood Pressure Mean 118 Pulse Ox 96 Oxygen Delivery Method Room Air Positive well nourished and well developed General Appearance ED: well developed and NAD HEENT Reports moist mucous membranes Neck supple and no JVD Resp normal respiratory effort and clear to auscultation bilaterally Cardio Rhythm: abnormal rhythm irregularly irregular GI non-tender and non-distended Palpation: soft Extremity normal to inspection General Extremety ED: Negative for edema or tenderness General Extremity: Negative for edema Neuro oriented x3, CN's II-XII intact bilaterally and no sensory deficits noted Sensorium / Orientation: alert Motor Exam: strength 5/5 throughout Psych mental status grossly normal MDM MDM MDM Narrative Medical decision making narrative: Differential diagnosis includes new onset atrial fibrillation, cardiac dysrhythmia, cardiac ischemia, electrolyte abnormality, and dehydration. EKG will be obtained to assess for cardiac dysrhythmia and cardiac ischemia. Chest x-ray will be obtained to assess for pneumonia, pneumothorax, cardiomegaly, congestive heart failure. CBC will be obtained to assess for leukocytosis and anemia. Basic metabolic profile will be obtained to assess for electrolyte abnormality and renal function. High-sensitivity troponin will be obtained to assess for cardiac ischemia. History & Record Review Additional record(s) reviewed:: Prior outpatient record and Prior labs Lab Data Attestation: I reviewed the patient's lab results. Lab results narrative: CBC was reviewed and was within normal limits. Basic metabolic profile was reviewed. BUN was 20 and creatinine was 1.42. These are consistent with prior results. High-sensitivity troponin was reviewed and was normal at 9. Labs: Laboratory Results - last 24 hr 02/04/23 14:40 WBC 8.5 RBC 4.94 Hgb 14.2 Hct 44.8 MCV 90.7 MCH 28.7 MCHC 31.7 L RDW Std Deviation 49.1 H RDW Coeff of Jesse 14.7 H Plt Count 185 MPV 10.7 Immature Gran % (Auto) 0.800 Neut % (Auto) 74.5 H Lymph % (Auto) 15.0 L [place] % (Auto) 7.7 Eos % (Auto) 1.3 Baso % (Auto) 0.7 Absolute Neuts (auto) 6.3 Absolute Lymphs (auto) 1.27 Nucleated RBC % 0 Sodium 139 Potassium 4.7 Chloride 109 H Carbon Dioxide 25.0 Anion Gap 5 BUN 20 H Creatinine 1.42 H Estim Creat Clear Calc 48.45 Est GFR (MDRD) Af Amer 62 Est GFR (MDRD) Non-Af 51 L BUN/Creatinine Ratio 14.1 Glucose 103 Calcium 9.4 Troponin I High Sens 9 Radiography Diagnostic Testing: Clinical Impression(s) from Imaging Studies Chest X-Ray 02/04/23 15:25 IMPRESSION: Stable mild increased markings at the lung bases suggestive of bibasilar scarring. Stable blunting of both costophrenic angles posteriorly. Electronically Signed: Mateo Pickard MD at 15:38 EDT , PA and lateral chest x-ray was obtained. There are 2 views. On my independent interpretation, lung brown show bibasilar scarring and blunting of both costophrenic angles. There is normal cardiac silhouette. Bony thorax is normal. There is no acute process noted. Radiologist also interpreted the x-ray and agrees. EKG Initial EKG: Attestation: I personally reviewed and interpreted this EKG as follows: Interpretation: No Acute Injury Pattern and Atrial Fibrillation (75) Comments: EKG was obtained. On my interpretation, it shows atrial fibrillation with a rate of 75. QRS interval was 96 ms. QTc interval was 424 ms. There is left axis deviation at -33. Prior EKG tracings: available for review Prior: Changed (Compared to EKG dated 03/26/2022, the atrial fibrillation is new.) Management Discussion w/another healthcare provider: Hospitalist Treatment and Re-Evaluation :: Patient remained asymptomatic here in the emergency department. Case was discussed with the hospitalist. She states the patient does not need to be admitted. Patient needs to be started on Eliquis and have a 48-hour Holter monitor placed. Patient was instructed to call the inspector rubber stamp die office tomorrow to schedule an appointment in the next few days. Patient and family understood and were agreeable with the plan. All questions were answered. Discharge Plan Triage Chief Complaint: Palpitations ED Provider: Jimmy Cramer Dx/Rx/DC Orders Clinical Impression: Atrial fibrillation Instructions: ED AFIB Prescriptions: New Eliquis 5 mg tablet 5 mg PO BID Qty: 74 0RF Rx Instructions: 10 mg twice a day for the first week. Then 5 mg twice a day. No Action levothyroxine 25 mcg tablet 25 mcg PO DAILY Patient Comments: TAKE 1 TABLET BY MOUTH ONCE DAILY pravastatin 40 MG tablet 40 mg PO QHS aspirin 81 MG tablet,delayed release (DR/EC) 81 mg PO QHS Patient Comments: heart valsartan 160 MG tablet 160 mg PO QHS Patient Comments: heart tamsulosin 0.4 MG capsule 0.4 mg PO DAILY metoprolol succinate 25 MG tablet extended release 24 hr 25 mg PO DAILY finasteride 5 MG tablet 5 mg PO DAILY pantoprazole 40 MG tablet 40 mg PO DAILY Qty: 30 0RF sennosides-docusate sodium [Stool Softener-Laxative] 8.6-50 mg Tablet 2 tab-cap PO DAILY lubiprostone [Amitiza] 8 mcg capsule 24 mcg PO DAILY Other Ambulatory Orders: Cardiac Holter Monitor, 48 Hrs (Routine) Timeframe: 1 Day Facility: [facility] - Location: Cardiovascular Services Ordered By: Dr. Jimmy Cramer Primary Care Provider: Garrett Hernandez Chi Referrals: Brian Stewart MD [Med Staff - Active Staff] - 3-5 Days Katlyn Quezada MD [Med Staff - Active Staff] - 3-5 Days Garrett Hernandez Chi, MD [Primary Care Provider] - Disposition Disposition: Home, Self Care
[2023-02-04] MEDS: APIXABAN 5 MG TABLET 10 MG PO (17:51)
[2023-02-04 17:54] VITALS: BP 175/68; PULSE 68; RESP 18; O2SAT 98
== END 2023-02-04 18:11 | disposition home or self-care (01) ==
PROVIDERS: Emergency Provider Emergency Medicine; PCP Family Medicine Geriatric Medicine; Visit Provider Emergency Medicine
DX: I48.91 Unspecified atrial fibrillation (principal); E78.00 Pure hypercholesterolemia, unspecified; I10 Essential (primary) hypertension; K21.9 Gastro-esophageal reflux disease without esophagitis; N40.0 Benign prostatic hyperplasia without lower urinary tract symptoms; Z79.82 Long term (current) use of aspirin; Z79.01 Long term (current) use of anticoagulants; Z79.899 Other long term (current) drug therapy; Z87.891 Personal history of nicotine dependence
CPT/HCPCS: 71046; 80048; 84484; 85025; 93005; 99284; A4216

== ENCOUNTER → 2023-02-04 | Outpatient (CLI) | payer MEDICARE, BC, SELFPAY ==
[2017-09-24 10:04] VITALS: BMI 31.2
== END | disposition home or self-care (01) ==
LOC: CVS 17:53
PROVIDERS: PCP Family Medicine Geriatric Medicine; Visit Provider Emergency Medicine
DX: I48.91 Unspecified atrial fibrillation (principal)
CPT/HCPCS: 93225; 93226

== ENCOUNTER → 2023-03-20 | Outpatient (CLI) | payer MEDICARE, BC, SELFPAY ==
[2017-09-24 10:04] VITALS: BMI 31.2
[2023-03-20 14:29] LABS: M R Staph aureus DNA By PCR Negative (Negative); Probe Check PASS; Staph aureus DNA By PCR NEGATIVE (Negative)
== END | disposition home or self-care (01) ==
LOC: POLAB3 12:30
PROVIDERS: PCP Internal Medicine Nephrology; Visit Provider Family Medicine Geriatric Medicine
DX: L03.114 Cellulitis of left upper limb (principal); S51.812A Laceration without foreign body of left forearm, initial encounter
CPT/HCPCS: 36415; 87070; 87077; 87186; 87205; 87640

== ENCOUNTER → 2023-03-26 | Outpatient (CLI) | payer MEDICARE, BC, SELFPAY ==
[2017-09-24 10:04] VITALS: BMI 31.2
[2023-03-26 18:03] LABS: Albumin, Serum 3.3 g/dL (3.2-5.0); BUN 21 mg/dL (7-18); Chloride 110 mmol/L (98-107); EST Glomerular Filtration Rate 48 mL/min (>60); Est Glom Filt Rate - Afr Amer 58 mL/min (>60); Glucose 111 mg/dL (74-106); Potassium 4.4 mmol/L (3.5-5.1); Sodium Level 141 mmol/L (136-145)
== END | disposition home or self-care (01) ==
LOC: POLAB3 04-02 10:51
PROVIDERS: PCP Family Medicine Geriatric Medicine; Visit Provider Internal Medicine Nephrology
DX: N18.31 Chronic kidney disease, stage 3a (principal)
CPT/HCPCS: 36415; 80069

== ENCOUNTER → 2023-04-03 | Outpatient (CLI) | payer MEDICARE, BC, SELFPAY ==
[2017-09-24 10:04] VITALS: BMI 31.2
--- NOTE | 2023-04-03 15:26 | MRI_ITS ---
INDICATION: FOREARM WOUND/ABCESS, SCRATCHED WITH TREE BRANCH 2 WEEKS AGO, AREA MARKED WITH BEAD, H/O SKIN CA EXAMINATION: MRI - LEFT MR Forearm WO/W Contrast TECHNIQUE: Multiplanar and multisequence MR images of the left proximal forearm IV Contrast Dosage and Agent: None. COMPARISON: Elbow radiograph December 15, 2022. FINDINGS: SOFT TISSUE: Dorsal elbow and proximal forearm subcutaneous soft tissue edema deep to the vitamin E markers with 2mm focal low intensity T2 ulceration, axial image 17 without evidence of organized abscess. Inhomogeneous fat saturation degrades exam with mild intramuscular edema within anconeus without abscess. The ulnar nerve is normal in the cubital tunnel. BONE: Redemonstration of nondisplaced transverse fracture of the radial head neck junction with surrounding edema JOINT: Articular cartilage intact.] [Trace radiocarpal effusion. Normal alignment. MUSCLES: As above. LIGAMENTS: The medial and lateral elbow ligaments are intact. TENDONS: The medial common flexor and lateral common extensor tendons demonstrate normal signal characteristics at the margins of the study. The biceps tendon are intact. MRI/Upper Ext No Joint W/WO Cont IMPRESSION: Dorsal proximal forearm and elbow subcutaneous soft tissue edema compatible with cellulitis in the appropriate setting with small ulceration. Mild underlying anconeous myositis. No evidence of drainable fluid collection or abscess. Healing nondisplaced radial head neck junction fracture. Electronically Signed: Bernabe Saenz MD at 0:16 EDT ,
== END | disposition home or self-care (01) ==
LOC: MRI 15:15
PROVIDERS: PCP Family Medicine Geriatric Medicine; Referring Provider Family Medicine Geriatric Medicine; Visit Provider Family Medicine Geriatric Medicine
DX: L02.414 Cutaneous abscess of left upper limb (principal)
CPT/HCPCS: 73220; A9575; A4216

== ENCOUNTER 2023-04-29 09:00 | Outpatient (RCR) | payer MEDICARE, BC, SELFPAY ==
[2017-09-24 10:04] VITALS: BMI 31.2
[2023-04-08 08:56] VITALS: PULSE 65; RESP 16; TEMP 36.2; BMI 30.4
--- NOTE | 2023-04-08 11:43 | HP.PCM_ITS ---
History of Present Illness Date of Service: 04/08/23 Chief Complaint: Follow-up on a left arm nonhealing wound from 3 weeks ago History of Wound: 77-year-old white male who was mowing his lawn 3 weeks ago and a tree branch pierced his left arm near his elbow. Patient is currently on Eliquis for his A-fib and bled a lot. Patient of Dr. Hernandez who had referred him here for nonhealing. Did get an MRI that shows cellulitis and effusion mostly with blood he still bleeds there easily. He has a small lump next to it also that is filled with blood. 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 Mobitz type 1 second degree atrioventricular block New onset atrial fibrillation Premature atrial contraction Premature ventricular contraction Segmental and somatic dysfunction of pelvic region Thyroid disease Wears glasses Home Medications pravastatin 40 mg tablet 40 mg PO QHS Cholesterol 12/08/16 [History Last Taken 02/04/23] valsartan 160 mg tablet 160 mg PO QHS BP 12/08/16 [History Last Taken 10/08/21] tamsulosin 0.4 mg capsule 0.4 mg PO DAILY Prostate 12/10/16 [History Last Taken 11/01/18] finasteride 5 mg tablet 5 mg PO DAILY prostate 11/01/18 [History Last Taken 10/31/18] metoprolol succinate 25 mg tablet,extended release 24 hr 25 mg PO DAILY HEART 11/01/18 [History Last Taken 02/04/23] pantoprazole 40 mg tablet,delayed release 40 mg PO DAILY #30 tabs 11/02/18 [Rx Last Taken 10/08/21] levothyroxine 25 mcg tablet 25 mcg PO DAILY 08/30/21 [History Last Taken 02/04/23] sennosides 8.6 mg-docusate sodium 50 mg tablet (Stool Softener-Laxative) 2 tab- cap PO DAILY PRN constipation 09/24/21 [History Last Taken Unknown] apixaban 5 mg tablet (Eliquis) 5 mg PO BID #60 tabs 02/05/23 [Rx Last Taken Unknown] spironolactone 25 mg tablet 25 mg PO DAILY #30 tabs 02/11/23 [Rx Last Taken Unknown] Allergy/AdvReac Type Severity Reaction Status Date / Time oxycodone [From OxyContin] AdvReac Severe lethargic-s Verified 04/08/23 09:14 leepy Family History Grandmother Uterine cancer Father Cancer Grandfather Heart disease Uncle Cancer Aunt Heart valve disease Surgical History History of back surgery History of ERCP Hx of cholecystectomy Hx of tonsillectomy Knee joint replacement status Social History Smoking Status: Former smoker quit date: 08/03/65 alcohol intake: current alcohol intake frequency: holidays/special occasions only substance use type: does not use caffeine: Yes Type: carbonated beverages ROS Constitutional Constitutional: Reports systems reviewed and no addt'l complaints, except as documented Eyes Eyes: Reports systems reviewed and no addt'l complaints, except as documented ENT HEENT: Reports systems reviewed and no addt'l complaints, except as documented Cardiovascular Cardiovascular: Reports systems reviewed and no addt'l complaints, except as documented Respiratory/Chest Respiratory/Chest: Reports systems reviewed and no addt'l complaints, except as documented Gastrointestinal Gastrointestinal: Reports systems reviewed and no addt'l complaints, except as documented Genitourinary Genitourinary: Reports systems reviewed and no addt'l complaints, except as documented Musculoskeletal Musculoskeletal: Reports systems reviewed and no addt'l complaints, except as documented Integumentary Integumentary: Reports wounds and other Details: 2 adjacent wounds open small near the left elbow. Bleeds easily from his Eliquis MRI was negative for any fractures or foreign bodies. Neurologic Neurologic: Reports systems reviewed and no addt'l complaints, except as documented Psychiatric Psychiatric: Reports systems reviewed and no addt'l complaints, except as documented Endocrine Endocrinology: Reports systems reviewed and no addt'l complaints, except as documented Hematologic/Lymphatic Hematologic/Lymphatic: Reports systems reviewed and no addt'l complaints, except as documented Allergic/Immunologic Allergic/Immunologic: Reports systems reviewed and no addt'l complaints, except as documented Vital Signs Vital Signs Vital Signs: 04/08/23 08:56 Temperature 97.2 F L Temperature Source Temporal Pulse Rate 65 Respiratory Rate 16 Blood Pressure Source Monitor Blood Pressure Position Sitting Blood Pressure Location Left Arm Oxygen Delivery Method Room Air Weight Weight: 224 lb Body Mass Index (BMI) 30.4 Debridement Note Debridement Note Wound debrided: Left elbow cluster traumatic wounds nonhealing Type of Debridement: Excisional debridement Anesthesia Used: 5% Lidocaine Gel Depth: Down to and including healthy tissue Percentage of wound debrided: 100 Instrument Used: 3mm curette Tissue Removed: Fibrin Severity: Fat Layer Exposed Amount of bleeding with debridement: Mild Bleeding Controlled with: Compression and gauze Patient tolerated procedure: Patient tolerated procedure well Post-Debridement Measurements and Additional Note: Post-Debridement Measurements/Treatment - Nurse 1 - General Ulcer Assessment Start: 04/08/23 08:55 Freq: Status: Active Protocol: GARETH.ALICIA Activity Type Activity Date Activity User E-sign Co-sign Detail Recorded Client Recorded Date Recorded By Document 04/08/23 08:56 [facility] [id number] 04/08/23 09:07 [facility] 04/08/23 08:56 [facility] Today's Visit Information Type of service Initial Visit Arrival Mode Ambulatory Transfer Assistance None Patient Identification Verified (Name & Yes ) Patient Requires Transmission-Based No Precautions Height and Weight Height 6 ft Weight 224 lb Weight in Pounds 224.0 lbs Weight Measurement Method Stated by Patient Body Mass Index (BMI) 30.4 BMI Classification Obese BSA - Goyo 2.24 Vital Signs Temperature (97.8 F-99.1 F) 97.2 F L Temperature Source Temporal Pulse Rate (60-100) 65 Pulse Location Monitor Respiratory Rate (12-18) 16 Respiratory rate source Observation Oxygen Delivery Method Room Air Source Monitor Position Sitting Blood Pressure Location Left Arm History Since Last Visit- (Skip if this is Patient's initial visit) Left Footwear Custom Shoe Right Footwear Custom Shoe Pain Scale: 0-10 Numeric Is Patient Pain Free? Yes Communication Assessment Preferred language Stateless Permit Review Assistant Required No Able to Read Yes Able to Write Yes Communication Tools None Right Hearing Abillity Hard of Hearing Left Hearing Abillity Normal Visual Assistive Devices Glasses Teaching Assessment Preferences Verbal,Written, Audio/Visual, Demonstration Barriers to Learning None Readiness To Learn Excellent Willingness to Engage in Self Management High Activies Readiness to Engage in Self Management High Activities Anxiety Level Calm Cooperation Cooperative Perception Coherent Interest in Health Problem Asks Questions Education Importance Acknowledges Need Does Patient Smoke tobacco or other No substances Smoking Status Former smoker Is Patient Diabetic No Functional Assessment Recent Decline in Ability to Perform Denies Any Declines 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 Cultural/Methodist Needs that may affect No Treatment Plan Teaching: Wound Center *Welcome to the Wound Center -Person Taught Patient -Teaching Method Discussion -Response to teaching Verbalize understanding Welcome to the Wound Care Center English SERVIN - Nurse 1 - General Ulcer Measurement Start: 04/08/23 08:55 Freq: Status: Active Protocol: Activity Type Activity Date Activity User E-sign Co-sign Detail Recorded Client Recorded Date Recorded By Document 04/08/23 08:56 [facility] [id number] 04/08/23 09:07 [facility] 04/08/23 08:56 Wound Center Nurse 1 #1- LFA -Combined with other wound No -Current Size (cm) - Length 2.6 -Current Size (cm) - Width 2.5 -Current Size (cm) - Depth 0.1 -Total Square Cm 6.50 -Date of Last Picture (Recall this 04/08/23 field) -Photo Taken Yes -Epithelialization None Present -Tunneling No -Undermining/Tunneling No -Circular Undermining No -Exudate Amt None Present -Wound Margin Distinct, Outline Attached -Granulation Amt None Present (0 %) -Slough/Fibrin Yes -Necrosis Amt Large (67-100%) -Necrotic Tissue Type Eschar -Texture (Maria Antonia-wound Skin Appearance) Assessed, Localized Edema ,Scarring -Moisture (Maria Antonia-wound Skin Appearance) Assessed,Dry/ Scaly -Color (Maria Antonia-wound Skin Appearance) Assessed -Temperature (Maria Antonia-wound Skin No Abnormality Appearance) (Pt Warm) -Tenderness on Palpation (Maria Antonia-wound No Skin Appearance) -Ulcer Cleansing Soap and Water -Foul Odor after Cleansing No -Anesthetic Used 5% Lidocaine Gel GARETH - Nurse 2 - General Ulcer CM Notes Start: 04/08/23 08:55 Freq: Status: Active Protocol: Activity Type Activity Date Activity User E-sign Co-sign Detail Recorded Client Recorded Date Recorded By Document 04/08/23 09:24 MW [id number] 04/08/23 09:27 MW 04/08/23 09:24 Wound Center Nurse 2 -Time 09:24 -Correct Patient Yes -Correct Side, Site, Position Yes -Correct Procedure Yes -Procedure Performed Yes -Type of Procedure Debridement -Clinical Debridement Subcutaneous -Tissue Removed Subcutaneous -Post Debridement (cm) - Length 0.5 -Post Debridement (cm) - Width 2.0 -Post Debridement (cm) - Depth 0.3 -Total Square (Post) (cm) 1.00 -Area of Debridement (cm) - Length 0.5 -Area of Debridement (cm) - Width 2.0 -Total Square (Area) (cm) 1.00 -Tunneling No -Undermining/Tunneling Yes -Undermining/Tunneling Starts (O'clock 3 ) -Undermining/Tunneling Ends (O'clock) 9 -Maximum Distance (cm) 0.3 -Circular Undermining No -Wound/Ulcer Outcome Not Healed -Ulcer Cleansing Rinsed/ Irrigated with Saline -Foul Odor after Cleansing No -Bioengineered Tissue No -Bleeding Controlled with Pressure -Treatment Response Procedure Tolerated Well -Offloading No -Debridement - Subq, 1st 20sq cm Yes Pain Scale: 0-10 Numeric Is Patient Pain Free? Yes WC - Nurse 3 - General Ulcer D/C NN Start: 04/08/23 08:55 Freq: Status: Active Protocol: Activity Type Activity Date Activity User E-sign Co-sign Detail Recorded Client Recorded Date Recorded By Document 04/08/23 09:48 RB [id number] 04/08/23 09:49 RB 04/08/23 09:48 Wound Care Center Nurse 3 #1- LFA -Ulcer Cleansing Wound Cleanser -Primary Dressing Applied Mepilex Border, Promogran Karla Matter -Mepilex Border 2 -Promogran Karla Matter 2 Other/Comment shaved around wound as ordered per Fallon FLEET COORDINATOR Treatment Response Procedure Tolerated Well Pain Scale: 0-10 Numeric Is Patient Pain Free? Yes Teaching: Wound Center Dressing Your Wound -Person Taught Patient -Teaching Method Discussion, Demonstration -Response to teaching Verbalize understanding WC - Visit Discharge Discharge Condition Stable Ambulatory Status Ambulatory Transportation Private Auto Medication Reconcilliation completed & No provided to patient/care provider Clinical Summary of Care Provided Yes Assessment/Plan Assessment/Plan (1) Nonhealing nonsurgical wound: CODE(S): T14.8XXA - Other injury of unspecified body region, initial encounter PLAN: Wash area with antibacterial soap pack with Karla cover with Adaptic and foam dressing daily (2) Atrial fibrillation: CODE(S): I48.91 - Unspecified atrial fibrillation QUALIFIERS: Atrial fibrillation type: unspecified chronic Qualified Code(s): I48.20 - Chronic atrial fibrillation, unspecified
[2023-04-15 08:58] VITALS: BP 169/94; PULSE 72; RESP 18; TEMP 35.8; BMI 30.4
--- NOTE | 2023-04-15 11:12 | PN.PCM_ITS ---
History of Present Illness Date of Service: 04/15/23 Chief Complaint: Follow-up on a left arm nonhealing wound from 3 weeks ago History of Wound: 77-year-old white male who was mowing his lawn 3 weeks ago and a tree branch pierced his left arm near his elbow. Patient is currently on Eliquis for his A-fib and bled a lot. Patient of Dr. Hernandez who had referred him here for nonhealing. Did get an MRI that shows cellulitis and effusion mostly with blood he still bleeds there easily. He has a small lump next to it also that is filled with blood. Progress of Wound: So the lump is still there and we palpated he complains of pain is not closing I still think there is a foreign body we will I&D for foreign body. Subjective Subjective Patient agreed he feels like there is something still in there it still hurts to touch Objective Data Objective Data Wash the area with antibacterial soap and povidone iodine then anesthetized by injecting with 1% lidocaine with epi. Patient is on Eliquis so he bleeds easily. Using a 15 blade made a long incision along the lump area that opened up and a piece of tree came out. Irrigated very well and debrided the area very well and sutured closed with Prolene with 4 sutures. Patient tolerated well we will follow-up in 2 weeks start him on antibiotics for infection. Vital Signs: Vital Signs Temp Pulse Resp BP O2 Del Method 96.4 F L 72 18 169/94 H Room Air 04/15/23 08:58 04/15/23 08:58 04/15/23 08:58 04/15/23 08:58 04/08/23 08:56 Oxygen Delivery Method Room Air Weight: 224 lb Body Mass Index (BMI) 30.4 Lab / Micro Data Attestation: I reviewed the patient's lab results. Physical Exam Narrative Elderly man Const alert, oriented x3 and no apparent distress HEENT normocephalic, external ears normal and external nose normal Eyes PERRL and no scleral icterus Neck full ROM and supple Lymph Lymphatic: no lymphadenopathy noted Chest inspection of chest normal Resp normal respiratory effort and clear to auscultation bilaterally Cardio regular rate, regular rhythm, S1 normal heart sound and S2 normal heart sound GI normal to inspection, nondistended, normoactive bowel sounds no CVA tenderness Back/Spine thoracic and lumbar spine normal to inspection Extremity Extremity Narrative: + compression stocking R Upper extremity. Neuro oriented x3, CN's II-XII intact bilaterally, moves all extremities and no focal motor deficits Psych mental status grossly normal Debridement Note Debridement Note Debridement Free Text: Wash area with Hibiclens and antibacterial soap and water povidone anesthetized with 1% with epi then incised less than 2.5 cm with a 15 blade and removed a part of a tree limb from his forearm. Patient tolerated well sutured up with 4 sutures with Prolene Operative Diagnosis: I&D for foreign body left forearm Post-Debridement Measurements and Additional Note: Post-Debridement Measurements/Treatment - Nurse 1 - General Ulcer Assessment Start: 04/08/23 08:55 Freq: Status: Active Protocol: BYRON Activity Type Activity Date Activity User E-sign Co-sign Detail Recorded Client Recorded Date Recorded By Document 04/08/23 08:56 [facility] [id number] 04/08/23 09:07 [facility] Document 04/15/23 08:58 RB [id number] 04/15/23 09:00 RB 04/08/23 04/15/23 08:56 08:58 - Today's Visit Information Type of service Initial Visit Follow-up Visit (Physician/GRADUATE CIVIL ENGINEER ) Arrival Mode Ambulatory Ambulatory Transfer Assistance None None Patient Identification Verified (Name & Yes Yes ) Patient Requires Transmission-Based No No Precautions Height and Weight Height 6 ft Weight 224 lb Weight in Pounds 224.0 lbs Weight Measurement Method Stated by Patient Body Mass Index (BMI) 30.4 30.4 BMI Classification Obese Obese BSA - Goyo 2.24 Vital Signs Temperature (97.8 F-99.1 F) 97.2 F L 96.4 F L Temperature Source Temporal Temporal Pulse Rate (60-100) 65 72 Pulse Location Monitor Monitor Respiratory Rate (12-18) 16 18 Respiratory rate source Observation Observation Oxygen Delivery Method Room Air Blood Pressure (90/60-120/80) 169/94 H Blood Pressure Mean (mm Hg) 119 Source Monitor Monitor Position Sitting Semi-Fowlers Blood Pressure Location Left Arm Left Arm History Since Last Visit- (Skip if this is Patient's initial visit) Have you changed medications since your No last visit? Any new allergies or adverse reactions No Had a fall/change in ADL's that may No increase risk of falls Signs or symptoms of abuse and/or No neglect since last visit Have you been in the hospital since your No last visit? Has dressing in place as prescribed Yes Has compression in place as prescribed Yes Has offloadiing in place as prescribed No Experienced any changes in pain level or No management Left Footwear Custom Shoe Right Footwear Custom Shoe Pain Scale: 0-10 Numeric Is Patient Pain Free? Yes Yes Communication Assessment Preferred language Eritrean X Ray Inspector Required No Able to Read Yes Able to Write Yes Communication Tools None Right Hearing Abillity Hard of Hearing Left Hearing Abillity Normal Visual Assistive Devices Glasses Teaching Assessment Preferences Verbal,Written, Audio/Visual, Demonstration Barriers to Learning None Readiness To Learn Excellent Willingness to Engage in Self Management High Activies Readiness to Engage in Self Management High Activities Anxiety Level Calm Cooperation Cooperative Perception Coherent Interest in Health Problem Asks Questions Education Importance Acknowledges Need Does Patient Smoke tobacco or other No substances Smoking Status Former smoker Is Patient Diabetic No Functional Assessment Recent Decline in Ability to Perform Denies Any Declines Culture/Judaism/Metal Extrusion Supervisor Cultural/Judaism Needs that may affect No Treatment Plan Teaching: Wound Center *Welcome to the Wound Center -Person Taught Patient -Teaching Method Discussion -Response to teaching Verbalize understanding Welcome to the Wound Care Center English SERVIN - Nurse 1 - General Ulcer Measurement Start: 04/08/23 08:55 Freq: Status: Active Protocol: Activity Type Activity Date Activity User E-sign Co-sign Detail Recorded Client Recorded Date Recorded By Document 04/08/23 08:56 [facility] [id number] 04/08/23 09:07 [facility] Document 04/15/23 08:58 [id number] 04/15/23 09:00 RB 04/08/23 04/15/23 08:56 08:58 Wound Center Nurse 1 #1- LFA -Combined with other wound No No -Current Size (cm) - Length 2.6 0.1 -Current Size (cm) - Width 2.5 0.1 -Current Size (cm) - Depth 0.1 0.1 -Total Square Cm 6.50 0.01 -Date of Last Picture (Recall this 04/08/23 field) -Photo Taken Yes -Epithelialization None Present -Tunneling No No -Undermining/Tunneling No No -Circular Undermining No No -Exudate Amt None Present Medium -Exudate Type Serosanguineous -Wound Margin Distinct, Thickened Outline Attached -Granulation Amt None Present (0 Medium (34-66%) %) -Granulation Quality [place] -Slough/Fibrin Yes Yes -Necrosis Amt Large (67-100%) Medium (34-66%) -Necrotic Tissue Type Eschar Adherent Slough -Structure Exposed N/A -Texture (Maria Antonia-wound Skin Appearance) Assessed, Assessed Localized Edema ,Scarring -Moisture (Maria Antonia-wound Skin Appearance) Assessed,Dry/ Assessed Scaly -Color (Maria Antonia-wound Skin Appearance) Assessed Assessed -Temperature (Maria Antonia-wound Skin No Abnormality No Abnormality Appearance) (Pt Warm) (Pt Warm) -Tenderness on Palpation (Maria Antonia-wound No No Skin Appearance) -Ulcer Cleansing Soap and Water Wound Cleanser -Foul Odor after Cleansing No No -Anesthetic Used 5% Lidocaine 5% Lidocaine Gel Gel WC - Nurse 2 - General Ulcer CM Notes Start: 04/08/23 08:55 Freq: Status: Active Protocol: Activity Type Activity Date Activity User E-sign Co-sign Detail Recorded Client Recorded Date Recorded By Document 04/08/23 09:24 MW [id number] 04/08/23 09:27 MW Document 04/15/23 09:04 MW [id number] 04/15/23 09:21 MW 04/08/23 04/15/23 09:24 09:04 Wound Center Nurse 2 #1- LFA -Time 09:24 09:10 -Correct Patient Yes Yes -Correct Side, Site, Position Yes Yes -Correct Procedure Yes Yes -Procedure Performed Yes Yes -Type of Procedure Debridement Incision & Drainage -Clinical Debridement Subcutaneous -Tissue Removed Subcutaneous -Post Debridement (cm) - Length 0.5 0.1 -Post Debridement (cm) - Width 2.0 0.1 -Post Debridement (cm) - Depth 0.3 0.1 -Total Square (Post) (cm) 1.00 0.01 -Area of Debridement (cm) - Length 0.5 -Area of Debridement (cm) - Width 2.0 -Total Square (Area) (cm) 1.00 -Tunneling No No -Undermining/Tunneling Yes No -Undermining/Tunneling Starts (O'clock 3 ) -Undermining/Tunneling Ends (O'clock) 9 -Maximum Distance (cm) 0.3 -Circular Undermining No No -Wound/Ulcer Outcome Not Healed Not Healed -Ulcer Cleansing Rinsed/ Irrigated with Saline -Foul Odor after Cleansing No -Bioengineered Tissue No -Bleeding Controlled with Pressure Pressure -Other Type of Bleeding Control Sutures -Treatment Response Procedure Procedure Tolerated Well Tolerated Well -Offloading No No -Debridement - Subq, 1st 20sq cm Yes -I&D / Paring / Biopsy I&D abscess - single or simple Pain Scale: 0-10 Numeric Is Patient Pain Free? Yes Yes - Nurse 3 - General Ulcer D/C NN Start: 04/08/23 08:55 Freq: Status: Active Protocol: Activity Type Activity Date Activity User E-sign Co-sign Detail Recorded Client Recorded Date Recorded By Document 04/08/23 09:48 RB [id number] 04/08/23 09:49 RB Document 04/15/23 09:22 MW [id number] 04/15/23 09:22 MW 04/08/23 04/15/23 09:48 09:22 Wound Care Center Nurse 3 #1- LFA -Ulcer Cleansing Wound Cleanser Rinsed/ Irrigated with Saline -Foul Odor after Cleansing No -Negative Pressure Wound Therapy N/A -Primary Dressing Applied Mepilex Border, Mepilex Border Promogran Karla Matter -Primary Dressing Covered/Secured with Dry Gauze -Mepilex Border 2 1 -Promogran Karla Matter 2 Other/Comment shaved around wound as ordered per Fallon E COMMERCE DIRECTOR Treatment Response Procedure Tolerated Well Pain Scale: 0-10 Numeric Is Patient Pain Free? Yes Yes Teaching: Wound Center Dressing Your Wound -Person Taught Patient -Teaching Method Discussion, Demonstration -Response to teaching Verbalize understanding WC - Visit Discharge Discharge Condition Stable Stable Ambulatory Status Ambulatory Ambulatory Transportation Private Auto Private Auto Accompanied by self Medication Reconcilliation completed & No No provided to patient/care provider Clinical Summary of Care Provided Yes Yes Assessment/Plan Assessment/Plan (1) Nonhealing nonsurgical wound: CODE(S): T14.8XXA - Other injury of unspecified body region, initial encounter PLAN: Wash area as usual with antibacterial soap and water return in 2 weeks to have sutures removed #4. (2) Atrial fibrillation: CODE(S): I48.91 - Unspecified atrial fibrillation QUALIFIERS: Atrial fibrillation type: unspecified chronic Qualified Code(s): I48.20 - Chronic atrial fibrillation, unspecified (3) Foreign body (FB) in soft tissue: CODE(S): M79.5 - Residual foreign body in soft tissue
[2023-04-29 09:20] VITALS: BP 164/93; PULSE 65; RESP 16; TEMP 36.2; BMI 30.4
--- NOTE | 2023-04-29 13:04 | PN.PCM_ITS ---
History of Present Illness Date of Service: 04/29/23 Chief Complaint: Follow-up on a left arm nonhealing wound from 3 weeks ago History of Wound: 77-year-old white male who was mowing his lawn 3 weeks ago and a tree branch pierced his left arm near his elbow. Patient is currently on Eliquis for his A-fib and bled a lot. Patient of Dr. Hernandez who had referred him here for nonhealing. Did get an MRI that shows cellulitis and effusion mostly with blood he still bleeds there easily. He has a small lump next to it also that is filled with blood. Progress of Wound: So the lump is still there and we palpated he complains of pain is not closing I still think there is a foreign body we will I&D for foreign body. I&D was performed patient was sutured with 2 sutures tolerated well patient is here today to have sutures removed and all is healed. Subjective Subjective Patient is pleased with outcomes Objective Data Objective Data 2 sutures were removed with no sign of infection took off scab all healed closed looks good patient will be discharged from the wound center Vital Signs: Vital Signs Temp Pulse Resp BP O2 Del Method 97.2 F L 65 16 164/93 H Room Air 04/29/23 09:20 04/29/23 09:20 04/29/23 09:20 04/29/23 09:20 04/29/23 09:20 Oxygen Delivery Method Room Air Weight: 224 lb Body Mass Index (BMI) 30.4 Physical Exam Narrative Elderly man Const alert, oriented x3 and no apparent distress HEENT normocephalic, external ears normal and external nose normal Eyes PERRL and no scleral icterus Neck full ROM and supple Lymph Lymphatic: no lymphadenopathy noted Chest inspection of chest normal Resp normal respiratory effort and clear to auscultation bilaterally Cardio regular rate, regular rhythm, S1 normal heart sound and S2 normal heart sound GI normal to inspection, nondistended, normoactive bowel sounds no CVA tenderness Back/Spine thoracic and lumbar spine normal to inspection Extremity Extremity Narrative: + compression stocking R Upper extremity. Neuro oriented x3, CN's II-XII intact bilaterally, moves all extremities and no focal motor deficits Psych mental status grossly normal Debridement Note Debridement Note No debridement was completed: No debridement was completed today Post-Debridement Measurements and Additional Note: Post-Debridement Measurements/Treatment WC - Nurse 1 - General Ulcer Assessment Start: 04/08/23 08:55 Freq: Status: Active Protocol: WC.LOWEXT Activity Type Activity Date Activity User E-sign Co-sign Detail Recorded Client Recorded Date Recorded By Document 04/08/23 08:56 [facility] [id number] 04/08/23 09:07 [facility] Document 04/15/23 08:58 RB [id number] 04/15/23 09:00 RB Document 04/29/23 09:20 BM Desktop 04/29/23 09:25 BMF 04/08/23 04/15/23 04/29/23 08:56 08:58 09:20 WC - Today's Visit Information Type of service Initial Visit Follow-up Visit Follow-up Visit (Physician/VASC TECH (Physician/VASC TECH ) ) Arrival Mode Ambulatory Ambulatory Ambulatory Transfer Assistance None None None Patient Identification Verified (Name & Yes Yes Yes ) Patient Requires Transmission-Based No No No Precautions Height and Weight Height 6 ft Weight 224 lb Weight in Pounds 224.0 lbs Weight Measurement Method Stated by Patient Body Mass Index (BMI) 30.4 30.4 30.4 BMI Classification Obese Obese Obese BSA - Goyo 2.24 Vital Signs Temperature (97.8 F-99.1 F) 97.2 F L 96.4 F L 97.2 F L Temperature Source Temporal Temporal Temporal Pulse Rate (60-100) 65 72 65 Pulse Location Monitor Monitor Monitor Respiratory Rate (12-18) 16 18 16 Respiratory rate source Observation Observation Observation Oxygen Delivery Method Room Air Room Air Blood Pressure (90/60-120/80) 169/94 H 164/93 H Blood Pressure Mean (mm Hg) 119 116 Source Monitor Monitor Monitor Position Sitting Semi-Fowlers Sitting Blood Pressure Location Left Arm Left Arm Left Arm History Since Last Visit- (Skip if this is Patient's initial visit) Have you changed medications since your No No last visit? Any new allergies or adverse reactions No No Had a fall/change in ADL's that may No No increase risk of falls Signs or symptoms of abuse and/or No No neglect since last visit Have you been in the hospital since your No No last visit? Has dressing in place as prescribed Yes No Has compression in place as prescribed Yes N/A Has offloadiing in place as prescribed No N/A Experienced any changes in pain level or No No management Left Footwear Custom Shoe Regular Shoe Right Footwear Custom Shoe Regular Shoe Pain Scale: 0-10 Numeric Is Patient Pain Free? Yes Yes Yes Communication Assessment Preferred language Icelandic Contour Grinder Required No Able to Read Yes Able to Write Yes Communication Tools None Right Hearing Abillity Hard of Hearing Left Hearing Abillity Normal Visual Assistive Devices Glasses Teaching Assessment Preferences Verbal,Written, Audio/Visual, Demonstration Barriers to Learning None Readiness To Learn Excellent Willingness to Engage in Self Management High Activies Readiness to Engage in Self Management High Activities Anxiety Level Calm Cooperation Cooperative Perception Coherent Interest in Health Problem Asks Questions Education Importance Acknowledges Need Does Patient Smoke tobacco or other No substances Smoking Status Former smoker Is Patient Diabetic No Functional Assessment Recent Decline in Ability to Perform Denies Any Declines Culture/Latter Day/Ride Attendant Cultural/Latter Day Needs that may affect No Treatment Plan Teaching: Wound Center *Welcome to the Wound Center -Person Taught Patient -Teaching Method Discussion -Response to teaching Verbalize understanding Welcome to the Wound Care Center English SERVIN - Nurse 1 - General Ulcer Measurement Start: 04/08/23 08:55 Freq: Status: Active Protocol: Activity Type Activity Date Activity User E-sign Co-sign Detail Recorded Client Recorded Date Recorded By Document 04/08/23 08:56 [facility] [id number] 04/08/23 09:07 [facility] Document 04/15/23 08:58 [id number] 04/15/23 09:00 RB Document 04/29/23 09:20 [facility] Desktop 04/29/23 09:25 [facility] 04/08/23 04/15/23 04/29/23 08:56 08:58 09:20 Wound Center Nurse 1 #1- LFA -Combined with other wound No No No -Current Size (cm) - Length 2.6 0.1 0.1 -Current Size (cm) - Width 2.5 0.1 0.1 -Current Size (cm) - Depth 0.1 0.1 0.1 -Total Square Cm 6.50 0.01 0.01 -Date of Last Picture (Recall this 04/08/23 04/29/23 field) -Photo Taken Yes Yes -Epithelialization None Present Large 67-100% -Tunneling No No -Undermining/Tunneling No No -Circular Undermining No No -Exudate Amt None Present Medium -Exudate Type Serosanguineous -Wound Margin Distinct, Thickened Outline Attached -Granulation Amt None Present (0 Medium (34-66%) %) -Granulation Quality [place] -Slough/Fibrin Yes Yes Yes -Necrosis Amt Large (67-100%) Medium (34-66%) None Present (0 %) -Necrotic Tissue Type Eschar Adherent Slough Eschar -Structure Exposed N/A -Texture (Maria Antonia-wound Skin Appearance) Assessed, Assessed Assessed, Localized Edema Scarring ,Scarring -Moisture (Maria Antonia-wound Skin Appearance) Assessed,Dry/ Assessed Assessed Scaly -Color (Maria Antonia-wound Skin Appearance) Assessed Assessed Assessed -Temperature (Maria Antonia-wound Skin No Abnormality No Abnormality Appearance) (Pt Warm) (Pt Warm) -Tenderness on Palpation (Maria Antonia-wound No No Skin Appearance) -Ulcer Cleansing Soap and Water Wound Cleanser Soap and Water -Foul Odor after Cleansing No No No -Anesthetic Used 5% Lidocaine 5% Lidocaine 5% Lidocaine Gel Gel Gel -Wound Comment(s) sutures intact WC - Nurse 2 - General Ulcer CM Notes Start: 04/08/23 08:55 Freq: Status: Active Protocol: Activity Type Activity Date Activity User E-sign Co-sign Detail Recorded Client Recorded Date Recorded By Document 04/08/23 09:24 MW [id number] 04/08/23 09:27 MW Document 04/15/23 09:04 MW [id number] 04/15/23 09:21 MW Document 04/29/23 09:43 GM Desktop 04/29/23 09:45 GM 04/08/23 04/15/23 04/29/23 09:24 09:04 09:43 Wound Center Nurse 2 #1- LFA -Time 09:24 09:10 09:43 -Correct Patient Yes Yes Yes -Correct Side, Site, Position Yes Yes Yes -Correct Procedure Yes Yes Yes -Procedure Performed Yes Yes No -Type of Procedure Debridement Incision & Drainage -Clinical Debridement Subcutaneous -Tissue Removed Subcutaneous -Post Debridement (cm) - Length 0.5 0.1 0 -Post Debridement (cm) - Width 2.0 0.1 0 -Post Debridement (cm) - Depth 0.3 0.1 0 -Total Square (Post) (cm) 1.00 0.01 0 -Area of Debridement (cm) - Length 0.5 -Area of Debridement (cm) - Width 2.0 -Total Square (Area) (cm) 1.00 -Tunneling No No -Undermining/Tunneling Yes No -Undermining/Tunneling Starts (O'clock 3 ) -Undermining/Tunneling Ends (O'clock) 9 -Maximum Distance (cm) 0.3 -Circular Undermining No No -Wound/Ulcer Outcome Not Healed Not Healed Healed- Epithelialized -Ulcer Cleansing Rinsed/ Irrigated with Saline -Foul Odor after Cleansing No -Bioengineered Tissue No -Bleeding Controlled with Pressure Pressure -Other Type of Bleeding Control Sutures -Treatment Response Procedure Procedure Tolerated Well Tolerated Well -Offloading No No -Debridement - Subq, 1st 20sq cm Yes -I&D / Paring / Biopsy I&D abscess - single or simple Pain Scale: 0-10 Numeric Is Patient Pain Free? Yes Yes Yes WC - Nurse 3 - General Ulcer D/C NN Start: 04/08/23 08:55 Freq: Status: Active Protocol: Activity Type Activity Date Activity User E-sign Co-sign Detail Recorded Client Recorded Date Recorded By Document 04/08/23 09:48 RB [id number] 04/08/23 09:49 RB Document 04/15/23 09:22 MW [id number] 04/15/23 09:22 MW Document 04/29/23 09:47 GM Desktop 04/29/23 09:50 GM 04/08/23 04/15/23 04/29/23 09:48 09:22 09:47 Wound Care Center Nurse 3 #1- LFA -Ulcer Cleansing Wound Cleanser Rinsed/ Irrigated with Saline -Foul Odor after Cleansing No -Negative Pressure Wound Therapy N/A -Primary Dressing Applied Mepilex Border, Mepilex Border Promogran Karla Matter -Primary Dressing Covered/Secured with Dry Gauze -Mepilex Border 2 1 -Promogran Karla Matter 2 Other/Comment shaved around wound as ordered per Fallon SPORTS DOCTOR Treatment Response Procedure Procedure Tolerated Well Tolerated Well Pain Scale: 0-10 Numeric Is Patient Pain Free? Yes Yes Yes Teaching: Wound Center Discharge Instructions -Person Taught Patient -Teaching Method Discussion -Response to teaching Verbalize understanding Dressing Your Wound -Person Taught Patient -Teaching Method Discussion, Demonstration -Response to teaching Verbalize understanding WC - Visit Discharge Discharge Condition Stable Stable Stable Ambulatory Status Ambulatory Ambulatory Ambulatory Transportation Private Auto Private Auto Private Auto Accompanied by self self Medication Reconcilliation completed & No No No provided to patient/care provider Clinical Summary of Care Provided Yes Yes Yes Notes: sutures removed per Fallon, wound is healed Assessment/Plan Assessment/Plan (1) Nonhealing nonsurgical wound: CODE(S): T14.8XXA - Other injury of unspecified body region, initial encounter PLAN: 2 sutures removed from arm scab debrided off and patient was discharged from the wound center with a clean skin. (2) Atrial fibrillation: CODE(S): I48.91 - Unspecified atrial fibrillation QUALIFIERS: Atrial fibrillation type: unspecified chronic Qualified Code(s): I48.20 - Chronic atrial fibrillation, unspecified (3) Foreign body (FB) in soft tissue: CODE(S): M79.5 - Residual foreign body in soft tissue
== END 2023-04-30 08:54 | disposition home or self-care (01) ==
LOC: WC 09:00
PROVIDERS: PCP Family Medicine Geriatric Medicine; Referring Provider Family Medicine Geriatric Medicine; Visit Provider Nurse Practitioner
DX: S41.132A Puncture wound without foreign body of left upper arm, initial encounter (principal); I48.91 Unspecified atrial fibrillation; E78.00 Pure hypercholesterolemia, unspecified; E07.9 Disorder of thyroid, unspecified; Z87.891 Personal history of nicotine dependence; I10 Essential (primary) hypertension; N40.0 Benign prostatic hyperplasia without lower urinary tract symptoms; K21.9 Gastro-esophageal reflux disease without esophagitis; Z79.01 Long term (current) use of anticoagulants; Z79.899 Other long term (current) drug therapy; Z79.890 Hormone replacement therapy; W22.09XA Striking against other stationary object, initial encounter; M79.5 Residual foreign body in soft tissue
CPT/HCPCS: 10060; 11042; 99203; 99212; G0463

== ENCOUNTER → 2023-05-21 | Outpatient (CLI) | payer MEDICARE, BC, SELFPAY ==
[2017-09-24 10:04] VITALS: BMI 31.2
[2023-05-21 11:22] LABS: Absolute Lymphocyte Count 1.48 X10^3/uL (0.83-4.51); Basophil# 0.06 X10^3/uL; Basophil% 0.7 % (0-1); Eosinophils% 2.3 % (0-5); Hematocrit 46.4 % (40-54); Hemoglobin 15.1 g/dL (13.0-16.5); Lymphocyte # 1.48 X10^3/ul (0.83-4.51); Lymphocyte % 17.3 % (19-41); Mean Corp Hgb Conc 32.5 g/dL (32-36); Mean Corpuscular Hgb 29.7 pg (27.0-32.0); Mean Corpuscular Volume 91.2 fL (80-94); Mean Platelet Vol. 9.8 fl (6.2-12.0); Monocyte# 0.74 X10^3/uL; Monocyte% 8.7 % (0-10); NRBC Flagged by Analyzer 0 % (0-5); Neutrophil # 5.98 X10^3/uL (2.7-7.7); Neutrophil % 70.1 % (47-70); Platelet Count 156 K/mm3 (150-450); RBC Distribution Width CV 15.7 % (11.6-14.6); RBC Distribution Width SD 52.3 fl (35.1-43.9); Red Blood Count 5.09 M/mm3 (4.6-6.2); White Blood Count 8.5 K/mm3 (4.4-11.0)
[2023-05-21 12:05] LABS: Vitamin D,25 Hydroxy 25.9 ng/mL
[2023-05-21 12:14] LABS: ALB/GLOB Ratio 0.8 RATIO (0.9-2.4); AST(SGOT) 19 U/L (15-37); Alanine Aminotransfer ALT/SGPT 24 U/L (16-61); Albumin, Serum 3.2 g/dL (3.2-5.0); Alkaline Phosphatase 59 U/L (45-117); Anion Gap 4 (5-15); BUN 17 mg/dL (7-18); BUN/Creat Ratio 11.8 RATIO (10-20); Calcium,Total 9.1 mg/dL (8.5-10.1); Chloride 109 mmol/L (98-107); Creatinine, Serum 1.44 mg/dL (0.70-1.30); EST Glomerular Filtration Rate 50 mL/min (>60); Est Glom Filt Rate - Afr Amer 61 mL/min (>60); Globulin 3.9 g/dL (2.2-4.2); Glucose 119 mg/dL (74-106); Potassium 4.7 mmol/L (3.5-5.1); Protein, Total 7.1 g/dL (6.4-8.2); Sodium Level 140 mmol/L (136-145); Thyroid Stim Hormone (TSH) 2.37 uIU/mL (0.358-3.74)
== END | disposition home or self-care (01) ==
LOC: POLAB3 10:16
PROVIDERS: PCP Family Medicine Geriatric Medicine; Visit Provider Family Medicine Geriatric Medicine
DX: I10 Essential (primary) hypertension (principal); E55.9 Vitamin D deficiency, unspecified
CPT/HCPCS: 36415; 80053; 82306; 84443; 85025

== ENCOUNTER → 2023-07-01 | Outpatient (CLI) | payer MEDICARE, BC, SELFPAY ==
[2017-09-24 10:04] VITALS: BMI 31.2
[2023-07-01 13:11] LABS: PSA,Total - Annual Screen 1.41 ng/mL (0.00-4.00)
== END | disposition home or self-care (01) ==
LOC: POLAB3 11:05
PROVIDERS: PCP Family Medicine Geriatric Medicine; Referring Provider Urology; Visit Provider Urology
DX: Z12.5 Encounter for screening for malignant neoplasm of prostate (principal)
CPT/HCPCS: 36415; 84153; G0103

== ENCOUNTER 2023-07-26 17:44 | Emergency (ER) | payer MEDICARE, BC, SELFPAY ==
[2017-09-24 10:04] VITALS: BMI 31.2
[2023-07-26 17:46] VITALS: BP 150/95; BP 156/68; PULSE 54; PULSE 72; RESP 12; RESP 18; TEMP 36.1; O2SAT 100; BMI 31.1
--- NOTE | 2023-07-26 18:25 | EX.ED.DYSGE1 ---
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 Mobitz type 1 second degree atrioventricular block New onset atrial fibrillation Premature atrial contraction Premature ventricular contraction Segmental and somatic dysfunction of pelvic region Thyroid disease Wears glasses Home Medications pravastatin 40 mg tablet 40 mg PO QHS Cholesterol 12/08/16 [History Last Taken 02/04/23] valsartan 160 mg tablet 160 mg PO QHS BP 12/08/16 [History Last Taken 10/08/21] tamsulosin 0.4 mg capsule 0.4 mg PO DAILY Prostate 12/10/16 [History Last Taken 11/01/18] finasteride 5 mg tablet 5 mg PO DAILY prostate 11/01/18 [History Last Taken 10/31/18] metoprolol succinate 25 mg tablet,extended release 24 hr 25 mg PO DAILY HEART 11/01/18 [History Last Taken 02/04/23] pantoprazole 40 mg tablet,delayed release 40 mg PO DAILY GERD #30 tabs 11/02/18 [Rx Last Taken 10/08/21] levothyroxine 25 mcg tablet 25 mcg PO DAILY hypothyroidism 08/30/21 [History Last Taken 02/04/23] sennosides 8.6 mg-docusate sodium 50 mg tablet (Stool Softener-Laxative) 2 tab-cap PO DAILY PRN constipation 09/24/21 [History Last Taken Unknown] apixaban 5 mg tablet (Eliquis) 5 mg PO BID atrial fibrillation #60 tabs 02/05/23 [Rx Last Taken Unknown] spironolactone 25 mg tablet 25 mg PO DAILY HTN #30 tabs 02/11/23 [Rx Last Taken Unknown] gabapentin 100 mg capsule 100 mg PO QHS nerve pain 07/03/23 [History Last Taken Unknown] hydrocortisone 2.5 % topical ointment 1 applic topical BID SKIN CANCER 07/26/23 [History Last Taken Unknown] Allergy/AdvReac Type Severity Reaction Status Date / Time oxycodone [From OxyContin] AdvReac Severe lethargic-s Verified 07/26/23 17:46 leepy Family History Grandmother Uterine cancer Father Cancer Grandfather Heart disease Uncle Cancer Aunt Heart valve disease Surgical History History of back surgery History of ERCP Hx of cholecystectomy Hx of tonsillectomy Knee joint replacement status Social History Smoking Status: Former smoker quit date: 08/03/65 alcohol intake: current alcohol intake frequency: holidays/special occasions only substance use type: does not use caffeine: Yes Type: carbonated beverages EXAM Physical Exam Const Vital Signs: 07/26/23 17:46 07/26/23 17:46 Temperature 96.9 F L Temperature Source Temporal Pulse Rate 54 L 72 Respiratory Rate 18 12 Blood Pressure 150/95 H 156/68 H Blood Pressure Mean 113 97 Pulse Ox 100 100 Oxygen Delivery Method Room Air Room Air MDM MDM MDM Narrative Medical decision making narrative: HISTORY OF PRESENT ILLNESS: 78-year-old male presents with dizziness. He states he has been having intermittent dizziness since starting Eliquis several months ago. He notes dizziness and lightheadedness did not stop today. He further states this occurs approximate 2 hours after he takes Eliquis. He is noticed this for the last 5 months. He states today it lasted for longer than usual. He denies any association with head motion, is not dizzy currently. Denies any focal weakness. Denies any falls or head trauma. Denies any chest pain palpitations. Denies any vomiting or diarrhea. Denies any urinary complaints. REVIEW OF SYSTEMS: Pertinent positives: Dizziness, lightheadedness Pertinent negatives: Headache, focal weakness, numbness, loss sensation, slurred speech, chest pain, shortness of breath, bleeding diathesis, vomiting, other volume loss PHYSICAL EXAM: Nursing triage notes reviewed, Vital signs reviewed Constitutional: please see mdm HENT: MMM Eyes: Pupils equal round and reactive to light, Extraocular muscles intact Neck: No stridor, no JVD, full neck ROM Lungs: Clear to auscultation, No wheezing or rales. No increased work of breathing, no conversational dyspnea, no accessory muscle use, no nasal flaring. No respiratory distress noted Heart: Regular rate and rhythm, No murmurs, No rubs and No gallops, 2+ distal pulses (radial, femoral, posterior tibial) in all extremities Abdomen: Soft, there is no tenderness, rigidity, rebound or guarding, no obvious peritoneal signs, no palpable pulsatile abdominal masses, no auscultated abdominal bruit : No CVAT Extremities: No edema Neuro: Alert and oriented x3, neuro exam at baseline, cranial nerves II through XII are intact. No pain with extraocular muscle movement. There is negative test of skew. Negative hints exam. 5 of 5 strength in upper and lower extremities in flexion extension. Intact sensation to light touch in upper and lower extremity dermatomes. No truncal or extremity ataxia. No dysdiadochokinesia. Normal gait. 2+ reflexes in upper and lower extremities. No meningeal signs. Negative Babinski. NIH of 0. Skin: No rash or lesions noted MEDICAL DECISION MAKING: Chief Complaint: Dizziness External records reviewed: Echocardiogram from March 2022 shows ejection fraction 65% Factors affecting care: Secondary AV block, small cell carcinoma, BPH, hypertension Social determinants of health: Elderly History obtained from others: The patient's son Consults: none MDM Narrative: The patient was initially hemodynamically stable, afebrile, nontoxic-appearing. Neuroexam nonfocal, negative hints exam, NIH of 0. I considered the following differential diagnosis: Posterior circulation CVA, dehydration, arrhythmia, ACS, anemia, peripheral vertigo ALL IMAGES (IF OBTAINED) HAVE BEEN PERSONALLY REVIEWED AND INTERPRETED BY MYSELF. EKG with atrial fibrillation, left ax deviation, occasional PVCs, normal normals, no STEMI CBC without leukocytosis, severe anemia, no thrombocytopenia. BMP without significant electrolyte abnormalities, no anion gap, noted CKD LFTs show no evidence of hepatobiliary pathology. High-sensitivity troponin is negative, no evidence of myocardial ischemia BNP Elevated consistent with increased ventricular stretch, no prior for comparison, no clinical exam findings of volume overload CT scan of brain shows no evidence of mass or bleed I have personally reviewed the patient's chest x-ray. Chest x-ray is unremarkable for pulmonary edema, pneumothorax, pneumonia or focal cardiopulmonary abnormality. The synthesis of the patient's history, physical exam, labs, images suggest no acute life-limiting etiology. He may be suffering from a medication adverse effect of Eliquis. Prompt him to follow with his PCP to change Eliquis to Xarelto to see if this resolves symptoms. No evidence of posterior circulation CVA at this time. I completed a structured, evidence-based clinical evaluation to screen for acute stroke and neurologic deficits in this patient. The patient has a normal detailed neurologic exam, which is highly sensitive for dangerous causes of dizziness, vertigo, or loss of balance. The evidence indicates that the patient is very low risk for an acute neurologic emergency and this is consistent with my clinical intuition. The risk of further workup or hospitalization is likely higher than the risk of the patient having a stroke or other dangerous neurologic condition. It is, therefore, in the patient?s best interest not to do additional emergent testing or to be hospitalized at this time. Shared Decision-Making I have discussed with the patient my clinical impression and the result of an evidence-based clinical evaluation to screen for stroke, as well as the risk of further testing and hospitalization. The evidence shows that the risk for stroke is less than 1%. Although the risk of stroke has not been completely eliminated, the risks of further testing or hospitalization likely exceed any potential benefit, and the patient agrees with not pursuing further emergent evaluation or hospitalization for stroke evaluation at this time. The patient and/or family, caregivers express understanding. The patient and/or family, caregivers agrees with the plan. Total critical care time today provided was at least 0 minutes. This excludes separately billable procedures. Critical care time (if documented) is secondary to the patient having high probability of clinically significant/life threatening deterioration in the patient's condition which required my urgent intervention. Impression: 1. Dizziness 2. History of atrial fibrillation 3. Long-term anticoagulation use 4. Elevated BNP Dispo: Discharge Lab Data Attestation: I reviewed the patient's lab results. Labs: Laboratory Results - last 24 hr 07/26/23 18:00 WBC 9.4 RBC 4.85 Hgb 14.9 Hct 46.1 MCV 95.1 H MCH 30.7 MCHC 32.3 RDW Std Deviation 49.3 H RDW Coeff of Jesse 14.0 Plt Count 189 MPV 9.7 Immature Gran % (Auto) 1.600 H Neut % (Auto) 70.4 H Lymph % (Auto) 17.7 L [place] % (Auto) 8.1 Eos % (Auto) 1.5 Baso % (Auto) 0.7 Absolute Neuts (auto) 6.6 Absolute Lymphs (auto) 1.66 Nucleated RBC % 0 Sodium 138 Potassium 4.4 Chloride 109 H Carbon Dioxide 25.0 Anion Gap 4 L BUN 25 H Creatinine 1.57 H Estim Creat Clear Calc 41.88 Est GFR (MDRD) Af Amer 55 L Est GFR (MDRD) Non-Af 46 L BUN/Creatinine Ratio 15.9 Glucose 136 H Calcium 9.5 Total Bilirubin 0.90 AST 21 ALT 30 Alkaline Phosphatase 66 Troponin I High Sens 18 B-Natriuretic Peptide 154.6 H Total Protein 6.9 Albumin 3.3 Globulin 3.6 Albumin/Globulin Ratio 0.9 Radiography Diagnostic Testing: Clinical Impression(s) from Imaging Studies Brain CT 07/26/23 18:55 IMPRESSION: There are no acute findings. Chronic involutional changes of the brain. Electronically Signed: John Araujo MD at 19:10 EST Reading Location ID and State: [facility] / [place] , Service support , Chest X-Ray 07/26/23 19:00 IMPRESSION: There are no acute findings. Electronically Signed: John Araujo MD at 19:15 EST , Discharge Plan Triage Chief Complaint: Dizziness ED Provider: Zac Banks Dx/Rx/DC Orders Instructions: ED Dizziness, Uncertain Cause Prescriptions: No Action levothyroxine 25 mcg tablet 25 mcg PO DAILY Patient Comments: TAKE 1 TABLET BY MOUTH ONCE DAILY spironolactone 25 mg tablet 25 mg PO DAILY Qty: 30 11RF gabapentin 100 mg capsule 100 mg PO QHS Patient Comments: TAKE 1 TABLET BY MOUTH DAILY AT BEDTIME pravastatin 40 MG tablet 40 mg PO QHS valsartan 160 MG tablet 160 mg PO QHS Patient Comments: heart tamsulosin 0.4 MG capsule 0.4 mg PO DAILY metoprolol succinate 25 MG tablet extended release 24 hr 25 mg PO DAILY finasteride 5 MG tablet 5 mg PO DAILY pantoprazole 40 MG tablet 40 mg PO DAILY Qty: 30 0RF sennosides-docusate sodium [Stool Softener-Laxative] 8.6-50 mg Tablet 2 tab-cap PO DAILY PRN (Reason: constipation) hydrocortisone 2.5 % ointment 1 applic TOPICAL BID Patient Comments: APPLY TO THE AFFECTED AREA(S) on the face TWICE DAILY NEEDED for 1-2 weeks after pdt Eliquis 5 mg tablet 5 mg PO BID Qty: 60 11RF Primary Care Provider: Garrett Hernandez Chi Referrals: Garrett Hernandez Chi, MD [Primary Care Provider] - Activity Restrictions/Additional Instructions: Thank you for trusting us with your care today! Please take Tylenol (2 pills, 650 mg) every 6 hours as needed for pain and fever control. Please return to the emergency department if your symptoms change or worsen. Please follow with your primary care physician for further outpatient evaluation and management. Disposition Disposition: Home, Self Care
[2023-07-26 18:40] VITALS: PULSE 77; RESP 32; O2SAT 100
[2023-07-26 18:45] VITALS: BP 135/85; PULSE 70; RESP 21; O2SAT 99
--- NOTE | 2023-07-26 18:46 | EKG12_ITS ---
Test Reason : DIZZY Blood Pressure : / mmHG Vent. Rate : 076 BPM Atrial Rate : 000 BPM P-R Int : 000 ms QRS Dur : 100 ms QT Int : 372 ms P-R-T Axes : 000 -41 030 degrees QTc Int : 418 ms Atrial fibrillation with premature ventricular or aberrantly conducted complexes Left axis deviation Abnormal ECG Confirmed by NADIA NORTON, NENITA ([id number]), news copy editor NAM LOPEZ ([id number]) on 08/04/2023 9:18:46 AM Referred By: Confirmed By:NENITA ZUNIGA MD
[2023-07-26 18:50] VITALS: O2SAT 99
--- NOTE | 2023-07-26 18:55 | CT_ITS ---
STUDY: CT BRAIN WITHOUT CONTRAST REASON FOR EXAM: Male, 78 years old. Dizziness Individualized dose optimization techniques were used for this CT. TECHNIQUE: Transaxial CT imaging of the brain was performed without administration of intravenous contrast material. COMPARISON: None FINDINGS: There are calcifications noted in the distal vertebral arteries. There are calcifications noted in the cavernous carotid arteries. This is consistent for atherosclerotic disease. Normal calvarium. Normal soft tissues. There is mild cerebral atrophy with widening of the extra-axial spaces and ventricular dilatation. There are areas of decreased attenuation within the white matter tracts of the supratentorial brain, consistent with microvascular disease changes. Normal basal ganglia and thalami. Normal brainstem. There is mild cerebellar atrophy. There is no intracranial hemorrhage. There are no findings of an acute ischemic infarction. There is sinus disease. ASPECTS Score for Acute Strokes: 05/12 CT/Brain/Head without Contrast IMPRESSION: There are no acute findings. Chronic involutional changes of the brain. Electronically Signed: John Araujo MD at 19:10 EST ,
[2023-07-26 18:56] LABS: Absolute Lymphocyte Count 1.66 X10^3/uL (0.83-4.51); Absolute Neutrophil Count 6.6 X10^3/uL (2.0-7.7); Basophil# 0.07 X10^3/uL; Basophil% 0.7 % (0-1); Eosinophil# 0.14 X10^3/uL; Eosinophils% 1.5 % (0-5); Hematocrit 46.1 % (40-54); Hemoglobin 14.9 g/dL (13.0-16.5); Lymphocyte # 1.66 X10^3/ul (0.83-4.51); Lymphocyte % 17.7 % (19-41); Mean Corp Hgb Conc 32.3 g/dL (32-36); Mean Corpuscular Hgb 30.7 pg (27.0-32.0); Mean Corpuscular Volume 95.1 fL (80-94); Mean Platelet Vol. 9.7 fl (6.2-12.0); Monocyte# 0.76 X10^3/uL; Monocyte% 8.1 % (0-10); NRBC Flagged by Analyzer 0 % (0-5); Neutrophil # 6.59 X10^3/uL (2.7-7.7); Neutrophil % 70.4 % (47-70); Platelet Count 189 K/mm3 (150-450); RBC Distribution Width SD 49.3 fl (35.1-43.9); Red Blood Count 4.85 M/mm3 (4.6-6.2); White Blood Count 9.4 K/mm3 (4.4-11.0)
--- NOTE | 2023-07-26 19:00 | RAD_ITS ---
STUDY: XR Chest 1 View 07/26/2023 6:53 PM REASON FOR EXAM: Male, 78 years old. Dizziness COMPARISON: 02/04/2023 TECHNIQUE: XR Chest 1 View FINDINGS: There is no demonstrated pleural abnormality. Normal heart size. Normal mediastinum. Normal vlad. Prominent appearing increased interstitial lung markings. Normal visualized pulmonary arteries. There is atherosclerotic calcification of the aortic arch with tortuosity. There are diffuse degenerative changes of the visualized thoracic spine. There is degenerative osteoarthritis of the bilateral shoulders. There are no acute findings of the upper abdomen. RAD/Chest 1 View (Portable) IMPRESSION: There are no acute findings. Electronically Signed: John Araujo MD at 19:15 EST ,
[2023-07-26 19:16] LABS: ALB/GLOB Ratio 0.9 RATIO (0.9-2.4); AST(SGOT) 21 U/L (15-37); Alanine Aminotransfer ALT/SGPT 30 U/L (16-61); Albumin, Serum 3.3 g/dL (3.2-5.0); Alkaline Phosphatase 66 U/L (45-117); Anion Gap 4 (5-15); BUN 25 mg/dL (7-18); BUN/Creat Ratio 15.9 RATIO (10-20); Calcium,Total 9.5 mg/dL (8.5-10.1); Chloride 109 mmol/L (98-107); Creatinine, Serum 1.57 mg/dL (0.70-1.30); EST Glomerular Filtration Rate 46 mL/min (>60); Est Glom Filt Rate - Afr Amer 55 mL/min (>60); Estimated Creatinine Clearance 41.88 ml/min; Globulin 3.6 g/dL (2.2-4.2); Glucose 136 mg/dL (74-106); Potassium 4.4 mmol/L (3.5-5.1); Protein, Total 6.9 g/dL (6.4-8.2); Sodium Level 138 mmol/L (136-145); Troponin-I HS 18 pg/mL (3.0-78.0)
[2023-07-26 19:17] LABS: BNP,B-Type NATRIURETIC PEPTIDE 154.6 pg/mL (0-100)
[2023-07-26 20:00] VITALS: BP 159/75; PULSE 78; RESP 13; O2SAT 96
== END 2023-07-26 19:35 | disposition home or self-care (01) ==
PROVIDERS: Emergency Provider Emergency Medicine; PCP Family Medicine Geriatric Medicine; Visit Provider Emergency Medicine
DX: R42 Dizziness and giddiness (principal); I48.91 Unspecified atrial fibrillation; I10 Essential (primary) hypertension; E78.00 Pure hypercholesterolemia, unspecified; K21.9 Gastro-esophageal reflux disease without esophagitis; Z79.01 Long term (current) use of anticoagulants; Z79.899 Other long term (current) drug therapy; Z87.891 Personal history of nicotine dependence
CPT/HCPCS: 70450; 71045; 80053; 83880; 84484; 85025; 93005; 99284; A4216

== ENCOUNTER → 2023-08-26 | Outpatient (CLI) | payer MEDICARE, BC, SELFPAY ==
[2017-09-24 10:04] VITALS: BMI 31.2
[2023-08-26 11:07] LABS: Hematocrit 45.5 % (40-54); Mean Corpuscular Hgb 30.9 pg (27.0-32.0); Mean Corpuscular Volume 93.8 fL (80-94); Mean Platelet Vol. 9.1 fl (6.2-12.0); Platelet Count 159 K/mm3 (150-450); RBC Distribution Width CV 13.9 % (11.6-14.6); RBC Distribution Width SD 47.8 fl (35.1-43.9); Red Blood Count 4.85 M/mm3 (4.6-6.2); White Blood Count 11.1 K/mm3 (4.4-11.0)
[2023-08-26 11:39] LABS: BNP,B-Type NATRIURETIC PEPTIDE 172.8 pg/mL (0-100)
[2023-08-26 13:01] LABS: Anion Gap 4 (5-15); BUN 20 mg/dL (7-18); BUN/Creat Ratio 14.2 RATIO (10-20); Calcium,Total 9.4 mg/dL (8.5-10.1); Chloride 109 mmol/L (98-107); Creatinine, Serum 1.41 mg/dL (0.70-1.30); EST Glomerular Filtration Rate 52 mL/min (>60); Est Glom Filt Rate - Afr Amer 62 mL/min (>60); Glucose 121 mg/dL (74-106); Potassium 4.5 mmol/L (3.5-5.1); Sodium Level 136 mmol/L (136-145); Thyroid Stim Hormone (TSH) 2.21 uIU/mL (0.358-3.74)
== END | disposition home or self-care (01) ==
LOC: LAB 10:35
PROVIDERS: PCP Family Medicine Geriatric Medicine; Referring Provider Nurse Practitioner Family; Visit Provider Nurse Practitioner Family
DX: R42 Dizziness and giddiness (principal); I50.42 Chronic combined systolic (congestive) and diastolic (congestive) heart failure; R79.89 Other specified abnormal findings of blood chemistry; Z79.01 Long term (current) use of anticoagulants; Z51.81 Encounter for therapeutic drug level monitoring
CPT/HCPCS: 36415; 80048; 83880; 84443; 85027

== ENCOUNTER → 2023-10-01 | Outpatient (CLI) | payer MEDICARE, BC, SELFPAY ==
[2017-09-24 10:04] VITALS: BMI 31.2
== END | disposition home or self-care (01) ==
PROVIDERS: PCP Family Medicine Geriatric Medicine; Referring Provider Family Medicine Geriatric Medicine; Visit Provider Family Medicine Geriatric Medicine
DX: R68.83 Chills (without fever) (principal)
CPT/HCPCS: 87631

== ENCOUNTER 2023-10-15 10:11 | Emergency (ER) | payer MEDICARE, BC, SELFPAY ==
[2017-09-24 10:04] VITALS: BMI 31.2
[2023-10-15 10:13] VITALS: BP 103/89; PULSE 69; RESP 14; TEMP 36.3; O2SAT 99
[2023-10-15 10:57] VITALS: BMI 30.9
[2023-10-15] MEDS: Mixture 30 ML Bottle 10 ML TOPICAL (11:23)
--- NOTE | 2023-10-15 11:52 | EDS_ITS ---
HPI <PAT Marino - Last Filed: 10/15/23 15:45> History of Present Illness Chief Complaint: Nosebleed Narrative Narrative: Patient presenting today with a nosebleed that started around 8:30 AM this morning. He reports that he bent over to pick something up and the nosebleed started suddenly. He has been dealing with allergies recently and blowing his nose more often. He is on Xarelto for history of atrial fibrillation. He denies any history of nosebleeds or trauma to his nose. 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 Mobitz type 1 second degree atrioventricular block New onset atrial fibrillation Premature atrial contraction Premature ventricular contraction Segmental and somatic dysfunction of pelvic region Thyroid disease Wears glasses Home Medications pravastatin 40 mg tablet 40 mg PO QHS Cholesterol 12/08/16 [History Last Taken 02/04/23] valsartan 160 mg tablet 160 mg PO QHS BP 12/08/16 [History Last Taken 10/08/21] tamsulosin 0.4 mg capsule 0.4 mg PO DAILY Prostate 12/10/16 [History Last Taken 11/01/18] finasteride 5 mg tablet 5 mg PO DAILY prostate 11/01/18 [History Last Taken 10/31/18] metoprolol succinate 25 mg tablet,extended release 24 hr 25 mg PO DAILY HEART 11/01/18 [History Last Taken 02/04/23] pantoprazole 40 mg tablet,delayed release 40 mg PO DAILY GERD #30 tabs 11/02/18 [Rx Last Taken 10/08/21] levothyroxine 25 mcg tablet 25 mcg PO DAILY hypothyroidism 08/30/21 [History Last Taken 02/04/23] sennosides 8.6 mg-docusate sodium 50 mg tablet (Stool Softener-Laxative) 2 tab- cap PO DAILY PRN constipation 09/24/21 [History Last Taken Unknown] gabapentin 100 mg capsule 100 mg PO QHS nerve pain 07/03/23 [History Last Taken Unknown] hydrocortisone 2.5 % topical ointment 1 applic topical BID SKIN CANCER 07/26/23 [History Last Taken Unknown] rivaroxaban 20 mg tablet (Xarelto) 15 mg PO QPM 08/26/23 [History Last Taken Unknown] spironolactone 25 mg tablet 12.5 mg (1/2 x 25 mg) PO DAILY HTN #30 tabs 08/28/23 [Rx Last Taken Unknown] Allergy/AdvReac Type Severity Reaction Status Date / Time oxycodone [From OxyContin] AdvReac Severe lethargic-s Verified 10/15/23 10:13 leepy Family History Grandmother Uterine cancer Father Cancer Grandfather Heart disease Uncle Cancer Aunt Heart valve disease Surgical History History of back surgery History of ERCP Hx of cholecystectomy Hx of tonsillectomy Knee joint replacement status Social History Smoking Status: Former smoker quit date: 08/03/65 alcohol intake: current alcohol intake frequency: holidays/special occasions only substance use type: does not use caffeine: Yes Type: carbonated beverages ROS <PAT Marino - Last Filed: 10/15/23 15:45> ROS ED Constitutional Constitutional ED: Denies chills or fever(s) ENT ENT ED: Reports epistaxis Cardiovascular Cardiovascular: Denies chest pain Respiratory/Chest Respiratory/Chest: Denies cough or dyspnea Gastrointestinal Gastrointestinal: Denies abdominal pain, nausea or vomiting Musculoskeletal Musculoskeletal: Denies arthralgias or myalgias Integumentary Denies Abrasions Neurologic Neurologic: Denies headache(s) or weakness Hematologic/Lymphatic Hematologic/Lymphatic: Reports easy bleeding <Dr. Zac Banks DO - Last Filed: 10/15/23 21:32> ROS ED Cardiovascular Cardiovascular: Denies palpitations EXAM <PAT Marino - Last Filed: 10/15/23 15:45> Physical Exam Const Vital Signs: 10/15/23 10:13 10/15/23 12:12 10/15/23 13:52 Temperature 97.3 F L Temperature Source Temporal Pulse Rate 69 55 L 50 L Respiratory Rate 14 16 17 Blood Pressure 103/89 H 158/75 H 154/87 H Blood Pressure Mean 93 102 109 Pulse Ox 99 99 98 Oxygen Delivery Method Room Air Room Air Room Air 10/15/23 14:43 Temperature 97.4 F L Temperature Source Pulse Rate 59 L Respiratory Rate 16 Blood Pressure 155/94 H Blood Pressure Mean 114 Pulse Ox 98 Oxygen Delivery Method Positive well nourished, well developed and no apparent distress General Appearance ED: well developed HEENT Reports normocephalic and head/scalp atraumatic HEENT Narrative: Right anterior epistaxis, no septal hematoma, no septal deviation, no blood in the posterior pharynx Mouth ED: Yes moist mucous membranes normal Eyes PERRL and EOMs intact bilaterally Neck full ROM and supple Chest Wall inspection of chest normal Resp normal respiratory effort and clear to auscultation bilaterally Cardio regular rate and regular rhythm GI soft to palpation, non-tender, non-distended and no masses Back/Spine normal ROM and normal to inspection Extremity normal to inspection and full ROM Neuro oriented x3, CN's II-XII intact bilaterally, moves all extremities, no focal motor deficits and no sensory deficits noted Sensorium / Orientation: awake and alert Psych mental status grossly normal and thought process normal Skin no rashes or lesions noted and no wounds <Dr. Zac Banks DO - Last Filed: 10/15/23 21:32> Physical Exam Const Vital Signs: 10/15/23 10:13 10/15/23 12:12 10/15/23 13:52 Temperature 97.3 F L Temperature Source Temporal Pulse Rate 69 55 L 50 L Respiratory Rate 14 16 17 Blood Pressure 103/89 H 158/75 H 154/87 H Blood Pressure Mean 93 102 109 Pulse Ox 99 99 98 Oxygen Delivery Method Room Air Room Air Room Air 10/15/23 14:43 Temperature 97.4 F L Temperature Source Pulse Rate 59 L Respiratory Rate 16 Blood Pressure 155/94 H Blood Pressure Mean 114 Pulse Ox 98 Oxygen Delivery Method MDM <PAT Marino - Last Filed: 10/15/23 15:45> MDM MDM Narrative Medical decision making narrative: Patient presenting today due to right anterior epistaxis that started around 8:30 AM this morning. He is on Xarelto due to A-fib. Well-appearing and in no acute distress. No trauma to his nose. He does have bleeding to Kiesselbach's plexus on the right side. I had patient remove the nasal clamp and forcefully blow his nose to remove any clots, I then inserted a cottonball that was saturated with travon's mix into the right nostril with the clamp over top. This was left in place for about 30-40 minutes. After removing the cottonball, there is no active bleeding. Patient was observed for about 20 minutes and reexamined. There is a very small amount of bleeding to the area seen with nasal speculum, however it is not oozing out of patient's nose. Another cottonball was placed soaked in the solution and on reexamination there is no active bleeding. Given there is no active bleeding, I do not feel that a Rhino Rocket was necessary. We did discuss placing another cottonball with solution in the nostril and leaving it in place for about 5 hours and having patient r emove it at home, patient is comfortable with this plan. I will give him an ENT referral. He will be discharged home in stable condition and is comfortable with plan. <Dr. Zac Banks, DO - Last Filed: 10/15/23 21:32> [facility] Narrative Medical decision making narrative: Patient presenting today due to right anterior epistaxis that started around 8:30 AM this morning. He is on Xarelto due to A-fib. Well-appearing and in no acute distress. No trauma to his nose. He does have bleeding to Kiesselbach's plexus on the right side. I had patient remove the nasal clamp and forcefully blow his nose to remove any clots, I then inserted a cottonball that was saturated with travon's mix into the right nostril with the clamp over top. This was left in place for about 30-40 minutes. After removing the cottonball, there is no active bleeding. Patient was observed for about 20 minutes and reexamined. There is a very small amount of bleeding to the area seen with nasal speculum, however it is not oozing out of patient's nose. Another cottonball was placed soaked in the solution and on reexamination there is no active bleeding. Given there is no active bleeding, I do not feel that a Rhino Rocket was necessary. We did discuss placing another cottonball with solution in the nostril and leaving it in place for about 5 hours and having patient remove it at home, patient is comfortable with this plan. I will give him an ENT referral. He will be discharged home in stable condition and is comfortable with plan. ED attending note: I evaluated the patient in conjunction with the ROSS. I agree with his/her statements and above findings. I have personally performed a face to face assessment of the patient and have reviewed the ROSS Note. I performed a substantive portion of the visit including all aspects of the following. I personally saw the patient performed chart review, physical exam, reviewed labs, imaging (if obtained), and formulated a treatment and management plan. This note was generated with [employer] dictation software. It may contain incorrect words, spelling, and punctuation that were not noted in review of the chart prior to signing. Discharge Plan Triage Chief Complaint: Nosebleed ED Midlevel Provider: Yeni Washington ED Provider: Zac Banks Dx/Rx/DC Orders Clinical Impression: Anterior epistaxis Instructions: ED Epistaxis (Adult) Prescriptions: No Action levothyroxine 25 mcg tablet 25 mcg PO DAILY Patient Comments: TAKE 1 TABLET BY MOUTH ONCE DAILY gabapentin 100 mg capsule 100 mg PO QHS Patient Comments: TAKE 1 TABLET BY MOUTH DAILY AT BEDTIME pravastatin 40 MG tablet 40 mg PO QHS valsartan 160 MG tablet 160 mg PO QHS Patient Comments: heart tamsulosin 0.4 MG capsule 0.4 mg PO DAILY metoprolol succinate 25 MG tablet extended release 24 hr 25 mg PO DAILY finasteride 5 MG tablet 5 mg PO DAILY pantoprazole 40 MG tablet 40 mg PO DAILY Qty: 30 0RF sennosides-docusate sodium [Stool Softener-Laxative] 8.6-50 mg Tablet 2 tab-cap PO DAILY PRN (Reason: constipation) hydrocortisone 2.5 % ointment 1 applic TOPICAL BID Patient Comments: APPLY TO THE AFFECTED AREA(S) on the face TWICE DAILY NEEDED for 1-2 weeks after pdt Xarelto 20 mg tablet 15 mg PO QPM Rx Instructions: must administer with evening meal spironolactone 25 mg tablet 12.5 mg PO DAILY Qty: 30 11RF Primary Care Provider: Garrett Hernandez Chi Referrals: Jay Garcia MD [Med Staff - Active Staff] - 3-5 Days Garrett Hernandez Chi, MD [Primary Care Provider] - Activity Restrictions/Additional Instructions: Follow-up with ENT and return for any worsening of your symptoms. Disposition Disposition: Home, Self Care Discharge Date/Time: 10/15/23 14:49
[2023-10-15 12:12] VITALS: BP 158/75; PULSE 55; RESP 16; O2SAT 99
[2023-10-15 13:52] VITALS: BP 154/87; PULSE 50; RESP 17; O2SAT 98
[2023-10-15 14:43] VITALS: BP 155/94; PULSE 59; RESP 16; TEMP 36.3; O2SAT 98
--- OUTSIDE RECORDS SUMMARY | 2023-10-15 20:22 | XMS RPT_ITS | CCD ---
Author Name Unknown Address [address] [place] [address] Organization [facility] Care Team Providers Care Merchandise Flow Team Member Name Role Phone Yoseph, Pritesh Chi Primary Care Provider Yoseph NORTON, Pritesh-Chi Primary Care Provider Adithya NORTON, Ana Unavailable Selena NORTON, Ihab O Unavailable Lavelle NORTON, Elliot F Unavailable Yoseph NORTON, Pritesh-Chi Primary Care Provider [phone] Adithya NORTON, Ana Unavailable Selena NORTON, Ihab O Unavailable Lavelle NORTON, Elliot F Unavailable Yoseph, Pritesh Chi Primary Care Provider Yoseph NORTON, Pritesh-Chi Primary Care Provider Adithya NORTON, Ana Unavailable Selena NORTON, Ihab Unavailable Lavelle NORTON, Elliot F Unavailable YOSEPH, PRITESH-CHI Primary Care Unavailable ELLIOT VALDERRAMA Referring Unavailab le ELLIOT VALDERRAMA Attending Unavailab ELLIOT Ramirez Attending Unavailab le YOSEPH, PRITESH-CHI Referring Unavailable YOSEPH, PRITESH-CHI Primary Care Unavailable ELLIOT VALDERRAMA Attending Unavailab le YOSEPH, PRITESH-CHI Referring Unavailable YOSEPH, PRITESH-CHI Primary Care Unavailable YOSEPH, PRITESH-CHI Primary Care Unavailable ELLIOT VALDERRAMA Attending Unavailab le YOSEPH, PRITESH-CHI Referring Unavailable NG, ANA Referring Unavailable YOSEPH, PRITESH CHI Primary Care Unavailable TIARA BRANCH Attending Unavailable ANA HAJI Attending Unavailable YOSEPH, PRITESH CHI Primary Care Unavailable ANA HAJI Attending Unavailable YOSEPH, PRITESH CHI Primary Care Unavailable ANA HAJI Attending Unavailable YOSEPH, PRITESH CHI Primary Care Unavailable Allergies Allergy Classification Reported Allergen(s) Allergy Type Date of Onset Reaction(s) Facility (11 sources) oxyCODONE; Translations: [OXYCODONE HCL] Drug Allergy 09-04-2005 GI Upset [facility] (6 sources) oxyCODONE Drug Allergy 01-12-2017 Nausea Only [facility] (6 sources) Seasonal allergy Propensity to adverse reactions to drug 01-12-2017 [facility] Work Phone: Medications Current Medications Medication Drug Class(es) Dates Sig (Normalized) Sig (Original) docusate sodium 50 mg / sennosides, mcfp 8.6 mg oral tablet (6 sources) Start: 09-14-2019 take 8.6-50 mg by mouth once SM Stool Softener 8.6-50 MG per tablet Take 2 tablets by mouth 2 times daily. 0 09/14/2019 Active hydrocortisone 0.025 mg/mg topical ointment (12 sources) Corticosteroid Start: 10-12-2023 hydrocortisone 2.5 % ointment Indications: Skin erosion Apply to affected area on upper lip two times daily as needed. Use 2 weeks on 1 week off 30 g 0 10/12/2023 Active Completed/Discontinued Medications Medication Drug Class(es) Dates Sig (Normalized) Sig (Original) aminolevulinate 200 mg/ml topical solution (5 sources) Start: 06-16-2023 End: 06-16-2023 Aminolevulinic Acid HCl 20 % soln 3 Each apixaban 5 mg oral tablet (7 sources) Factor Xa Inhibitor Start: 03-03-2023 take 1 tablet by mouth every twelve hours ELIQUIS 5 mg tab(s) Take 1 tablet by mouth every 12 (twelve) hours. 0 03/03/2023 Active Problems Active Problems Problem Classification Problem Date Documented Da te Episodic/Chronic Cardiac dysrhythmias (8 sources) Atrial arrhythmia; Translations: [Other specified cardiac arrhythmias] Onset: 02-14-2022 Chronic Diabetes mellitus without complication (3 sources) Prediabetes; Translations: [Prediabetes] Onset: 06-11-2023 Episodic Disorders of lipid metabolism (10 sources) Mixed hyperlipidemia; Translations: [Mixed hyperlipidemia] 09-05-2005 Chronic Essential hypertension (18 sources) Essential hypertension; Translations: [Essential (primary) hypertension] Onset: 06-17-2018 09-05-2005 Chronic Joint disorders and dislocations; trauma-related (10 sources) Derangement of knee; Translations: [Unspecified internal derangement of unspecified knee] Onset: 09-05-2005 09-05-2005 Chronic Neoplasms of unspecified nature or uncertain behavior (1 source) Neoplastic disease; Translations: [Neoplasm of unspecified behavior of bone, soft tissue, and skin] 04-14-2023 Episodic Osteoarthritis (10 sources) Osteoarthritis; Translations: [Unspecified osteoarthritis, unspecified site] 09-05-2005 Chronic Other and unspecified benign neoplasm (2 sources) Senile angioma; Translations: [Hemangioma of skin and subcutaneous tissue] 04-14-2023 Episodic Other and unspecified benign neoplasm (2 sources) Multiple benign melanocytic nevi ; Translations: [Melanocytic nevi, unspecified] 04-14-2023 Episodic Other diseases of veins and lymphatics (7 sources) Lymphedema of right upper limb; Translations: [Lymphedema, not elsewhere classified] Onset: 12-31-2017 Chronic Other non-epithelial cancer of skin (17 sources) [place] cell carcinoma; Translations: [[place] cell carcinoma, unspecified] Onset: 10-14-2017 Chronic Other non-epithelial cancer of skin (20 sources) History of malignant neoplasm of skin excluding melanoma; Translations: [Personal history of other malignant neoplasm of skin] Onset: 12-12-2014 Episodic Other nutritional; endocrine; and metabolic disorders (7 sources) Obese class I; Translations: [Obesity, unspecified] Onset: 01-12-2017 Chronic Other screening for suspected conditions (not mental disorders or infectious disease) (11 sources) Abnormal cytology findings; Translations: [Abnormal cytological findings in specimens from other organs, systems and tissues] Onset: 10-11-2018 Resolved: 04-07-2019 04-07-2019 Episodic Other skin disorders (15 sources) Actinic keratosis; Translations: [Actinic keratosis] Onset: 12-12-2014 Episodic Other skin disorders (3 sources) Seborrheic keratosis; Translations: [Other seborrheic keratosis] Episodic Other skin disorders (2 sources) Lentiginosis; Translations: [Other melanin hyperpigmentation] Episodic Other skin disorders (1 source) Superficial ulcer of skin; Translations: [Disorder of the skin and subcutaneous tissue, unspecified] 10-12-2023 Episodic Residual codes; unclassified (13 sources) History of atypical nevus; Translations: [Personal history of other specified conditions] Onset: 12-12-2014 Episodic Spondylosis; intervertebral disc disorders; other back problems (6 sources) Arthritis of spine; Translations: [Spondylosis, unspecified] Onset: 11-13-2022 11-13-2022 Chronic Unclassified (10 sources) PMH - PAST MEDICAL HISTORY OF 09-05-2005 Past or Other Problems Problem Classification Problem Date Documented Date Episodic/Chronic Biliary tract disease (6 sources) Cholecystitis; Translations: [Cholecystitis, unspecified] Onset: 09-04-2018 Resolved: 10-07-2018 10-07-2018 Episodic Diseases of mouth; excluding dental (10 sources) Cheilitis; Translations: [Diseases of lips] Onset: 08-06-2012 08-06-2012 Episodic Maintenance chemotherapy; radiotherapy (6 sources) Patient encounter status; Translations: [Encounter for antineoplastic immunotherapy] Onset: 11-03-2017 Resolved: 08-11-2019 08-11-2019 Chronic Mood disorders (6 sources) Mood disorders Onset: 02-14-2022 Resolved: 06-11-2023 02-14-2022 Other connective tissue disease (10 sources) Digital mucous cyst; Translations: [Ganglion, unspecified hand] Onset: 09-27-2013 09-27-2013 Episodic Other skin disorders (10 sources) Epidermoid cyst; Translations: [Epidermal cyst] Onset: 10-19-2013 10-19-2013 Episodic Other skin disorders (1 source) Actinic keratosis; Translations: [AK (actinic keratosis)] Onset: 06-16-2023 Episodic Residual codes; unclassified (12 sources) Past history of procedure; Translations: [Other specified postprocedural states] Onset: 09-09-2018 Resolved: 04-07-2019 10-07-2018 Episodic Results Test Name Value Interpretation Reference Range Facil ity Vital Signs Date Time Vital Sign Value Performing Clinician Faci lity 06-11-2023 11:36-0500 Body height 182.9 cm Elliot Valderrama MD Work Phone: [facility] 06-11-2023 11:36-0500 Body mass index (BMI) [Ratio] 31.23 kg/m2 Elliot Valderrama MD Work Phone: [facility] 06-11-2023 11:36-0500 Body temperature 98.6 [degF] Elliot Valderrama MD Work Phone: [facility] 06-11-2023 11:36-0500 Body weight 104.46 kg Elliot Valderrama MD Work Phone: [facility] 06-11-2023 11:36-0500 Diastolic blood pressure 140 mm[Hg] Elliot Valderrama MD Work Phone: [facility] Encounters Encounter Date Encounter Type Care Provider Facility Start: 10-12-2023 End: 10-12-2023 ambulatory ANA HAJI Facility:[facility] Start: 10-12-2023 End: 10-12-2023 Patient encounter procedure Ana Haji MD Work Phone: Dermatology Procedures Date Procedure Procedure Detail Performing Clinician Start: 11-13-2022 CBC AND ELECTRONIC DIFF Elliot angel MD Work Phone: Start: 11-13-2022 Complete blood count with white cell differential, automated Elliot Valderrama MD Work Phone: Start: 11-13-2022 Comprehensive metabolic panel Elliot mcdonough MD Work Phone: Start: 05-15-2022 CBC AND ELECTRONIC DIFF Arpita Mortensen PRN-FI[employer] CREW WORKER Work Phone: Start: 05-15-2022 Complete blood count with white cell differential, automated Arpita Zhu 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 Work Phone: Start: 05-15-2022 Comprehensive metabolic panel Arpita C H miriam 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 Work Phone: Start: 02-14-2022 Electrocardiogram Other Other Start: 07-02-2019 Adult depression screening assessment Ana Haji MD Work Phone: Plan of Treatment Date Care Activity Detail Author Start: 09-30-2027 Tetanus vaccination TETANUS [facility] Start: 09-30-2027 Urine microalbumin profile [facility] Start: 06-11-2026 Diabetes Screening Diabetes Screenin g [facility] Start: 08-03-2023 Advance Directive Discussion Advance Directive Discussion [facility] Start: 08-03-2023 Depression Assessment Depression Ass essment [facility] Start: 05-28-2023 End: 11-14-2023 Complete blood count with white cell differential, automated CBC, EDIF, PLATELET Lab Routine 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 Expected: 05/28/2023, Expires: 11/14/2023 [facility] Immunizations Immunization Date Immunization Notes Care Provider Fa cility 05-09-2021 influenza virus vaccine, unspecified formulation Elliot Valderrama MD Work Phone: [facility] 09-30-2017 tetanus toxoid, reduced diphtheria toxoid, and acellular pertussis vaccine, adsorbed Ana Haji MD Work Phone: [facility] Payers Date Payer Category Payer Unknown [employer] [place] DICARE SUPPLEMENT [id number] 2021-Present [phone] [address] [place] [address] Indemnity [id number] 2021 Unknown [id number] 2021 Unknown [id number] 2009 Medicare MEDICARE MEDICAR E A AND B [id number] 2009-Present [phone] [place] [address] Medicare [id number] 2009 Medicare [id number] 2009 Medicare [id number] 1945 Unknown [id number] 1945 Unknown [id number] 1944 Unknown [id number] 1945 Unknown [id number] Social History Date Type Detail Facility Start: 01-01-2017 End: 06-16-2023 Tobacco smoking status NHIS Ex-smoker [facility] Start: 07-02-2019 End: 06-19-2023 Alcohol intake Current drinker of alcohol (finding) [facility] Start: 07-02-2019 History SDOH Alcohol Comment monthly use [facility] Start: 12-20-2012 End: 06-16-2023 Tobacco Comment quit in the late after smoking on and off 15 years [facility] Start: 1945 Sex Assigned At Not on file [facility] Start: 01-01-1962 End: 01-01-1975 History of tobacco use Current smoker [facility] Start: 01-01-1962 End: 01-01-1975 History of tobacco use Cigarette Smoker [facility] Start: 01-01-1962 End: 01-01-1975 History of tobacco use Pipe Smoker [facility] Start: 01-01-2017 End: 04-14-2023 Cigarettes smoked current (pack per day) - Reported 0.2 [facility] Start: 01-01-2017 End: 06-16-2023 Tobacco use and exposure Smokeless tobacco non-user [facility] Start: 03-15-2020 History SDOH Alcohol Frequency 2 [facility] Start: 07-02-2019 End: 04-14-2023 Tobacco use panel [facility] PHQ2 Score 0 [facility] How often to you hav e a drink containing alcohol? Monthly or less [facility] Gender identity Identifies as ma le gender (finding) [facility] Goals Date Patient Goal Desired Activity /State Personal health goal Clinical Notes 02-01-2015 to 10-12-2023 Patient InstructionsAna Haji MD - 10/12/2023 7:44 AM EDTTelephone Encounter - Ana Haji MD - 07/02/2023 6:08 PM ESTTelephone Encounter - Sharon Sales Ma - 06/15/2023 9:46 AM EST Note Date & Type Note Facility 10-12-2023 Note HNO ID: [id number] Author: ANA HAJI MD Service: ? Author Type: Physician Type: Progress Notes Filed: 10/12/2023 08:19 Note Text: CHIEF COMPLAINT: 1. Routine skin exam - HX Harinder cell carcinoma, BCC, SCC 2. Erosions upper cutaneous lip DERMATOLOGY CLINIC HISTORY: James Goins is a 78 year old male who presents for 1. Routine skin exam - HX [place] cell carcinoma, BCC, SCC 2. Patient had erosions on upper cutaneous lip after using Efudex 05/2023. Patient thought he was shaving over the area. Sores have not healed. Patient shaves every 2 to 4 days. 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 with removal of numerous lymph nodes and XRT -recurrence of of Harinder cell in right tonsil, excised 10/2017 -completed avelumab (Bavencio) at [facility] 11/06/17 - 10/25/2018 INFILTRATIVE BASAL CELL CA on right upper chest 04/2003 SUPERFICIAL BASAL CELL CA on left low medial scapula back 08/2003 SUPERFICIAL BASAL CELL CA on the right low medial scapula back 08/2013 NODULAR BASAL CELL CA on back 05/2006 NODULAR BASAL CELL CA on left outer shoulder 10/2006 NODULAR BASAL CELL CA left of midline of upper lip 10/2012 INFILTRATIVE BASAL CELL CA on left upper lip 10/2012 NODULAR BASAL CELL CA on right upper lip 10/2012 INFILTRATIVE BASAL CELL CA on left posterior shoulder s/p MOHS 09/2014 SQUAMOUS CELL CA in situ on right antihelix s/p MOHS 09/2014 SQUAMOUS CELL CA in situ on right preauricular s/p MOHS 01/2015 NODULAR BASAL CELL CA on right conchal bowl 01/16 s/p MOHS 03/2016 NODULAR BASAL CELL CA on left medial canthus 04/18 s/p MOHS 08/2016 SQUAMOUS CELL CA on right central upper back 01/2018 excised 04/2018 NODULAR BASAL CELL CA on right nasal bridge 08/2018 s/p MOHS 12/2018 SQUAMOUS CELL CA in situ on right lateral neck 08/2018 s/p MOHS 12/2018 SQUAMOUS CELL CA in situ on right lateral cheek 12/2018 s/p MOHS 12/2018 s/p MOHS 02/17/19 INVASIVE SQUAMOUS CELL CA on left forehead 02/15/20 s/p MOHS 03/2020 SUPERFICIAL BASAL CELL CA on left upper back 08/05/2021 treated with efudex NODULAR BASAL CELL CA on left upper arm 04/14/2023 treated with EDC 06/18/[address] Branch ATYPICAL NEVUS (mild-mod) on left lateral mid lower back shave biopsy 11/2008 actinic keratosis -efudex to face [address] Ling -PDT with blue light to face and ears 03/2015 -Efudex cream to bilateral eyebrows and cheeks below the eyelid x 7-10 days 06/2016 -PDT with red light done on face and ears 06/2016 -Efudex to hands 05/2017 -PDT with red light done on face and ears 05/2017 -Efudex cream to forehead and temples 09/2017 -Efudex cream to right cheek near lateral canthus 01/2019 PDT with red light to face and ears and upper lip 05/2019 -* denies HSV -Efudex to forehead, temples, lateral cheeks and ears 08/2020. He was only able to use it for 5 days. -Efudex cream twice daily to forehead, temples, ears and lateral cheeks 04/2021 -efudex to upper lip 08/2021 -Efudex to left hand and forearm 10/2022 -Efudex to upper cutaneous lip 05/2023 -PDT with bluelight to face, ears and neck 06/16/23 solar lentigines seborrheic keratosis capillary hemangiomas benign melanocytic nevi Chronic plaque-type psoriasis - triamcinolone 0.1% cream SKIN, UPPER BACK NEAR MIDLINE, SHAVE BIOPSY - LICHENOID KERATOSIS, COMPATIBLE WITH AN ACTINIC LICHENOID KERATOSIS 01/2003 Skin, right axilla, punch biopsy - Mature adipose tissue, compatible with lipoma. 04/2016 Skin, right lateral cheek, shave biopsy - Inflamed verruca vulgaris. 05/2019 Skin, right posterior shoulder, shave biopsy - Lichenoid actinic keratosis. 08/15/20 PAST MEDICAL HISTORY: PAST MEDICAL HISTORY Diagnosis Date Cancer (HCC) Mixed hyperlipidemia Hyperlipidemia Osteoarthrosis, unspecified whether generalized or localized, other specified sites Osteoarthritis RIGHT KNEE Personal history of unspecified urinary disorder PMH - PAST MEDICAL HISTORY OF low grade chronic prostate Preop exam for internal medicine Unspecified essential hypertension Essential hypertension ACTIVE PROBLEM LIST Unspecified Essential Hypertension Mixed Hyperlipidemia Pmh - Past Medical History of Osteoarthrosis, Unspecified Whether Generalized Or Localized, Other Specified Sites Unspecified Internal Derangement of Knee Cheilitis Preop Exam for Internal Medicine Digital Mucous Cyst Inclusion Cyst Actinic Keratosis History of Skin Cancer History of Atypical Nevus PAST SURGICAL HISTORY Procedure Laterality Date ARTHROSCOPY KNEE DIAGNOSTIC W/WO SYNOVIAL BX SPX 1984 Arthroscopy, knee RIGHT ARTHROSCOPY KNEE DIAGNOSTIC W/WO SYNOVIAL BX SPX 12/28/03 Arthroscopy, knee RIGHT CARDIAC CATHETERIZATION HX 2000 reportedly normal PAST SURGICAL HISTORY OF 1959 CLAVICLE FRACTURE PAST SURGICAL HISTORY OF 2002 PROSTATE BIOPSY PAST SURGICAL HISTORY OF 10/17/2009 Partial knee replacement on left PAST SURGICAL HISTORY OF 2-2010 partial knee replacemen (more content not included)... [facility] 10-12-2023 Instructions Sharon Sales MA - 10/12/2023 8:01 AM EDT GENERAL [employer]AFET[employer] Thank you for allowing me to examine you for signs of skin cancer today. We had an opportunity to discuss my findings and any treatments I recommended. I believe that there are several steps that a person can do to help prevent skin cancers and to detect them at an early, treatable stage: 1. I highly recommend that once a month you perform your own complete skin check looking for changing or unusual spots. Use a wall-mounted mirror and a hand mirror to assist in seeing body areas that are difficult to see otherwise. If you have a family member that can assist, this is often helpful. Additional information can be obtained at: www.skincancer.org/nqvk-ubttyb-cy formation/early-detection 2. In many cases, skin cancer can be prevented. The best way to protect yourself is to avoid too much sun and sunburns. Health care providers believe that ultraviolet rays (UV rays) from the sun damage the skin and over time lead to skin cancer. Here are ways to protect yourself: -Don't spend long periods of time in direct sunlight. -Wear hats with brims to protect your face and ears. -Wear long-sleeved shirts and pants to protect your arms and legs. -Use broad spectrum sunscreens with a SPF (skin protection factor) of 50 or higher that protect against burning and tanning rays. Apply the lotion 30 minutes before you go outside. (Broad-spectrum sunscreens protect against UV-B and UV-A rays.) -Wear sunglasses to protect your eyes. -Use a lip balm with sunscreen. -Avoid the sun between 10am and 4pm. -Show any changing mole to your health care provider. WOUND CARE INSTRUCTIONS AFTER LIQUID NITROGEN / CRYOTHERAPY Liquid nitrogen was used to treat your skin today. This substance is so cold that it causes rapid freezing of your skin on contact, thereby leading to frostbite and destruction of that tissue. The area that was treated will appear red and puffy for several days. Most people do not have a lot of discomfort after the treatment. However, depending on what we are treating and how vigorously you were frozen, you may experience pain and blistering at the sites. Cool compresses, elevation of the body part treated, Tylenol, or Ibuprofen may help alleviate some of that discomfort. As the area heals, it will turn brown and flaky. The top layer of the skin will crust up and fall off. Do not pick off any scabs as this can lead to scarring. Just allow the scab to fall off on its own. There are no special wound care instructions if you do not develop any blisters. You may continue all your normal activities such as washing, bathing, and applying make-up. Typically the face, head, and lips heal more quickly in approximately one week. The trunk, arms and legs can sometimes take 2-3 weeks to heal. Occasionally a blister may form in the area that was treated. The blister may be filled with water or blood. If a blister is present, you may puncture a small hole in the blister to relieve the pressure. This may be done by gently cleansing the area with soap and water, sterilizing a pin or needle over a flame, wiping the needle with cotton and alcohol, then puncturing the blister. Do not take the top of the blister off since your skin acts as a natural band-aid. Removing the top of the blister can increase your risk of an infection. This may be done more than once. If the redness and discomfort persists, contact the office. If the blister breaks off and the skin is exposed, you should cleanse the area with warm soapy water. After rinsing thoroughly, apply a small amount of antibiotic ointment (bacitracin) and a fresh band-aid. This should be done two times daily. Call our office if you are concerned about the wound healing. Expanding redness around the site, increased pain, swelling, or a whitish, purulent drainage may be a signs of a possible infection. documented in this encounter [facility] 10-12-2023 History of Present illness Narrative CHIEF COMPLAINT: 1. Routine skin exam - HX [place] cell carcinoma, BCC, SCC 2. Erosions upper cutaneous lip DERMATOLOGY CLINIC HISTORY: James Goins is a 78 year old male who presents for 1. Routine skin exam - HX Harinder cell carcinoma, BCC, SCC 2. Patient had erosions on upper cutaneous lip after using Efudex 05/2023. Patient thought he was shaving over the area. Sores have not healed. Patient shaves every 2 to 4 days. 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 with removal of numerous lymph nodes and XRT -recurrence of of [place] cell in right tonsil, excised 10/2017 -completed avelumab (Bavencio) at [facility] 11/06/17 - 10/25/2018 INFILTRATIVE BASAL CELL CA on right upper chest 04/2003 SUPERFICIAL BASAL CELL CA on left low medial scapula back 08/2003 SUPERFICIAL BASAL CELL CA on the right low medial scapula back 08/2013 NODULAR BASAL CELL CA on back 05/2006 NODULAR BASAL CELL CA on left outer shoulder 10/2006 NODULAR BASAL CELL CA left of midline of upper lip 10/2012 INFILTRATIVE BASAL CELL CA on left upper lip 10/2012 NODULAR BASAL CELL CA on right upper lip 10/2012 INFILTRATIVE BASAL CELL CA on left posterior shoulder s/p MOHS 09/2014 SQUAMOUS CELL CA in situ on right antihelix s/p MOHS 09/2014 SQUAMOUS CELL CA in situ on right preauricular s/p MOHS 01/2015 NODULAR BASAL CELL CA on right conchal bowl 01/16 s/p MOHS 03/2016 NODULAR BASAL CELL CA on left medial canthus 04/18 s/p MOHS 08/2016 SQUAMOUS CELL CA on right central upper back 01/2018 excised 04/2018 NODULAR BASAL CELL CA on right nasal bridge 08/2018 s/p MOHS 12/2018 SQUAMOUS CELL CA in situ on right lateral neck 08/2018 s/p MOHS 12/2018 SQUAMOUS CELL CA in situ on right lateral cheek 12/2018 s/p MOHS 12/2018 s/p MOHS 02/17/19 INVASIVE SQUAMOUS CELL CA on left forehead 02/15/20 s/p MOHS 03/2020 SUPERFICIAL BASAL CELL CA on left upper back 08/05/2021 treated with efudex NODULAR BASAL CELL CA on left upper arm 04/14/2023 treated with EDC 06/18/[address] Branch ATYPICAL NEVUS (mild-mod) on left lateral mid lower back shave biopsy 11/2008 actinic keratosis -efudex to face [address] Ling -PDT with blue light to face and ears 03/2015 -Efudex cream to bilateral eyebrows and cheeks below the eyelid x 7-10 days 06/2016 -PDT with red light done on face and ears 06/2016 -Efudex to hands 05/2017 -PDT with red light done on face and ears 05/2017 -Efudex cream to forehead and temples 09/2017 -Efudex cream to right cheek near lateral canthus 01/2019 PDT with red light to face and ears and upper lip 05/2019 -* denies HSV -Efudex to forehead, temples, lateral cheeks and ears 08/2020. He was only able to use it for 5 days. -Efudex cream twice daily to forehead, temples, ears and lateral cheeks 04/2021 -efudex to upper lip 08/2021 -Efudex to left hand and forearm 10/2022 -Efudex to upper cutaneous lip 05/2023 -PDT with bluelight to face, ears and neck 06/16/23 solar lentigines seborrheic keratosis capillary hemangiomas benign melanocytic nevi Chronic plaque-type psoriasis - triamcinolone 0.1% cream SKIN, UPPER BACK NEAR MIDLINE, SHAVE BIOPSY - LICHENOID KERATOSIS, COMPATIBLE WITH AN ACTINIC LICHENOID KERATOSIS 01/2003 Skin, right axilla, punch biopsy - Mature adipose tissue, compatible with lipoma. 04/2016 Skin, right lateral cheek, shave biopsy - Inflamed verruca vulgaris. 05/2019 Skin, right posterior shoulder, shave biopsy - Lichenoid actinic keratosis. 08/15/20 PAST MEDICAL HISTORY: PAST MEDICAL HISTORY Diagnosis Date Cancer (HCC) Mixed hyperlipidemia Hyperlipidemia Osteoarthrosis, unspecified whether generalized or localized, other specified sites Osteoarthritis RIGHT KNEE Personal history of unspecified urinary disorder PMH - PAST MEDICAL HISTORY OF low grade chronic prostate Preop exam for internal medicine Unspecified essential hypertension Essential hypertension ACTIVE PROBLEM LIST Unspecified Essential Hypertension Mixed Hyperlipidemia Pmh - Past Medical History of Osteoarthrosis, Unspecified Whether Generalized Or Localized, Other Specified Sites Unspecified Internal Derangement of Knee Cheilitis Preop Exam for Internal Medicine Digital Mucous Cyst Inclusion Cyst Actinic Keratosis History of Skin Cancer History of Atypical Nevus PAST SURGICAL HISTORY Procedure Laterality Date ARTHROSCOPY KNEE DIAGNOSTIC W/WO SYNOVIAL BX SPX 1984 Arthroscopy, knee RIGHT ARTHROSCOPY KNEE DIAGNOSTIC W/WO SYNOVIAL BX SPX 12/28/03 Arthroscopy, knee RIGHT CARDIAC CATHETERIZATION HX 2000 reportedly normal PAST SURGICAL HISTORY OF 1960 CLAVICLE FRACTURE PAST SURGICAL HISTORY OF 2002 PROSTATE BIOPSY PAST SURGICAL HISTORY OF 10/17/2009 Partial knee replacement on left PAST SURGICAL HISTORY OF 2-2010 partial knee replacement rightl PAST SURGICAL HISTORY OF 5- removal of basal cell carcinoma upper lip TONSILLECTOMY HX MEDICATIONS: Current Outpatient Medications Medication Sig Dispense Refill ELIQUIS 5 mg tab(s) Take 1 tablet by mouth every 12 (twelve) hours. triamcinolone (KENALOG) 0.025 % ointment Apply to affected area twice daily as needed for 1-2 weeks after the 5% fluorouracil cream 30 g 1 hydrocortisone 2.5 % ointment Apply to affected area on face 2 times daily for 1-2 weeks after 5 fluorouracil cream 30 g 0 avelumab in NaCl 0.9% (BAVENCIO) Inject intravenously. LINZESS 145 mcg cap aspirin, enteric coated (ASPIRIN, ENTERIC COATED) 81 mg EC tablet Take 81 mg by mouth once daily. pravastatin (PRAVACHOL) 40 mg tablet Take 40 mg by mouth once daily. valsartan (DIOVAN) 160 mg tablet Take 160 mg by mouth once daily. Omeprazole 40 mg capsule Take 40 mg by mouth once daily. tamsulosin 0.4 mg Cp24 Take 0.4 mg by mouth once daily. finasteride 5 mg tablet Take 5 mg by mouth once daily. TOPROL XL 50 MG 24 HR TAB Take one(1) tablet BY MOUTH daily. 0 Current Facility-Administered Medications Medication Dose Route Frequency Provider Last Rate Last Admin Aminolevulinic Acid HCl 20 % soln 3 Each 3 Each TOPICAL PRN Ana Haji MD ALLERGIES: Oxycontin [Oxycodone Hcl] PHYSICAL EXAMINATION: GENERAL: Patient is a well appearing, well nourished and pleasant, male alert and oriented, NAD. SKIN: A full skin exam was performed including the scalp, face, neck, chest, abdomen, back, buttocks, arms and legs. -Bright red to violaceous dome-shaped vascular papules throughout -Sun exposed areas with evenly pigmented light brown macules and patches with smooth borders -Scattered brown macules and papules with regular borders and uniform color -Rdz waxy stuck-on papules throughout -Erythematous scaly macule(s) with gritty scale on left dorsum of hand (7), right dorsum of hand (3), left elbow, right cheek, right ear lobe, left cheek, left pretibial -Upper cutaneous lip with several erythematous erosions ASSESSMENT AND PLAN: 1. [place] angioma -Provided reassurance on the benign nature of the lesion(s) 2. Multiple benign nevi -Provided reassurance on the benign nature of the lesion(s) 3. Lentigines -Provided reassurance on the benign nature of the lesion(s) 4. Actinic keratosis PROCEDURE: CRYOSURGERY OF NONMALIGNANT LESION Risks, benefits, alternatives and personnel required for cryosurgery reviewed with patient. Patient verbalizes understanding and wished to proceed. Cryosurgery performed with Liquid Nitrogen via cryostat spray. Patient tolerated well. Wound care instructions provided, patient verbalizes understanding. Sites: left dorsum of hand (7), right dorsum of hand (3), left elbow, right cheek, right ear lobe, left cheek, left pretibial Number of lesions: 15 Diagnosis: Actinic Keratosis 5. Hx of atypical nevus -There is no evidence of recurrence -Sun avoidance, protective clothing, hats and the use of broad spectrum sunscreen with SPF 30 or higher was advised 6. Hx of nonmelanoma skin cancer -There is no evidence of recurrence -Sun avoidance, protective clothing, hats and the use of broad spectrum sunscreen with SPF 30 or higher was advised 7. Multiple skin erosions on upper cutaneous lip -Advised patient not to shave with a razor and perhaps use a electric razor instead - hydrocortisone 2.5 % ointment; Apply to affected area on upper lip two times daily as needed. Use 2 weeks on 1 week off Dispense: 30 g; Refill: 0 -Would like to reexamine in a couple of weeks and consider biopsy if he is not healing Return to clinic in a few weeks for follow up of upper cutaneous lipand 6 mon for a routine skin exam Medical Decision Making: Medical Decision Making Level: 1 - N/A The documentation for this note was completed by Sharon Sales MA October 12, 2023 8:01 AM acting as scribe for Ana Haji MD. October 12, 2023 7:45 AM I agree with the Chief Complaint, ROS, and Past Histories independently gathered by the clinical cad application support specialist and the remaining scribed note accurately describes my personal service to the patient. Ana Haji MD documented in this encounter [facility] 07-02-2023 Miscellaneous Notes Records reviewed. Received Outside Medical Records from [facility]. Put in 's box for review. Sharon Sales Ma June 15, 2023 9:47 AM documented in this encounter [facility] 06-23-2023 Miscellaneous Notes Approvedon June 22 Approved. This drug has been approved under the Member's Medicare Part D benefit for FLUOROURACIL Cream 0.5%. Approved quantity: 30 per 30 day(s). You may fill up to a 90 day supply except for those on Specialty Tier 5, which can be filled up to a 30 day supply. Please call the pharmacy to process the prescription claim. Sharon Sales Ma June 23, 2023 4:13 PM Carrillo: [id number] Drug Fluorouracil 0.5% cream Form [employer] Electronic Prior Authorization Request Form (2016 INPDP) Original Claim Info 569,70,MR NON-FORMULARY DRUG, CONTACT PRESCRIBERSEE FORMULARY FOR [id number]: Patient appeal noticerequired by [facility].[id number]: documented in this encounter [facility] 06-18-2023 Note HNO ID: [id number] Author: Tiara Branch MD Service: ? Author Type: Physician Type: Progress Notes Filed: 06/19/2023 9:44 AM Note Text: Patient is here for: excision and closure Site: left upper arm Referral from Dr. Haji . PATIENT ID CONFIRMED: by Name and Birthdate YES PATIENT ID VERIFIED BY: Landy Long RN ANTIGOAGULANTS: Eliquis PACEMAKER: NO ANTIBIOTIC PROPHYLAXIS: Not required SURGERY ROOM:5 Dr. Tiara Branch Pre photos taken with consent PROCEDURE NOTES: Electrodessication and Curettage VERIFIED WITH PATIENT BY: Shantal Chaney RN INFORMED CONSENT: Risks, benefits AND alternatives explained. Informed consent obtained for Electrodessication and Curettage . Site(s) identified and confirmed with patient and surgeon. Patient agrees and wants to proceed. AUDIBLE TIME OUT: Yes, 3:12 PM . DIAGNOSIS: BASAL CELL CARCINOMA- Nodular Sites: left upper arm. Confirmed with patient. Pre- op size: 1.2 x 1.5 cm Number of Passes: 3 Post-operative size: 1.9 x 2.5 cm Complications: None, patient tolerated procedure well. Comments: well tolerated Shantal Chaney RN June 18, 2023 3:13 PM History of [place] cell carcinoma right axilla, s/p immunotherapy, wearing compression sleeve right arm, steven I served as the fellow in this case under supervision of the attending surgeon. I prepped the patient and performed the procedure. Citlaly Lopes MD Micrographic Surgery AND Dermatologic Oncology Fellow I have seen and examined Mr. Goins. I have discussed the case and the management of this patient's care with the Fellow. I also have reviewed and agree with the assessment and plan as stated above and agree with all of its relevant components. I supervised the procedure(s) performed as documented above by the Fellow. Tiara Branch MD [facility] 06-18-2023 Instructions Shantal Chaney RN - 06/18/2023 3:35 PM EST Care of Electrodessication and Curettage 1. Wash your hands with soap and water. 2. Cleanse the biopsy site with antibacterial soap. 3. Thoroughly dry the area and apply a small amount of Vaseline or Aquaphor to keep area greasy at all times (this prevents a scab from forming). 4. PLEASE DO NOT use polysporin, Bacitracin, triple antibiotic or similar ointments. 5. Place a small dressing or band-aid over the wound until the wound is healed. (Studies show that wounds heal better when covered with ointment and a dressing). If you have any questions or concerns, please contact the office at [phone] [phone] or [phone]. For emergencies after 4:30 please call [phone] and ask for the surgical dermatology fellow promotional demonstrator. documented in this encounter [facility] 06-18-2023 History of Present illness Narrative Patient is here for: excision and closure Site: left upper arm Referral from Dr. Haji . PATIENT ID CONFIRMED: by Name and Birthdate YES PATIENT ID VERIFIED BY: Landy Long RN ANTIGOAGULANTS: Eliquis PACEMAKER: NO ANTIBIOTIC PROPHYLAXIS: Not required SURGERY ROOM:5 Dr. Tiara Branch Pre photos taken with consent PROCEDURE NOTES: Electrodessication and Curettage VERIFIED WITH PATIENT BY: Shantal Chaney RN INFORMED CONSENT: Risks, benefits & alternatives explained. Informed consent obtained for Electrodessication and Curettage . Site(s) identified and confirmed with patient and surgeon. Patient agrees and wants to proceed. AUDIBLE TIME OUT: Yes, 3:12 PM . DIAGNOSIS: BASAL CELL CARCINOMA- Nodular Sites: left upper arm. Confirmed with patient. Pre- op size: 1.2 x 1.5 cm Number of Passes: 3 Post-operative size: 1.9 x 2.5 cm Complications: None, patient tolerated procedure well. Comments: well tolerated Shantal Chaney RN June 18, 2023 3:13 PM History of [place] cell carcinoma right axilla, s/p immunotherapy, wearing compression sleeve right arm, steven I served as the fellow in this case under supervision of the attending surgeon. I prepped the patient and performed the procedure. Citlaly Lopes MD Micrographic Surgery & Dermatologic Oncology Fellow I have seen and examined Mr. Goins. I have discussed the case and the management of this patient's care with the Fellow. I also have reviewed and agree with the assessment and plan as stated above and agree with all of its relevant components. I supervised the procedure(s) performed as documented above by the Fellow. Tiara Branch MD documented in this encounter [facility] 06-16-2023 Note HNO ID: [id number] Author: Azul Longoria RN Service: ? Author Type: ? Type: Progress Notes Filed: 06/17/2023 9:26 AM Note Text: See MD note for further charting. PDT PREOPERATIVE/PROCEDURAL VERIFICATION: Patient verified by: Name and Date of Procedure to be performed: Painless PDT Site of the procedure confirmed:Yes Site: full face, ears, lateral neck bilaterally Staff involved: Azul Longoria RN Relevant documentation, images, implants or special equipment present: Yes LOT # [id number] EXP DATE: 01/2026 MARKING THE SITE: Procedural site verified by:Provider marking the site with patient involvement. PROCEDURAL TIME OUT: Time out verification includes:Two Patient Identifiers Correct side and site marking Agreement on the procedure to be done Correct Positioning DX: actinic keratosis Levulan application 930 am by Azul Longoria RN Number of Levulan sticks used [address] yes Length of Blulight exposure 30 min after 15 minute incubation. RTC 3 months for post PDT check Stressed importance of avoidance of the photosensitive treatment site to sunlight or bright indoor light prior to and at least 48 hours after Vince-light Treatment. Printed instructions given to pt Azul Longoria RN [facility] 06-16-2023 Note HNO ID: [id number] Author: Ana Haji MD Service: ? Author Type: Physician Type: Progress Notes Filed: 06/19/2023 9:44 AM Note Text: CHIEF COMPLAINT: 1. PDT with blue light of actinic keratosis on face and ears and neck DERMATOLOGY CLINIC HISTORY: James Goins is a 78 year old male who presents for PDT with blue light of actinic keratosis on face and ears and neck. History is negative for herpes simplex. Patient applied Efudex to the upper cutaneous lip in May for at least 2 weeks. He states that he shaved over the area and it is sore. Patient has a history of [place] cell carcinoma. He has been discussed charged from the hematology oncology clinic at the [facility] since he currently does not have any evidence of disease. 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 excised 01/06/17 with removal of numerous lymph nodes and XRT -recurrence of of [place] cell in right tonsil, excised 10/2017 -completed avelumab (Bavencio) at [facility] 11/06/17 - 10/25/2018 INFILTRATIVE BASAL CELL CA on right upper chest 04/2003 SUPERFICIAL BASAL CELL CA on left low medial scapula back 08/2003 SUPERFICIAL BASAL CELL CA on the right low medial scapula back 08/2013 NODULAR BASAL CELL CA on back 05/2006 NODULAR BASAL CELL CA on left outer shoulder 10/2006 NODULAR BASAL CELL CA left of midline of upper lip 10/2012 INFILTRATIVE BASAL CELL CA on left upper lip 10/2012 NODULAR BASAL CELL CA on right upper lip 10/2012 INFILTRATIVE BASAL CELL CA on left posterior shoulder s/p MOHS 09/2014 SQUAMOUS CELL CA in situ on right antihelix s/p MOHS 09/2014 SQUAMOUS CELL CA in situ on right preauricular s/p MOHS 01/2015 NODULAR BASAL CELL CA on right conchal bowl 01/16 s/p MOHS 03/2016 NODULAR BASAL CELL CA on left medial canthus 04/18 s/p MOHS 08/2016 SQUAMOUS CELL CA on right central upper back 01/2018 excised 04/2018 NODULAR BASAL CELL CA on right nasal bridge 08/2018 s/p MOHS 12/2018 SQUAMOUS CELL CA in situ on right lateral neck 08/2018 s/p MOHS 12/2018 SQUAMOUS CELL CA in situ on right lateral cheek 12/2018 s/p MOHS 12/2018 s/p MOHS 02/17/19 INVASIVE SQUAMOUS CELL CA on left forehead 02/15/20 s/p MOHS 03/2020 SUPERFICIAL BASAL CELL CA on left upper back 08/05/2021 treated with efudex NODULAR BASAL CELL CA on left upper arm 04/14/2023 treated with EDC 06/18/[address] Branch ATYPICAL NEVUS (mild-mod) on left lateral mid lower back shave biopsy 11/2008 actinic keratosis -efudex to face [address] Ling -PDT with blue light to face and ears 03/2015 -Efudex cream to bilateral eyebrows and cheeks below the eyelid x 7-10 days 06/2016 -PDT with red light done on face and ears 06/2016 -Efudex to hands 05/2017 -PDT with red light done on face and ears 05/2017 -Efudex cream to forehead and temples 09/2017 -Efudex cream to right cheek near lateral canthus 01/2019 PDT with red light to face and ears and upper lip 05/2019 -* denies HSV -Efudex to forehead, temples, lateral cheeks and ears 08/2020. He was only able to use it for 5 days. -Efudex cream twice daily to forehead, temples, ears and lateral cheeks 04/2021 -efudex to upper lip 08/2021 -Efudex to left hand and forearm 10/2022 -Efudex to upper cutaneous lip 05/2023 -PDT with bluelight to face, ears and neck solar lentigines seborrheic keratosis capillary hemangiomas benign melanocytic nevi Chronic plaque-type psoriasis - triamcinolone 0.1% cream SKIN, UPPER BACK NEAR MIDLINE, SHAVE BIOPSY - LICHENOID KERATOSIS, COMPATIBLE WITH AN ACTINIC LICHENOID KERATOSIS 01/2003 Skin, right axilla, punch biopsy - Mature adipose tissue, compatible with lipoma. 04/2016 Skin, right lateral cheek, shave biopsy - Inflamed verruca vulgaris. 05/2019 Skin, right posterior shoulder, shave biopsy - Lichenoid actinic keratosis. 08/15/20 PAST MEDICAL HISTORY: PAST MEDICAL HISTORY Diagnosis Date Cancer (HCC) Mixed hyperlipidemia Hyperlipidemia Osteoarthrosis, unspecified whether generalized or localized, other specified sites Osteoarthritis RIGHT KNEE Personal history of unspecified urinary disorder PMH - PAST MEDICAL HISTORY OF low grade chronic prostate Preop exam for internal medicine Unspecified essential hypertension Essential hypertension ACTIVE PROBLEM LIST Unspecified Essential Hypertension Mixed Hyperlipidemia Pmh - Past Medical History of Osteoarthrosis, Unspecified Whether Generalized Or Localized, Other Specified Sites Unspecified Internal Derangement of Knee Cheilitis Preop Exam for Internal Medicine Digital Mucous Cyst Inclusion Cyst Actinic Keratosis History of Skin Cancer History of Atypical Nevus PAST SURGICAL HISTORY Procedure Laterality Date CARDIAC CATHETERIZATION HX 2000 reportedly normal KNEE SCOPE,DIAGNOSTIC 1984 Arthroscopy, knee RIGHT KNEE SCOPE,DIAGNOSTIC 12/28/03 Arthroscopy, knee RIGHT PAST SURGICAL HISTORY OF 1959 CLAVICLE FRACTURE PAST SURGICAL HISTORY OF 2002 PROSTATE BIOPSY PAST (more content not included)... [facility] 06-16-2023 Instructions Ana Haji MD - 06/16/2023 8:58 AM EST Images from the original note were not included. Dermatology [address] [place] [id number] Dept: [phone] WOUND CARE INSTRUCTIONS AFTER PHOTODYNAMIC THERAPY Avoid direct light for 24-48 hours. This is very important. Additional sun exposure will lead to more redness and burning on your skin. Gently wash the area twice a day with a mild cleanser such as Cetaphil. Do not scrub! After cleansing, gently pat dry with a towel and apply Aquaphor or Vaseline petroleum jelly twice a day to keep the area moist and free of crust. Apply the topical steroid ointment* to the entire area that was treated two times daily if needed for one to two weeks. The topical steroid should be applied over the Aquaphor or Vaseline petroleum jelly. The topical steroid will help decrease the redness, inflammation, and discomfort. Be careful to keep the steroid away from the eyes. *If you did not get a prescription for a topical steroid, you may purchase a 1% hydrocortisone ointment over the counter. Apply cool compresses as needed during the first few days for comfort. If a sunscreen is needed, I recommend Neutrogena sensitive skin (chemical free) sunscreen with SPF 30 or other titanium-dioxide type of sunscreen since chemical sunscreens may be too irritating. Ibuprofen may be taken for any inflammation, swelling, pain, and discomfort. Over the counter Claritin (loratadine) 10 mg taken in the morning and Benadryl (diphenhydramine) 25-50 mg taken nightly (which may cause drowsiness) can relieve symptoms of itchiness. Please call the office if you have any questions or problems during the healing process: [facility]. Dermatology [address] [place] [address] Dept: [phone] WOUND CARE INSTRUCTIONS AFTER PHOTODYNAMIC THERAPY Avoid direct light for 24-48 hours. This is very important. Additional sun exposure will lead to more redness and burning on your skin. Gently wash the area twice a day with a mild cleanser such as Cetaphil. Do not scrub! After cleansing, gently pat dry with a towel and apply Aquaphor or Vaseline petroleum jelly twice a day to keep the area moist and free of crust. Apply the topical steroid ointment* to the entire area that was treated two times daily if needed for one to two weeks. The topical steroid should be applied over the Aquaphor or Vaseline petroleum jelly. The topical steroid will help decrease the redness, inflammation, and discomfort. Be careful to keep the steroid away from the eyes. *If you did not get a prescription for a topical steroid, you may purchase a 1% hydrocortisone ointment over the counter. Apply cool compresses as needed during the first few days for comfort. If a sunscreen is needed, I recommend Neutrogena sensitive skin (chemical free) sunscreen with SPF 30 or other titanium-dioxide type of sunscreen since chemical sunscreens may be too irritating. Ibuprofen may be taken for any inflammation, swelling, pain, and discomfort. Over the counter Claritin (loratadine) 10 mg taken in the morning and Benadryl (diphenhydramine) 25-50 mg taken nightly (which may cause drowsiness) can relieve symptoms of itchiness. Please call the office if you have any questions or problems during the healing process: [facility]. documented in this encounter [facility] 06-16-2023 History of Present illness Narrative CHIEF COMPLAINT: 1. PDT with blue light of actinic keratosis on face and ears and neck DERMATOLOGY CLINIC HISTORY: James Goins is a 78 year old male who presents for PDT with blue light of actinic keratosis on face and ears and neck. History is negative for herpes simplex. Patient applied Efudex to the upper cutaneous lip in May for at least 2 weeks. He states that he shaved over the area and it is sore. Patient has a history of [place] cell carcinoma. He has been discussed charged from the hematology oncology clinic at the [facility] since he currently does not have any evidence of disease. 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 with removal of numerous lymph nodes and XRT -recurrence of of [place] cell in right tonsil, excised 10/2017 -completed avelumab (Bavencio) at [facility] 11/06/17 - 10/25/2018 INFILTRATIVE BASAL CELL CA on right upper chest 04/2003 SUPERFICIAL BASAL CELL CA on left low medial scapula back 08/2003 SUPERFICIAL BASAL CELL CA on the right low medial scapula back 08/2013 NODULAR BASAL CELL CA on back 05/2006 NODULAR BASAL CELL CA on left outer shoulder 10/2006 NODULAR BASAL CELL CA left of midline of upper lip 10/2012 INFILTRATIVE BASAL CELL CA on left upper lip 10/2012 NODULAR BASAL CELL CA on right upper lip 10/2012 INFILTRATIVE BASAL CELL CA on left posterior shoulder s/p MOHS 09/2014 SQUAMOUS CELL CA in situ on right antihelix s/p MOHS 09/2014 SQUAMOUS CELL CA in situ on right preauricular s/p MOHS 01/2015 NODULAR BASAL CELL CA on right conchal bowl 01/16 s/p MOHS 03/2016 NODULAR BASAL CELL CA on left medial canthus 04/18 s/p MOHS 08/2016 SQUAMOUS CELL CA on right central upper back 01/2018 excised 04/2018 NODULAR BASAL CELL CA on right nasal bridge 08/2018 s/p MOHS 12/2018 SQUAMOUS CELL CA in situ on right lateral neck 08/2018 s/p MOHS 12/2018 SQUAMOUS CELL CA in situ on right lateral cheek 12/2018 s/p MOHS 12/2018 s/p MOHS 02/17/19 INVASIVE SQUAMOUS CELL CA on left forehead 02/15/20 s/p MOHS 03/2020 SUPERFICIAL BASAL CELL CA on left upper back 08/05/2021 treated with efudex NODULAR BASAL CELL CA on left upper arm 04/14/2023 treated with EDC 06/18/[address] Branch ATYPICAL NEVUS (mild-mod) on left lateral mid lower back shave biopsy 11/2008 actinic keratosis -efudex to face [address] Ling -PDT with blue light to face and ears 03/2015 -Efudex cream to bilateral eyebrows and cheeks below the eyelid x 7-10 days 06/2016 -PDT with red light done on face and ears 06/2016 -Efudex to hands 05/2017 -PDT with red light done on face and ears 05/2017 -Efudex cream to forehead and temples 09/2017 -Efudex cream to right cheek near lateral canthus 01/2019 PDT with red light to face and ears and upper lip 05/2019 -* denies HSV -Efudex to forehead, temples, lateral cheeks and ears 08/2020. He was only able to use it for 5 days. -Efudex cream twice daily to forehead, temples, ears and lateral cheeks 04/2021 -efudex to upper lip 08/2021 -Efudex to left hand and forearm 10/2022 -Efudex to upper cutaneous lip 05/2023 -PDT with bluelight to face, ears and neck solar lentigines seborrheic keratosis capillary hemangiomas benign melanocytic nevi Chronic plaque-type psoriasis - triamcinolone 0.1% cream SKIN, UPPER BACK NEAR MIDLINE, SHAVE BIOPSY - LICHENOID KERATOSIS, COMPATIBLE WITH AN ACTINIC LICHENOID KERATOSIS 01/2003 Skin, right axilla, punch biopsy - Mature adipose tissue, compatible with lipoma. 04/2016 Skin, right lateral cheek, shave biopsy - Inflamed verruca vulgaris. 05/2019 Skin, right posterior shoulder, shave biopsy - Lichenoid actinic keratosis. 08/15/20 PAST MEDICAL HISTORY: PAST MEDICAL HISTORY Diagnosis Date Cancer (HCC) Mixed hyperlipidemia Hyperlipidemia Osteoarthrosis, unspecified whether generalized or localized, other specified sites Osteoarthritis RIGHT KNEE Personal history of unspecified urinary disorder PMH - PAST MEDICAL HISTORY OF low grade chronic prostate Preop exam for internal medicine Unspecified essential hypertension Essential hypertension ACTIVE PROBLEM LIST Unspecified Essential Hypertension Mixed Hyperlipidemia Pmh - Past Medical History of Osteoarthrosis, Unspecified Whether Generalized Or Localized, Other Specified Sites Unspecified Internal Derangement of Knee Cheilitis Preop Exam for Internal Medicine Digital Mucous Cyst Inclusion Cyst Actinic Keratosis History of Skin Cancer History of Atypical Nevus PAST SURGICAL HISTORY Procedure Laterality Date CARDIAC CATHETERIZATION HX 2000 reportedly normal KNEE SCOPE,DIAGNOSTIC 1984 Arthroscopy, knee RIGHT KNEE SCOPE,DIAGNOSTIC 12/28/03 Arthroscopy, knee RIGHT PAST SURGICAL HISTORY OF 1959 CLAVICLE FRACTURE PAST SURGICAL HISTORY OF 2002 PROSTATE BIOPSY PAST SURGICAL HISTORY OF 10/17/2009 Partial knee replacement on left PAST SURGICAL HISTORY OF -2010 partial knee replacement rightl PAST SURGICAL HISTORY OF - removal of basal cell carcinoma upper lip TONSILLECTOMY HX MEDICATIONS: Current Outpatient Medications Medication Sig Dispense Refill ELIQUIS 5 mg tab(s) Take 1 tablet by mouth every 12 (twelve) hours. Fluorouracil (EFUDEX) 5 % cream Apply 2x daily to ears & sides of cheeks x 2 weeks. Apply 2x daily to left hand &forearm x 2-4 weeks. May stop for few days or decrease to once daily for discomfort (Patient not taking: Reported on 04/14/2023) 40 g 0 triamcinolone (KENALOG) 0.025 % ointment Apply to affected area twice daily as needed for 1-2 weeks after the 5% fluorouracil cream 30 g 1 hydrocortisone 2.5 % ointment Apply to affected area on face 2 times daily for 1-2 weeks after 5 fluorouracil cream (Patient not taking: Reported on 04/11/2021 ) 30 g 0 avelumab in NaCl 0.9% (BAVENCIO) Inject intravenously. LINZESS 145 mcg cap aspirin, enteric coated (ASPIRIN, ENTERIC COATED) 81 mg EC tablet Take 81 mg by mouth once daily. pravastatin (PRAVACHOL) 40 mg tablet Take 40 mg by mouth once daily. valsartan (DIOVAN) 160 mg tablet Take 160 mg by mouth once daily. Omeprazole 40 mg capsule Take 40 mg by mouth once daily. tamsulosin 0.4 mg Cp24 Take 0.4 mg by mouth once daily. finasteride 5 mg tablet Take 5 mg by mouth once daily. TOPROL XL 50 MG 24 HR TAB Take one(1) tablet BY MOUTH daily. 0 No current facility-administered medications for this visit. ALLERGIES: Oxycontin [Oxycodone Hcl] PHYSICAL EXAMINATION: GENERAL: Patient is a well appearing, well nourished and pleasant, male alert and oriented, NAD. SKIN: -Affecting face and ears are scaly erythematous macules. -Right upper cutaneous lip with an erythematous erosion about 5 x 5 mm ASSESSMENT AND PLAN: 1. actinic keratosis -PDT with blue light done on face and ears today. -See procedure note for PDT in nursing notes - Hydrocortisone 2.5% ointment twice daily as needed for 1-2 weeks after PDT 2. Erosion on right upper cutaneous lip -Patient was applying Efudex to this area and shaved over it -We will give it some time to heal Return to clinic August for post PDT check. We will also check upper lip when he returns Medical Decision Making: Medical Decision Making Level: 1 - N/A Ana Haji MD documented in this encounter [facility] 06-11-2023 History of Present illness Narrative CLINIC NOTE - MEDICAL ONCOLOGY - SKIN & [facility] 06/11/23 James Goins is a 77 y.o. male was referred here by Dr. 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 He completed one year of adjuvant avelumab, with his last dose on 10/25/18 and remains without evidence of disease. He comes for surveillance. Chief Complaint Patient presents with Harinder Cell Carcinoma 6 month follow up. History of Present Illness: James Goins is a 77 y.o. male who presents today for evaluation while on active surveillance. Overall, he is doing well. He has lost some weight since his last clinic visit. 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 He has a MOHS surgery for BCC on his left shoulder scheduled for next week. Otherwise, he has no other concerns or complaints. 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 Skin, left medial canthus, shave biopsy: Basal cell carcinoma, nodular B. Skin, right axilla, punch biopsy: Mature adipose tissue, compatible with lipoma. 12/2016 Initial Diagnosis [place] cell carcinoma of unknown primary site (HCC) 12/08/2016 Pathology [id number] (12/08/16) Right axillary mass, ultrasound-guided core biopsy: Metastatic neuroendocrine carcinoma 12/08/2016 Imaging PET/CT IMPRESSION: 1. Abnormal examination indicative of malignant viable neoplasm. 2. Increased glucose concentration in the right axilla fulfills quantitative criteria for viable neoplasm. 3. Prominent glucose concentration observed in the descending thoracic, as well as abdominal aorta is commensurate with activated leukocytes associated with atherosclerotic plaque formation. 01/12/2017 Pathology Right axillary lymphadenectomy ([id number]): A. Right axillary lymph nodes, dissection: Dermal and superficial subcutaneous fibrosis compatible with scar, negative for neuroendocrine carcinoma. Metastatic neuroendocrine carcinoma involving two of 70 lymph nodes (2/70), see Comment B. Right axillary level 3 lymph nodes, dissection: Twenty-three lymph nodes negative for diagnostic evidence of metastatic neuroendocrine carcinoma (0/23) ---Comment--- The largest focus of metastatic neuroendocrine carcinoma in specimen A measures at least approximately 20 mm (2.0 cm), measured grossly and including areas of necrosis. Metastatic neuroendocrine carcinoma is present in the lymph node parenchyma and lymph node capsule. Extracapsular extension is present. 03/03/2017 - 04/14/2017 Radiation Adjuvant radiation to the right axilla: 5600 cGy of 15 MV electrons in 28 fractions with a mixed mode technique by Dr. Rucker. 09/30/[address] ([facility]) IMPRESSION: No acute skull fracture or intracranial traumatic injury. Minimal right frontal cephalhematoma. 10/09/2017 Imaging Brain MRI IMPRESSION: No evidence for intracranial metastatic disease. 11/06/2017 - 10/21/2018 Immunotherapy Avelumab 10 mg/kg q2wks 11/06/17 Cycle 1 Day 1 11/19/17 C1D15 10/21/18 C12D15 12/17/2017 Procedure port placement of left chest Past Medical History: Diagnosis Date Abnormal cytology 10/11/2018 Added automatically from request for surgery [id number] Arthritis 2019 pelvis and right hip Atrial fibrillation Basal cell carcinoma of multiple sites 10/14/2017 Cholecystitis 09/04/2018 Encounter for antineoplastic immunotherapy 11/03/2017 Avelumab 10 mg/kg 11/05/17: Cycle 1 Day 1 12/03/17: Cycle 2, Day 1 12/31/17: Cycle 3, Day 1 Essential hypertension, benign GERD (gastroesophageal reflux disease) History of biliary duct stent placement 09/09/2018 ERCP for his common hepatic duct brushing pathology which was suspicious for adenocarcinoma in September 2018. 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 Umbilical hernia Past Surgical History: Procedure Laterality Date ERCP W/ ENDOSCOPY CANNULATION PAPILLA ADD-ON PX N/A 02/08/2019 Laterality: N/A; Surgeon: Jerardo Hemphill MD; Location: [facility] ENDOSCOPY ERCP DIAGNOSTIC N/A 09/30/2018 Laterality: N/A; Surgeon: Jerardo Hemphill MD; Location: [facility] ENDOSCOPY REMOVAL CENTRAL VENOUS ACCESS DEVICE TUNNELED W/ PORT PUMP Left 09/11/2018 Laterality: Left; Surgeon: Interventional Rad (Ir Dept Use Only) Smith; Location: [facility] INTERVENTIONAL RADIOLOGY (VIR) CHOLECYSTECTOMY LAPAROSCOPIC N/A 09/08/2018 Laterality: N/A; Surgeon: Martin Walters MD; [facility] INSERTION CVC TUNNELED W/ PORT PUMP N/A 12/17/2017 Laterality: N/A; Surgeon: Sunny Mora MD; Location: [facility] INTERVENTIONAL RADIOLOGY (VIR) LYMPHADENECTOMY AXILLARY DEEP Right 01/12/[address]; Laterality: Right; Surgeon: John Trejo MD; Location: [facility] MAIN OR MOHS PROCEDURE Right 2014 upper lip KNEE REPLACEMENT Bilateral 2009 FRACTURE [place] 1961 collarbone TONSILLECTOMY Family History Problem Relation Age of Onset Heart Disease - Other Mother bad valve Stroke Mother 82 Cancer- Other Father 70 Cancer- Other Maternal Grandmother 82 uterine or gastric Coronary Artery Disease Maternal Grandfather Colorectal Cancer Neg Hx GI Disease Neg Hx Family Status Relation Name Status Mother Father unknown MGM MGF Son Alive Son Alive Son Alive Son Alive Neg Hx (Not Specified) Social History Tobacco Use Smoking status: Former Packs/day: .2 Types: Cigarettes, Pipe Start date: 01/01/1962 Quit date: 01/01/1975 Years since quittin.4 Smokeless tobacco: Never Vaping Use Vaping Use: Never used Substance Use Topics Alcohol use: Yes Alcohol/week: 1.0 standard drink of alcohol Types: 1 Glasses of wine per week Drug use: No Current Outpatient Medications Medication Sig aspirin 81 MG Chew Tab Chew 1 tablet daily. Eliquis 5 MG tablet Take 1 tablet by mouth every 12 hours. finasteride 5 MG Tab Take 1 tablet by mouth daily. metoprolol succinate 25 MG tablet XL Take 1 tablet by mouth daily. pantoprazole [address] tablet DR Take 1 tablet by mouth daily. pravastatin 40 MG Tab Take 1 tablet by mouth daily. SM Stool Softener 8.6-50 MG per tablet Take 2 tablets by mouth 2 times daily. Tamsulosin HCl 0.4 MG Cap Take 1 capsule by mouth daily. valsartan 160 MG Tab Take 1 tablet by mouth daily. Lubiprostone (AMITIZA PO) Take by mouth 2 times daily. (Patient not taking: Reported on 11/13/2022) omeprazole [address] take 10 mg by mouth daily.. (Patient not taking: Reported on 11/13/2022) Allergies Allergen Reactions Oxycontin [Oxycodone] Nausea Only Seasonal Review of systems: A 14 point review of systems was performed with the patient at today's patient and is negative except for those items mentioned in the interval history and those items mentioned below as well as in the nursing documentation review of systems. Fatigue: Fatigue relieved by rest Nausea: Absent or within normal limits Vomiting: Absent or within normal limits Anorexia: Absent or within normal limits Diarrhea: Absent or within normal limits Constipation: Absent or within normal limits Peripheral Motor Neuropathy: Absent or within normal limits Depression: Absent or within normal limits Dyspnea: Absent or within normal limits Rash Maculo-Papular: Absent or within normal limits Palmar-Plantar Erythrodysesthesia Syndrome: Absent or within normal limits Pain: Absent or within normal limits Fever: Absent or within normal limits Localized Edema: Localized to dependent areas, no disability or functional impairment Physical Exam: Vital signs: Blood pressure (!) 183/140, pulse 77, temperature 98.6 F (37 C), temperature source Oral, resp. rate 16, height 1.829 m (6'), weight 104.5 kg (230 lb 4.8 oz), SpO2 95 %. ECOG = 0 GENERAL APPEARANCE 77 y.o. appears his stated age. The patient is alert and oriented x3. Eyes Pupils equal, round, reactive to light. Extraocular movements are intact. No scleral icterus. Ears, Nose, Mouth/throat Mucous membranes moist, no mucositis or thrush. Teeth in a good state of hygiene. Neck is supple. No thyromegaly LUNGS Clear to auscultation bilaterally. No wheezes, rales or rhonchi. CARDIAC S1, S2 normal. Irregular beats. Bradychardic. No murmur, or rub. No cyanosis, clubbing, or peripheral edema. GI Abdomen is soft, nontender, nondistended, positive bowel sounds. No palpable hepatosplenomegaly. No peritoneal signs. Musculoskeletal Muscle strength 5/5 in all the extremities and symmetric. No focal neurological deficit. CN 2 - 12 grossly intact. VA not tested. Neurological exam No focal neurological deficit. Skin Skin is warm, dry, and not diaphoretic. No new rash or lesion noted. Psychiatric Not in acute distress, answering the questions appropriately. Lymph nodes: No cervical, supraclavicular, axillary or inguinal adenopathy. Right arm lymphedema. BP Readings from Last 3 Encounters: 06/11/23 (!) 183/140 11/13/22 (!) 142/98 05/15/22 162/88 Wt Readings from Last 3 Encounters: 06/11/23 104.5 kg (230 lb 4.8 oz) 11/13/22 106 kg (233 lb 11.2 oz) 05/15/22 106.7 kg (235 lb 3.2 oz) Laboratory and radiology review: Results for orders placed or performed in visit on 06/11/23 LACTATE DEHYDROGENASE Result Value Ref Range LD Total 133 100 - 190 U/L T4 FREE Result Value Ref Range Free T4 1.22 0.89 - 1.76 ng/dL TSH Result Value Ref Range TSH 2.052 0.550 - 4.780 uIU/mL COMPREHENSIVE METABOLIC PANEL Result Value Ref Range Sodium 137 135 - 145 mmol/L Potassium 4.2 3.5 - 5.0 mmol/L Chloride 106 98 - 108 mmol/L BUN 16 7 - 25 mg/dL Creatinine 1.34 (H) 0.70 - 1.30 mg/dL Glucose 102 (H) 70 - 99 mg/dL Bilirubin Total 1.1 <1.5 mg/dL Albumin 4.1 3.5 - 5.0 g/dL Total Protein 6.9 6.4 - 8.3 g/dL AST 17 10 - 39 U/L ALP 49 32 - 126 U/L Calcium 9.3 8.6 - 10.5 mg/dL CO2 26 21 - 31 mmol/L ALT 14 10 - 52 U/L Bun/Crea Ratio 12 Osmolality (Calculated) 289 278 - 305 mOsm/kg Anion Gap 9 7 - 17 mmol/L eGFR, CKD-EPI, Male 54 (L) >=60 mL/min/1.73m2 CBC AND ELECTRONIC DIFF Result Value Ref Range WBC Count 7.85 3.73 - 10.10 K/uL RBC Count 4.78 4.38 - 5.83 M/uL Hemoglobin 14.3 13.4 - 16.8 g/dL Hematocrit 43.9 39.6 - 48.8 % Mean Cell Volume 91.8 79.0 - 94.5 fL Mean Cell Hgb 29.9 26.1 - 33.3 pg Mean Cell Hgb Conc 32.6 31.9 - 36.5 g/dL RBC Distribution 15.8 (H) 10.9 - 14.3 % Platelet Count 151 146 - 337 K/uL Mean Platelet Volume 9.4 8.7 - 12.3 fL DIFF STATUS Electronic Differential Segs + Bands Auto 70.5 % Immature Grans % 0.9 % Lymphocyte % Auto 15.7 % Monocyte % Auto 11.0 % Eosinophil % Auto 1.3 % Basophil % Auto 0.6 % Nucleated RBC 0.0 <=0.2 /100 WBC Segs + Bands,Absolute Auto 5.54 1.57 - 6.19 K/uL Immature Grans Absolute 0.07 <=0.07 K/uL Abs Lymph Auto 1.23 0.83 - 3.57 K/uL Abs Irwin Auto 0.86 0.24 - 0.93 K/uL Abs Eos Auto 0.10 0.00 - 0.48 K/uL Abs Baso Auto 0.05 0.00 - 0.09 K/uL Staging scans: None Assessment and Plan: Patient Active Problem List Diagnosis Date 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 A biopsy comes back negative. November 2016: Patient goes to the ER for an unrelated event and is found to have axillary nodes. He is referred to Dr. Trejo. The final diagnosis is a [place] carcinoma. The primary is not found. Treatment: Lymphadenectomy followed by adjuvant radiotherapy (55cG). Side effects: Lymphedema Outcome: Complete remission FIRST RECURRENCE: August 2017: Patient finds a sore on the right tonsil. 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 Work-up: 10/15/17: PET-CT: Uptake in the two surgical areas, but no patrick metastatic sites. Treatment: 11/06/17 to 10/25/18: Adjuvant avelumab every 2 weeks x 12 cycles. Side effects: Fatigue, incidental cholecystitis that required surgery in October 2018 Outcome: No evidence of recurrence by CT chest, abdomen/pelvis. 11/13/22: Patient presents for clinical evaluation while on active surveillance. Labs and physical exam are stable. Pt has no evidence of disease recurrence and will continue on active surveillance. RTC in 6 months for evaluation with labs. If still stable, we can move to yearly visits then. 06/11/23 Pt presents today for evaluation while on active surveillance. Labs reviewed and physical exam completed. He has no concerning signs of recurrence. He will return as needed. Lymphedema of right arm 12/31/2017 Priority: Medium 5/31/18: He has noticed gradual worsening of his right arm lymphedema. He just received a lymphedema pump and will be trained on this device tomorrow in his home, which he will start using daily. He is also awaiting shipment of a new compression sleeve. He would like a referral for physical therapy here at [facility], and we will plan to coordinate this with his next treatment in 2 weeks. We will continue to monitor. 02/14/22: Right arm lymphedema is improving. Obesity: body mass index of 30.0-34.9 01/12/2017 Priority: Medium 04/07/19: I strongly recommended that the patient exercise more and loose some weight. 02/14/21: Lost 3 pounds 02/14/22: Lost 6 pounds Atrial fibrillation 02/14/2022 Priority: Low 02/14/22: Noted abnormal rhythm during physical exam. An EKG was completed in clinic which confirmed atrial fibrillation. Referral placed to cardiology. 05/15/22: He had a full work-up that was not alarming. He will remain under cardiology surveillance. 11/12/22: This time he has supraventicular extra beats or PVCs, but no afib. Essential hypertension 06/17/2018 Priority: Low Class: Chronic 02/14/22: Patient BPs are borderline. Observe. 06/11/23:Called back patient to discuss high blood pressure. Told him to recheck it and if > 150/90, call his PCP for further management. Patient expressed understanding. He has a machine at home and will check BP values. 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 Basal cell carcinoma of multiple sites 10/14/2017 Priority: Low History of BCC to the upper lip X 3. Arthritis of back 11/13/2022 11/13/22: Worsened with cold weather. Managing with Tylenol. Scheduled for steroid shot in lumbar spine. I recommend he try Aleve after he performs more activity than normal to prevent pain the following day. Documented by Geena Barnett, for Dr. Valderrama on 06/11/23 6:53 PM. All medical record entries made by the Scribe, Geena Freddie, were at my direction and personally dictated by me, Elliot Valderrama. I have reviewed the chart and agree that the record accurately reflects my personal performance of the history, physical exam, assessment and plan. I have also personally directed, reviewed, and agree with the discharge instructions. Elliot Valderrama MD documented [facility] encounter [facility] Instructions Cara Capps RN - 06/11/2023 11:40 AM EST Return to clinic : PRN: Call us if you have any concerns @ [phone] Contacting Our Office For any questions or concerns related to your oncology care that need addressed before your next scheduled visit please call our clinic office at [phone]. For any symptom management please call our office to directly speak with a nurse and refrain from using [facility] [employer], as we may need additional details regarding your symptoms. You may utilize [facility] [employer] for non-urgent questions. These messages are not checked on evenings, weekends, and holidays. We may ask you to send pictures of rashes or skin changes through [facility] [employer] Clinic staff nurses are available to answer your call from 8:00 AM to 4:30 [address] Thursday [address] any time sensitive calls before 4:00 PM, or as early in the day as possible, so we have enough time to meet your needs. Later calls may not be answered until the next business day. After business hours and on holidays and weekends, you may use the same phone number for concerns, you will be connected with a [facility] Nurse in our after hours call center. In case of a medical emergency please call 911. Our office fax number is [phone] Preparing for your next clinic visit Please make a list of non-urgent questions, concerns, and medication refills (that are prescribed by your oncologist) to bring with you to your next scheduled appointment. Please bring an updated list of medications you are currently taking including the dose and how often you are taking it. If you are completing outside labs and scans make sure to bring a CD with the images and any results, also ask that the outside facility faxes the results [phone] If you have been hospitalized and do not have a follow-up appointment with our office, please call to schedule at [phone]. documented in this encounter [facility] 04-14-2023 Note HNO ID: [id number] Author: Ana Haji MD Service: ? Author Type: Physician Type: Progress Notes Filed: 04/14/2023 8:01 AM Note Text: CHIEF COMPLAINT: 1. Routine skin exam - hx BCC, SCC 2. Efudex follow up used on left ear and neck area since last visit DERMATOLOGY CLINIC HISTORY: James Goins is a 77 year old male who presents for a routine skin exam. Patient used efudex follow up used on left ear and neck area since last visit he was also supposed to use Efudex on the left dorsum of hand and left forearm but did not know he was supposed to do that. There are no specific lesions of concern today. 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 excised 01/06/17 with removal of numerous lymph nodes and XRT -recurrence of of Harinder cell in right tonsil, excised 10/2017 -completed avelumab (Bavencio) at [facility] 11/06/17 - 10/25/2018 INFILTRATIVE BASAL CELL CA on right upper chest 04/2003 SUPERFICIAL BASAL CELL CA on left low medial scapula back 08/2003 SUPERFICIAL BASAL CELL CA on the right low medial scapula back 08/2013 NODULAR BASAL CELL CA on back 05/2006 NODULAR BASAL CELL CA on left outer shoulder 10/2006 NODULAR BASAL CELL CA left of midline of upper lip 10/2012 INFILTRATIVE BASAL CELL CA on left upper lip 10/2012 NODULAR BASAL CELL CA on right upper lip 10/2012 INFILTRATIVE BASAL CELL CA on left posterior shoulder s/p MOHS 09/2014 SQUAMOUS CELL CA in situ on right antihelix s/p MOHS 09/2014 SQUAMOUS CELL CA in situ on right preauricular s/p MOHS 01/2015 NODULAR BASAL CELL CA on right conchal bowl 01/16 s/p MOHS 03/2016 NODULAR BASAL CELL CA on left medial canthus 04/18 s/p MOHS 08/2016 SQUAMOUS CELL CA on right central upper back 01/2018 excised 04/2018 NODULAR BASAL CELL CA on right nasal bridge 08/2018 s/p MOHS 12/2018 SQUAMOUS CELL CA in situ on right lateral neck 08/2018 s/p MOHS 12/2018 SQUAMOUS CELL CA in situ on right lateral cheek 12/2018 s/p MOHS 12/2018 s/p MOHS 02/17/19 INVASIVE SQUAMOUS CELL CA on left forehead 02/15/20 s/p MOHS 03/2020 SUPERFICIAL BASAL CELL CA on left upper back 08/05/2021 treated with efudex ATYPICAL NEVUS (mild-mod) on left lateral mid lower back shave biopsy 11/2008 actinic keratosis -efudex to face [address] Ling -PDT with blue light to face and ears 03/2015 -Efudex cream to bilateral eyebrows and cheeks below the eyelid x 7-10 days 06/2016 -PDT with red light done on face and ears 06/2016 -Efudex to hands 05/2017 -PDT with red light done on face and ears 05/2017 -Efudex cream to forehead and temples 09/2017 -Efudex cream to right cheek near lateral canthus 01/2019 PDT with red light to face and ears and upper lip 05/2019 -* denies HSV -Efudex to forehead, temples, lateral cheeks and ears 08/2020. He was only able to use it for 5 days. -Efudex cream twice daily to forehead, temples, ears and lateral cheeks 04/2021 -efudex to upper lip 08/2021 -Efudex to left hand and forearm 10/2022 solar lentigines seborrheic keratosis Chronic plaque-type psoriasis - triamcinolone 0.1% cream SKIN, UPPER BACK NEAR MIDLINE, SHAVE BIOPSY - LICHENOID KERATOSIS, COMPATIBLE WITH AN ACTINIC LICHENOID KERATOSIS 01/2003 Skin, right axilla, punch biopsy - Mature adipose tissue, compatible with lipoma. 04/2016 Skin, right lateral cheek, shave biopsy - Inflamed verruca vulgaris. 05/2019 Skin, right posterior shoulder, shave biopsy - Lichenoid actinic keratosis. 08/15/20 PAST MEDICAL HISTORY: PAST MEDICAL HISTORY Diagnosis Date Cancer (HCC) Mixed hyperlipidemia Hyperlipidemia Osteoarthrosis, unspecified whether generalized or localized, other specified sites Osteoarthritis RIGHT KNEE Personal history of unspecified urinary disorder PMH - PAST MEDICAL HISTORY OF low grade chronic prostate Preop exam for internal medicine Unspecified essential hypertension Essential hypertension ACTIVE PROBLEM LIST Unspecified Essential Hypertension Mixed Hyperlipidemia Pmh - Past Medical History of Osteoarthrosis, Unspecified Whether Generalized Or Localized, Other Specified Sites Unspecified Internal Derangement of Knee Cheilitis Preop Exam for Internal Medicine Digital Mucous Cyst Inclusion Cyst Actinic Keratosis History of Skin Cancer History of Atypical Nevus PAST SURGICAL HISTORY Procedure Laterality Date CARDIAC CATHETERIZATION HX 2000 reportedly normal KNEE SCOPE,DIAGNOSTIC 1984 Arthroscopy, knee RIGHT KNEE SCOPE,DIAGNOSTIC 12/28/03 Arthroscopy, knee RIGHT PAST SURGICAL HISTORY OF 1959 CLAVICLE FRACTURE PAST SURGICAL HISTORY OF 2002 PROSTATE BIOPSY PAST SURGICAL HISTORY OF 10/17/2009 Partial knee replacement on left PAST SURGICAL HISTORY OF -2010 partial knee replacement rightl PAST SURGICAL HISTORY OF - removal of basal cell carcinoma upper lip TONSILLECTOMY HX MEDICATIONS: Current Outpatient Medications Medication Sig Dispense Refill ELIQUIS 5 mg tab(s) Take 1 tablet by mouth every 12 (t (more content not included)... [facility] 04-14-2023 Instructions Ana Haji MD - 04/14/2023 7:37 AM EDT -Efudex cream twice daily to upper cutaneous lip for 2 weeks -Efudex cream twice daily to left forearm and backs of hands for 2 to 4 weeks WOUND CARE INSTRUCTIONS AFTER A BIOPSY Keep the area of the biopsy clean and dry for the first 24 hours. A bulky pressure dressing may be applied to punch biopsies (biopsies with stitches). Pressure dressings help minimize bleeding and they are not to be removed for 24 hours. If you would like to shower within that first 24 hours, cover this area with a waterproof band-aid or plastic bag and tape. If the wound gets wet, change it to a clean dry band-aid or dressing afterwards. Do not keep a wet band-aid on the wound. Once daily, you will need to cleanse the wound with warm, soapy water. Rinse thoroughly and after drying, apply petrolatum (petroleum jelly) along with a fresh band-aid. Petrolatum should be applied two times daily with a fresh band-aid. Do not let the wound scab up. It will heal better if the wound is kept moist with the petrolatum. Continue the wound care for 2 weeks or until the wound is completely healed. Biopsies without stitches (shave biopsies) may take longer (2-3 weeks) to heal completely. If you experience any bleeding after the procedure, firm pressure should be applied over the wound for 15-20 minutes. No peeking during that time. If it does not stop, you should contact your physician. Tylenol may be taken for any discomfort following the procedure if there are no contraindications to this medication. Other medications such as aspirin and ibuprofen may cause you to bleed, so Tylenol is preferred. Call our office if you are concerned about the wound healing. Increased pain, swelling, expanding redness around the biopsy site, or a whitish, purulent drainage may be signs of possible infection. Your specimen was sent to a dermatopathologist at the [facility] located on main campus. We usually get the results in one to two weeks. You will receive a copy of your pathology report in about three weeks along with a letter. We will contact you sooner if anything more needs to be done. Please call us if you do not hear from us in a timely manner so that we can investigate the delay. -Sun avoidance, protective clothing, hats and the use of broad spectrum sunscreen with SPF 50 or higher was advised. documented in this encounter [facility] 04-14-2023 History of Present illness Narrative CHIEF COMPLAINT: 1. Routine skin exam - hx BCC, SCC 2. Efudex follow up used on left ear and neck area since last visit DERMATOLOGY CLINIC HISTORY: James Goins is a 77 year old male who presents for a routine skin exam. Patient used efudex follow up used on left ear and neck area since last visit he was also supposed to use Efudex on the left dorsum of hand and left forearm but did not know he was supposed to do that. There are no specific lesions of concern today. 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 excised 01/06/17 with removal of numerous lymph nodes and XRT -recurrence of of [place] cell in right tonsil, excised 10/2017 -completed avelumab (Bavencio) at [facility] 11/06/17 - 10/25/2018 INFILTRATIVE BASAL CELL CA on right upper chest 04/2003 SUPERFICIAL BASAL CELL CA on left low medial scapula back 08/2003 SUPERFICIAL BASAL CELL CA on the right low medial scapula back 08/2013 NODULAR BASAL CELL CA on back 05/2006 NODULAR BASAL CELL CA on left outer shoulder 10/2006 NODULAR BASAL CELL CA left of midline of upper lip 10/2012 INFILTRATIVE BASAL CELL CA on left upper lip 10/2012 NODULAR BASAL CELL CA on right upper lip 10/2012 INFILTRATIVE BASAL CELL CA on left posterior shoulder s/p MOHS 09/2014 SQUAMOUS CELL CA in situ on right antihelix s/p MOHS 09/2014 SQUAMOUS CELL CA in situ on right preauricular s/p MOHS 01/2015 NODULAR BASAL CELL CA on right conchal bowl 01/16 s/p MOHS 03/2016 NODULAR BASAL CELL CA on left medial canthus 04/18 s/p MOHS 08/2016 SQUAMOUS CELL CA on right central upper back 01/2018 excised 04/2018 NODULAR BASAL CELL CA on right nasal bridge 08/2018 s/p MOHS 12/2018 SQUAMOUS CELL CA in situ on right lateral neck 08/2018 s/p MOHS 12/2018 SQUAMOUS CELL CA in situ on right lateral cheek 12/2018 s/p MOHS 12/2018 s/p MOHS 02/17/19 INVASIVE SQUAMOUS CELL CA on left forehead 02/15/20 s/p MOHS 03/2020 SUPERFICIAL BASAL CELL CA on left upper back 08/05/2021 treated with efudex ATYPICAL NEVUS (mild-mod) on left lateral mid lower back shave biopsy 11/2008 actinic keratosis -efudex to face [address] Ling -PDT with blue light to face and ears 03/2015 -Efudex cream to bilateral eyebrows and cheeks below the eyelid x 7-10 days 06/2016 -PDT with red light done on face and ears 06/2016 -Efudex to hands 05/2017 -PDT with red light done on face and ears 05/2017 -Efudex cream to forehead and temples 09/2017 -Efudex cream to right cheek near lateral canthus 01/2019 PDT with red light to face and ears and upper lip 05/2019 -* denies HSV -Efudex to forehead, temples, lateral cheeks and ears 08/2020. He was only able to use it for 5 days. -Efudex cream twice daily to forehead, temples, ears and lateral cheeks 04/2021 -efudex to upper lip 08/2021 -Efudex to left hand and forearm 10/2022 solar lentigines seborrheic keratosis Chronic plaque-type psoriasis - triamcinolone 0.1% cream SKIN, UPPER BACK NEAR MIDLINE, SHAVE BIOPSY - LICHENOID KERATOSIS, COMPATIBLE WITH AN ACTINIC LICHENOID KERATOSIS 01/2003 Skin, right axilla, punch biopsy - Mature adipose tissue, compatible with lipoma. 04/2016 Skin, right lateral cheek, shave biopsy - Inflamed verruca vulgaris. 05/2019 Skin, right posterior shoulder, shave biopsy - Lichenoid actinic keratosis. 08/15/20 PAST MEDICAL HISTORY: PAST MEDICAL HISTORY Diagnosis Date Cancer (HCC) Mixed hyperlipidemia Hyperlipidemia Osteoarthrosis, unspecified whether generalized or localized, other specified sites Osteoarthritis RIGHT KNEE Personal history of unspecified urinary disorder PMH - PAST MEDICAL HISTORY OF low grade chronic prostate Preop exam for internal medicine Unspecified essential hypertension Essential hypertension ACTIVE PROBLEM LIST Unspecified Essential Hypertension Mixed Hyperlipidemia Pmh - Past Medical History of Osteoarthrosis, Unspecified Whether Generalized Or Localized, Other Specified Sites Unspecified Internal Derangement of Knee Cheilitis Preop Exam for Internal Medicine Digital Mucous Cyst Inclusion Cyst Actinic Keratosis History of Skin Cancer History of Atypical Nevus PAST SURGICAL HISTORY Procedure Laterality Date CARDIAC CATHETERIZATION HX 2000 reportedly normal KNEE SCOPE,DIAGNOSTIC 1985 Arthroscopy, knee RIGHT KNEE SCOPE,DIAGNOSTIC 12/28/03 Arthroscopy, knee RIGHT PAST SURGICAL HISTORY OF 1960 CLAVICLE FRACTURE PAST SURGICAL HISTORY OF 2002 PROSTATE BIOPSY PAST SURGICAL HISTORY OF 10/17/2009 Partial knee replacement on left PAST SURGICAL HISTORY OF 2-2010 partial knee replacement rightl PAST SURGICAL HISTORY OF 5- removal of basal cell carcinoma upper lip TONSILLECTOMY HX MEDICATIONS: Current Outpatient Medications Medication Sig Dispense Refill ELIQUIS 5 mg tab(s) Take 1 tablet by mouth every 12 (twelve) hours. triamcinolone (KENALOG) 0.025 % ointment Apply to affected area twice daily as needed for 1-2 weeks after the 5% fluorouracil cream 30 g 1 avelumab in NaCl 0.9% (BAVENCIO) Inject intravenously. LINZESS 145 mcg cap aspirin, enteric coated (ASPIRIN, ENTERIC COATED) 81 mg EC tablet Take 81 mg by mouth once daily. pravastatin (PRAVACHOL) 40 mg tablet Take 40 mg by mouth once daily. valsartan (DIOVAN) 160 mg tablet Take 160 mg by mouth once daily. Omeprazole 40 mg capsule Take 40 mg by mouth once daily. tamsulosin 0.4 mg Cp24 Take 0.4 mg by mouth once daily. finasteride 5 mg tablet Take 5 mg by mouth once daily. TOPROL XL 50 MG 24 HR TAB Take one(1) tablet BY MOUTH daily. 0 Fluorouracil (EFUDEX) 5 % cream Apply 2x daily to ears & sides of cheeks x 2 weeks. Apply 2x daily to left hand &forearm x 2-4 weeks. May stop for few days or decrease to once daily for discomfort (Patient not taking: Reported on 04/14/2023) 40 g 0 hydrocortisone 2.5 % ointment Apply to affected area on face 2 times daily for 1-2 weeks after 5 fluorouracil cream (Patient not taking: Reported on 04/11/2021 ) 30 g 0 No current facility-administered medications for this visit. ALLERGIES: Oxycontin [Oxycodone Hcl] PHYSICAL EXAMINATION: GENERAL: Patient is a well appearing, well nourished and pleasant, male alert and oriented, NAD. SKIN: A full skin exam was performed including the scalp, face, neck, chest, abdomen, back, buttocks, arms and legs. -Bright red to violaceous dome-shaped vascular papules throughout -Scattered brown macules and papules with regular borders and uniform color -Rdz waxy stuck-on papules throughout -Erythematous scaly macule(s) with gritty scale on left forearm, dorsum of hands, face and ears -Erythematous papule(s) on left upper arm 8 x 10 mm ASSESSMENT AND PLAN: 1. Seborrheic keratosis -Provided reassurance on the benign nature of the lesion(s) 2. [place] angioma -Provided reassurance on the benign nature of the lesion(s) 3. Multiple benign nevi -Provided reassurance on the benign nature of the lesion(s) 4. Rule out basal cell carcinoma versus squamous cell carcinoma on left upper arm -Digital photo(s) taken -A biopsy was done to establish and confirm diagnosis 5. [place] cell carcinoma and Hx of nonmelanoma skin cancer -There is no evidence of recurrence -Sun avoidance, protective clothing, hats and the use of broad spectrum sunscreen with SPF 30 or higher was advised 6. Actinic keratosis -Efudex cream twice daily to upper cutaneous lip for 2 weeks on his own -Efudex cream twice daily to left forearm and dorsum of hands for 2 to 4 weeks on his own -Patient to return to clinic for PDT with bluelight of face ears and neck UNIVERSAL PROTOCOL / SAFETY CHECKLIST Procedure to be Performed: Shave biopsy of lesion Sign In: A Moment of CARE was completed. Personnel directly involved with the procedure wore the appropriate PPE (Personal Protective Equipment). Patient/Surrogate Stated/Verified: PATIENT VERIFIED(optional for EMERGENT procedures): Patient name, Date of , Relevant allergies, and The intended procedure Time Out Communication: Intended patient and procedure match the source documents. Consent documented and matches the intended procedure. Sign Out: SIGN OUT (optional for EMERGENT procedures): All specimen containers correctly labeled. Post-procedure follow-up management communicated and Plan of Care Visit completed when applicable. Photo taken: Yes SHAVE BIOPSY OF LESION TO ESTABLISH AND CONFIRM DIAGNOSIS: Site: left upper arm Risks, benefits, alternatives and personnel required for shave biopsy reviewed with patient. Patient and provider agree as to site(s) to be biopsied. Patient verbalizes understanding and wishes to proceed. Site(s) prepped with alcohol and anesthetized with 1% lidocaine with epinephrine. Shave biopsy of lesion(s) performed to the level of the dermis/epidermis The following was sent for histologic evaluation: EBL: scant Hemostasis with aluminum chloride and direct pressure, and a bandage is applied Written and verbal wound care instructions provided to patient, understanding verbalized. Return to clinic for PDT with bluelight of his face, ears and neck, 6 months for routine skin exam Medical Decision Making: Medical Decision Making Level: 1 - N/A The documentation for this note was completed by Sharon Sales Ma April 14, 2023 7:33 AM acting as scribe for Ana Haji MD. April 14, 2023 7:26 AM I agree with the Chief Complaint, ROS, and Past Histories independently gathered by the clinical cad application support specialist and the remaining scribed note accurately describes my personal service to the patient. Ana Haji MD documented in this encounter [facility] 11-13-2022 History of Present illness Narrative CLINIC NOTE - MEDICAL ONCOLOGY - [facility] 11/13/22 James Goins is a 77 y.o. male was referred here by Dr. 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 He completed one year of adjuvant avelumab, with his last dose on 10/25/18. He comes for surveillance. Chief Complaint Patient presents with [place] Cell Carcinoma 6 month follow up on surveillance History of Present Illness: Patient presents for clinical evaluation while on surveillance. Patient is doing well without any acute concerns. He reports back pain due to his arthritis, worsened during the cold weather. He has been managing with Tylenol. He had surgery one year ago, but the pain came back and he is scheduled for a steroid shot to his lumbar spine. He has continued lymphedema in his right arm, which seems to improve when he lays down at night. He has continued to use his arm sleeve, which he tightens as needed through sewing. He has been working on improving his diet. He continues to walk 0.25 miles per day but has been finding it difficult due to his arthritis. If he overexerts himself, he feels muscular pains the next day. Oncology History [place] cell carcinoma of unknown primary site 04/03/2016 Pathology Skin biopsies ([id number]) A. Skin, left medial canthus, shave biopsy: Basal cell carcinoma, nodular B. Skin, right axilla, punch biopsy: Mature adipose tissue, compatible with lipoma. 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 Abnormal examination indicative of malignant viable neoplasm. 2. Increased glucose concentration in the right axilla fulfills quantitative criteria for viable neoplasm. 3. Prominent glucose concentration observed in the descending thoracic, as well as abdominal aorta is commensurate with activated leukocytes associated with atherosclerotic plaque formation. 01/12/2017 Pathology Right axillary lymphadenectomy ([id number]): A. Right axillary lymph nodes, dissection: Dermal and superficial subcutaneous fibrosis compatible with scar, negative for neuroendocrine carcinoma. Metastatic neuroendocrine carcinoma involving two of 70 lymph nodes (2/70), see Comment B. Right axillary level 3 lymph nodes, dissection: Twenty-three lymph nodes negative for diagnostic evidence of metastatic neuroendocrine carcinoma (0/23) ---Comment--- The largest focus of metastatic neuroendocrine carcinoma in specimen A measures at least approximately 20 mm (2.0 cm), measured grossly and including areas of necrosis. Metastatic neuroendocrine carcinoma is present in the lymph node parenchyma and lymph node capsule. Extracapsular extension is present. 03/03/2017 - 04/14/2017 Radiation Adjuvant radiation to the right axilla: 5600 cGy of 15 MV electrons in 28 fractions with a mixed mode technique by Dr. Rucker. 09/30/[address] ([facility]) IMPRESSION: No acute skull fracture or intracranial traumatic injury. Minimal right frontal cephalhematoma. 10/09/2017 Imaging Brain MRI IMPRESSION: No evidence for intracranial metastatic disease. 11/06/2017 - 10/21/2018 Immunotherapy Avelumab 10 mg/kg q2wks 11/06/17 Cycle 1 Day 1 11/19/17 C1D15 10/21/18 [id number] 12/17/2017 Procedure port placement of left chest Past Medical History: Diagnosis Date Abnormal cytology 10/11/2018 Added automatically from request for surgery [id number] Arthritis 2019 pelvis and right hip Basal cell carcinoma of multiple sites 10/14/2017 Cholecystitis 09/04/2018 Encounter for antineoplastic immunotherapy 11/03/2017 Avelumab 10 mg/kg 11/05/17: Cycle 1 Day 1 12/03/17: Cycle 2, Day 1 12/31/17: Cycle 3, Day 1 Essential hypertension, benign GERD (gastroesophageal reflux disease) History of biliary duct stent placement 09/09/2018 ERCP for his common hepatic duct brushing pathology which was suspicious for adenocarcinoma in September 2018. 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 Umbilical hernia Past Surgical History: Procedure Laterality Date ERCP W/ ENDOSCOPY CANNULATION PAPILLA ADD-ON PX N/A 02/08/2019 Laterality: N/A; Surgeon: Jerardo Hemphill MD; Location: [facility] ENDOSCOPY ERCP DIAGNOSTIC N/A 09/30/2018 Laterality: N/A; Surgeon: Jerardo Hemphill MD; Location: [facility] ENDOSCOPY REMOVAL CENTRAL VENOUS ACCESS DEVICE TUNNELED W/ PORT PUMP Left 09/11/2018 Laterality: Left; Surgeon: Interventional Rad (Ir Dept Use Only) Smith; Location: [facility] INTERVENTIONAL RADIOLOGY (VIR) CHOLECYSTECTOMY LAPAROSCOPIC N/A 09/08/2018 Laterality: N/A; Surgeon: Martin Walters MD; Location: [facility] MAIN OR INSERTION CVC TUNNELED W/ PORT PUMP N/A 12/17/2017 Laterality: N/A; Surgeon: Sunny Mora MD; Location: [facility] INTERVENTIONAL RADIOLOGY (VIR) LYMPHADENECTOMY AXILLARY DEEP Right 01/12/[address]; Laterality: Right; Surgeon: John Trejo MD; Location: [facility] MAIN OR MOHS PROCEDURE Right 2014 upper lip KNEE REPLACEMENT Bilateral 2010 FRACTURE TX 1961 collarbone TONSILLECTOMY Family History Problem Relation Age of Onset Heart Disease - Other Mother bad valve Stroke Mother 82 Cancer- Other Father 70 Cancer- Other Maternal Grandmother 82 uterine or gastric Coronary Artery Disease Maternal Grandfather Colorectal Cancer Neg Hx GI Disease Neg Hx Family Status Relation Name Status Mother Father unknown MGM MGF Son Alive Son Alive Son Alive Son Alive Neg Hx (Not Specified) Social History Tobacco Use Smoking status: Former Packs/day: 0.20 Types: Cigarettes, Pipe Start date: 01/01/1962 Quit date: 01/01/1975 Years since quittin.8 Smokeless tobacco: Never Vaping Use Vaping Use: Never used Substance Use Topics Alcohol use: Yes Alcohol/week: 1.0 standard drink Types: 1 Glasses of wine per week Drug use: No Current Outpatient Medications Medication Sig aspirin 81 MG Chew Tab take 81 mg by mouth daily.. finasteride 5 MG Tab take 5 mg by mouth daily.. Lubiprostone (AMITIZA PO) Take by mouth 2 times daily. (Patient not taking: Reported on 11/13/2022) metoprolol succinate 25 MG tablet XL take 25 mg by mouth daily.. omeprazole [address] take 10 mg by mouth daily.. (Patient not taking: Reported on 11/13/2022) pantoprazole [address] tablet DR Take 40 mg by mouth daily. pravastatin 40 MG Tab take 40 mg by mouth daily.. SM Stool Softener 8.6-50 MG per tablet Take 2 tablets by mouth 2 times daily. Tamsulosin HCl 0.4 MG Cap take 0.4 mg by mouth daily.. valsartan 160 MG Tab take 160 mg by mouth daily.. Allergies Allergen Reactions Oxycontin [Oxycodone] Nausea Only Seasonal Review of systems: A 14 point review of systems was performed with the patient at today's patient and is negative except for those items mentioned in the interval history and those items mentioned below as well as in the nursing documentation review of systems. Fatigue: Absent or within normal limits Nausea: Absent or within normal limits Vomiting: Absent or within normal limits Anorexia: Absent or within normal limits Diarrhea: Absent or within normal limits Constipation: Occasional or intermittent symptoms OR occasional use of stool softeners, laxatives, dietary modification, or enema Peripheral Motor Neuropathy: Absent or within normal limits Depression: Absent or within normal limits Dyspnea: Absent or within normal limits Rash Maculo-Papular: Absent or within normal limits Palmar-Plantar Erythrodysesthesia Syndrome: Absent or within normal limits Pain: Absent or within normal limits Fever: Absent or within normal limits Localized Edema: Localized to dependent areas, no disability or functional impairment (right arm lymphadema) Physical Exam: Vital signs: Blood pressure (!) 142/98, pulse 68, temperature 98.4 F (36.9 C), temperature source Oral, resp. rate 16, height 1.854 m (6' 0.99 ), weight 106 kg (233 lb 11.2 oz), SpO2 97 %. ECOG = 0 GENERAL APPEARANCE 77 y.o. appears his stated age. The patient is alert and oriented x3. Eyes Pupils equal, round, reactive to light. Extraocular movements are intact. No scleral icterus. Ears, Nose, Mouth/throat Mucous membranes moist, no mucositis or thrush. Teeth in a good state of hygiene. Neck is supple. No thyromegaly LUNGS Clear to auscultation bilaterally. No wheezes, rales or rhonchi. CARDIAC S1, S2 normal. Irregular beats, not afib. Bradychardic. No murmur, or rub. No cyanosis, clubbing, or peripheral edema. GI Abdomen is soft, nontender, nondistended, positive bowel sounds. No palpable hepatosplenomegaly. No peritoneal signs. Musculoskeletal Muscle strength 5/5 in all the extremities and symmetric. No focal neurological deficit. CN 2 - 12 grossly intact. [facility] not tested. Neurological exam No focal neurological deficit. Skin Skin is warm, dry, and not diaphoretic. No new rash or lesion noted. Psychiatric Not in acute distress, answering the questions appropriately. Lymph nodes: No cervical, supraclavicular, axillary or inguinal adenopathy. Right arm lymphedema. BP Readings from Last 3 Encounters: 11/13/22 (!) 142/98 05/15/22 162/88 02/14/22 160/90 Wt Readings from Last 3 Encounters: 11/13/22 106 kg (233 lb 11.2 oz) 05/15/22 106.7 kg (235 lb 3.2 oz) 02/14/22 104.3 kg (230 lb) Laboratory and radiology review: Results for orders placed or performed in visit on 11/13/22 LACTATE DEHYDROGENASE Result Value Ref Range LD Total 137 100 - 190 U/L TSH Result Value Ref Range TSH 2.366 0.550 - 4.780 uIU/mL COMPREHENSIVE METABOLIC PANEL Result Value Ref Range Sodium 138 135 - 145 mmol/L Potassium 4.3 3.5 - 5.0 mmol/L Chloride 107 98 - 108 mmol/L BUN 17 7 - 25 mg/dL Creatinine 1.32 (H) 0.70 - 1.30 mg/dL Glucose 99 70 - 99 mg/dL Bilirubin Total 1.1 <1.5 mg/dL Albumin 3.7 3.5 - 5.0 g/dL Total Protein 6.4 6.4 - 8.3 g/dL AST 12 10 - 39 U/L ALP 46 32 - 126 U/L Calcium 9.3 8.6 - 10.5 mg/dL CO2 25 21 - 31 mmol/L ALT 8 (L) 10 - 52 U/L Bun/Crea Ratio 13 Osmolality (Calculated) 291 278 - 305 mOsm/kg Anion Gap 10 7 - 17 mmol/L eGFR, CKD-EPI, Male 55 (L) >=60 mL/min/1.73m2 CBC AND ELECTRONIC DIFF Result Value Ref Range WBC Count 9.36 3.73 - 10.10 K/uL RBC Count 4.65 4.38 - 5.83 M/uL Hemoglobin 13.9 13.4 - 16.8 g/dL Hematocrit 43.6 39.6 - 48.8 % Mean Cell Volume 93.8 79.0 - 94.5 fL Mean Cell Hgb 29.9 26.1 - 33.3 pg Mean Cell Hgb Conc 31.9 31.9 - 36.5 g/dL RBC Distribution 13.9 10.9 - 14.3 % Platelet Count 160 146 - 337 K/uL Mean Platelet Volume 9.8 8.7 - 12.3 fL DIFF STATUS Electronic Differential Segs + Bands Auto 69.6 % Immature Grans % 0.6 % Lymphocyte % Auto 19.6 % Monocyte % Auto 8.0 % Eosinophil % Auto 1.6 % Basophil % Auto 0.6 % Nucleated RBC 0.0 <=0.2 /100 WBC Segs + Bands,Absolute Auto 6.51 (H) 1.57 - 6.19 K/uL Immature Grans Absolute 0.06 <=0.07 K/uL Abs Lymph Auto 1.83 0.83 - 3.57 K/uL Abs Irwin Auto 0.75 0.24 - 0.93 K/uL Abs Eos Auto 0.15 0.00 - 0.48 K/uL Abs Baso Auto 0.06 0.00 - 0.09 K/uL Staging scans: None Assessment and Plan: Patient Active Problem List Diagnosis Date 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 A biopsy comes back negative. November 2016: Patient goes to the ER for an unrelated event and is found to have axillary nodes. He is referred to Dr. Trejo. 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 The primary is not found. Treatment: Lymphadenectomy followed by adjuvant radiotherapy (55cG). Side effects: Lymphedema Outcome: Complete remission FIRST RECURRENCE: August 2017: Patient finds a sore on the right tonsil. 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 Work-up: 10/15/17: PET-CT: Uptake in the two surgical areas, but no patrick metastatic sites. Treatment: 11/06/17 to 10/25/18: Adjuvant avelumab every 2 weeks x 12 cycles. Side effects: Fatigue, incidental cholecystitis that required surgery in October 2018 Outcome: No evidence of recurrence by CT chest, abdomen/pelvis. 11/13/22: Patient presents for clinical evaluation while on active surveillance. Labs and physical exam are stable. Pt has no evidence of disease recurrence and will continue on active surveillance. RTC in 6 months for evaluation with labs. If still stable, we can move to yearly visits then. Lymphedema of right arm 12/31/2017 Priority: Medium 12/31/17: He has noticed gradual worsening of his right arm lymphedema. He just received a lymphedema pump and will be trained on this device tomorrow in his home, which he will start using daily. He is also awaiting shipment of a new compression sleeve. He would like a referral for physical therapy here at [facility], and we will plan to coordinate this with his next treatment in 2 weeks. We will continue to monitor. 02/14/22: Right arm lymphedema is improving. Obesity: body mass index of 30.0-34.9 01/12/2017 Priority: Medium 04/07/19: I strongly recommended that the patient exercise more and loose some weight. 02/14/21: Lost 3 pounds 02/14/22: Lost 6 pounds Atrial fibrillation 02/14/2022 Priority: Low 02/14/22: Noted abnormal rhythm during physical exam. An EKG was completed in clinic which confirmed atrial fibrillation. Referral placed to cardiology. 05/15/22: He had a full work-up that was not alarming. He will remain under cardiology surveillance. 11/12/22: This time he has supraventicular extra beats or PVCs, but no afib. Essential hypertension 06/17/2018 Priority: Low Class: Chronic 02/14/22: Patient BPs are borderline. Observe. 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 Basal cell carcinoma of multiple sites 10/14/2017 Priority: Low History of BCC to the upper lip X 3. Arthritis of back 11/13/2022 11/13/22: Worsened with cold weather. Managing with Tylenol. Scheduled for steroid shot in lumbar spine. I recommend he try Aleve after he performs more activity than normal to prevent pain the following day. We spent a total time of 40 minutes (1:40 PM - 2:00 PM + 20 minutes editing chart post-visit) for the patient care and to dormitory counselor about the treatment, tests results, and the diagnosis of cancer. Documented by Fausto Barnett, for Dr. Valderrama on 11/13/22 7:19 PM. All medical record entries made by the Fausto Barnett, were at my direction and personally dictated by me, Elliot Valderrama. I have reviewed the chart and agree that the record accurately reflects my personal performance of the history, physical exam, assessment and plan. I have also personally directed, reviewed, and agree with the discharge instructions. Elliot Valderrama MD documented in this encounter [facility] 11-13-2022 Instructions Cara Capps RN - 11/13/2022 2:00 PM EDT Return to clinic : 05/15/23 @ 1:40 pm Provider: Dr. Valderrama Labs: Yes - CLINICAL INFORMATICS MANAGER Scans: No Treatment: No Referrals: No documented in this encounter [facility] 10-08-2022 Instructions Sharon Sales Ma - 10/08/2022 8:20 AM EST WOUND CARE INSTRUCTIONS AFTER LIQUID NITROGEN / CRYOTHERAPY Liquid nitrogen was used to treat your skin today. This substance is so cold that it causes rapid freezing of your skin on contact, thereby leading to frostbite and destruction of that tissue. The area that was treated will appear red and puffy for several days. Most people do not have a lot of discomfort after the treatment. However, depending on what we are treating and how vigorously you were frozen, you may experience pain and blistering at the sites. Cool compresses, elevation of the body part treated, Tylenol, or Ibuprofen may help alleviate some of that discomfort. As the area heals, it will turn brown and flaky. The top layer of the skin will crust up and fall off. Do not pick off any scabs as this can lead to scarring. Just allow the scab to fall off on its own. There are no special wound care instructions if you do not develop any blisters. You may continue all your normal activities such as washing, bathing, and applying make-up. Typically the face, head, and lips heal more quickly in approximately one week. The trunk, arms and legs can sometimes take 2-3 weeks to heal. Occasionally a blister may form in the area that was treated. The blister may be filled with water or blood. If a blister is present, you may puncture a small hole in the blister to relieve the pressure. This may be done by gently cleansing the area with soap and water, sterilizing a pin or needle over a flame, wiping the needle with cotton and alcohol, then puncturing the blister. Do not take the top of the blister off since your skin acts as a natural band-aid. Removing the top of the blister can increase your risk of an infection. This may be done more than once. If the redness and discomfort persists, contact the office. If the blister breaks off and the skin is exposed, you should cleanse the area with warm soapy water. After rinsing thoroughly, apply a small amount of antibiotic ointment (bacitracin) and a fresh band-aid. This should be done two times daily. Call our office if you are concerned about the wound healing. Expanding redness around the site, increased pain, swelling, or a whitish, purulent drainage may be a signs of a possible infection. documented in this encounter [facility] 10-08-2022 History of Present illness Narrative CHIEF COMPLAINT: Routine skin exam - hx BCC, SCC, [place] DERMATOLOGY CLINIC HISTORY: James Goins is a 77 year old male who presents for a routine skin exam. There are no specific concerns today. 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 with removal of numerous lymph nodes and XRT -recurrence of of [place] cell in right tonsil, excised 10/2017 -completed avelumab (Bavencio) at [facility] 11/06/17 - 10/25/2018 INFILTRATIVE BASAL CELL CA on right upper chest 04/2003 SUPERFICIAL BASAL CELL CA on left low medial scapula back 08/2003 SUPERFICIAL BASAL CELL CA on the right low medial scapula back 08/2013 NODULAR BASAL CELL CA on back 05/2006 NODULAR BASAL CELL CA on left outer shoulder 10/2006 NODULAR BASAL CELL CA left of midline of upper lip 10/2012 INFILTRATIVE BASAL CELL CA on left upper lip 10/2012 NODULAR BASAL CELL CA on right upper lip 10/2012 INFILTRATIVE BASAL CELL CA on left posterior shoulder s/p MOHS 09/2014 SQUAMOUS CELL CA in situ on right antihelix s/p MOHS 09/2014 SQUAMOUS CELL CA in situ on right preauricular s/p MOHS 01/2015 NODULAR BASAL CELL CA on right conchal bowl 01/16 s/p MOHS 03/2016 NODULAR BASAL CELL CA on left medial canthus 04/18 s/p MOHS 08/2016 SQUAMOUS CELL CA on right central upper back 01/2018 excised 04/2018 NODULAR BASAL CELL CA on right nasal bridge 08/2018 s/p MOHS 12/2018 SQUAMOUS CELL CA in situ on right lateral neck 08/2018 s/p MOHS 12/2018 SQUAMOUS CELL CA in situ on right lateral cheek 12/2018 s/p MOHS 12/2018 s/p MOHS 02/17/19 INVASIVE SQUAMOUS CELL CA on left forehead 02/15/20 s/p MOHS 03/2020 SUPERFICIAL BASAL CELL CA on left upper back 08/05/2021 treated with efudex ATYPICAL NEVUS (mild-mod) on left lateral mid lower back shave biopsy 11/2008 actinic keratosis -efudex to face [address] Ling -PDT with blue light to face and ears 03/2015 -Efudex cream to bilateral eyebrows and cheeks below the eyelid x 7-10 days 06/2016 -PDT with red light done on face and ears 06/2016 -Efudex to hands 05/2017 -PDT with red light done on face and ears 05/2017 -Efudex cream to forehead and temples 09/2017 -Efudex cream to right cheek near lateral canthus 01/2019 PDT with red light to face and ears and upper lip 05/2019 -* denies HSV -Efudex to forehead, temples, lateral cheeks and ears 08/2020. He was only able to use it for 5 days. -Efudex cream twice daily to forehead, temples, ears and lateral cheeks 04/2021 -efudex to upper lip 08/2021 Chronic plaque-type psoriasis - triamcinolone 0.1% cream SKIN, UPPER BACK NEAR MIDLINE, SHAVE BIOPSY - LICHENOID KERATOSIS, COMPATIBLE WITH AN ACTINIC LICHENOID KERATOSIS 01/2003 Skin, right axilla, punch biopsy - Mature adipose tissue, compatible with lipoma. 04/2016 Skin, right lateral cheek, shave biopsy - Inflamed verruca vulgaris. 05/2019 Skin, right posterior shoulder, shave biopsy - Lichenoid actinic keratosis. 08/15/20 PAST MEDICAL HISTORY: PAST MEDICAL HISTORY Diagnosis Date Cancer (HCC) Mixed hyperlipidemia Hyperlipidemia Osteoarthrosis, unspecified whether generalized or localized, other specified sites Osteoarthritis RIGHT KNEE Personal history of unspecified urinary disorder PMH - PAST MEDICAL HISTORY OF low grade chronic prostate Preop exam for internal medicine Unspecified essential hypertension Essential hypertension ACTIVE PROBLEM LIST Unspecified Essential Hypertension Mixed Hyperlipidemia Pmh - Past Medical History of Osteoarthrosis, Unspecified Whether Generalized Or Localized, Other Specified Sites Unspecified Internal Derangement of Knee Cheilitis Preop Exam for Internal Medicine Digital Mucous Cyst Inclusion Cyst Actinic Keratosis History of Skin Cancer History of Atypical Nevus PAST SURGICAL HISTORY Procedure Laterality Date CARDIAC CATHETERIZATION HX 2000 reportedly normal KNEE SCOPE,DIAGNOSTIC 1985 Arthroscopy, knee RIGHT KNEE SCOPE,DIAGNOSTIC 12/28/03 Arthroscopy, knee RIGHT PAST SURGICAL HISTORY OF 1960 CLAVICLE FRACTURE PAST SURGICAL HISTORY OF 2002 PROSTATE BIOPSY PAST SURGICAL HISTORY OF 10/17/2009 Partial knee replacement on left PAST SURGICAL HISTORY OF 2-2010 partial knee replacement rightl PAST SURGICAL HISTORY OF - removal of basal cell carcinoma upper lip TONSILLECTOMY HX MEDICATIONS: Current Outpatient Medications Medication Sig Dispense Refill Fluorouracil (EFUDEX) 5 % cream Apply 2x daily to forehead, temples, sides of cheeks & ears for 2 weeks. May stop for few days or decrease to once daily for discomfort (Patient not taking: Reported on 04/11/2021 ) 40 g 0 hydrocortisone 2.5 % ointment Apply to affected area on face 2 times daily for 1-2 weeks after 5 fluorouracil cream (Patient not taking: Reported on 04/11/2021 ) 30 g 0 triamcinolone acetonide (KENALOG) 0.1 % ointment Apply to affected area on left mid back twice daily as needed. Use 2 weeks on 1 week off. Not for face, armpits or groin 30 g 0 avelumab in NaCl 0.9% (BAVENCIO) Inject intravenously. LINZESS 145 mcg cap aspirin, enteric coated (ASPIRIN, ENTERIC COATED) 81 mg EC tablet Take 81 mg by mouth once daily. pravastatin (PRAVACHOL) 40 mg tablet Take 40 mg by mouth once daily. valsartan (DIOVAN) 160 mg tablet Take 160 mg by mouth once daily. Omeprazole 40 mg capsule Take 40 mg by mouth once daily. tamsulosin 0.4 mg Cp24 Take 0.4 mg by mouth once daily. finasteride 5 mg tablet Take 5 mg by mouth once daily. TOPROL XL 50 MG 24 HR TAB Take one(1) tablet BY MOUTH daily. 0 No current facility-administered medications for this visit. ALLERGIES: Oxycontin [Oxycodone Hcl] PHYSICAL EXAMINATION: GENERAL: Patient is a well appearing, well nourished and pleasant, male alert and oriented, NAD. SKIN: A full skin exam was performed including the scalp, face, neck, chest, abdomen, back, buttocks, arms and legs. Face, trunk, arms and legs with light rdz macule(s) in sun exposed areas. Trunk with waxy rdz papule(s). Ears, lateral cheeks, left dorsal hand and left forearm with scaly erythematous macules. Right dorsum of hand with 2 scaly erythematous macules. Previous surgical scar(s) are clear for recurrence. ASSESSMENT AND PLAN: 1. Actinic keratosis - Fluorouracil (EFUDEX) 5 % cream; Apply 2x daily to ears & sides of cheeks x 2 weeks. Apply 2x daily to left hand &forearm x 2-4 weeks. May stop for few days or decrease to once daily for discomfort Dispense: 40 g; Refill: 0 - triamcinolone (KENALOG) 0.025 % ointment; Apply to affected area twice daily as needed for 1-2 weeks after the 5% fluorouracil cream Dispense: 30 g; Refill: 1 Procedure: Cryosurgery of nonmalignant lesion Risks, benefits and alternatives and personnel required for cryosurgery reviewed with patient. Patient verbalizes understanding and wished to proceed. Cryosurgery performed with liquid nitrogen via cryostat spray gun to 2 lesion(s) treated on right dorsum of hand. Wound care instructions provided. Patient verbalizes understanding. 2. Lentigines -Benign, I recommend observation 3. Seborrheic keratosis -Benign, I recommend observation 4. History of atypical nevus -There is no evidence of recurrence -Discussed need for sunscreens and sun protection. I recommend a broad-spectrum sunscreen (that protects against UVA & UVB) with SPF 30 or higher. 5. History of nonmelanoma skin cancer -There is no evidence of recurrence -Discussed need for sunscreens and sun protection. I recommend a broad-spectrum sunscreen (that protects against UVA & UVB) with SPF 30 or higher. 6. 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 PET scan 04/23/2022 with stable. He does not appear to have signs of recurrence at this time. Received Medical Records from [facility]. Placed in Dr. Haji's In Box for review. Renetta Valdovinos Ma documented in this encounter [facility] 05-15-2022 History of Present illness Narrative CLINIC NOTE - MEDICAL ONCOLOGY - [facility] 05/15/22 James Goins is a 76 y.o. male who has been referred here by Dr. Nnamdi Trejo for treatment of a recurrent 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, which has been resected. He completed one year of adjuvant avelumab, with his last dose on 10/25/18. He comes for surveillance. Chief Complaint Patient presents with [place] Cell Carcinoma Treatment plan discussion. History of Present Illness: Patient presents for clinical evaluation while on surveillance. Patient is doing well without any acute concerns. He had a recent biopsy which came back negative. Patient reports he had stress tests completed since his previous visit and he does not have Afib. Patient will continue to follow up with his meat products demonstrator annually. 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 Skin, left medial canthus, shave biopsy: Basal cell carcinoma, nodular B. Skin, right axilla, punch biopsy: Mature adipose tissue, compatible with lipoma. 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 Abnormal examination indicative of malignant viable neoplasm. 2. Increased glucose concentration in the right axilla fulfills quantitative criteria for viable neoplasm. 3. Prominent glucose concentration observed in the descending thoracic, as well as abdominal aorta is commensurate with activated leukocytes associated with atherosclerotic plaque formation. 01/12/2017 Pathology Right axillary lymphadenectomy ([id number]): A. Right axillary lymph nodes, dissection: Dermal and superficial subcutaneous fibrosis compatible with scar, negative for neuroendocrine carcinoma. Metastatic neuroendocrine carcinoma involving two of 70 lymph nodes (2/70), see Comment B. Right axillary level 3 lymph nodes, dissection: Twenty-three lymph nodes negative for diagnostic evidence of metastatic neuroendocrine carcinoma (0/23) ---Comment--- The largest focus of metastatic neuroendocrine carcinoma in specimen A measures at least approximately 20 mm (2.0 cm), measured grossly and including areas of necrosis. Metastatic neuroendocrine carcinoma is present in the lymph node parenchyma and lymph node capsule. Extracapsular extension is present. 03/03/2017 - 04/14/2017 Radiation Adjuvant radiation to the right axilla: 5600 cGy of 15 MV electrons in 28 fractions with a mixed mode technique by Dr. Rucker. 09/30/[address] ([facility]) IMPRESSION: No acute skull fracture or intracranial traumatic injury. Minimal right frontal cephalhematoma. 10/09/2017 Imaging Brain MRI IMPRESSION: No evidence for intracranial metastatic disease. 11/06/2017 - 10/21/2018 Immunotherapy Avelumab 10 mg/kg q2wks 11/06/17 Cycle 1 Day 1 11/19/17 C1D15 10/21/18 [id number] 12/17/2017 Procedure port placement of left chest Past Medical History: Diagnosis Date Abnormal cytology 10/11/2018 Added automatically from request for surgery [id number] Arthritis 2019 pelvis and right hip Basal cell carcinoma of multiple sites 10/14/2017 Cholecystitis 09/04/2018 Encounter for antineoplastic immunotherapy 11/03/2017 Avelumab 10 mg/kg 11/05/17: Cycle 1 Day 1 12/03/17: Cycle 2, Day 1 12/31/17: Cycle 3, Day 1 Essential hypertension, benign GERD (gastroesophageal reflux disease) History of biliary duct stent placement 09/09/2018 ERCP for his common hepatic duct brushing pathology which was suspicious for adenocarcinoma in September 2018. 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 Umbilical hernia Past Surgical History: Procedure Laterality Date ERCP W/ ENDOSCOPY CANNULATION PAPILLA ADD-ON PX N/A 02/08/2019 Laterality: N/A; Surgeon: Jerardo Hemphill MD; Location: [facility] ENDOSCOPY ERCP DIAGNOSTIC N/A 09/30/2018 Laterality: N/A; Surgeon: Jerardo Hemphill MD; Location: [facility] ENDOSCOPY REMOVAL CENTRAL VENOUS ACCESS DEVICE TUNNELED W/ PORT PUMP Left 09/11/2018 Laterality: Left; Surgeon: Interventional Rad (Ir Dept Use Only) Smith; Location: [facility] INTERVENTIONAL RADIOLOGY (VIR) CHOLECYSTECTOMY LAPAROSCOPIC N/A 09/08/2018 Laterality: N/A; Surgeon: Martin Walters MD; Location: [facility] MAIN OR INSERTION CVC TUNNELED W/ PORT PUMP N/A 12/17/2017 Laterality: N/A; Surgeon: Sunny Mora MD; Location: [facility] INTERVENTIONAL RADIOLOGY (VIR) LYMPHADENECTOMY AXILLARY DEEP Right 01/12/[address]; Laterality: Right; Surgeon: John Trejo MD; Location: [facility] MAIN OR MOHS PROCEDURE Right 2014 upper lip KNEE REPLACEMENT Bilateral 2009 FRACTURE [place] 1961 collarbone TONSILLECTOMY Family History Problem Relation Age of Onset Heart Disease - Other Mother bad valve Stroke Mother 82 Cancer- Other Father 70 Cancer- Other Maternal Grandmother 82 uterine or gastric Coronary Artery Disease Maternal Grandfather Colorectal Cancer Neg Hx GI Disease Neg Hx Family Status Relation Name Status Mother Father unknown MGM MGF Son Alive Son Alive Son Alive Son Alive Neg Hx (Not Specified) Social History Tobacco Use Smoking status: Former Packs/day: 0.20 Types: Cigarettes, Pipe Start date: 01/01/1962 Quit date: 01/01/1975 Years since quittin.4 Smokeless tobacco: Never Vaping Use Vaping Use: Never used Substance Use Topics Alcohol use: Yes Alcohol/week: 1.0 standard drink Types: 1 Glasses of wine per week Drug use: No Current Outpatient Medications Medication Sig aspirin 81 MG Chew Tab take 81 mg by mouth daily.. finasteride 5 MG Tab take 5 mg by mouth daily.. Lubiprostone (AMITIZA PO) Take by mouth 2 times daily. metoprolol succinate 25 MG tablet XL take 25 mg by mouth daily.. omeprazole [address] take 10 mg by mouth daily.. pantoprazole [address] tablet DR Take 40 mg by mouth daily. pravastatin 40 MG Tab take 40 mg by mouth daily.. SM Stool Softener 8.6-50 MG per tablet Take 2 tablets by mouth 2 times daily. Tamsulosin HCl 0.4 MG Cap take 0.4 mg by mouth daily.. valsartan 160 MG Tab take 160 mg by mouth daily.. Allergies Allergen Reactions Oxycontin [Oxycodone] Nausea Only Seasonal Review of systems: A 14 point review of systems was performed with the patient at today's patient and is negative except for those items mentioned in the interval history and those items mentioned below as well as in the nursing documentation review of systems. Constipation: Occasional or intermittent symptoms OR occasional use of stool softeners, laxatives, dietary modification, or enema Rash Maculo-Papular: Macules/papules covering less than 10% BSA with or without symptoms (e.g., pruritus, burning, tightness) Physical Exam: Vital signs: Blood pressure 162/88, pulse 72, temperature 98.6 F (37 C), temperature source Oral, resp. rate 18, height 1.854 m (6' 0.99 ), weight 106.7 kg (235 lb 3.2 oz), SpO2 98 %. ECOG = 0 GENERAL APPEARANCE 76 y.o. appears his stated age. The patient is alert and oriented x3. Eyes Pupils equal, round, reactive to light. Extraocular movements are intact. No scleral icterus. Ears, Nose, Mouth/throat Mucous membranes moist, no mucositis or thrush. Teeth in a good state of hygiene. Neck is supple. No thyromegaly LUNGS Clear to auscultation bilaterally. No wheezes, rales or rhonchi. CARDIAC S1, S2 normal. Rate normal. No murmur, or rub. No cyanosis, clubbing, or peripheral edema. GI Abdomen is soft, nontender, nondistended, positive bowel sounds. No palpable hepatosplenomegaly. No peritoneal signs. Musculoskeletal Muscle strength 5/5 in all the extremities and symmetric. No focal neurological deficit. CN 2 - 12 grossly intact. VA not tested. Neurological exam No focal neurological deficit. Skin Skin is warm, dry, and not diaphoretic. No new rash or lesion noted. Psychiatric Not in acute distress, answering the questions appropriately. Lymph nodes: No cervical, supraclavicular, axillary or inguinal adenopathy. Right arm lymphedema. BP Readings from Last 3 Encounters: 05/15/22 162/88 02/14/22 160/90 02/14/21 152/76 Wt Readings from Last 3 Encounters: 05/15/22 106.7 kg (235 lb 3.2 oz) 02/14/22 104.3 kg (230 lb) 02/14/21 107.2 kg (236 lb 6.4 oz) Laboratory and radiology review: Results for orders placed or performed in visit on 05/15/22 LACTATE DEHYDROGENASE Result Value Ref Range LD Total 185 100 - 190 U/L COMPREHENSIVE METABOLIC PANEL Result Value Ref Range Sodium 139 135 - 145 mmol/L Potassium 3.9 3.5 - 5.0 mmol/L Chloride 108 98 - 108 mmol/L BUN 17 7 - 25 mg/dL Creatinine 1.31 (H) 0.70 - 1.30 mg/dL Glucose 109 (H) 70 - 99 mg/dL Bilirubin Total 0.9 <1.5 mg/dL Albumin 3.8 3.5 - 5.0 g/dL Total Protein 6.4 6.4 - 8.3 g/dL AST 15 10 - 39 U/L ALP 53 32 - 126 U/L Calcium 9.2 8.6 - 10.5 mg/dL CO2 24 21 - 31 mmol/L ALT 16 10 - 52 U/L Bun/Crea Ratio 13 Osmolality (Calculated) 293 278 - 305 mOsm/kg Anion Gap 11 7 - 17 mmol/L eGFR, CKD-EPI, Male 56 (L) >=60 mL/min/1.73m2 CBC AND ELECTRONIC DIFF Result Value Ref Range WBC Count 8.94 3.73 - 10.10 K/uL RBC Count 4.82 4.38 - 5.83 M/uL Hemoglobin 14.7 13.4 - 16.8 g/dL Hematocrit 44.0 39.6 - 48.8 % Mean Cell Volume 91.3 79.0 - 94.5 fL Mean Cell Hgb 30.5 26.1 - 33.3 pg Mean Cell Hgb Conc 33.4 31.9 - 36.5 g/dL RBC Distribution 15.0 (H) 10.9 - 14.3 % Platelet Count 166 146 - 337 K/uL Mean Platelet Volume 8.8 8.7 - 12.3 fL DIFF STATUS Electronic Differential Segs + Bands Auto 67.1 % Immature Grans % 1.6 % Lymphocyte % Auto 20.8 % Monocyte % Auto 8.8 % Eosinophil % Auto 1.0 % Basophil % Auto 0.7 % Nucleated RBC 0.0 <=0.2 /100 WBC Segs + Bands,Absolute Auto 6.00 1.57 - 6.19 K/uL Immature Grans Absolute 0.14 (H) <=0.07 K/uL Abs Lymph Auto 1.86 0.83 - 3.57 K/uL Abs Irwin Auto 0.79 0.24 - 0.93 K/uL Abs Eos Auto 0.09 0.00 - 0.48 K/uL Abs Baso Auto 0.06 0.00 - 0.09 K/uL Staging scans: PET 04/23/22 ordered by PCP: 1. Abnormal examination indicative of malignant viable neoplasm. 2. Increased tracer concentration noted in the medial soft tissue compartment of the right lower extremity at the level of proximal mild tibial diaphysis fulfills quantitative criteria for viable neoplasm. 3. Compared to FDG PET study report dated 12/08/16, the prior defined right axillary hypermetabolic focus is not apparent on current. EKG: New atrial fibrillation. 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 A biopsy comes back negative. November 2016: Patient goes to the ER for an unrelated event and is found to have axillary nodes. He is referred to Dr. Treoj. 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 The primary is not found. Treatment: Lymphadenectomy followed by adjuvant radiotherapy (55cG). Side effects: Lymphedema Outcome: Complete remission FIRST RECURRENCE: August 2017: Patient finds a sore on the right tonsil. 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 Work-up: 10/15/17: PET-CT: Uptake in the two surgical areas, but no patrick metastatic sites. Treatment: 11/06/17 to 10/25/18: Adjuvant avelumab every 2 weeks x 12 cycles. Side effects: Fatigue, incidental cholecystitis that required surgery in October 2018 Outcome: No evidence of recurrence by CT chest, abdomen/pelvis. 02/14/22: He presents today for clinical evaluation. Labs reviewed and physical exam completed. He has no sign of disease recurrence at this time. The right arm lymphedema looks improved. He will return in 12 months again for evaluation. He knows to come back for any alerts . 05/15/22: Patient presents for clinical evaluation while on surveillance. PET from 04/23/22 is stable. Patient had a biopsy recently, results were negative. Labs and physical exam unremarkable. Patient remains stable and will proceed on surveillance. RTC in 6 months for evaluation with labs. Lymphedema of right arm 12/31/2017 Priority: Medium 12/31/17: He has noticed gradual worsening of his right arm lymphedema. He just received a lymphedema pump and will be trained on this device tomorrow in his home, which he will start using daily. He is also awaiting shipment of a new compression sleeve. He would like a referral for physical therapy here at [facility], and we will plan to coordinate this with his next treatment in 2 weeks. We will continue to monitor. 02/14/22: Right arm lymphedema is improving. Obesity: body mass index of 30.0-34.9 01/12/2017 Priority: Medium 04/07/19: I strongly recommended that the patient exercise more and loose some weight. 02/14/21: Lost 3 pounds 02/14/22: Lost 6 pounds Atrial fibrillation 02/14/2022 Priority: Low 02/14/22: Noted abnormal rhythm during physical exam. An EKG was completed in clinic which confirmed atrial fibrillation. Referral placed to cardiology. 05/15/22: He had a full work-up that was not alarming. He will remain under cardiology surveillance. Essential hypertension 06/17/2018 Priority: Low Class: Chronic 02/14/22: Patient BPs are borderline. Observe. 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 Basal cell carcinoma of multiple sites 10/14/2017 Priority: Low History of BCC to the upper lip X 3. .We spent a total time of 80 minutes (2:06 PM - 3:06 PM+ 20 minutes editing chart post-visit) with the patient to dormitory counselor them about the treatment, tests results, and the diagnosis of cancer. Documented by Enma Barnett, for Dr. Valderrama on 05/15/22 5:23 PM. All medical record entries made by the Enma Barnett, were at my direction and personally dictated by me, Elliot Valderrama. I have reviewed the chart and agree that the record accurately reflects my personal performance of the history, physical exam, assessment and plan. I have also personally directed, reviewed, and agree with the discharge instructions. Elliot Valderrama MD documented in this encounter [facility] 05-15-2022 Instructions Cara Capps RN - 05/15/2022 2:20 PM EDT Images from the original note were not included. Return to clinic : 11/13/22 @ 2 pm Provider: Dr. Valderrama Labs: Yes - CLINICAL INFORMATICS MANAGER Scans: No Hydration: No Treatment: No Referrals: No I am your clinic nurse KARTHIK Ho, RN. For any questions or concerns after clinic, please call [phone] and ask to speak to Ani Bray NP. Skin Cancer Prevention 1. Every day, apply a broad spectrum sunscreen SPF 30 with reapplication every 2 hours when out in the sun for extended periods of time. 2. Wear protective clothing when out in the sun. Examples include broad-rimmed hats, long sleeved shirts, or pants. You can also purchase clothing with built in sun protection called UPF or ultraviolet protection factor. Many sports store sell clothing with this built in. Some popular brands carry a UPF line like [employer] or [employer]. You can also purchase clothing from companies such as [employer] and [employer] which sell a variety of clothing with built in UPF. Recommended by the Skin Cancer Foundation, Sun Guard laundry additive, adds a UPF to your clothes that lasts for about 20 washings. You can find Sun Guard at www.sunguardsunprotection.com. 3. Wear protective sunglasses while out in the sun. Purchase glasses that block 99 to 100 percent of both UVA and UVB rays. Avoid sunglasses that are labeled cosmetic and those that don't offer details on UV protection. 4. Perform monthly self-skin exams. Observe for any new lesions or moles. Watch for changes in color, shape and size. Use the handy reminder of the ABCDEs. Look for lesions with: -Asymmetry. The left side looks different than the right. The top is different from the bottom. -Borders. The borders are irregular or resemble a fluffy cloud or a puzzle piece. -Color. The mole has variation of colors including rdz, brown, black, blue, red, pink and white. -Diameter. The mole is increasing in size or bigger than 6 mm (approx size of a pencil eraser) -Evolving. If any of your moles are changing in size, shape or color 5. If you have a history of melanoma, also examine the glands in your neck, armpits and groin. Your bag liner or oncologist will assist you with identifying the correct areas to examine. 6. If you have a personal or family history of melanoma, we recommend first degree relatives (your parents, your brothers and sisters and your children) receive a full skin exam by a bag liner. Suncreen Recommendations: Regarding sunscreen safety, a recent [employer]AM[employer] article showed that chemical-type sunscreens can be found in the blood of people who have applied the sunscreens to their skin. The study authors stated that these results do not mean that people should not use sunscreens. They advise that more research is needed to assess chemical-type sunscreens. Sunscreens with SPF 30 or higher, when used properly, can reduce the risk of skin cancer, prevents sunburns, and decrease the signs of skin aging. Another type of sunscreen is available also known as physical-type sunscreens. These ingredients are well-studied and found to be safe. They are zinc oxide and titanium dioxide and they are also good choices for sun protection, along with hats, clothing, and avoiding unprotected sun exposure. Please reference the following website to read more about melanoma: https://www.nccn.org/patients/daphne delines/content/PDF/melanoma-jean ent.pdf documented in this encounter [facility] 02-25-2022 Miscellaneous Notes Note from the Anirudh at [facility] Note from Dr. Elliot Valderrama MD 02/14/2022 states that he has no sign of disease recurrence at this time. Right arm lymphedema looks improved. He is to return in 12 months. Received medical records from [facility]. Medical Records placed in Dr. Haji's InBox to be reviewed. Renetta Valdovinos Ma documented in this encounter [facility] 02-14-2022 Instructions Cara Capps RN - 02/14/2022 12:42 PM EDT Return to clinic : 02/12/2023 @ 1pm Provider: Dr. Valderrama Labs: Yes - CLINICAL INFORMATICS MANAGER Scans: No Hydration: No Treatment: No Referrals: No documented in this encounter [facility] 02-14-2022 History of Present illness Narrative CLINIC NOTE - MEDICAL ONCOLOGY - [facility] 02/14/22 James Goins is a 76 y.o. male who has been referred here by Dr. Nnamdi Trejo for treatment of a recurrent [place] cell carcinoma of unknown primary site, which has been resected. He completed one year of adjuvant avelumab, with his last dose on 10/25/18. He comes for surveillance. Chief Complaint Patient presents with Harinder Cell Carcinoma 1 year Follow-up History of Present Illness: Mr. Goins is here for clinical exam and lab work after completing one year of therapy with avelumab (11/06/17 to 10/25/18). He is s/p Mohs surgery under Right jaw where they removed SCC in January 2019. He also had a nevus removed in the same area. He also had a repeat ERCP performed by Dr. Hemphill in January 2019 to rule out pancreatic malignancy. Surgical path results were normal. MRI abdomen/pelvis on 05/18/19 was normal. Today 02/14/21, he returns on his own for clinical evaluation. He is doing well overall. He states he has not had any recent episodes of syncope or palpitations. He states he is not in pain currently. His lymphedema in his right upper extremity is improved and he uses his compression sleeve almost the whole day. Stopped using his compression pump over the holidays. James Goins has no change in vision or hearing loss, fever, chills, nausea, vomiting, headache, rash, cough, shortness of breath, chest pain, or changes in bladder function, appetite/weight, or mood. Oncology History [place] cell carcinoma of unknown primary site 04/03/2016 Pathology Skin biopsies ([id number]) A. Skin, left medial canthus, shave biopsy: Basal cell carcinoma, nodular B. Skin, right axilla, punch biopsy: Mature adipose tissue, compatible with lipoma. 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 Abnormal examination indicative of malignant viable neoplasm. 2. Increased glucose concentration in the right axilla fulfills quantitative criteria for viable neoplasm. 3. Prominent glucose concentration observed in the descending thoracic, as well as abdominal aorta is commensurate with activated leukocytes associated with atherosclerotic plaque formation. 01/12/2017 Pathology Right axillary lymphadenectomy ([id number]): A. Right axillary lymph nodes, dissection: Dermal and superficial subcutaneous fibrosis compatible with scar, negative for neuroendocrine carcinoma. Metastatic neuroendocrine carcinoma involving two of 70 lymph nodes (2/70), see Comment B. Right axillary level 3 lymph nodes, dissection: Twenty-three lymph nodes negative for diagnostic evidence of metastatic neuroendocrine carcinoma (0/23) ---Comment--- The largest focus of metastatic neuroendocrine carcinoma in specimen A measures at least approximately 20 mm (2.0 cm), measured grossly and including areas of necrosis. Metastatic neuroendocrine carcinoma is present in the lymph node parenchyma and lymph node capsule. Extracapsular extension is present. 03/03/2017 - 04/14/2017 Radiation Adjuvant radiation to the right axilla: 5600 cGy of 15 MV electrons in 28 fractions with a mixed mode technique by Dr. Rucker. 09/30/[address] ([facility]) IMPRESSION: No acute skull fracture or intracranial traumatic injury. Minimal right frontal cephalhematoma. 10/09/2017 Imaging Brain MRI IMPRESSION: No evidence for intracranial metastatic disease. 11/06/2017 - 10/21/2018 Immunotherapy Avelumab 10 mg/kg q2wks 11/06/17 Cycle 1 Day 1 11/19/17 C1D15 10/21/18 C12D15 12/17/2017 Procedure port placement of left chest Past Medical History: Diagnosis Date Abnormal cytology 10/11/2018 Added automatically from request for surgery [id number] Arthritis 2019 pelvis and right hip Basal cell carcinoma of multiple sites 10/14/2017 Cholecystitis 09/04/2018 Encounter for antineoplastic immunotherapy 11/03/2017 Avelumab 10 mg/kg 11/05/17: Cycle 1 Day 1 12/03/17: Cycle 2, Day 1 12/31/17: Cycle 3, Day 1 Essential hypertension, benign GERD (gastroesophageal reflux disease) History of biliary duct stent placement 09/09/2018 ERCP for his common hepatic duct brushing pathology which was suspicious for adenocarcinoma in September 2018. 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 Umbilical hernia Past Surgical History: Procedure Laterality Date ERCP W/ ENDOSCOPY CANNULATION PAPILLA ADD-ON PX N/A 02/08/2019 Laterality: N/A; Surgeon: Jerardo Hemphill MD; [facility] ERCP DIAGNOSTIC N/A 09/30/2018 Laterality: N/A; Surgeon: Jerardo Hemphill MD; Location: [facility] ENDOSCOPY REMOVAL CENTRAL VENOUS ACCESS DEVICE TUNNELED W/ PORT PUMP Left 09/11/2018 Laterality: Left; Surgeon: Interventional Rad (Ir Dept Use Only) Smith; Location: [facility] INTERVENTIONAL RADIOLOGY (VIR) CHOLECYSTECTOMY LAPAROSCOPIC N/A 09/08/2018 Laterality: N/A; Surgeon: Martin Walters MD; [facility] MAIN OR INSERTION CVC TUNNELED W/ PORT PUMP N/A 12/17/2017 Laterality: N/A; Surgeon: Sunny Mora MD; Location: [facility] INTERVENTIONAL RADIOLOGY (VIR) LYMPHADENECTOMY AXILLARY DEEP Right 01/12/[address]; Laterality: Right; Surgeon: John Trejo MD; Location: [facility] MAIN OR MOHS PROCEDURE Right 2014 upper lip KNEE REPLACEMENT Bilateral 2010 FRACTURE TX 1961 collarbone TONSILLECTOMY Family History Problem Relation Age of Onset Heart Disease - Other Mother bad valve Stroke Mother 82 Cancer- Other Father 70 Cancer- Other Maternal Grandmother 82 uterine or gastric Coronary Artery Disease Maternal Grandfather Colorectal Cancer Neg Hx GI Disease Neg Hx Family Status Relation Name Status Mother Father unknown MGM MGF Son Alive Son Alive Son Alive Son Alive Neg Hx (Not Specified) Social History Tobacco Use Smoking status: Former Smoker Packs/day: 0.20 Types: Cigarettes, Pipe Start date: 01/01/1962 Quit date: 01/01/1975 Years since quittin.1 Smokeless tobacco: Never Used Vaping Use Vaping Use: Never used Substance Use Topics Alcohol use: Yes Alcohol/week: 1.0 standard drink Types: 1 Glasses of wine per week Drug use: No Current Outpatient Medications Medication Sig aspirin 81 MG Chew Tab take 81 mg by mouth daily.. finasteride 5 MG Tab take 5 mg by mouth daily.. Lubiprostone (AMITIZA PO) Take by mouth 2 times daily. metoprolol succinate 25 MG tablet XL take 25 mg by mouth daily.. omeprazole [address] take 10 mg by mouth daily.. pantoprazole [address] tablet DR Take 40 mg by mouth daily. pravastatin 40 MG Tab take 40 mg by mouth daily.. SM Stool Softener 8.6-50 MG per tablet Take 2 tablets by mouth 2 times daily. Tamsulosin HCl 0.4 MG Cap take 0.4 mg by mouth daily.. valsartan 160 MG Tab take 160 mg by mouth daily.. Allergies Allergen Reactions Oxycontin [Oxycodone] Nausea Only Seasonal Review of systems: A 14 point review of systems was performed with the patient at today's patient and is negative except for those items mentioned in the interval history and those items mentioned below as well as in the nursing documentation review of systems. Fatigue: Absent or within normal limits Nausea: Absent or within normal limits Vomiting: Absent or within normal limits Anorexia: Absent or within normal limits Diarrhea: Absent or within normal limits Constipation: Occasional or intermittent symptoms OR occasional use of stool softeners, laxatives, dietary modification, or enema Peripheral Motor Neuropathy: Absent or within normal limits Depression: Absent or within normal limits Dyspnea: Absent or within normal limits Rash Maculo-Papular: Absent or within normal limits Palmar-Plantar Erythrodysesthesia Syndrome: Absent or within normal limits Pain: Absent or within normal limits Fever: Absent or within normal limits Localized Edema: Localized to dependent areas, no disability or functional impairment (right arm lymphedema) Physical Exam: Vital signs: Blood pressure 160/90, pulse 71, temperature 98.6 F (37 C), resp. rate 14, height 1.854 m (6' 1 ), weight 104.3 kg (230 lb), SpO2 98 %. ECOG = 0 GENERAL APPEARANCE 76 y.o. appears his stated age. The patient is alert and oriented x3. Eyes Pupils equal, round, reactive to light. Extraocular movements are intact. No scleral icterus. Ears, Nose, Mouth/throat Mucous membranes moist, no mucositis or thrush. Teeth in a good state of hygiene. Neck is supple. No thyromegaly LUNGS Clear to auscultation bilaterally. No wheezes, rales or rhonchi. CARDIAC S1, S2 normal. Rate normal. Abnormal rhythm. No murmur, or rub. No cyanosis, clubbing, or peripheral edema. GI Abdomen is soft, nontender, nondistended, positive bowel sounds. No palpable hepatosplenomegaly. No peritoneal signs. Musculoskeletal Muscle strength 5/5 in all the extremities and symmetric. No focal neurological deficit. CN 2 - 12 grossly intact. VA not tested. Neurological exam No focal neurological deficit. Skin Skin is warm, dry, and not diaphoretic. No new rash or lesion noted. Psychiatric Not in acute distress, answering the questions appropriately. Lymph nodes: No cervical, supraclavicular, axillary or inguinal adenopathy. Right arm lymphedema. BP Readings from Last 3 Encounters: 02/14/22 160/90 02/14/21 152/76 08/16/20 (!) 164/100 Wt Readings from Last 3 Encounters: 02/14/22 104.3 kg (230 lb) 02/14/21 107.2 kg (236 lb 6.4 oz) 08/16/20 108.6 kg (239 lb 6.4 oz) Laboratory and radiology review: Results for orders placed or performed in visit on 02/14/22 TSH Result Value Ref Range TSH 2.631 0.550 - 4.780 uIU/mL T4 FREE Result Value Ref Range Free T4 1.54 0.89 - 1.76 ng/dL LACTATE DEHYDROGENASE Result Value Ref Range LD Total 152 100 - 190 U/L COMPREHENSIVE METABOLIC PANEL Result Value Ref Range Sodium 138 135 - 145 mmol/L Potassium 4.3 3.5 - 5.0 mmol/L Chloride 108 98 - 108 mmol/L BUN 30 (H) 7 - 25 mg/dL Creatinine 1.29 0.70 - 1.30 mg/dL Glucose 124 (H) 70 - 99 mg/dL Bilirubin Total 0.7 <1.5 mg/dL Albumin 3.7 3.5 - 5.0 g/dL Total Protein 6.4 6.4 - 8.3 g/dL AST 13 10 - 39 U/L ALP 56 32 - 126 U/L Calcium 8.8 8.6 - 10.5 mg/dL CO2 26 21 - 31 mmol/L ALT 15 10 - 52 U/L Bun/Crea Ratio 23 Osmolality (Calculated) 297 278 - 305 mOsm/kg Anion Gap 8 7 - 17 mmol/L eGFR, CKD-EPI, Male 57 (L) >=60 mL/min/1.73m2 CBC AND ELECTRONIC DIFF Result Value Ref Range WBC Count 11.90 (H) 3.73 - 10.10 K/uL RBC Count 4.82 4.38 - 5.83 M/uL Hemoglobin 14.0 13.4 - 16.8 g/dL Hematocrit 44.1 39.6 - 48.8 % Mean Cell Volume 91.5 79.0 - 94.5 fL Mean Cell Hgb 29.0 26.1 - 33.3 pg Mean Cell Hgb Conc 31.7 (L) 31.9 - 36.5 g/dL RBC Distribution 15.0 (H) 10.9 - 14.3 % Platelet Count 163 146 - 337 K/uL Mean Platelet Volume 9.1 8.7 - 12.3 fL DIFF STATUS Electronic Differential Segs + Bands Auto 70.7 % Immature Grans % 2.5 % Lymphocyte % Auto 14.7 % Monocyte % Auto 9.1 % Eosinophil % Auto 2.2 % Basophil % Auto 0.8 % Nucleated RBC 0.2 <=0.2 /100 WBC Segs + Bands,Absolute Auto 8.41 (H) 1.57 - 6.19 K/uL Immature Grans Absolute 0.30 (H) <=0.07 K/uL Abs Lymph Auto 1.75 0.83 - 3.57 K/uL Abs Irwin Auto 1.08 (H) 0.24 - 0.93 K/uL Abs Eos Auto 0.26 0.00 - 0.48 K/uL Abs Baso Auto 0.10 (H) 0.00 - 0.09 K/uL Staging scans: None EKG: New atrial fibrillation. Assessment and Plan: Patient Active Problem List Diagnosis Date 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 A biopsy comes back negative. November 2016: Patient goes to the ER for an unrelated event and is found to have axillary nodes. He is referred to Dr. Trejo. 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 The primary is not found. Treatment: Lymphadenectomy followed by adjuvant radiotherapy (55cG). Side effects: Lymphedema Outcome: Complete remission FIRST RECURRENCE: August 2017: Patient finds a sore on the right tonsil. 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 Work-up: 10/15/17: PET-CT: Uptake in the two surgical areas, but no patrick metastatic sites. Treatment: 11/06/17 to 10/25/18: Adjuvant avelumab every 2 weeks x 12 cycles. Side effects: Fatigue, incidental cholecystitis that required surgery in October 2018 Outcome: No evidence of recurrence by CT chest, abdomen/pelvis. 02/14/22: He presents today for clinical evaluation. Labs reviewed and physical exam completed. He has no sign of disease recurrence at this time. The right arm lymphedema looks improved. He will return in 12 months again for evaluation. He knows to come back for any alerts . Lymphedema of right arm 12/31/2017 Priority: Medium 12/31/17: He has noticed gradual worsening of his right arm lymphedema. He just received a lymphedema pump and will be trained on this device tomorrow in his home, which he will start using daily. He is also awaiting shipment of a new compression sleeve. He would like a referral for physical therapy here at [facility], and we will plan to coordinate this with his next treatment in 2 weeks. We will continue to monitor. 02/14/22: Right arm lymphedema is improving. Obesity: body mass index of 30.0-34.9 01/12/2017 Priority: Medium 04/07/19: I strongly recommended that the patient exercise more and loose some weight. 02/14/21: Lost 3 pounds 02/14/22: Lost 6 pounds Essential hypertension 06/17/2018 Priority: Low Class: Chronic 02/14/22: Patient BPs are borderline. Observe. 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 Basal cell carcinoma of multiple sites 10/14/2017 Priority: Low History of BCC to the upper lip X 3. Atrial fibrillation 02/14/2022 02/14/22: Noted abnormal rhythm during physical exam. An EKG was completed in clinic which confirmed atrial fibrillation. Referral placed to cardiology. James Goins has verbalized understanding and is in agreement with the treatment plan. he will contact our office if needing to be seen sooner. Patient was seen and evaluated with Dr. Elliot Valderrama who has formulated the above plan of care. We spent a total time of 85 minutes (check in 1125AM - 1230PM check out + 20 minutes editing chart post-visit) for the patient care and to dormitory counselor about the treatment, tests results, and the diagnosis of cancer. Documented by Terry Barnett, for Dr. Valderrama on 02/14/22 2:42 PM. All medical record entries made by the Terry Barnett, were at my direction and personally dictated by me, Elliot Valderrama. I have reviewed the chart and agree that the record accurately reflects my personal performance of the history, physical exam, assessment and plan. I have also personally directed, reviewed, and agree with the discharge instructions. Elliot Valderrama MD documented in this encounter [facility] 02-05-2022 Instructions Sharon Sales Ms - 02/05/2022 7:39 AM EDT WOUND CARE INSTRUCTIONS AFTER LIQUID NITROGEN / CRYOTHERAPY Liquid nitrogen was used to treat your skin today. This substance is so cold that it causes rapid freezing of your skin on contact, thereby leading to frostbite and destruction of that tissue. The area that was treated will appear red and puffy for several days. Most people do not have a lot of discomfort after the treatment. However, depending on what we are treating and how vigorously you were frozen, you may experience pain and blistering at the sites. Cool compresses, elevation of the body part treated, Tylenol, or Ibuprofen may help alleviate some of that discomfort. As the area heals, it will turn brown and flaky. The top layer of the skin will crust up and fall off. Do not pick off any scabs as this can lead to scarring. Just allow the scab to fall off on its own. There are no special wound care instructions if you do not develop any blisters. You may continue all your normal activities such as washing, bathing, and applying make-up. Typically the face, head, and lips heal more quickly in approximately one week. The trunk, arms and legs can sometimes take 2-3 weeks to heal. Occasionally a blister may form in the area that was treated. The blister may be filled with water or blood. If a blister is present, you may puncture a small hole in the blister to relieve the pressure. This may be done by gently cleansing the area with soap and water, sterilizing a pin or needle over a flame, wiping the needle with cotton and alcohol, then puncturing the blister. Do not take the top of the blister off since your skin acts as a natural band-aid. Removing the top of the blister can increase your risk of an infection. This may be done more than once. If the redness and discomfort persists, contact the office. If the blister breaks off and the skin is exposed, you should cleanse the area with warm soapy water. After rinsing thoroughly, apply a small amount of antibiotic ointment (bacitracin) and a fresh band-aid. This should be done two times daily. Call our office if you are concerned about the wound healing. Expanding redness around the site, increased pain, swelling, or a whitish, purulent drainage may be a signs of a possible infection. documented in this encounter [facility] 02-05-2022 History of Present illness Narrative CHIEF COMPLAINT: Routine skin exam - hx BCC, SCC. No concerns today DERMATOLOGY CLINIC HISTORY: James Goins is a 76 year old male who presents for a routine skin exam. There are no specific concerns today. 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 with removal of numerous lymph nodes and XRT -recurrence of of Harinder cell in right tonsil, excised 10/2017 -completed avelumab (Bavencio) at [facility] 11/06/17 - 10/25/2018 INFILTRATIVE BASAL CELL CA on right upper chest 04/2003 SUPERFICIAL BASAL CELL CA on left low medial scapula back 08/2003 SUPERFICIAL BASAL CELL CA on the right low medial scapula back 08/2013 NODULAR BASAL CELL CA on back 05/2006 NODULAR BASAL CELL CA on left outer shoulder 10/2006 NODULAR BASAL CELL CA left of midline of upper lip 10/2012 INFILTRATIVE BASAL CELL CA on left upper lip 10/2012 NODULAR BASAL CELL CA on right upper lip 10/2012 INFILTRATIVE BASAL CELL CA on left posterior shoulder s/p MOHS 09/2014 SQUAMOUS CELL CA in situ on right antihelix s/p MOHS 09/2014 SQUAMOUS CELL CA in situ on right preauricular s/p MOHS 01/2015 NODULAR BASAL CELL CA on right conchal bowl 01/16 s/p MOHS 03/2016 NODULAR BASAL CELL CA on left medial canthus 04/18 s/p MOHS 08/2016 SQUAMOUS CELL CA on right central upper back 01/2018 excised 04/2018 NODULAR BASAL CELL CA on right nasal bridge 08/2018 s/p MOHS 12/2018 SQUAMOUS CELL CA in situ on right lateral neck 08/2018 s/p MOHS 12/2018 SQUAMOUS CELL CA in situ on right lateral cheek 12/2018 s/p MOHS 12/2018 s/p MOHS 02/17/19 INVASIVE SQUAMOUS CELL CA on left forehead 02/15/20 s/p MOHS 03/2020 SUPERFICIAL BASAL CELL CA on left upper back 08/05/2021 treated with efudex ATYPICAL NEVUS (mild-mod) on left lateral mid lower back shave biopsy 11/2008 actinic keratosis -efudex to face [address] Ling -PDT with blue light to face and ears 03/2015 -Efudex cream to bilateral eyebrows and cheeks below the eyelid x 7-10 days 06/2016 -PDT with red light done on face and ears 06/2016 -Efudex to hands 05/2017 -PDT with red light done on face and ears 05/2017 -Efudex cream to forehead and temples 09/2017 -Efudex cream to right cheek near lateral canthus 01/2019 PDT with red light to face and ears and upper lip 05/2019 -* denies HSV -Efudex to forehead, temples, lateral cheeks and ears 08/2020. He was only able to use it for 5 days. -Efudex cream twice daily to forehead, temples, ears and lateral cheeks 04/2021 -efudex to upper lip 08/2021 Chronic plaque-type psoriasis - triamcinolone 0.1% cream SKIN, UPPER BACK NEAR MIDLINE, SHAVE BIOPSY - LICHENOID KERATOSIS, COMPATIBLE WITH AN ACTINIC LICHENOID KERATOSIS 01/2003 Skin, right axilla, punch biopsy - Mature adipose tissue, compatible with lipoma. 04/2016 Skin, right lateral cheek, shave biopsy - Inflamed verruca vulgaris. 05/2019 Skin, right posterior shoulder, shave biopsy - Lichenoid actinic keratosis. 08/15/20 PAST MEDICAL HISTORY: PAST MEDICAL HISTORY Diagnosis Date Cancer (HCC) Mixed hyperlipidemia Hyperlipidemia Osteoarthrosis, unspecified whether generalized or localized, other specified sites Osteoarthritis RIGHT KNEE Personal history of unspecified urinary disorder PMH - PAST MEDICAL HISTORY OF low grade chronic prostate Preop exam for internal medicine Unspecified essential hypertension Essential hypertension ACTIVE PROBLEM LIST Unspecified Essential Hypertension Mixed Hyperlipidemia Pmh - Past Medical History of Osteoarthrosis, Unspecified Whether Generalized Or Localized, Other Specified Sites Unspecified Internal Derangement of Knee Cheilitis Preop Exam for Internal Medicine Digital Mucous Cyst Inclusion Cyst Actinic Keratosis History of Skin Cancer History of Atypical Nevus PAST SURGICAL HISTORY Procedure Laterality Date CARDIAC CATHETERIZATION HX 2000 reportedly normal KNEE SCOPE,DIAGNOSTIC 1985 Arthroscopy, knee RIGHT KNEE SCOPE,DIAGNOSTIC 12/28/03 Arthroscopy, knee RIGHT PAST SURGICAL HISTORY OF 1960 CLAVICLE FRACTURE PAST SURGICAL HISTORY OF 2002 PROSTATE BIOPSY PAST SURGICAL HISTORY OF 10/17/2009 Partial knee replacement on left PAST SURGICAL HISTORY OF 2-2010 partial knee replacement rightl PAST SURGICAL HISTORY OF 5- removal of basal cell carcinoma upper lip TONSILLECTOMY HX MEDICATIONS: Current Outpatient Medications Medication Sig Dispense Refill Fluorouracil (EFUDEX) 5 % cream Apply 2x daily to forehead, temples, sides of cheeks & ears for 2 weeks. May stop for few days or decrease to once daily for discomfort (Patient not taking: Reported on 04/11/2021 ) 40 g 0 hydrocortisone 2.5 % ointment Apply to affected area on face 2 times daily for 1-2 weeks after 5 fluorouracil cream (Patient not taking: Reported on 04/11/2021 ) 30 g 0 triamcinolone acetonide (KENALOG) 0.1 % ointment Apply to affected area on left mid back twice daily as needed. Use 2 weeks on 1 week off. Not for face, armpits or groin 30 g 0 avelumab in NaCl 0.9% (BAVENCIO) Inject intravenously. LINZESS 145 mcg cap aspirin, enteric coated (ASPIRIN, ENTERIC COATED) 81 mg EC tablet Take 81 mg by mouth once daily. pravastatin (PRAVACHOL) 40 mg tablet Take 40 mg by mouth once daily. valsartan (DIOVAN) 160 mg tablet Take 160 mg by mouth once daily. Omeprazole 40 mg capsule Take 40 mg by mouth once daily. tamsulosin 0.4 mg Cp24 Take 0.4 mg by mouth once daily. finasteride 5 mg tablet Take 5 mg by mouth once daily. TOPROL XL 50 MG 24 HR TAB Take one(1) tablet BY MOUTH daily. 0 No current facility-administered medications for this visit. ALLERGIES: Oxycontin [Oxycodone Hcl] PHYSICAL EXAMINATION: GENERAL: Patient is a well appearing, well nourished and pleasant, male alert and oriented, NAD. SKIN: A full skin exam was performed including the scalp, face, neck, chest, abdomen, back, buttocks, arms and legs. Left dorsum of hand (3) and left forearm with 4 scaly erythematous macules. Trunk with waxy rdz papules. Previous surgical scar(s) are clear for recurrence. ASSESSMENT AND PLAN: 1. History of Harinder cell carcinoma on the right axilla -there is no evidence of recurrence 2.History of nonmelanoma skin cancer -There is no evidence of recurrence -Continue sunscreens and sun protection 3.History of atypical nevus -There is no evidence of recurrence -Continue sunscreens and sun protection 4. Actinic keratosis -The R/B/A/P/C of liquid nitrogen including but not limited to pain, scar and infection was explained. -The patient agreed to proceed. -Liquid nitrogen x 3 cycles was applied to 3 lesion(s) on left dorsum of hand and 1 lesion on left forearm -The patient tolerated the procedure well. -Verbal and written wound care instructions were given 5. Seborrheic keratosis -Benign, I recommend observation Return to clinic 6 mon for routine skin exam Medical Decision Making I spent a total of 20 minutes on the date of the service which included preparing to see the patient, [id number] patient care, completing clinical documentation, obtaining and/or reviewing separately obtained history, and performing a medically appropriate examination. 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 02/01/2015 01/29/2016 Basal cell carcinoma of upper back 09/25/2014 12/12/2014 Squamous cell carcinoma in situ of skin of right ear 09/25/2014 01/29/2016 Basal cell carcinoma of hand 10/19/201307/2015 Basal cell carcinoma, lip 11/15/20122014 Epidermal cyst 08/06/2012 01/29/2016 Pyoderma, unspecified 08/06/2012 01/29/2016 Psoriasiform dermatitis: palmar hands 06/03/2012 01/29/2016 Other psoriasis: palmar hands 06/03/2012 Solar Lentigines 06/03/2012 01/29/2016 Actinic skin damage 06/03/2012 01/29/2016 Xerosis cutis 06/03/2012 01/29/2016 Other seborrheic dermatitis: Sebopsoriasis 05/1901/29/2016 NEVUS///BENIGN YANG SKIN TRUNK 11/10/2008 NEOPLASM UNCERTAIN BEHAV (NUB): SKIN 08/24/2008 12/12/2014 ACTINIC KERATOSES (Premalignant AK's) 08/24/2008 12/12/2014 Other seborrheic keratosis 08/24/200812/12 SURGICAL SCARS 08/24/2008 12/12/2014 SOLAR LENTIGINES///DYSCHROMIA OTHER 08/24/2008 08/06/2012 ACTINIC DAMAGE///CHR SOLAR SKIN DAMAGE NOS 08/2408/06/2012 MCARTHUR ANGIOMA///NEVUS, NON-NEOPLASTIC 9 08/06/2012 PERS HX SKIN MALIGNANCY: BCC's and SCC 6 12/12/2014 documented as of this encounter (statuses as of 02/25/2022) [facility] History of Past illness Narrative* Problem Noted Date Resolved Date Squamous cell carcinoma in situ of skin of right cheek 02/01/2015 01/29/2016 Basal cell carcinoma of upper back 09/25/2014 12/12/2014 Squamous cell carcinoma in situ of skin of right ear 09/25/2014 01/29/2016 Basal cell carcinoma of hand 10/19/201307/2015 Basal cell carcinoma, lip 11/15/20122014 Epidermal cyst 08/06/2012 01/29/2016 Pyoderma, unspecified 08/06/2012 01/29/2016 Psoriasiform dermatitis: palmar hands 06/03/2012 01/29/2016 Other psoriasis: palmar hands 06/03/2012 Solar Lentigines 06/03/2012 01/29/2016 Actinic skin damage 06/03/2012 01/29/2016 Xerosis cutis 06/03/2012 01/29/2016 Other seborrheic dermatitis: Sebopsoriasis 05/1901/29/2016 NEVUS///BENIGN YANG SKIN TRUNK 11/10/2008 NEOPLASM UNCERTAIN BEHAV (NUB): SKIN 08/24/2008 12/12/2014 ACTINIC KERATOSES (Premalignant AK's) 08/24/2008 12/12/2014 Other seborrheic keratosis 08/24/200812/12 SURGICAL SCARS 08/24/2008 12/12/2014 SOLAR LENTIGINES///DYSCHROMIA OTHER 08/24/2008 08/06/2012 ACTINIC DAMAGE///CHR SOLAR SKIN DAMAGE NOS 08/2408/06/2012 MCARTHUR ANGIOMA///NEVUS, NON-NEOPLASTIC 9 08/06/2012 PERS HX SKIN MALIGNANCY: BCC's and SCC 6 12/12/2014 documented as of this encounter (statuses as of 07/22/2022) [facility] History of Past illness Narrative* Problem Noted Date Resolved Date Squamous cell carcinoma in situ of skin of right cheek 02/01/2015 01/29/2016 Basal cell carcinoma of upper back 09/25/2014 12/12/2014 Squamous cell carcinoma in situ of skin of right ear 09/25/2014 01/29/2016 Basal cell carcinoma of hand 10/19/201307/2015 Basal cell carcinoma, lip 11/15/20122014 Epidermal cyst 08/06/2012 01/29/2016 Pyoderma, unspecified 08/06/2012 01/29/2016 Psoriasiform dermatitis: palmar hands 06/03/2012 01/29/2016 Other psoriasis: palmar hands 06/03/2012 Solar Lentigines 06/03/2012 01/29/2016 Actinic skin damage 06/03/2012 01/29/2016 Xerosis cutis 06/03/2012 01/29/2016 Other seborrheic dermatitis: Sebopsoriasis 05/1901/29/2016 NEVUS///BENIGN YANG SKIN TRUNK 11/10/2008 NEOPLASM UNCERTAIN BEHAV (NUB): SKIN 08/24/2008 12/12/2014 ACTINIC KERATOSES (Premalignant AK's) 08/24/2008 12/12/2014 Other seborrheic keratosis 08/24/200812/12 SURGICAL SCARS 08/24/2008 12/12/2014 SOLAR LENTIGINES///DYSCHROMIA OTHER 08/24/2008 08/06/2012 ACTINIC DAMAGE///CHR SOLAR SKIN DAMAGE NOS 08/2408/06/2012 MCARTHUR ANGIOMA///NEVUS, NON-NEOPLASTIC 9 08/06/2012 PERS HX SKIN MALIGNANCY: BCC's and SCC 6 12/12/2014 documented as of this encounter (statuses as of 10/08/2022) [facility] History of Past illness Narrative* Problem Noted Date Diagnosed Date Resolved Date Squamous cell carcinoma in s itu of skin of right cheek 02/01/2015 01/29/2016 Basal cell carcinoma of upper back 09/25/2014 12/12/2014 Squamous cell carcinoma in s itu of skin of right ear 09/25/2014 01/29/2016 Basal cell carcinoma of hand 10/19/2013 12/12/2014 Basal cell carcinoma, lip 11/15/2012 Epidermal cyst 08/06/2012 01/29/2016 Pyoderma, unspecified 08/06/20122015 Psoriasiform dermatitis: palmar hands 06/03/2012 01/29/2016 Other psoriasis: palmar hands 06/03/2012 01/29/2016 Solar Lentigines 06/03/2012 01/29/2016 Actinic skin damage 06/03/2012 01/29/20 16 Xerosis cutis 06/03/2012 01/29/2016 Other seborrheic dermatitis: Sebopsoriasis 05/19/2010 01/29/2016 NEVUS///BENIGN YANG SKIN TRUNK 11/10/2008 08/06/2012 NEOPLASM UNCERTAIN BEHAV (NUB): SKIN 08/24/2008 12/12/2014 ACTINIC KERATOSES (Premalignant AK's) 08/24/2008 12/12/2014 Other seborrheic keratosis 08/24/2008 0 12/12/2014 SURGICAL SCARS 08/24/2008 12/12/2014 SOLAR LENTIGINES///DYSCHROMIA OTHER 08/24/2008 08/06/2012 ACTINIC DAMAGE///CHR SOLAR SKIN DAMAGE NOS 08/24/2008 08/06/2012 MCARTHUR ANGIOMA///NEVUS, NON-NEOPLASTIC 08/24/2008 08/06/2012 PERS HX SKIN MALIGNANCY: BCC's and SCC 07/12/2006 12/12/2014 documented as of this encounter (statuses as of 04/14/2023) [facility] History of Past illness Narrative* Problem Noted Date Diagnosed Date Resolved Date Squamous cell carcinoma in s itu of skin of right cheek 02/01/2015 01/29/2016 Basal cell carcinoma of upper back 09/25/2014 12/12/2014 Squamous cell carcinoma in s itu of skin of right ear 09/25/2014 01/29/2016 Basal cell carcinoma of hand 10/19/2013 12/12/2014 Basal cell carcinoma, lip 11/15/2012 Epidermal cyst 08/06/2012 01/29/2016 Pyoderma, unspecified 08/06/20122015 Psoriasiform dermatitis: palmar hands 06/03/2012 01/29/2016 Other psoriasis: palmar hands 06/03/2012 01/29/2016 Solar Lentigines 06/03/2012 01/29/2016 Actinic skin damage 06/03/2012 01/29/20 16 Xerosis cutis 06/03/2012 01/29/2016 Other seborrheic dermatitis: Sebopsoriasis 05/19/2010 01/29/2016 NEVUS///BENIGN YANG SKIN TRUNK 11/10/2008 08/06/2012 NEOPLASM UNCERTAIN BEHAV (NUB): SKIN 08/24/2008 12/12/2014 ACTINIC KERATOSES (Premalignant AK's) 08/24/2008 12/12/2014 Other seborrheic keratosis 08/24/2008 0 12/12/2014 SURGICAL SCARS 08/24/2008 12/12/2014 SOLAR LENTIGINES///DYSCHROMIA OTHER 08/24/2008 08/06/2012 ACTINIC DAMAGE///CHR SOLAR SKIN DAMAGE NOS 08/24/2008 08/06/2012 MCARTHUR ANGIOMA///NEVUS, NON-NEOPLASTIC 08/24/2008 08/06/2012 PERS HX SKIN MALIGNANCY: BCC's and SCC 07/12/2006 12/12/2014 documented as of this encounter (statuses as of 06/19/2023) [facility] History of Past illness Narrative* Problem Noted Date Diagnosed Date Resolved Date Squamous cell carcinoma in s itu of skin of right cheek 02/01/2015 01/29/2016 Basal cell carcinoma of upper back 09/25/2014 12/12/2014 Squamous cell carcinoma in s itu of skin of right ear 09/25/2014 01/29/2016 Basal cell carcinoma of hand 10/19/2013 12/12/2014 Basal cell carcinoma, lip 11/15/2012 Epidermal cyst 08/06/2012 01/29/2016 Pyoderma, unspecified 08/06/20122015 Psoriasiform dermatitis: palmar hands 06/03/2012 01/29/2016 Other psoriasis: palmar hands 06/03/2012 01/29/2016 Solar Lentigines 06/03/2012 01/29/2016 Actinic skin damage 06/03/2012 01/29/20 16 Xerosis cutis 06/03/2012 01/29/2016 Other seborrheic dermatitis: Sebopsoriasis 05/19/2010 01/29/2016 NEVUS///BENIGN YANG SKIN TRUNK 11/10/2008 08/06/2012 NEOPLASM UNCERTAIN BEHAV (NUB): SKIN 08/24/2008 12/12/2014 ACTINIC KERATOSES (Premalignant AK's) 08/24/2008 12/12/2014 Other seborrheic keratosis 08/24/2008 0 12/12/2014 SURGICAL SCARS 08/24/2008 12/12/2014 SOLAR LENTIGINES///DYSCHROMIA OTHER 08/24/2008 08/06/2012 ACTINIC DAMAGE///CHR SOLAR SKIN DAMAGE NOS 08/24/2008 08/06/2012 MCARTHUR ANGIOMA///NEVUS, NON-NEOPLASTIC 08/24/2008 08/06/2012 PERS HX SKIN MALIGNANCY: BCC's and SCC 07/12/2006 12/12/2014 documented as of this encounter (statuses as of 06/19/2023) [facility] History of Past illness Narrative* Problem Noted Date Diagnosed Date Resolved Date Squamous cell carcinoma in s itu of skin of right cheek 02/01/2015 01/29/2016 Basal cell carcinoma of upper back 09/25/2014 12/12/2014 Squamous cell carcinoma in s itu of skin of right ear 09/25/2014 01/29/2016 Basal cell carcinoma of hand 10/19/2013 12/12/2014 Basal cell carcinoma, lip 11/15/2012 Epidermal cyst 08/06/2012 01/29/2016 Pyoderma, unspecified 08/06/20122015 Psoriasiform dermatitis: palmar hands 06/03/2012 01/29/2016 Other psoriasis: palmar hands 06/03/2012 01/29/2016 Solar Lentigines 06/03/2012 01/29/2016 Actinic skin damage 06/03/2012 01/29/20 16 Xerosis cutis 06/03/2012 01/29/2016 Other seborrheic dermatitis: Sebopsoriasis 05/19/2010 01/29/2016 NEVUS///BENIGN YANG SKIN TRUNK 11/10/2008 08/06/2012 NEOPLASM UNCERTAIN BEHAV (NUB): SKIN 08/24/2008 12/12/2014 ACTINIC KERATOSES (Premalignant AK's) 08/24/2008 12/12/2014 Other seborrheic keratosis 08/24/2008 0 12/12/2014 SURGICAL SCARS 08/24/2008 12/12/2014 SOLAR LENTIGINES///DYSCHROMIA OTHER 08/24/2008 08/06/2012 ACTINIC DAMAGE///CHR SOLAR SKIN DAMAGE NOS 08/24/2008 08/06/2012 MCARTHUR ANGIOMA///NEVUS, NON-NEOPLASTIC 08/24/2008 08/06/2012 PERS HX SKIN MALIGNANCY: BCC's and SCC 07/12/2006 12/12/2014 documented as of this encounter (statuses as of 06/24/2023) [facility] History of Past illness Narrative* Problem Noted Date Diagnosed Date Resolved Date Squamous cell carcinoma in s itu of skin of right cheek 02/01/2015 01/29/2016 Basal cell carcinoma of upper back 09/25/2014 12/12/2014 Squamous cell carcinoma in s itu of skin of right ear 09/25/2014 01/29/2016 Basal cell carcinoma of hand 10/19/2013 12/12/2014 Basal cell carcinoma, lip 11/15/2012 Epidermal cyst 08/06/2012 01/29/2016 Pyoderma, unspecified 08/06/20122015 Psoriasiform dermatitis: palmar hands 06/03/2012 01/29/2016 Other psoriasis: palmar hands 06/03/2012 01/29/2016 Solar Lentigines 06/03/2012 01/29/2016 Actinic skin damage 06/03/2012 01/29/20 16 Xerosis cutis 06/03/2012 01/29/2016 Other seborrheic dermatitis: Sebopsoriasis 05/19/2010 01/29/2016 NEVUS///BENIGN YANG SKIN TRUNK 11/10/2008 08/06/2012 NEOPLASM UNCERTAIN BEHAV (NUB): SKIN 08/24/2008 12/12/2014 ACTINIC KERATOSES (Premalignant AK's) 08/24/2008 12/12/2014 Other seborrheic keratosis 08/24/2008 0 12/12/2014 SURGICAL SCARS 08/24/2008 12/12/2014 SOLAR LENTIGINES///DYSCHROMIA OTHER 08/24/2008 08/06/2012 ACTINIC DAMAGE///CHR SOLAR SKIN DAMAGE NOS 08/24/2008 08/06/2012 MCARTHUR ANGIOMA///NEVUS, NON-NEOPLASTIC 08/24/2008 08/06/2012 PERS HX SKIN MALIGNANCY: BCC's and SCC 07/12/2006 12/12/2014 documented as of this encounter (statuses as of 07/03/2023) [facility] History of Past illness Narrative* Problem Noted Date Diagnosed Date Resolved Date Squamous cell carcinoma in s itu of skin of right cheek 02/01/2015 01/29/2016 Basal cell carcinoma of upper back 09/25/2014 12/12/2014 Squamous cell carcinoma in s itu of skin of right ear 09/25/2014 01/29/2016 Basal cell carcinoma of hand 10/19/2013 12/12/2014 Basal cell carcinoma, lip 11/15/2012 Epidermal cyst 08/06/2012 01/29/2016 Pyoderma, unspecified 08/06/20122015 Psoriasiform dermatitis: palmar hands 06/03/2012 01/29/2016 Other psoriasis: palmar hands 06/03/2012 01/29/2016 Solar Lentigines 06/03/2012 01/29/2016 Actinic skin damage 06/03/2012 01/29/20 16 Xerosis cutis 06/03/2012 01/29/2016 Other seborrheic dermatitis: Sebopsoriasis 05/19/2010 01/29/2016 NEVUS///BENIGN YANG SKIN TRUNK 11/10/2008 08/06/2012 NEOPLASM UNCERTAIN BEHAV (NUB): SKIN 08/24/2008 12/12/2014 ACTINIC KERATOSES (Premalignant AK's) 08/24/2008 12/12/2014 Other seborrheic keratosis 08/24/2008 0 12/12/2014 SURGICAL SCARS 08/24/2008 12/12/2014 SOLAR LENTIGINES///DYSCHROMIA OTHER 08/24/2008 08/06/2012 ACTINIC DAMAGE///CHR SOLAR SKIN DAMAGE NOS 08/24/2008 08/06/2012 MCARTHUR ANGIOMA///NEVUS, NON-NEOPLASTIC 08/24/2008 08/06/2012 PERS HX SKIN MALIGNANCY: BCC's and SCC 07/12/2006 12/12/2014 documented as of this encounter (statuses as of 10/12/2023) [facility] [place] [facility] Diagnosis Actinic keratosis- Primary Seborrheic keratosis Other seborrheic keratosis Hx of nonmelanoma skin cancer Personal history of other malignant neoplasm of skin Hx of atypical nevus Personal history of diseases of skin and subcutaneous tissue [facility] [place] [facility] Diagnosis Arrhythmia, atrial- Primary Cardiac dysrhythmia, unspecified [place] cell carcinoma of unknown primary site Secondary Harinder cell carcinoma Atrial fibrillation, unspecified type Essential hypertension Unspecified essential hypertension Lymphedema of right arm Obesity: body mass index of 30.0-34.9 Obesity, unspecified [facility] 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 Secondary [place] cell carcinoma [facility] [place] [facility] Diagnosis Basal cell carcinoma of multiple sites- Primary Basal cell carcinoma of skin, site unspecified [place] cell carcinoma of unknown primary site Secondary [place] cell carcinoma Abnormal results of thyroid function studies Nonspecific abnormal results of thyroid function study [facility] [place] [facility] Diagnosis Actinic keratosis- Primary Lentigines Other dyschromia Seborrheic keratosis Other seborrheic keratosis Hx of atypical nevus Personal history of diseases of skin and subcutaneous tissue Hx of nonmelanoma skin cancer Personal history of other malignant neoplasm of skin [facility] [place] [facility] Diagnosis [place] cell carcinoma of unknown primary site Secondary [place] cell carcinoma Abnormal results of thyroid function studies Nonspecific abnormal results of thyroid function study [facility] [place] [facility] Diagnosis 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 Secondary [place] cell carcinoma Arthritis of back Spondylosis of unspecified site without mention of myelopathy Prediabetes Other abnormal glucose Abnormal results of thyroid function studies Nonspecific abnormal results of thyroid function study [facility] Diagnosis Seborrheic keratosis- Primary Other seborrheic keratosis Mcarthur angioma Nevus, non-neoplastic Multiple benign nevi Benign neoplasm of skin, site unspecified Neoplasm of unspecified behavior of bone, soft tissue, and skin Hx of nonmelanoma skin cancer Personal history of other malignant neoplasm of skin Actinic keratosis documented in this encounter [facility] [place] [facility] Diagnosis Essential hypertension- Primary Unspecified essential hypertension [place] cell carcinoma of unknown primary site Secondary [place] cell carcinoma [facility] Diagnosis AK (actinic keratosis)- Primary Actinic keratosis documented in this encounter [facility] [place] [facility] Diagnosis Basal cell carcinoma (BCC) of left shoulder- Primary Harinder cell 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 in this encounter [facility] [place] [facility] Diagnosis Mcarthur angioma- Primary Nevus, non-neoplastic Multiple benign nevi Benign neoplasm of skin, site unspecified Lentigines Other dyschromia Actinic keratosis Hx of atypical nevus Personal history of diseases of skin and subcutaneous tissue Hx of nonmelanoma skin cancer Personal history of other malignant neoplasm of skin Skin erosion Unspecified disorder of skin and subcutaneous tissue documented in this encounter [facility] Summary Purpose Family History No Family History Records FoundNo Family History Records FoundNo Family History Records FoundNo Family History Records Found Advance Directives Documents on File Type Date Recorded 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 Tammy asher-confirmed with patient and . 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 Tammy asher-confirmed with patient and . Code Status History Code Status Date Activated Date Inactivated Comments Full Code 01/12/2017 1:24 PM 01/13/2017 12:13 PM Healthcare Agents on File Name Relationship Healthcare Agent Relationship Communication Jennifer (Hcpoa) Amadeo Spouse Health Care Agent James (1st Alt) Jr Goins Child First Alternate Health Care Agent Shukri (2nd Alt) Amadeo Child Second A lternate Health Care Agent Latest Code Status on File Code Status Date Activated Date Inactivated Comments Full Code 09/05/2018 8:[address] Tammy asher-confirmed with patient and . Code Status History Code Status Date Activated Date Inactivated Comments Full Code 01/12/2017 1:24 PM 01/13/2017 12:13 PM Healthcare Agents on File Name Relationship Healthcare Agent Relationship Communication Jennifer (Hcpoa) Amadeo Spouse Health Care Agent James (1st Alt) Jr Goins Child First Alternate Health Care Agent Shukri (2nd Alt) Amadeo Child Second A lternate Health Care Agent Healthcare Agents on File Name Relationship Healthcare Agent Relationship Communication Jennifer (Hcpoa) Amadeo Spouse Health Care Agent James (1st Alt) Jr Goins Child First Alternate Health Care Agent Shukri (2nd Alt) Amadeo Child Second A lternate Health Care Agent Healthcare Agents on File Name Relationship Healthcare Agent Relationship Communication Jennifer (Hcpoa) Amadeo Spouse Health Care Agent James (1st Alt) Jr Goins Child First Alternate Health Care Agent Shukri (2nd Alt) Amadeo Child Second A lternate Health Care Agent Healthcare Agents on File Name Relationship Healthcare Agent Relationship Communication Jennifer (Hcpoa) Amadeo Spouse Health Care Agent James (1st Alt) Jr Goins Child First Alternate Health Care Agent Shukri (2nd Alt) Amadeo Child Second A lternate Health Care Agent Reason for Referral Specialty Diagnoses / Procedures Referred By Feliciano mills Referred To Contact Diagnoses Arrhythmia, atrial Procedures ECG Elliot Valderrama MD [address] [address] Referral ID Status Reason Start Date Expiration Date V isits Requested Visits Authorized [id number] New Request 02/14/2022 03/11/2023 1 1 Specialty Diagnoses / Procedures Referred By Feliciano t Referred To Contact Diagnoses Basal cell carcinoma of multiple sites Procedures QUESTIONNAIRE SERIES Arpita Zhu, 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 [address] [address] Referral ID Status Reason Start Date Expiration Date V isits Requested Visits Authorized [id number] New Request 05/15/2022 06/09/2023 1 1 Additional Source Comments (unrecognized sect ion and content) No Status Records FoundNo Status Records FoundNo Status Records FoundNo Status Records Found INFORMATION SOURCE (unrecogn ized section and content) DATE CREATED AUTHOR AUTHOR'S ORGANIZ ATION 07/07/2019 [facility] DATE CREATED AUTHOR AUTHOR'S ORGANIZ ATION 06/20/2023 [facility] DATE CREATED AUTHOR AUTHOR'S ORGANIZ ATION 10/12/2023 [facility] Source Comments (unrecognize d section and content) In the event this informatio n is protected by the Federal Confidentiality of Alcohol and Drug Abuse Patient Records regulations: The Federal rules restrict any use of the information to criminally investigate or prosecute any alcohol or drug abuse patient.[facility] the event this information is protected by the Federal Confidentiality of Alcohol and Drug Abuse Patient Records regulations: The Federal rules restrict any use of the information to criminally investigate or prosecute any alcohol or drug abuse patient.[facility] the event this information is protected by the Federal Confidentiality of Alcohol and Drug Abuse Patient Records regulations: The Federal rules restrict any use of the information to criminally investigate or prosecute any alcohol or drug abuse patient.[facility] the event this information is protected by the Federal Confidentiality of Alcohol and Drug Abuse Patient Records regulations: The Federal rules restrict any use of the information to criminally investigate or prosecute any alcohol or drug abuse patient.[facility] the event this information is protected by the Federal Confidentiality of Alcohol and Drug Abuse Patient Records regulations: The Federal rules restrict any use of the information to criminally investigate or prosecute any alcohol or drug abuse patient.[facility] the event this information is protected by the Federal Confidentiality of Alcohol and Drug Abuse Patient Records regulations: The Federal rules restrict any use of the information to criminally investigate or prosecute any alcohol or drug abuse patient.[facility] the event this information is protected by the Federal Confidentiality of Alcohol and Drug Abuse Patient Records regulations: The Federal rules restrict any use of the information to criminally investigate or prosecute any alcohol or drug abuse patient.[facility] the event this information is protected by the Federal Confidentiality of Alcohol and Drug Abuse Patient Records regulations: The Federal rules restrict any use of the information to criminally investigate or prosecute any alcohol or drug abuse patient.[facility] the event this information is protected by the Federal Confidentiality of Alcohol and Drug Abuse Patient Records regulations: The Federal rules restrict any use of the information to criminally investigate or prosecute any alcohol or drug abuse patient.[facility] Hospital[facility] the event this information is protected by the Federal Confidentiality of Alcohol and Drug Abuse Patient Records regulations: The Federal rules restrict any use of the information to criminally investigate or prosecute any alcohol or drug abuse patient.[facility] Reason for Visit (unrecogniz ed section and content) Reason Comments [place] Cell Carcinoma 1 year Follow-up Reason Comments Received Outside Medical Records Reason Comments Labs Only Reason Comments Har[place] Cell Carcinoma Treatment plan dis cussion. Reason Comments Harinder Cell Carcinoma 6 month follow up on surveillance Reason Comments Har[place] Cell Carcinoma 6 month follow up. Reason Comments PDT Reason Comments Insurance Authorization Fluorouracil Reason Comments Received Outside Medical Records [facility] Reason Comments Skin Check LESION, SKIN Care Teams (unrecognized sec tion and content) Merchandise Flow Team Member Relationship Specialty Start Date End Date Radha Hernandez MD [address] [place] [address] PCP - General Internal Medicine 01/01/17 Ana Haji MD [address] [place] [address] Dermatology 11/05/17 Martin Walters MD [address] [place] [address] Surgeon Surgical Critical Care 09/08/18 Elliot Valderrama MD [address] [place] [address] Oncologist Medical Oncology 10/14/17 Merchandise Flow Team Member Relationship Specialty Start Date End Date Pritesh Hernandez Chi PCP - General 08/22/08 Merchandise Flow Team Member Relationship Specialty Start Date End Date Radha Hernandez MD [address] [place], [place] [id number] PCP - General Internal Medicine 01/01/17 Ana Haji MD [address] [facility] [place] [address] Dermatology 11/05/17 Martin Walters MD [address] [place] [address] Surgeon Surgical Critical Care 09/08/18 Elliot Valderrama MD [address] [place] [address] Oncologist Medical Oncology 10/14/17 Merchandise Flow Team Member Relationship Specialty Start Date End Date Radha Hernandez MD [address] [place] [address] PCP - General Internal Medicine 01/01/17 Ana Haji MD [address] [facility] [place] [address] Dermatology 11/05/17 Martin Walters MD [address] [place] [address] Surgeon Surgical Critical Care 09/08/18 Elliot Valdrerama MD [address] [place] [address] Oncologist Medical Oncology 10/14/17 Merchandise Flow Team Member Relationship Specialty Start Date End Date Pritesh Hernandez Chi PCP - General 08/22/08 Merchandise Flow Team Member Relationship Specialty Start Date End Date Pritesh Hernandez Chi PCP - General 08/22/08 Merchandise Flow Team Member Relationship Specialty Start Date End Date Radha Hernandez MD [address] [place] [address] PCP - General Internal Medicine 01/01/17 Ana Haji MD [address] [facility] [place] [address] Dermatology 11/05/17 Martin Walters MD [address] [place] [address] Surgeon Surgical Critical Care 09/08/18 Elliot Valderrama MD [address] [place] [address] Oncologist Medical Oncology 10/14/17 Merchandise Flow Team Member Relationship Specialty Start Date End Date Radha Hernandez MD [address] [place] [address] PCP - General Internal Medicine 01/01/17 Ana Haji MD [address] [facility] [place] [address] Dermatology 11/05/17 Martin Walters MD [address] [address] Surgeon Surgical Critical Care 09/08/18 Elliot Valderrama MD [address] [facility] [address] [place] [address] Oncologist Medical Oncology 10/14/17 Merchandise Flow Team Member Relationship Specialty Start Date End Date Pritesh Hernandez Chi PCP - General 08/22/08 Merchandise Flow Team Member Relationship Specialty Start Date End Date Radha Hernandez MD [address] [facility] [address] [place] [address] PCP - General Internal Medicine 01/01/17 Ana Haji MD [address] [place] [address] Dermatology 11/05/17 Martin Walters MD [address] [address] Surgeon Surgical Critical Care 09/08/18 Elliot Valderrama MD [address] [facility] [address] [place] [phone] Oncologist Medical Oncology 10/14/17 Merchandise Flow Team Member Relationship Specialty Start Date End Date Pritesh Hernandez Chi PCP - General 08/22/08 Merchandise Flow Team Member Relationship Specialty Start Date End Date Pritesh Hernandez Chi PCP - General 08/22/08 Merchandise Flow Team Member Relationship Specialty Start Date End Date Pritesh Hernandez Chi PCP - General 08/22/08 FOR RECORDS PERTAINING TO PATIENTS WHO ARE OR HAVE BEEN ENROLLED IN A CHEMICAL DEPENDENCY/SUBSTANCEABUSE PROGRAM, SOME INFORMATION MAY BE OMITTED. This clinical summary was aggregated from multiple sources. Caution should be exercised in using it in the provision of clinical care. This summary normalizes information from multiple sources, and as a consequence, information in this document may materially change the coding, format and clinical context of patient data. In addition, data may be omitted in some cases. CLINICAL DECISIONS SHOULD BE BASED ON THE PRIMARY CLINICAL RECORDS. [facility]. provides no warranty or guarantee of the accuracy or completeness of information in this document.
== END 2023-10-15 14:49 | disposition home or self-care (01) ==
PROVIDERS: Emergency Provider Emergency Medicine; PCP Family Medicine Geriatric Medicine; Visit Provider Emergency Medicine
DX: R04.0 Epistaxis (principal); I48.91 Unspecified atrial fibrillation; Z87.891 Personal history of nicotine dependence; Z79.01 Long term (current) use of anticoagulants
CPT/HCPCS: 30901; 99282

== ENCOUNTER → 2023-11-16 | Outpatient (CLI) | payer MEDICARE, BC, SELFPAY ==
[2017-09-24 10:04] VITALS: BMI 31.2
[2023-11-16 11:24] LABS: Absolute Lymphocyte Count 1.19 X10^3/uL (0.83-4.51); Absolute Neutrophil Count 6.2 X10^3/uL (2.0-7.7); Basophil# 0.04 X10^3/uL; Basophil% 0.5 % (0-1); Eosinophil# 0.06 X10^3/uL; Eosinophils% 0.7 % (0-5); Hematocrit 41.9 % (40-54); Hemoglobin 13.3 g/dL (13.0-16.5); Lymphocyte # 1.19 X10^3/ul (0.83-4.51); Lymphocyte % 14.8 % (19-41); Mean Corp Hgb Conc 31.7 g/dL (32-36); Mean Corpuscular Hgb 30.4 pg (27.0-32.0); Mean Corpuscular Volume 95.9 fL (80-94); Mean Platelet Vol. 9.6 fl (6.2-12.0); Monocyte# 0.47 X10^3/uL; Monocyte% 5.8 % (0-10); NRBC Flagged by Analyzer 0 % (0-5); Neutrophil # 6.19 X10^3/uL (2.7-7.7); Neutrophil % 77.1 % (47-70); Platelet Count 177 K/mm3 (150-450); RBC Distribution Width CV 14.1 % (11.6-14.6); RBC Distribution Width SD 49.5 fl (35.1-43.9); Red Blood Count 4.37 M/mm3 (4.6-6.2)
[2023-11-16 11:36] LABS: Vitamin D,25 Hydroxy 16.9 ng/mL
[2023-11-16 11:45] LABS: ALB/GLOB Ratio 0.9 RATIO (0.9-2.4); AST(SGOT) 16 U/L (15-37); Alanine Aminotransfer ALT/SGPT 17 U/L (16-61); Alkaline Phosphatase 53 U/L (45-117); Anion Gap 5 (5-15); BUN 15 mg/dL (7-18); Chloride 109 mmol/L (98-107); EST Glomerular Filtration Rate 48 mL/min (>60); Est Glom Filt Rate - Afr Amer 58 mL/min (>60); Globulin 3.3 g/dL (2.2-4.2); Glucose 164 mg/dL (74-106); Potassium 4.5 mmol/L (3.5-5.1); Protein, Total 6.3 g/dL (6.4-8.2); Sodium Level 140 mmol/L (136-145); Thyroid Stim Hormone (TSH) 2.67 uIU/mL (0.358-3.74)
== END | disposition home or self-care (01) ==
LOC: POLAB3 09:21
PROVIDERS: PCP Family Medicine Geriatric Medicine; Visit Provider Family Medicine Geriatric Medicine
DX: I10 Essential (primary) hypertension (principal); E55.9 Vitamin D deficiency, unspecified
CPT/HCPCS: 36415; 80053; 82306; 84443; 85025

== ENCOUNTER → 2024-01-28 | Outpatient (CLI) | payer MEDICARE, BC, SELFPAY ==
[2017-09-24 10:04] VITALS: BMI 31.2
--- NOTE | 2024-01-28 15:01 | VDLE_ITS ---
Reason For Study: Bilateral leg edema RIGHT LEFT GSV is normal. GSV is normal. CFV is compressible, spontaneous, phasic, CFV is compressible, spontaneous, phasic, competent and demonstrates normal competent, and demonstrates normal augmentation. augmentation. FV is compressible, spontaneous, phasic, FV is compressible, spontaneous, phasic, competent and demonstrates normal competent and demonstrates normal augmentation. augmentation. POP V is compressible, spontaneous, phasic, POP V is compressible, spontaneous, phasic, competent and demonstrates normal competent and demonstrates normal augmentation. augmentation. T/P Trunk is compressible. T/P Trunk is compressible. PTV is compressible. PTV is compressible. RT PerV is compressible. LT PerV is compressible. Procedure This is a venous duplex using B-mode, color flow and spectral Doppler. Exam performed in department. A preliminary report was called and/or faxed to Dr. Hernandez. VL/Venous Duplex US - [place] Extrem Interpretation Summary No evidence for acute deep venous thrombosis bilateral lower extremities with p atent and compressible bilateral great saphenous veins. Ordering Physician: Garrett Hernandez Chi Referring Physician: Garrett Hernandez Chi Performed By: Suellen Robertson RVT
[2024-01-28 16:18] LABS: Absolute Lymphocyte Count 1.34 X10^3/uL (0.83-4.51); Absolute Neutrophil Count 7.8 X10^3/uL (2.0-7.7); Basophil# 0.06 X10^3/uL; Basophil% 0.6 % (0-1); Eosinophil# 0.06 X10^3/uL; Eosinophils% 0.6 % (0-5); Hematocrit 41.9 % (40-54); Hemoglobin 13.2 g/dL (13.0-16.5); Lymphocyte # 1.34 X10^3/ul (0.83-4.51); Lymphocyte % 13.2 % (19-41); Mean Corp Hgb Conc 31.5 g/dL (32-36); Mean Corpuscular Hgb 28.9 pg (27.0-32.0); Mean Corpuscular Volume 91.7 fL (80-94); Mean Platelet Vol. 9.8 fl (6.2-12.0); Monocyte# 0.78 X10^3/uL; Monocyte% 7.7 % (0-10); NRBC Flagged by Analyzer 0 % (0-5); Neutrophil # 7.75 X10^3/uL (2.7-7.7); Neutrophil % 76.1 % (47-70); Platelet Count 171 K/mm3 (150-450); RBC Distribution Width SD 47.2 fl (35.1-43.9); Red Blood Count 4.57 M/mm3 (4.6-6.2); White Blood Count 10.2 K/mm3 (4.4-11.0)
[2024-01-28 16:32] LABS: ALB/GLOB Ratio 0.8 RATIO (0.9-2.4); AST(SGOT) 26 U/L (15-37); Alanine Aminotransfer ALT/SGPT 30 U/L (16-61); Alkaline Phosphatase 52 U/L (45-117); Anion Gap 7 (5-15); BUN 18 mg/dL (7-18); BUN/Creat Ratio 13.7 RATIO (10-20); Calcium,Total 9.1 mg/dL (8.5-10.1); Chloride 106 mmol/L (98-107); Creatinine, Serum 1.31 mg/dL (0.70-1.30); EST Glomerular Filtration Rate 56 mL/min (>60); Est Glom Filt Rate - Afr Amer 68 mL/min (>60); Globulin 3.7 g/dL (2.2-4.2); Glucose 99 mg/dL (74-106); Potassium 4.4 mmol/L (3.5-5.1); Protein, Total 6.7 g/dL (6.4-8.2); Sodium Level 138 mmol/L (136-145)
[2024-01-28 16:33] LABS: Lactic Acid 1.9 mmol/L (0.4-1.9)
== END | disposition home or self-care (01) ==
PROVIDERS: PCP Family Medicine Geriatric Medicine; Referring Provider Family Medicine Geriatric Medicine; Visit Provider Family Medicine Geriatric Medicine
DX: R60.0 Localized edema (principal); I10 Essential (primary) hypertension
CPT/HCPCS: 36415; 80053; 83605; 85025; 93970

== ENCOUNTER → 2024-02-15 | Outpatient (CLI) | payer MEDICARE, BC, SELFPAY ==
[2017-09-24 10:04] VITALS: BMI 31.2
== END | disposition home or self-care (01) ==
LOC: POLAB3 13:33
PROVIDERS: PCP Family Medicine Geriatric Medicine; Visit Provider Family Medicine Geriatric Medicine
DX: R68.83 Chills (without fever) (principal)
CPT/HCPCS: 87631

== ENCOUNTER → 2024-03-08 | Outpatient (CLI) | payer MEDICARE, BC, SELFPAY ==
[2017-09-24 10:04] VITALS: BMI 31.2
[2024-03-08 11:44] LABS: Albumin, Serum 3.1 g/dL (3.2-5.0); BUN 21 mg/dL (7-18); BUN/Creat Ratio 15.4 RATIO (10-20); Calcium,Total 9.2 mg/dL (8.5-10.1); Chloride 110 mmol/L (98-107); Creatinine, Serum 1.36 mg/dL (0.70-1.30); EST Glomerular Filtration Rate 54 mL/min (>60); Est Glom Filt Rate - Afr Amer 65 mL/min (>60); Glucose 138 mg/dL (74-106); Phosphorus 3.2 mg/dL (2.5-4.9); Potassium 4.5 mmol/L (3.5-5.1); Sodium Level 140 mmol/L (136-145)
== END | disposition home or self-care (01) ==
PROVIDERS: PCP Family Medicine Geriatric Medicine; Visit Provider Internal Medicine Nephrology
DX: N18.31 Chronic kidney disease, stage 3a (principal)
CPT/HCPCS: 36415; 80069

== ENCOUNTER → 2024-03-28 | Outpatient (CLI) | payer MEDICARE, BC, SELFPAY ==
[2017-09-24 10:04] VITALS: BMI 31.2
--- NOTE | 2024-03-28 16:25 | RAD_ITS ---
INDICATION: LOW BACK PAIN EXAMINATION/TECHNIQUE: X-RAY - XR Spine Lumbar Min 4 Views COMPARISON: 08/13/2022 lumbar spine radiographs. FINDINGS: 5 views of the lumbar spine. BONES: Normal anatomic alignment without evidence of fracture or subluxation. No concerning bony lesion or abnormal sclerosis to suggest lesion. DISCS/JOINTS: Mild to moderate multilevel degenerative change. SOFT TISSUES: Dense atherosclerotic vascular calcifications. RAD/L/S Spine Min 4 Views IMPRESSION: Again is noted stable mild to moderate multilevel degenerative change of the lumbar spine. If there is persistent clinical concern for spine fracture and this is a trauma patient, recommend dedicated lumbar spine CT. Electronically Signed: Darren Hong MD at 1:28 EDT ,
== END | disposition home or self-care (01) ==
LOC: RAD 16:22
PROVIDERS: PCP Family Medicine Geriatric Medicine; Referring Provider Family Medicine Geriatric Medicine; Visit Provider Family Medicine Geriatric Medicine
DX: M51.9 Unspecified thoracic, thoracolumbar and lumbosacral intervertebral disc disorder (principal); M54.50 Low back pain, unspecified; M54.16 Radiculopathy, lumbar region
CPT/HCPCS: 72110

== ENCOUNTER → 2024-04-25 | Outpatient (CLI) | payer MEDICARE, BC, SELFPAY ==
[2017-09-24 10:04] VITALS: BMI 31.2
--- NOTE | 2024-04-25 14:23 | MRI_ITS ---
EXAM: MR LUMBAR SPINE WITHOUT INTRAVENOUS CONTRAST CLINICAL INDICATION: LOW BACK PAIN,DISC DISEASE,RADICULOPATHY TECHNIQUE: Multiplanar and multisequence MR images of the lumbar spine without intravenous contrast. COMPARISON: No relevant prior studies available. FINDINGS: VERTEBRAE: Alignment of the lumbar vertebral bodies is normal. Normal vertebral body height. No bone marrow edema. SPINAL CORD: Normal. Normal conus medullaris terminates at the T12-L1 junction. SOFT TISSUES: Normal. DISCS/SPINAL CANAL/NEURAL FORAMINA: L1-L2: Mild disc space narrowing. Mild disc bulging. No significant ligamentous hypertrophy or facet arthropathy. No spinal or neural foraminal stenosis. L2-L3: Moderate disc space narrowing. Left central disc protrusion noted extending a mild degree inferiorly resulting in mild spinal stenosis and prominent narrowing of the left lateral recess and left neural foramen. Intact right neural foramen. L3-L4: Mild to moderate disc space narrowing. Mild broad-based disc bulging, ligamentous hypertrophy and facet arthropathy results in mild spinal stenosis and moderate bilateral neural foraminal narrowing. L4-L5: Mild anterior listhesis of L4 on L5. Mild broad-based disc protrusion, ligamentous hypertrophy and facet arthropathy results in moderate spinal stenosis and moderate left and severe right neural foraminal narrowing. L5-S1: Prominent facet arthropathy results in marked narrowing of the left neural foramen and mild to moderate narrowing of the right neural foramen. No disc protrusion. No spinal stenosis. MRI/Spine Lumbar (Routine) IMPRESSION: 1. 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 2. Mild L3-4 and moderate L4-5 spinal stenosis related to disc bulging or protrusion and ligamentous hypertrophy and facet arthropathy. 3. Significant multilevel neural foraminal narrowing as described above. Electronically Signed: Monty Diallo MD at 11:55 EDT ,
== END | disposition home or self-care (01) ==
LOC: MRI 07:59
PROVIDERS: PCP Family Medicine Geriatric Medicine; Referring Provider Family Medicine Geriatric Medicine; Visit Provider Family Medicine Geriatric Medicine
DX: M54.16 Radiculopathy, lumbar region (principal); M54.50 Low back pain, unspecified; M51.9 Unspecified thoracic, thoracolumbar and lumbosacral intervertebral disc disorder
CPT/HCPCS: 72148

== ENCOUNTER → 2024-05-23 | Outpatient (CLI) | payer MEDICARE, BC, SELFPAY ==
[2017-09-24 10:04] VITALS: BMI 31.2
[2024-05-23 10:05] LABS: Absolute Lymphocyte Count 1.35 X10^3/uL (0.83-4.51); Absolute Neutrophil Count 6.9 X10^3/uL (2.0-7.7); Basophil# 0.08 X10^3/uL; Basophil% 0.8 % (0-1); Eosinophil# 0.04 X10^3/uL; Eosinophils% 0.4 % (0-5); Hematocrit 37.1 % (40-54); Hemoglobin 12.7 g/dL (13.0-16.5); Lymphocyte # 1.35 X10^3/ul (0.83-4.51); Lymphocyte % 14.1 % (19-41); Mean Corp Hgb Conc 34.2 g/dL (32-36); Mean Corpuscular Hgb 32.7 pg (27.0-32.0); Mean Corpuscular Volume 95.6 fL (80-94); Mean Platelet Vol. 8.9 fl (6.2-12.0); Monocyte# 0.73 X10^3/uL; Monocyte% 7.6 % (0-10); NRBC Flagged by Analyzer 0 % (0-5); Neutrophil % 72.3 % (47-70); Platelet Count 204 K/mm3 (150-450); RBC Distribution Width CV 14.6 % (11.6-14.6); RBC Distribution Width SD 51.2 fl (35.1-43.9); Red Blood Count 3.88 M/mm3 (4.6-6.2); White Blood Count 9.6 K/mm3 (4.4-11.0)
[2024-05-23 10:24] LABS: Vitamin D,25 Hydroxy 17.8 ng/mL
[2024-05-23 10:35] LABS: ALB/GLOB Ratio 0.7 RATIO (0.9-2.4); AST(SGOT) 22 U/L (15-37); Alanine Aminotransfer ALT/SGPT 24 U/L (16-61); Albumin, Serum 2.8 g/dL (3.2-5.0); Alkaline Phosphatase 54 U/L (45-117); Anion Gap 7 (5-15); BUN 21 mg/dL (7-18); BUN/Creat Ratio 14.8 RATIO (10-20); Calcium,Total 9.2 mg/dL (8.5-10.1); Chloride 108 mmol/L (98-107); Creatinine, Serum 1.42 mg/dL (0.70-1.30); EST Glomerular Filtration Rate 51 mL/min (>60); Est Glom Filt Rate - Afr Amer 62 mL/min (>60); Globulin 3.8 g/dL (2.2-4.2); Glucose 133 mg/dL (74-106); Potassium 4.3 mmol/L (3.5-5.1); Protein, Total 6.6 g/dL (6.4-8.2); Sodium Level 140 mmol/L (136-145)
[2024-05-23 11:40] LABS: PSA,Total- Diagnostic 2.59 ng/mL (0.0-4.0)
== END | disposition home or self-care (01) ==
LOC: POLAB3 09:29
PROVIDERS: Urology; PCP Family Medicine Geriatric Medicine; Visit Provider Family Medicine Geriatric Medicine
DX: R97.20 Elevated prostate specific antigen [PSA] (principal); I10 Essential (primary) hypertension; E55.9 Vitamin D deficiency, unspecified
CPT/HCPCS: 36415; 80053; 82306; 84153; 84443; 85025

== ENCOUNTER → 2024-08-04 | Outpatient (CLI) | payer MEDICARE, BC, SELFPAY ==
[2017-09-24 10:04] VITALS: BMI 31.2
--- NOTE | 2024-08-04 10:54 | VDUE_ITS ---
Reason For Study: Right arm swelling Right Proximal Left Proximal Right jugular vein is spontaneous, widely Left subclavian vein is spontaneous, widely patent, phasic, with no intraluminal patent, phasic, with no intraluminal echogenicity noted. echogenicity noted. Right subclavian vein is spontaneous, widely patent, phasic, with no intraluminal echogenicity noted. Right Lower Arm Right radial vein is compressible. Right ulnar vein is compressible. Right Arm Right axillary vein is spontaneous, patent, phasic, competent, compressible and demonstrates augmentation. Right brachial vein is compressible. Right cephalic vein is compressible. Right basilic vein is compressible. Patient Safety Preliminary report given to Dr. Hernandez. VL/Venous Duplex US, Unilateral Interpretation Summary Deep veins of the right upper extremity are patent and compressible segmentally . There is no evidence of deep vein thrombosis. Superficial veins of the right upper extremity are patent and compressible segm entally. There is no evidence of superficial vein thrombosis. Ordering Physician: Garrett Hernandez Chi Referring Physician: Garrett Hernandez Chi Performed By: Suellen Robertson RVT ???
== END | disposition home or self-care (01) ==
PROVIDERS: PCP Family Medicine Geriatric Medicine; Referring Provider Family Medicine Geriatric Medicine; Visit Provider Family Medicine Geriatric Medicine
DX: L03.113 Cellulitis of right upper limb (principal); R22.31 Localized swelling, mass and lump, right upper limb; M79.601 Pain in right arm
CPT/HCPCS: 87070; 87075; 87077; 87186; 87205; 87640; 93971

== ENCOUNTER 2024-08-14 05:08 | Emergency (ER) | payer MEDICARE, BC, SELFPAY ==
[2017-09-24 10:04] VITALS: BMI 31.2
[2024-08-14 05:10] VITALS: BP 155/63; PULSE 54; RESP 20; TEMP 36.7; O2SAT 96; BMI 29.0
--- NOTE | 2024-08-14 05:26 | EX.ED.DYSGE1 ---
HPI History of Present Illness Chief Complaint: Chest Other Informant: patient and spouse/S.O. Narrative Narrative: Presents to ED with spouse for evaluation transient dyspnea and right-sided chest discomfort. Awakened at 3:30 AM noted symptoms started take deep breath in. He states he laid on his right side felt a pop and symptoms improved. He has been feeling some trapezius pain for the last couple days after pulling in the garbage can. No cough. No left-sided chest pain. History of chronic atrial fibrillation. He stopped taking his Eliquis 6 months ago. He states he is having multiple nosebleeds. He is told risk of being off of it for strokes. However he did not want to go through nosebleeds again. Currently only mild pain in his right trapezius. 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 Mobitz type 1 second degree atrioventricular block Premature ventricular contraction Premature atrial contraction Lung nodule Essential hypertension New onset atrial fibrillation Wears glasses Cancer Alcohol use History of steroid therapy Thyroid disease History of renal disease Easy bruising Back pain History of hiatal hernia History of constipation Former smoker Leg cramps History of pain when walking History of echocardiogram History of stress test Hx of malignant carcinoid tumor Hx of fracture of clavicle Hx of skin cancer, basal cell Segmental and somatic dysfunction of pelvic region Lymphoma Basal cell carcinoma GERD (gastroesophageal reflux disease) Elevated cholesterol Enlarged prostate Home Medications ?Medication ?Instructions ?Recorded ?Last Taken ?Type pravastatin 40 mg tablet 40 mg PO QHS Cholesterol 12/08/16 02/04/23 History valsartan 160 mg tablet 160 mg PO QHS BP 12/08/16 10/08/21 History tamsulosin 0.4 mg capsule 0.4 mg PO DAILY Prostate 12/10/16 11/01/18 History finasteride 5 mg tablet 5 mg PO DAILY prostate 11/01/18 10/31/18 History metoprolol succinate 25 mg 25 mg PO DAILY HEART 11/01/18 02/04/23 History tablet,extended release 24 hr pantoprazole 40 mg tablet,delayed 40 mg PO DAILY GERD #30 tabs 11/02/18 10/08/21 Rx release levothyroxine 25 mcg tablet 25 mcg PO DAILY hypothyroidism 08/30/21 02/04/23 History sennosides 8.6 mg-docusate sodium 2 tab-cap PO DAILY PRN constipation 09/24/21 Unknown History 50 mg tablet (Stool Softener-Laxative) aspirin 81 mg chewable tablet 81 mg PO DAILY #90 tabs 01/07/24 Unknown Rx spironolactone 25 mg tablet 25 mg PO DAILY HTN 07/28/24 Unknown History Allergy/AdvReac Type Severity Reaction Status Date / Time oxycodone (From OxyContin) AdvReac Severe lethargic-s Verified 08/14/24 05:10 leepy rivaroxaban (From Xarelto) AdvReac Severe excessive Verified 08/14/24 05:10 bleeding Family History Grandmother Uterine cancer Father Cancer Grandfather Heart disease Uncle Cancer Aunt Heart valve disease Surgical History History of cataract extraction History of back surgery History of ERCP Hx of tonsillectomy Hx of cholecystectomy Knee joint replacement status Social History Smoking Status: Former smoker quit date: 08/03/65 alcohol intake: current alcohol intake frequency: holidays/special occasions only substance use type: does not use caffeine: Yes Type: carbonated beverages ROS ROS ED Constitutional Constitutional ED: Denies chills, fever(s) or sweats ENT ENT ED: Denies sore throat Cardiovascular Cardiovascular: Denies chest pain, leg edema, palpitations or racing heartbeat Respiratory/Chest Respiratory/Chest: Reports dyspnea; Denies cough or dyspnea on exertion Gastrointestinal Gastrointestinal: Denies abdominal pain, diarrhea, nausea or vomiting Genitourinary Genitourinary ED: Denies dysuria, hematuria or urinary frequency Musculoskeletal Musculoskeletal: Denies back pain, extremity pain or neck pain Integumentary Denies rash or wounds Neurologic Neurologic: Denies headache(s), paresthesias or weakness EXAM Physical Exam Const Vital Signs: 08/14/24 05:10 08/14/24 05:15 Temperature 98.1 F Temperature Source Axillary Pulse Rate 54 L Respiratory Rate 20 H Respiratory Effort Short of Breath Labored Respiratory Pattern Normal Blood Pressure 155/63 H Blood Pressure Mean 93 Pulse Ox 96 Oxygen Delivery Method Room Air Positive well nourished and well developed General Appearance ED: well developed and NAD HEENT Reports moist mucous membranes normocephalic and atraumatic Eyes General Eye ED: Yes normal appearance of both eyes Neck full ROM Chest Wall inspection of chest normal and palpation of chest normal Chest Narrative: No pain chest wall, no ecchymosis, no crepitus. Chest: Negative for tenderness Resp normal respiratory effort and normal air movement Resp Narrative: Symmetric breath sounds Effort and Inspection: symmetric chest movement; Negative for respiratory distress Cardio regular rate and no murmurs Rhythm: abnormal rhythm Peripheral Pulses: pulses 2+ throughout GI normal to inspection, nondistended, normoactive bowel sounds and non-tender Palpation: Negative for guarding or rebound tenderness present Extremity normal to inspection Extremity Narrative: Mild tenderness right trapezius. General Extremety ED: Yes tenderness; Negative for edema General Extremity: Negative for edema Neuro oriented x3 and no sensory deficits noted Sensorium / Orientation: awake and alert Skin no rashes or lesions noted and no wounds MDM MDM MDM Narrative Medical decision making narrative: Interventions / MDM: Differential diagnosis: Musculoskeletal chest pain. Muscle strain trapezius. Diagnosis considered but do not suspect: Pneumothorax however chest x-ray negative. My EKG interpretation: N/A Imaging independently reviewed and interpreted by myself: 2 view chest x-ray: No acute process. External documents reviewed: N/A Test considered but not ordered:N/A ED course: Chronic A-fib irregular rhythm on exam. Blood pressure stable. Currently no pain in his chest symmetric breath sounds. Symptoms are improved. Will obtain two-view chest x-ray for further evaluation. 0545: Chest x-ray negative. No pneumothorax. Patient remained symptom-free with breathing. Exam of the muscle strain of the trapezius. Discussed continues Tylenol at home. We did discuss his chronic A-fib with stroke risk as he is not taking his Eliquis. Outpatient follow-up with strict return precautions. All questions were answered. Re-evaluation: stable Disposition discussed with patient/family/significant other: Patient and significant other Case discussed with consulting clinician: N/A This note was generated with katenaation software. It may contain incorrect words, spelling, and punctuation that were not noted in checking the note before signing. Discharge Plan Triage Chief Complaint: Chest Other ED Provider: Benji Simpson Dx/Rx/DC Orders Clinical Impression: Chest pain, musculoskeletal, Chronic a-fib Instructions: ED Strain Chest Wall Prescriptions: No Action levothyroxine 25 mcg tablet 25 mcg PO DAILY Patient Comments: TAKE 1 TABLET BY MOUTH ONCE DAILY spironolactone 25 mg tablet 25 mg PO DAILY pravastatin 40 MG tablet 40 mg PO QHS valsartan 160 MG tablet 160 mg PO QHS Patient Comments: heart tamsulosin 0.4 MG capsule 0.4 mg PO DAILY metoprolol succinate 25 MG tablet extended release 24 hr 25 mg PO DAILY finasteride 5 MG tablet 5 mg PO DAILY pantoprazole 40 MG tablet 40 mg PO DAILY Qty: 30 0RF sennosides-docusate sodium [Stool Softener-Laxative] 8.6-50 mg Tablet 2 tab-cap PO DAILY PRN (Reason: constipation) aspirin 81 mg tablet,chewable 81 mg PO DAILY Qty: 90 3RF Primary Care Provider: Garrett Hernandez Chi Referrals: Garrett Hernandez Chi, MD [Primary Care Provider] - 3-5 Days if not improving Activity Restrictions/Additional Instructions: Chest x-ray negative. Continue Tylenol every 6 hours as needed. Follow-up your doctor. If you develop recurrent symptoms worsen unable to breathe, return to ED for reevaluation. Print Language: Polish Disposition Disposition: Home, Self Care Discharge Date/Time: 08/14/24 06:05
--- NOTE | 2024-08-14 05:30 | RAD_ITS ---
EXAM: XR CHEST, 2 VIEWS CLINICAL INDICATION: dyspnea TECHNIQUE: Frontal and lateral views of the chest. COMPARISON: 07/26/2023. FINDINGS: LUNGS AND PLEURAL SPACES: Unremarkable. No consolidation or edema. No pneumothorax. No effusion. HEART: Unremarkable. Cardiac silhouette not enlarged. MEDIASTINUM: Central airways and mediastinal contour are unremarkable. BONES/JOINTS: Unremarkable. No acute fracture. SOFT TISSUES: Unremarkable. RAD/Chest PA and Lateral IMPRESSION: No radiographic evidence of acute cardiopulmonary disease and unchanged. Electronically Signed: Jeffrey Marquez MD at 10:46 EST ,
[2024-08-14 05:53] VITALS: BP 138/66; PULSE 64; RESP 18; TEMP 36.8; O2SAT 97
== END 2024-08-14 06:05 | disposition home or self-care (01) ==
LOC: ED 05:59
PROVIDERS: Emergency Provider Emergency Medicine; PCP Family Medicine Geriatric Medicine; Visit Provider Emergency Medicine
DX: R07.89 Other chest pain (principal); I48.20 Chronic atrial fibrillation, unspecified; I10 Essential (primary) hypertension; K21.9 Gastro-esophageal reflux disease without esophagitis; E78.00 Pure hypercholesterolemia, unspecified; N40.0 Benign prostatic hyperplasia without lower urinary tract symptoms; E07.9 Disorder of thyroid, unspecified; Z79.82 Long term (current) use of aspirin; Z85.828 Personal history of other malignant neoplasm of skin; Z79.890 Hormone replacement therapy; Z79.899 Other long term (current) drug therapy; Z87.891 Personal history of nicotine dependence
CPT/HCPCS: 71046; 99282

== ENCOUNTER → 2024-08-26 | Outpatient (CLI) | payer MEDICARE, BC, SELFPAY ==
[2017-09-24 10:04] VITALS: BMI 31.2
--- NOTE | 2024-08-26 11:24 | VDUE_ITS ---
Reason For Study: Lymphedema Right Proximal Left Proximal Right jugular vein is spontaneous, widely Left subclavian vein is spontaneous, widely patent, phasic, with no intraluminal patent, phasic, with no intraluminal echogenicity noted. echogenicity noted. Right subclavian vein is spontaneous, widely patent, phasic, with no intraluminal echogenicity noted. Right Lower Arm Right radial vein is compressible. Right ulnar vein is compressible. Right Arm Right axillary vein is spontaneous, patent, phasic, competent, compressible and demonstrates augmentation. Right brachial vein is compressible. Right cephalic vein is compressible. Right basilic vein is compressible. Procedure This was a unilateral right upper extremity venous doppler examination. Exam performed in department. A preliminary report was called and/or faxed to Dr. Garrett Hernandez MD. VL/Venous Duplex US, Unilateral Interpretation Summary Deep veins of the right upper extremity are patent and compressible segmentally . There is no evidence of deep vein thrombosis. Superficial veins of the right upper extremity are patent and compressible segm entally. There is no evidence of superficial vein thrombosis. Ordering Physician: Garrett Hernandez Chi Referring Physician: Garrett Hernandez Chi Performed By: Suellen Robertson RVT and Student ???
[2024-08-26 11:31] LABS: Absolute Lymphocyte Count 1.61 X10^3/uL (0.83-4.51); Absolute Neutrophil Count 12.9 X10^3/uL (2.0-7.7); Basophil# 0.05 X10^3/uL; Basophil% 0.3 % (0-1); Eosinophil# 0.15 X10^3/uL; Eosinophils% 0.9 % (0-5); Hematocrit 40.8 % (40-54); Hemoglobin 13.3 g/dL (13.0-16.5); Lymphocyte # 1.61 X10^3/ul (0.83-4.51); Lymphocyte % 9.8 % (19-41); Mean Corp Hgb Conc 32.6 g/dL (32-36); Mean Corpuscular Hgb 30.4 pg (27.0-32.0); Mean Corpuscular Volume 93.4 fL (80-94); Mean Platelet Vol. 9.7 fl (6.2-12.0); Monocyte% 6.1 % (0-10); NRBC Flagged by Analyzer 0 % (0-5); Neutrophil # 12.93 X10^3/uL (2.7-7.7); Neutrophil % 78.2 % (47-70); Platelet Count 167 K/mm3 (150-450); RBC Distribution Width SD 47.8 fl (35.1-43.9); Red Blood Count 4.37 M/mm3 (4.6-6.2); White Blood Count 16.5 K/mm3 (4.4-11.0)
[2024-08-26 12:12] LABS: Anion Gap 7 (5-15); BUN 28 mg/dL (7-18); BUN/Creat Ratio 19.2 RATIO (10-20); Calcium,Total 9.6 mg/dL (8.5-10.1); Chloride 110 mmol/L (98-107); Creatinine, Serum 1.46 mg/dL (0.70-1.30); EST Glomerular Filtration Rate 49 mL/min (>60); Est Glom Filt Rate - Afr Amer 60 mL/min (>60); Glucose 117 mg/dL (74-106); Potassium 4.9 mmol/L (3.5-5.1); Sodium Level 140 mmol/L (136-145)
[2024-08-26 13:14] LABS: M R Staph aureus DNA By PCR Negative (Negative); Probe Check PASS; Specimen Processing Control PASS; Staph aureus DNA By PCR NEGATIVE (Negative)
== END | disposition home or self-care (01) ==
PROVIDERS: PCP Family Medicine Geriatric Medicine; Visit Provider Family Medicine Geriatric Medicine
DX: L03.113 Cellulitis of right upper limb (principal); S61.501A Unspecified open wound of right wrist, initial encounter; I89.0 Lymphedema, not elsewhere classified; R22.31 Localized swelling, mass and lump, right upper limb
CPT/HCPCS: 36415; 80048; 85025; 87070; 87075; 87077; 87186; 87205; 87640; 93971

== ENCOUNTER → 2024-09-07 | Outpatient (CLI) | payer MEDICARE, BC, SELFPAY ==
[2017-09-24 10:04] VITALS: BMI 31.2
--- NOTE | 2024-09-07 14:59 | RAD_ITS ---
EXAM: XR Chest, 2 Views CLINICAL INDICATION: TECHNIQUE: Frontal and lateral views of the chest. COMPARISON: No relevant prior studies available. FINDINGS: LUNGS AND PLEURAL SPACES: Unremarkable. No consolidation. No pneumothorax. HEART: Unremarkable. No cardiomegaly. MEDIASTINUM: Unremarkable. Normal mediastinal contour. BONES/JOINTS: Unremarkable. No acute fracture. RAD/Chest PA and Lateral IMPRESSION: No acute cardiopulmonary process. Reading [facility]
[2024-09-07 15:24] LABS: Absolute Neutrophil Count 9.6 X10^3/uL (2.0-7.7); Basophil# 0.11 X10^3/uL; Basophil% 0.9 % (0-1); Eosinophil# 0.13 X10^3/uL; Eosinophils% 1.1 % (0-5); Hematocrit 43.8 % (40-54); Hemoglobin 14.1 g/dL (13.0-16.5); Lymphocyte % 10.6 % (19-41); Mean Corp Hgb Conc 32.2 g/dL (32-36); Mean Corpuscular Hgb 30.6 pg (27.0-32.0); Mean Platelet Vol. 10.4 fl (6.2-12.0); Monocyte% 6.5 % (0-10); NRBC Flagged by Analyzer 0 % (0-5); Neutrophil # 9.56 X10^3/uL (2.7-7.7); Neutrophil % 78.2 % (47-70); Platelet Count 124 K/mm3 (150-450); RBC Distribution Width CV 14.3 % (11.6-14.6); RBC Distribution Width SD 50.2 fl (35.1-43.9); Red Blood Count 4.61 M/mm3 (4.6-6.2); White Blood Count 12.2 K/mm3 (4.4-11.0)
[2024-09-07 16:04] LABS: ALB/GLOB Ratio 0.9 RATIO (0.9-2.4); AST(SGOT) 18 U/L (15-37); Alanine Aminotransfer ALT/SGPT 25 U/L (16-61); Albumin, Serum 3.4 g/dL (3.2-5.0); Alkaline Phosphatase 69 U/L (45-117); Anion Gap 8 (5-15); BUN 42 mg/dL (7-18); Calcium,Total 9.6 mg/dL (8.5-10.1); Chloride 106 mmol/L (98-107); EST Glomerular Filtration Rate 34 mL/min (>60); Est Glom Filt Rate - Afr Amer 42 mL/min (>60); Globulin 3.8 g/dL (2.2-4.2); Glucose 161 mg/dL (74-106); Potassium 4.9 mmol/L (3.5-5.1); Protein, Total 7.2 g/dL (6.4-8.2); Sodium Level 137 mmol/L (136-145)
[2024-09-07 17:40] LABS: D-Dimer Quantitative (DVT/PE) > 20.00 FEU/ug/m (0.27-0.49)
== END | disposition home or self-care (01) ==
PROVIDERS: PCP Family Medicine Geriatric Medicine; Referring Provider Family Medicine Geriatric Medicine; Visit Provider Family Medicine Geriatric Medicine
DX: J96.01 Acute respiratory failure with hypoxia (principal); I10 Essential (primary) hypertension
CPT/HCPCS: 36415; 71046; 80053; 84443; 85025; 85379

== ENCOUNTER 2024-09-08 11:41 | Outpatient (CLI) | payer MEDICARE, BC, SELFPAY ==
[2017-09-24 10:04] VITALS: BMI 31.2
--- NOTE | 2024-09-08 11:47 | VDLE_ITS ---
Reason For Study: Edema RIGHT LEFT GSV is normal. GSV is normal. CFV is compressible, spontaneous, phasic, Acute deep vein thrombosis is noted in the competent and demonstrates normal CFV, FV, PopV, T/P Trunk, PTV, and PeroV. It augmentation. is dilated and NONCOMPRESSIBLE. FV is compressible, spontaneous, phasic, competent and demonstrates normal augmentation. POP V is compressible, spontaneous, phasic, competent and demonstrates normal augmentation. T/P Trunk is compressible. PTV is compressible. RT PerV is compressible. Nonvascularized structure noted in the right popliteal space that measures 1.96 x 2.99 x 1.81 cm. Procedure This is a venous duplex using B-mode, color flow and spectral Doppler. Exam performed in department. A preliminary report was called and/or faxed to [facility]. VL/Venous Duplex US - [place] Extrem Interpretation Summary Acute deep vein thrombosis noted in the left common femoral vein, femoral vein, popliteal vein, tibioperoneal trunk vein, posterior tibial vein, peroneal vein. Deep veins of the right lower extremity are patent and compressible segmentally . There is no evidence of right lower extremity deep vein thrombosis. The bilateral great sap henous veins appear patent and compressible segmentally. Nonvascularized structure noted in the right popliteal space that measures 1.96 x 2.99 x 1.81 cm. Ordering Physician: Garrett Hernandez Chi Referring Physician: Garrett Hernandez Chi Performed By: Suellen Robertson RVT
[2024-09-08 13:45] VITALS: BP 112/70; PULSE 85; RESP 16; TEMP 35.9; O2SAT 100; BMI 29.9
[2024-09-08] MEDS: 0.9% NaCl Peripheral Flush Adult/Peds IV (13:53)
[2024-09-08] MEDS: 0.9% Normal Saline (1000mL) 1,000 ML 999 ML IV (13:54)
[2024-09-08 15:06] VITALS: BP 110/58; PULSE 52; RESP 16; TEMP 35.8; O2SAT 100
== END 2024-09-08 23:59 | disposition home or self-care (01) ==
PROVIDERS: PCP Family Medicine Geriatric Medicine; Referring Provider Family Medicine Geriatric Medicine; Visit Provider Family Medicine Geriatric Medicine
DX: E86.0 Dehydration (principal); R60.0 Localized edema
CPT/HCPCS: 96360; 93970; A4216

== ENCOUNTER → 2024-09-12 | Outpatient (CLI) | payer MEDICARE, BC, SELFPAY ==
[2017-09-24 10:04] VITALS: BMI 31.2
--- NOTE | 2024-09-12 10:35 | NM_ITS ---
PROCEDURE: LUNG SCAN VENT/PERF TECHNIQUE: Nuclear medicine V/Q scan using 5 point 5 mCi Tc-99m MAA intravenously for perfusion imaging and 51.8 mCi Tc-99m DTPA aerosol for ventilation imaging. Anterior, posterior, right and left lateral, MORRISON, BENGALI, RPO, and LPO ventilation and perfusion images. COMPARISON: Comparison is made with prior chest radiograph dated September 07, 1999 25. FINDINGS: Ventilation images: Mild degree of ventilatory defects are seen in the central left lung suggestive of possible airway disease. Perfusion images: No suspicious perfusion defects. NM/Lung Scan Vent/Perf IMPRESSION: LOW PROBABILITY OF ACUTE PULMONARY EMBOLISM. Reading Location: [facility]
== END | disposition home or self-care (01) ==
PROVIDERS: PCP Family Medicine Geriatric Medicine; Referring Provider Family Medicine Geriatric Medicine; Visit Provider Family Medicine Geriatric Medicine
DX: J96.01 Acute respiratory failure with hypoxia (principal); I26.99 Other pulmonary embolism without acute cor pulmonale
CPT/HCPCS: 78582; A9540; A9567

== ENCOUNTER → 2024-09-15 | Outpatient (CLI) | payer MEDICARE, BC, SELFPAY ==
[2017-09-24 10:04] VITALS: BMI 31.2
[2024-09-15 11:26] LABS: Anion Gap 6 (5-15); BUN 24 mg/dL (7-18); BUN/Creat Ratio 15.1 RATIO (10-20); Calcium,Total 9.2 mg/dL (8.5-10.1); Chloride 112 mmol/L (98-107); Creatinine, Serum 1.59 mg/dL (0.70-1.30); EST Glomerular Filtration Rate 45 mL/min (>60); Est Glom Filt Rate - Afr Amer 54 mL/min (>60); Glucose 179 mg/dL (74-106); Potassium 4.2 mmol/L (3.5-5.1); Sodium Level 140 mmol/L (136-145)
== END | disposition home or self-care (01) ==
LOC: LAB 10:38
PROVIDERS: PCP Family Medicine Geriatric Medicine; Referring Provider Family Medicine Geriatric Medicine; Visit Provider Family Medicine Geriatric Medicine
DX: N17.9 Acute kidney failure, unspecified (principal)
CPT/HCPCS: 36415; 80048

== ENCOUNTER 2024-09-22 08:47 | Outpatient (RCR) | payer MEDICARE, BC, SELFPAY ==
[2017-09-24 10:04] VITALS: BMI 31.2
--- NOTE | 2024-09-22 10:00 | HP.OTEVAL_ITS ---
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 Date of Evaluation: 09/22/24 Occupational Therapist: Mia Beth Subjective Subjective: This 79 year old male arrives with dx of UE lymphedema RUE. 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 per pt cancer came back in tonsil in 2018 which was then removed. per pt he has been fine since removal of reappearance of kae cell ca. pt has now been cancer free since 2018 pt was able to manage lymphedema in this time frame. pt see OT here at [facility] for lymphedema management at that time. pt states approx a month ago swelling began to get worse. pt states he was wearing a compression garment to arm at nighttime however recently was not doing that as much and swelling began. pt develops leaking fluid now for past 3 weeks on hand. pt is not currently on water pill-- tired this with dr mcculloguh however became dehydrated and was then taken off. not currently seeing wound care at this time. pt does haver a pump that he used initially after surgery to manage however states he has not used it in approx 8 years. Objective Objective/Observation: pt arrives with RUE swelling red and dry skin no leaking at this time. Lymphedema (Circumferential Measure) MCP: R 23.5 cm L 22 cm Wrist: R 21 cm L 18 cm Lower forearm: R 28.5 cm L 19.5 cm Largest forearm: R 37 cm L 26.5 cm Elbow: R 36 cm L 30 cm Largest humerus: R 42 cm L 31 cm Axcillary: R 56 cm L 56 cm Upper Exremity Comments: dry skin R UE -- ed on lotion at this time keep skin moisturized Sensation Sensation Comments: denies numbness or tingling Goals Goal: Patient will demonstrate a 20% reduction in edema by discharge: Yes Goal: Patient will demonstrate adequate knowledge of self-massage by the end of the second week.: Yes Goal: Patient will demonstrate adequate knowledge of skin care and precautions by the end of the first week.: Yes Goal: Patient will demonstrate adequate knowledge of therapeutic exercises by discharge.: Yes Goal: Patient will select an appropriate compression garment and demonstrate adequate knowledge of correct donning technique, care and wearing schedule by discharge.: Yes Goal: Patient will voice understanding of need to replace compression garment every four to six months by discharge.: Yes Rehabilitation General Assessment: This 79 year old male arrives with dx of RUE lymphedema and personal hx of kae cell carcinoma. pt dx and treated [id number]. pt now presents with recent increase in swelling of RUE over past month as well as period of leaky fluid which has now since subsided. Pt with dry skin the flakes with removal of compression garment. Pt would benefit from OT services 2-3 session within 3 month period in order to provide ed on lymph massage, UE exercise, skin care, compression garment, pump use and light activity in order to manage swelling and improve functional use of RUE. Rehabilitation Potential: Good Anticipated Interventions Anticipated Interventions: A/AAROM/PROM, Education re Diagnosis, Manual Lymph Drainage, Education re Life-long lymphedema Management, Education re Skin Care and Precautions, Education re Self Massage Techniques, Education re Correct Donning Tech,Care&Wearing Sched Comp Garments and Home Program Visit Plan Frequency: 2-3 sessions Duration: 3 Months General Plan: UE exercise lymph massage compression garments pump (current plan to wear compression stocking to arm and hand on during day off at night) pt looking for pump he had used in 2017 and plan is to return to using pump starting with once a day while assuring increase in urine output after use. pt plans to re incorporate UE exercise x2 a day and lymph massage if unable to locate pump. TEXT: Thank you for the opportunity to evaluate your patient. For Medicare and Medicare HMO plans, please review the plan of care and approve it. It will need to be FAXED BACK to us at [phone] for Medicare purposes. Please let me know if there are questions or concerns regarding this plan of care. Physician Signature: _Date:
--- NOTE | 2025-01-31 07:32 | HP.OT.NRP ---
Patient Information Patient Information: ASA GOINS was seen in my office for initial evaluation on 09/22/24. The following Plan of Care was established for this patient: POC Established Initial Frequency: 2-3 sessions Initial Duration: 3 Months Anticipated Interventions Anticipated Interventions: A/AAROM/PROM, Education re Diagnosis, Manual Lymph Drainage, Education re Life-long lymphedema Management, Education re Skin Care and Precautions, Education re Self Massage Techniques, Education re Correct Donning Tech,Care&Wearing Sched Comp Garments and Home Program Last Seen Last Seen: This patient was last seen in our office 09/22/24. Pertinent comments regarding their Occupational therapy will appear below: pt was seen for eval only. Due to time lapse in services pt is d/c. At this point I will be discontinuing this patient from occupational therapy. I would be happy to see this patient again in the future if found appropriate by the physician. Thank you! Azul Delgadillo, OTR/L, CHT
== END 2024-09-22 19:00 | disposition home or self-care (01) ==
LOC: OT 08:47
PROVIDERS: PCP Family Medicine Geriatric Medicine; Referring Provider Nurse Practitioner Family; Visit Provider Nurse Practitioner Family
DX: I89.0 Lymphedema, not elsewhere classified (principal); Z85.821 Personal history of Merkel cell carcinoma
CPT/HCPCS: 97166; 97530

== ENCOUNTER → 2024-11-18 | Outpatient (CLI) | payer MEDICARE, BC, SELFPAY ==
[2017-09-24 10:04] VITALS: BMI 31.2
[2024-11-18 10:41] LABS: Absolute Lymphocyte Count 1.21 X10^3/uL (0.83-4.51); Absolute Neutrophil Count 7.8 X10^3/uL (2.0-7.7); Basophil# 0.05 X10^3/uL; Basophil% 0.5 % (0-1); Eosinophil# 0.08 X10^3/uL; Eosinophils% 0.8 % (0-5); Hematocrit 37.6 % (40-54); Hemoglobin 12.1 g/dL (13.0-16.5); Lymphocyte # 1.21 X10^3/ul (0.83-4.51); Lymphocyte % 11.9 % (19-41); Mean Corp Hgb Conc 32.2 g/dL (32-36); Mean Corpuscular Volume 93.3 fL (80-94); Mean Platelet Vol. 8.9 fl (6.2-12.0); Monocyte# 0.82 X10^3/uL; Monocyte% 8.1 % (0-10); NRBC Flagged by Analyzer 0 % (0-5); Neutrophil # 7.77 X10^3/uL (2.7-7.7); Neutrophil % 76.5 % (47-70); Platelet Count 176 K/mm3 (150-450); RBC Distribution Width CV 14.7 % (11.6-14.6); RBC Distribution Width SD 50.5 fl (35.1-43.9); Red Blood Count 4.03 M/mm3 (4.6-6.2); White Blood Count 10.2 K/mm3 (4.4-11.0)
[2024-11-18 11:50] LABS: ALB/GLOB Ratio 1.3 RATIO (0.9-2.4); AST(SGOT) 25 U/L (<=37); Alanine Aminotransfer ALT/SGPT 10 U/L (<=46); Albumin, Serum 3.6 g/dL (3.4-4.8); Alkaline Phosphatase 54 U/L (40-129); Anion Gap 11 (5-15); BUN 23 mg/dL (4-19); Calcium,Total 9.2 mg/dL (7.6-11.0); Carbon Dioxide 22.2 mmol/L (21.0-32.0); Chloride 104 mmol/L (98-108); Creatinine, Serum 1.53 mg/dL (0.70-1.20); EST Glomerular Filtration Rate 46 (>60); Globulin 2.9 g/dL (2.2-4.2); Glucose 130 mg/dL (70-99); Potassium 3.9 mmol/L (3.3-5.1); Protein, Total 6.4 g/dL (5.9-8.4); Sodium Level 137 mmol/L (133-145); Total Bilirubin 1.43 mg/dL (0.00-1.30); Vitamin D,25 Hydroxy 8.5 ng/mL (30-100)
== END | disposition home or self-care (01) ==
LOC: LAB 10:11
PROVIDERS: PCP Family Medicine Geriatric Medicine; Referring Provider Family Medicine Geriatric Medicine; Visit Provider Family Medicine Geriatric Medicine
DX: I10 Essential (primary) hypertension (principal); E55.9 Vitamin D deficiency, unspecified
CPT/HCPCS: 36415; 80053; 82306; 84443; 85025

== ENCOUNTER 2025-01-19 13:37 | Emergency (ER) | payer MEDICARE, BC, SELFPAY ==
[2017-09-24 10:04] VITALS: BMI 31.2
[2025-01-19 13:38] VITALS: BP 158/101; PULSE 40; RESP 16; TEMP 36.7; O2SAT 98
--- NOTE | 2025-01-19 13:51 | ED.VIS.FALL ---
HPI HPI - Fall History of Present Illness Chief Complaint: Fall Informant: patient Occured/Mechanism Occurred: Today Narrative: Patient missed a step and fell off of 1 step Fall down steps #: 1 Pain/Injury Pain Location: upper extremity (Left elbow and hand) Worsened by: Nothing Relieved by: Nothing Associated Symptoms Associated Symptoms: Negative for Parasthesias, Weakness, Loss of function, Inability to ambulate, Loss of consciousness or Amnesia Narrative Narrative: Patient presents with a left elbow laceration that occurred today. Patient states he was on a wide step and missed the step. Patient states he fell off of it and landed on his hands and left elbow. Patient denies any loss of consciousness. Patient thinks his head hit his hands. Patient denies any paresthesias or weakness. Patient is unsure of his last tetanus. Patient denies any other injuries. Tetanus Immunization: Unknown [facility] Medical History [place] cell carcinoma of right upper extremity Mobitz type 1 second degree atrioventricular block Premature ventricular contraction Premature atrial contraction Lung nodule Essential hypertension New onset atrial fibrillation Wears glasses Cancer Alcohol use History of steroid therapy Thyroid disease History of renal disease Easy bruising Back pain History of hiatal hernia History of constipation Former smoker Leg cramps History of pain when walking History of echocardiogram History of stress test Hx of malignant carcinoid tumor Hx of fracture of clavicle Hx of skin cancer, basal cell Segmental and somatic dysfunction of pelvic region Lymphoma Basal cell carcinoma GERD (gastroesophageal reflux disease) Elevated cholesterol Enlarged prostate Home Medications ?Medication ?Instructions ?Recorded ?Last Taken ?Type pravastatin 40 mg tablet 40 mg PO QHS Cholesterol 12/08/16 01/18/25 History valsartan 160 mg tablet 160 mg PO QHS BP 12/08/16 01/18/25 History tamsulosin 0.4 mg capsule 0.4 mg PO DAILY Prostate 12/10/16 01/18/25 History finasteride 5 mg tablet 5 mg PO DAILY prostate 11/01/18 01/18/25 History pantoprazole 40 mg tablet,delayed 40 mg PO DAILY GERD #30 tabs 11/02/18 01/19/25 Rx release levothyroxine 25 mcg tablet 25 mcg PO DAILY hypothyroidism 08/30/21 01/19/25 History sennosides 8.6 mg-docusate sodium 2 tab-cap PO DAILY PRN constipation 09/24/21 01/19/25 History 50 mg tablet (Stool Softener-Laxative) rivaroxaban 10 mg tablet (Xarelto) 10 mg PO QDAY 12/12/24 01/19/25 History cephalexin 500 mg capsule 500 mg PO Q6 #40 CAPSULES 01/19/25 Unknown Rx cholecalciferol (vitamin D3) 25 25 mcg PO DAILY 01/19/25 01/19/25 History mcg (1,000 unit) tablet metoprolol tartrate 25 mg tablet 12.5 mg PO DAILY 01/19/25 01/19/25 History Allergy/AdvReac Type Severity Reaction Status Date / Time oxycodone (From OxyContin) AdvReac Severe lethargic-s Verified 01/19/25 13:40 leepy rivaroxaban (From Xarelto) AdvReac Severe excessive Verified 01/19/25 13:40 bleeding Family History Grandmother Uterine cancer Father Cancer Grandfather Heart disease Uncle Cancer Aunt Heart valve disease Surgical History History of cataract extraction History of back surgery History of ERCP Hx of tonsillectomy Hx of cholecystectomy Knee joint replacement status Social History Smoking Status: Former smoker quit date: 08/03/65 alcohol intake: current alcohol intake frequency: holidays/special occasions only substance use type: does not use caffeine: Yes Type: carbonated beverages ROS ROS ED Constitutional Constitutional ED: Denies chills or fever(s) Eyes Eyes: Denies blurry vision or change in vision ENT ENT ED: Denies rhinorrhea or sore throat Cardiovascular Cardiovascular: Denies chest pain or palpitations Respiratory/Chest Respiratory/Chest: Denies cough or dyspnea Gastrointestinal Gastrointestinal: Denies nausea or vomiting Genitourinary Genitourinary ED: Denies dysuria or hematuria Musculoskeletal Musculoskeletal: Denies back pain or neck pain Integumentary Denies abscess or rash Neurologic Neurologic: Denies headache(s) or weakness Hematologic/Lymphatic Hematologic/Lymphatic: Reports easy bleeding and easy bruising Allergic/Immunologic Allergic/Immunologic ED: Denies mouth swelling or urticaria EXAM Physical Exam Const Vital Signs: 01/19/25 13:38 01/19/25 13:47 Temperature 98.1 F Temperature Source Oral Pulse Rate 40 L Respiratory Rate 16 Respiratory Effort Normal Non-Labored Blood Pressure 158/101 H Blood Pressure Mean 120 Pulse Ox 98 Oxygen Delivery Method Room Air Room Air Positive well nourished and well developed General Appearance ED: well developed and NAD HEENT Reports normocephalic atraumatic Neck full ROM and supple Extremity Extremity Narrative: There is mild tenderness over the posterior aspect of the left elbow. There is a 3.5 cm full-thickness laceration over the posterior aspect of the left proximal ulna. There is mild gapping of the wound margins. There is no foreign body noted. There is mild bleeding. There are skin tears over the left hand. There is no active bleeding. There is no bony crepitance or step-off. There is full range of motion of the left wrist, left elbow, and left shoulder. Strength is 5/5 in the radial, median, ulnar nerves. There are no sensory deficits noted. Neuro oriented x3, CN's II-XII intact bilaterally, moves all extremities, no focal motor deficits and no sensory deficits noted [place] Coma Scale: document GCS findings Spontaneous Obeys Commands Oriented 15 Sensorium / Orientation: alert Motor Exam: strength 5/5 throughout Psych mental status grossly normal and thought process normal MDM MDM MDM Narrative Medical decision making narrative: Patient was given a tetanus booster. Patient has no obvious deformity and has good range of motion. I do not feel x-rays are necessary at this time. Patient is awake, alert, and oriented x 3. Patient has no focal neurodeficits. Patient did not hit his head directly on the ground. I do not feel CT scan of the brain is necessary at this time. The left elbow was cleaned and irrigated with copious amounts of normal saline. The laceration was anesthetized with 1% lidocaine locally. The wound was closed with 6 simple interrupted #4-0 nylon sutures under sterile technique. Patient tolerated the procedure well. Bacitracin dressing was applied. Bacitracin dressings were applied to the other skin tears as well. Patient was given a dose of Keflex here. Patient is given a prescription for Keflex. Patient was instructed to keep his elbow clean and dry. Patient was instructed to take Tylenol as needed for pain. Patient was instructed to return if worse in any way. Patient understood and was agreeable with the plan. All questions were answered Discharge Plan Triage Chief Complaint: Fall ED Provider: Jimmy Cramer Dx/Rx/DC Orders Clinical Impression: Laceration of left elbow, Fall Instructions: ED Laceration, All Closures Prescriptions: New cephalexin 500 mg capsule 500 mg PO Q6 Qty: 40 0RF No Action levothyroxine 25 mcg tablet 25 mcg PO DAILY Patient Comments: TAKE 1 TABLET BY MOUTH ONCE DAILY Xarelto 10 mg tablet 10 mg PO QDAY Rx Instructions: for 35 days pravastatin 40 MG tablet 40 mg PO QHS valsartan 160 MG tablet 160 mg PO QHS Patient Comments: heart tamsulosin 0.4 MG capsule 0.4 mg PO DAILY finasteride 5 MG tablet 5 mg PO DAILY pantoprazole 40 MG tablet 40 mg PO DAILY Qty: 30 0RF sennosides-docusate sodium [Stool Softener-Laxative] 8.6-50 mg Tablet 2 tab-cap PO DAILY PRN (Reason: constipation) metoprolol tartrate 25 mg tablet 12.5 mg PO DAILY cholecalciferol (vitamin D3) 25 mcg (1,000 unit) tablet 25 mcg PO DAILY Primary Care Provider: Garrett Hernandez Chi Referrals: Garrett Hernandez Chi, MD [Primary Care Provider] - 7 Days for suture removal Print Language: Kittitian Disposition Disposition: Home, Self Care
[2025-01-19] MEDS: Diphth,Pertuss(Acell),Tet Vac 0.5 ML Vial IM (14:33)
[2025-01-19] MEDS: Lidocaine 1% /Epi 1:100 (20ml) 20 ML Vial INFILT (14:34)
[2025-01-19] MEDS: Cephalexin 500 MG Capsule PO (15:00)
[2025-01-19 15:04] VITALS: BP 150/90; PULSE 49; RESP 15; TEMP 36.7; O2SAT 98
== END 2025-01-19 15:05 | disposition home or self-care (01) ==
PROVIDERS: Emergency Provider Emergency Medicine; PCP Family Medicine Geriatric Medicine; Referring Provider Emergency Medicine; Visit Provider Emergency Medicine
DX: S51.012A Laceration without foreign body of left elbow, initial encounter (principal); S61.412A Laceration without foreign body of left hand, initial encounter; W10.9XXA Fall (on) (from) unspecified stairs and steps, initial encounter; I10 Essential (primary) hypertension; E03.9 Hypothyroidism, unspecified; E78.00 Pure hypercholesterolemia, unspecified; K21.9 Gastro-esophageal reflux disease without esophagitis; N40.0 Benign prostatic hyperplasia without lower urinary tract symptoms; Z23 Encounter for immunization; Z79.899 Other long term (current) drug therapy; Z79.890 Hormone replacement therapy; Z87.891 Personal history of nicotine dependence
CPT/HCPCS: 12002; 90471; 90715; 99283

== ENCOUNTER → 2025-01-30 | Outpatient (CLI) | payer MEDICARE, BC, SELFPAY ==
[2017-09-24 10:04] VITALS: BMI 31.2
--- NOTE | 2025-01-30 10:17 | VDUE_ITS ---
Reason For Study Reason For Study: LUE Swelling Left Proximal Left jugular vein is spontaneous, widely patent, phasic, with no intraluminal echogenicity noted. Left subclavian vein is spontaneous, widely patent, phasic, with no intraluminal echogenicity noted. Left Arm Left axillary vein is spontaneous, patent, phasic, competent, compressible and demonstrates augmentation. Left brachial vein is compressible. Left cephalic vein is compressible. Left basilic vein is compressible. Left Lower Arm Left radial vein is compressible. Left ulnar vein is compressible. Patient Safety Preliminary results faxed to Dr. Palmer office. Procedure This was a unilateral left upper extremity venous doppler examination. VL/Venous Duplex US, Unilateral Interpretation Summary Deep veins of the left upper extremity are patent and compressible segmentally. There is no evidence of deep vein thrombosis. Superficial veins of the left upper extremity are patent and compressible segme ntally. There is no evidence of superficial vein thrombosis. Ordering Physician: Garrett Hernandez Chi Referring Physician: Garrett Hernandez Chi Performed By: Wilber Lozano RVT ???
== END | disposition home or self-care (01) ==
LOC: CVS 10:16
PROVIDERS: PCP Family Medicine Geriatric Medicine; Referring Provider Family Medicine Geriatric Medicine; Visit Provider Family Medicine Geriatric Medicine
DX: M79.89 Other specified soft tissue disorders (principal)
CPT/HCPCS: 93971

== ENCOUNTER → 2025-02-21 | Outpatient (CLI) | payer MEDICARE, BC, SELFPAY ==
[2017-09-24 10:04] VITALS: BMI 31.2
[2025-02-21 13:34] LABS: PTHIN 63 pg/mL (11-61)
[2025-02-21 13:36] LABS: Albumin, Serum 3.5 g/dL (3.4-4.8); Anion Gap 9 (5-15); BUN 16 mg/dL (4-19); BUN/Creat Ratio 12.1 RATIO (10-20); Calcium,Total 9.3 mg/dL (7.6-11.0); Carbon Dioxide 23.7 mmol/L (21.0-32.0); Chloride 107 mmol/L (98-108); Glucose 108 mg/dL (70-99); Potassium 4.5 mmol/L (3.3-5.1)
== END | disposition home or self-care (01) ==
LOC: LAB 12:50
PROVIDERS: PCP Family Medicine Geriatric Medicine; Referring Provider Internal Medicine Nephrology; Visit Provider Internal Medicine Nephrology
DX: N18.31 Chronic kidney disease, stage 3a (principal)
CPT/HCPCS: 36415; 80069; 83970

== ENCOUNTER → 2025-05-24 | Outpatient (CLI) | payer MEDICARE, BC, SELFPAY ==
[2017-09-24 10:04] VITALS: BMI 31.2
[2025-05-24 10:40] LABS: Hematocrit 42.9 % (40-54); Hemoglobin 13.9 g/dL (13.0-16.5); Immature Granulocytes Count 0.090 X10^3/uL (0.0-0.0); Mean Corp Hgb Conc 32.4 g/dL (32-36); Mean Corpuscular Volume 89.9 fL (80-94); Mean Platelet Vol. 9.5 fl (6.2-12.0); NRBC Flagged by Analyzer 0 % (0-5); Platelet Count 195 K/mm3 (150-450); RBC Distribution Width CV 15.3 % (11.6-14.6); RBC Distribution Width SD 50.5 fl (35.1-43.9); Red Blood Count 4.77 M/mm3 (4.6-6.2); White Blood Count 9.3 K/mm3 (4.4-11.0)
[2025-05-24 11:40] LABS: PSA,Total- Diagnostic 1.72 ng/mL (0.00-4.00)
[2025-05-24 11:48] LABS: AST(SGOT) 22 U/L (<=37); Alanine Aminotransfer ALT/SGPT 13 U/L (<=46); Albumin, Serum 3.5 g/dL (3.4-4.8); Alkaline Phosphatase 58 U/L (40-129); Anion Gap 10 (5-15); BUN 23 mg/dL (4-19); BUN/Creat Ratio 16.6 RATIO (10-20); Calcium,Total 9.3 mg/dL (7.6-11.0); Carbon Dioxide 23.8 mmol/L (21.0-32.0); Chloride 104 mmol/L (98-108); Globulin 3.0 g/dL (2.2-4.2); Glucose 145 mg/dL (70-99); Potassium 4.1 mmol/L (3.3-5.1); Vitamin D,25 Hydroxy 30.1 ng/mL (30-100)
== END | disposition home or self-care (01) ==
LOC: POLAB3 09:52
PROVIDERS: Urology; PCP Family Medicine Geriatric Medicine; Visit Provider Family Medicine Geriatric Medicine
DX: I10 Essential (primary) hypertension (principal); E55.9 Vitamin D deficiency, unspecified; R97.20 Elevated prostate specific antigen [PSA]
CPT/HCPCS: 36415; 80053; 82306; 84153; 84443; 85025